=== PATIENT | female | born 1935 | race Caucasian/White ===

== ENCOUNTER → 2018-12-20 | Outpatient (CLI) | payer MEDICARE, BC ==
--- NOTE | 2018-12-20 13:58 | BD ---
EXAMINATION TYPE: Axial Bone Density DATE OF EXAM: 12/20/2018 COMPARISON: NONE CLINICAL HISTORY: 83 YR OLD FEMALE...ICD-10 CODE: M81.0 OSTEOPOROSIS. Postmenopausal female. Height: 62 Weight: 145 FRAX RISK QUESTIONS: Current Tobacco Use: QUIT 40 YRS AGO RISK FACTORS HISTORY OF: Family History of Osteoporosis: UNKNOWN Postmenopausal woman: YES AT AGE 50 Lost more than 2 inches in height since high school: YES Frequent falls: USES CANE ELDERLY MEDICATIONS: Thyroid Medications: YES, SYNTHROID, FOR ABOUT 15 YRS Additional Medications: NOTHING TO NOTE HERE FOR THIS TEST Additional History: NOTHING ADDITIONAL TO NOTE HERE EXAM MEASUREMENTS: Bone mineral densitometry was performed using the [employer]. Bone mineral density as measured about the Lumbar spine is: ----- L1-L4(G/cm2): 1.616 T Score Values are as follows: ----- L1: 1.4 ----- L2: 2.7 ----- L3: 3.9 ----- L4: 5.6 ----- L1-L4: 3.6 Bone mineral density FIRST BONE DENSITY AT [facility] Bone mineral density about the R hip (g/cm2): 1.102 Bone mineral density about the L hip (g/cm2): 1.139 T Score values are as follows: -----R Neck: 0.4 -----L Neck: 0.7 -----R Total: 0.7 -----L Total: 1.0 Bone mineral density FIRST DEXA AT [facility] FRAX%s: THERE IS A 7.6% CHANCE FOR A MAJOR OSTEOPOROTIC FX AND A 1.0% FOR HIP.....PROBABILITY FOR F X IN 10 YRS TIME IMPRESSION: Normal (Values between +1 and -1 indicate normal bone mass). Consider repeating this study in 5 year s or sooner if there is some new clinical indication. NOTE: T-SCORE=SD OF THE YOUNG ADULT MEAN.
== END | disposition home or self-care (01) ==
LOC: RADBDWWP 13:04
PROVIDERS: ATTEND Internal Medicine Geriatric Medicine
DX: M81.0 Age-related osteoporosis without current pathological fracture (principal)
CPT/HCPCS: 77080

== ENCOUNTER 2020-04-10 15:01 | Emergency (ER) | payer MEDICARE, BC ==
--- NOTE | 2020-04-10 15:23 | ED ---
General Adult HPI - General Chief complaint: Abdominal Pain Stated complaint: N/V/D, fever Time Seen by Provider: 04/10/20 15:08 Source: patient, RN notes reviewed, old records reviewed Mode of arrival: wheelchair Limitations: no limitations - History of Present Illness Initial comments: 85-year-old female patient to ED for chief complaint of abdominal pain. Patient reports that for the last about 4 days she has not been feeling well. Reports generalized malaise. She began developing some abdominal pain today epigastric region. Reports that she had 1 episode of nausea and vomiting. Denies any chest pain shortness of breath cough congestion and upper respiratory symptoms.\\ Systemic: Pt denies fatigue, fever/chills, rash. Pt denies weakness, night sweats, weight loss. Neuro: Pt denies headache, visual disturbances, syncope or pre-syncope. HEENT: Pt denies ocular discharge or irritation, otalgia, rhinorrhea, pharyngitis or notable lymphadenopathy. Cardiopulmonary: Pt denies chest pain, SOB, heart palpitations, dyspnea on ex ertion. : Pt denies dysuria, burning w/ urination, frequency/urgency. Denies new onset urinary or bowel incontinence. MSK: Pt denies myalgia, loss of strength or function in extremities. Neuro: Pt denies new onset weakness, paresthesias. - Related Data Home Medications Medication Instructions Recorded Confirmed Aspirin EC [Ecotrin Low Dose] 81 mg PO DAILY 04/10/20 04/10/20 Atorvastatin [Lipitor] 40 mg PO DAILY 04/10/20 04/10/20 Enalapril [Vasotec] 10 mg PO DAILY 04/10/20 04/10/20 Levothyroxine Sodium [Synthroid] 50 mcg PO DAILY 04/10/20 04/10/20 Memantine [Namenda] 5 mg PO DAILY 04/10/20 04/10/20 Rivastigmine Tartrate [Exelon] 3 mg PO BID 04/10/20 04/10/20 Previous Rx's Medication Instructions Recorded Cephalexin [Keflex] 500 mg PO Q6HR 10 Days #40 cap 04/10/20 Allergies Allergy/AdvReac Type Severity Reaction Status Date / Time No Known Allergies Allergy Verified 04/10/20 16:47 Review of Systems ROS Statement: Those systems with pertinent positive or pertinent negative responses have been documented in the HPI. ROS Other: All systems not noted in ROS Statement are negative. Past Medical History Additional Past Medical History / Comment(s): heart murmur History of Any Multi-Drug Resistant Organisms: None Reported Past Surgical History: Cholecystectomy Past Psychological History: No Psychological Hx Reported Smoking Status: Never smoker Past Alcohol Use History: None Reported Past Drug Use History: None Reported General Exam - General Exam Comments Initial Comments: Constitutional: NAD, AOX3, Pt has pleasant affect. HEENT: NC/AT, trachea midline, neck supple, no lymphadenopathy. External ears appear normal, without discharge. Mucous membranes moist. Eyes PERRLA, EOM intact. There is no scleral icterus. No pallor noted. Cardiopulmonary: RRR, no murmurs, rubs or gallops, no JVD noted. Lungs CTAB in anterior and posterior soares. No peripheral edema. Abdominal exam: Abdomen soft and non-distended. Abdomen mildly tender to palpation in epigastric region. Bowel sounds active in LLQ. No hepatosplenomeg frandy. No ecchymosis Neuro: CN II-XII grossly intact. No nuchal rigidity. No raccon eyes, no boswell sign, no hemotympanum. No cervical spinal tenderness. MSK: No posterior calf tenderness bilaterally, homans sign negative bilaterally. Posterior tibialis and radial pulse +2 bilaterally. Sensation intact in upper and lower extremities. Full active ROM in upper and lower extremities, 5/5 stregnth. Limitations: no limitations Course Vital Signs 04/10/20 04/10/20 15:04 17:02 Temperature 98.3 F Pulse Rate 56 L 79 Respiratory 20 18 Rate Blood Pressure 165/73 129/94 O2 Sat by Pulse 100 99 Oximetry Medical Decision Making - Medical Decision Making 85-year-old female patient in CDU for evaluation. Patient reports that last couple days she has been feeling some generalized malaise. Patient reports that she developed some abdominal pain today and did have episode of nausea and vomiting. Patient physical examination displayed some mild epigastric t enderness. This discomfort resolved without any intervention. Patient is currently pain free in the emergency department. Repeat abdominal exam is reveal soft nontender abdomen. Laboratory investigations were obtained. This is significant for urinary tract infection. Patient does have some mildly decreased kidney function. Shared decision making a CT abdomen and pelvis was performed without contrast. this did not display any acute process. Patient was administered a fluid bolus. Patient again reiterates that she is asymptomatic at this time. Feeling much improved. Patient be treated with Keflex for urinary tract infection and will return to ER if any worsening symptoms. Case discussed with Dr. Tanner. - Lab Data Result diagrams: 04/10/20 15:48 04/10/20 15:48 Lab Results 04/10/20 04/10/20 04/10/20 Range/Units 15:48 15:48 15:48 WBC 8.5 (3.8-10.6) k/uL RBC 4.37 (3.80-5.40) m/uL Hgb 14.0 (11.4-16.0) gm/dL Hct 42.3 (34.0-46.0) % MCV 96.8 (80.0-100.0) fL MCH 32.0 (25.0-35.0) pg MCHC 33.1 (31.0-37.0) g/dL RDW 13.4 (11.5-15.5) % Plt Count 217 (150-450) k/uL Neutrophils % 88 % Lymphocytes % 5 % Monocytes % 6 % Eosinophils % 1 % Basophils % 0 % Neutrophils # 7.4 (1.3-7.7) k/uL Lymphocytes # 0.4 L (1.0-4.8) k/uL Monocytes # 0.5 (0-1.0) k/uL Eosinophils # 0.0 (0-0.7) k/uL Basophils # 0.0 (0-0.2) k/uL Sodium 137 (137-145) mmol/L Potassium 4.5 (3.5-5.1) mmol/L Chloride 107 (98-107) mmol/L Carbon Dioxide 23 (22-30) mmol/L Anion Gap 7 mmol/L BUN 16 (7-17) mg/dL Creatinine 1.14 H (0.52-1.04) mg/dL Est GFR (CKD-EPI)AfAm 51 (>60 ml/min/1.73 sqM) Est GFR (CKD-EPI)NonAf 44 (>60 ml/min/1.73 sqM) Glucose 162 H (74-99) mg/dL Plasma Lactic Acid Bishop (0.7-2.0) mmol/L Calcium 10.3 H (8.4-10.2) mg/dL Total Bilirubin 1.1 (0.2-1.3) mg/dL AST 36 (14-36) U/L ALT 21 (4-34) U/L Alkaline Phosphatase 107 (38-126) U/L Troponin I (0.000-0.034) ng/mL Total Protein 7.4 (6.3-8.2) g/dL Albumin 4.1 (3.5-5.0) g/dL Lipase 307 H (23-300) U/L Urine Color Yellow Urine Appearance Cloudy H (Clear) Urine pH 5.5 (5.0-8.0) Ur Specific [place] 1.022 (1.001-1.035) Urine Protein 2+ H (Negative) Urine Glucose (UA) Negative (Negative) Urine Ketones Negative (Negative) Urine Blood Trace H (Negative) Urine Nitrite Negative (Negative) Urine Bilirubin Negative (Negative) Urine Urobilinogen <2.0 (<2.0) mg/dL Ur Leukocyte Esterase Large H (Negative) Urine RBC 10 H (0-5) /hpf Urine WBC 85 H (0-5) /hpf Urine WBC Clumps Occasional H (None) /hpf Ur Squamous Epith Cells 3 (0-4) /hpf Urine Bacteria Many H (None) /hpf Hyaline Casts 36 H (0-2) /lpf Urine Mucus Occasional H (None) /hpf Urine Yeast (Budding) Rare H (None) /hpf 04/10/20 04/10/20 Range/Units 15:48 15:48 WBC (3.8-10.6) k/uL RBC (3.80-5.40) m/uL Hgb (11.4-16.0) gm/dL Hct (34.0-46.0) % MCV (80.0-100.0) fL MCH (25.0-35.0) pg MCHC (31.0-37.0) g/dL RDW (11.5-15.5) % Plt Count (150-450) k/uL Neutrophils % % Lymphocytes % % Monocytes % % Eosinophils % % Basophils % % Neutrophils # (1.3-7.7) k/uL Lymphocytes # (1.0-4.8) k/uL Monocytes # (0-1.0) k/uL Eosinophils # (0-0.7) k/uL Basophils # (0-0.2) k/uL Sodium (137-145) mmol/L Potassium (3.5-5.1) mmol/L Chloride (98-107) mmol/L Carbon Dioxide (22-30) mmol/L Anion Gap mmol/L BUN (7-17) mg/dL Creatinine (0.52-1.04) mg/dL Est GFR (CKD-EPI)AfAm (>60 ml/min/1.73 sqM) Est GFR (CKD-EPI)NonAf (>60 ml/min/1.73 sqM) Glucose (74-99) mg/dL Plasma Lactic Acid Bishop 1.5 (0.7-2.0) mmol/L Calcium (8.4-10.2) mg/dL Total Bilirubin (0.2-1.3) mg/dL AST (14-36) U/L ALT (4-34) U/L Alkaline Phosphatase (38-126) U/L Troponin I <0.012 (0.000-0.034) ng/mL Total Protein (6.3-8.2) g/dL Albumin (3.5-5.0) g/dL Lipase (23-300) U/L Urine Color Urine Appearance (Clear) Urine pH (5.0-8.0) Ur Specific [place] (1.001-1.035) Urine Protein (Negative) Urine Glucose (UA) (Negative) Urine Ketones (Negative) Urine Blood (Negative) Urine Nitrite (Negative) Urine Bilirubin (Negative) Urine Urobilinogen (<2.0) mg/dL Ur Leukocyte Esterase (Negative) Urine RBC (0-5) /hpf Urine WBC (0-5) /hpf Urine WBC Clumps (None) /hpf Ur Squamous Epith Cells (0-4) /hpf Urine Bacteria (None) /hpf Hyaline Casts (0-2) /lpf Urine Mucus (None) /hpf Urine Yeast (Budding) (None) /hpf Disposition Clinical Impression: UTI (urinary tract infection), Decreased renal function Disposition: HOME SELF-CARE Condition: Stable Instructions (If sedation given, give patient instructions): Urinary Tract Infection in Women (ED), Impaired Kidney Function (ED) Additional Instructions: Take antibiotics as directed. Follow-up with primary care provider tomorrow. Drink lots of fluids. Have kidney function tests rechecked. Return to ER if any worsening symptoms. Prescriptions: Cephalexin [Keflex] 500 mg PO Q6HR 10 Days #40 cap Is patient prescribed a controlled substance at d/c from ED?: No Referrals: Kvng Shah MD [Primary Care Provider] - 1-2 days
[2020-04-10] MEDS ORDERED: ONDANSETRON 4 MG/2 ML VIAL IVP STA (15:43)
[2020-04-10 16:06] LABS: Basophils % (A) 0 %; Eosinophils % (A) 1 %; HCT 42.3 % (34.0-46.0); Lymphocytes # (A) 0.4 k/uL (1.0-4.8); Lymphocytes % (A) 5 %; MCHC 33.1 g/dL (31.0-37.0); MCV 96.8 fL (80.0-100.0); Mean Platelet Volume 7.3; Monocytes # (A) 0.5 k/uL (0-1.0); Monocytes % (A) 6 %; Neutrophils # (A) 7.4 k/uL (1.3-7.7); Neutrophils % (A) 88 %; Platelet Count 217 k/uL (150-450); RBC 4.37 m/uL (3.80-5.40); RDW 13.4 % (11.5-15.5); WBC 8.5 k/uL (3.8-10.6)
[2020-04-10 16:17] LABS: Appearance,Urine Cloudy (Clear); Bacteria,Urine Many /hpf; Bilirubin,Urine Negative (Negative); Blood,Urine Trace (Negative); Budding Yeast,Urine Rare /hpf; Color,Urine Yellow; Glucose,Urine (UA) Negative (Negative); Hyaline Casts,Urine 36 /lpf (0-2); Ketones,Urine Negative (Negative); Leukocyte Esterase,Urine Large (Negative); Mucus,Urine Occasional /hpf; Nitrite,Urine Negative (Negative); PH, Urine 5.5 (5.0-8.0); Protein,Urine 2+ (Negative); RBC,Urine 10 /hpf (0-5); Specific Gravity,Urine 1.022 (1.001-1.035); Squamous Epithelial Cell,Urine 3 /hpf (0-4); Urobilinogen,Urine <2.0 mg/dL (<2.0); WBC,Urine 85 /hpf (0-5)
[2020-04-10 16:18] LABS: Albumin 4.1 g/dL (3.5-5.0); Calcium 10.3 mg/dL (8.4-10.2); Potassium 4.5 mmol/L (3.5-5.1); Total Bilirubin 1.1 mg/dL (0.2-1.3); Total Protein 7.4 g/dL (6.3-8.2)
[2020-04-10 17:03] VITALS: RESP 18
[2020-04-10] MEDS ORDERED: SODIUM CHLORIDE 0.9% 500 ML 500 ML IV ONE (17:04)
--- NOTE | 2020-04-10 17:14 | CT ---
EXAMINATION TYPE: CT abdomen pelvis wo con DATE OF EXAM: 04/10/2020 COMPARISON: None HISTORY: nausea, fever CT DLP: 491.9 mGycm Automated exposure control for dose reduction was used. TECHNIQUE: Helical acquisition of images from the lung bases through the pelvis. FINDINGS: Lack of intravenous contrast could compromise sensitivity. The heart is enlarged. There are coronary artery calcifications. Hiatal hernia is noted incidentally. LUNG BASES: No significant abnormality is appreciated. AORTA: No significant abnormality is appreciated. LIVER/GB: Gallbladder is absent. No evident liver mass. PANCREAS: No significant abnormality is seen. SPLEEN: No significant abnormality is seen. ADRENALS: No significant abnormality is seen. KIDNEYS: Punctate nonobstructive renal calculus present at the upper pole of the right kidney. REPRODUCTIVE ORGANS: Not seen URINARY BLADDER: No significant abnormality is seen. BOWEL: Extensive diverticular changes noted within the colon. Duodenal diverticulum present at the h ead of the pancreas. Probable lipoma present within the proximal transverse colon, fatty mass is pres ent within the lumen FREE AIR: No Free Air is visible. ASCITES: Small amount of free fluid present within the pelvis. PELVIC ADENOPATHY: None visualized. RETROPERITONEAL ADENOPATHY: No Retroperitoneal Adenopathy visible. OSSEOUS STRUCTURES: Anterolisthesis grade 1 L4-5, there is degenerative disc disease, vacuum phenome non present at the intervertebral levels, multilevel facet arthropathy in the lumbar spine. IMPRESSION: MINIMAL FLUID WITHIN THE PELVIS. EXTENSIVE DIVERTICULOSIS. CARDIOMEGALY AND CORONARY ARTERY DISEASE, NONCONTRAST EXAM, NONOBSTRUCTIVE RIGHT RENAL CALCULUS, POSTOP CHANGES.
[2020-04-10 18:05] VITALS: BP 129/85; PULSE 75; TEMP 97.5
== END 2020-04-10 18:05 | disposition home or self-care (01) ==
LOC: EC 15:01
DX: N39.0 Urinary tract infection, site not specified (principal); N28.89 Other specified disorders of kidney and ureter; I51.7 Cardiomegaly; Z79.899 Other long term (current) drug therapy; Z79.890 Hormone replacement therapy; Z79.82 Long term (current) use of aspirin; Z90.49 Acquired absence of other specified parts of digestive tract
CPT/HCPCS: 36415; 93005; 80053; 83605; 83690; 84484; 85025; 81001; 87086; 87077; 87186; 74176; 99285; 96365; 96361; J0696

== ENCOUNTER → 2021-01-09 | Outpatient (CLI) | payer MEDICARE, BC ==
--- NOTE | 2021-01-09 09:26 | CT ---
EXAMINATION TYPE: CT lumbar spine wo con DATE OF EXAM: 01/09/2021 COMPARISON: None HISTORY: 85-year-old female M54.5 Low back pain TECHNIQUE: Contiguous axial scanning of the lumbar spine without IV contrast. Coronal and sagittal re constructions performed. CT DLP: 531.1 mGycm Automated exposure control for dose reduction was used. FINDINGS: Right atrial and right ventricular AICD leads. Strandy atelectasis or scarring in the lower lungs. Ti ny hiatal hernia. 3 mm nonobstructive right renal calculus. 1.6 cm diverticulum of the third portion of the duodenum projecting superiorly into the pancreatic head region. Sigmoid diverticulosis. Vertebral body heights are preserved. There is advanced hypertrophic facet arthropathy mid to lower lumbar spine along with Baastrup's dise ase. Grade 2 anterolisthesis L4-L5. Moderate to advanced disc/endplate degenerative change throughout the mid and lower lumbar spine. Multiple levels of disc bulges and ligamentum flavum thickening. This results in mild canal narrowing L1-L2 and L2-L3. More moderate spinal canal stenosis L3-L4 and L4-L5. On the left, changes result in moderate to severe neuroforaminal stenosis at L5-S1; moderate at L4-L5 and L1-L2; and mild at additional levels. On the right, changes result in moderate to severe neuroforaminal narrowing at L5-S1, moderate at L4- L5, and mild to moderate at additional levels. IMPRESSION: 1. MODERATE TO ADVANCED DISC/ENDPLATE DEGENERATIVE CHANGE THROUGHOUT ALONG WITH ADVANCED HYPERTROPHIC FACET ARTHROPATHY, BAASTRUP'S DISEASE, LIGAMENTUM FLAVUM THICKENING, AND A DEGENERATIVE GRADE 2 ANTE ROLISTHESIS AT L4-L5. 2. CHANGES RESULT IN MODERATE SPINAL CANAL STENOSIS AT L3-L4 AND L4-L5, MILD AT L1-L2 AND L2-L3. 3. VARIABLE NEUROFORAMINAL STENOSES OUTLINED ABOVE.
== END | disposition home or self-care (01) ==
LOC: RADCTMAIN 06:54
PROVIDERS: ATTEND Physical Medicine & Rehabilitation
DX: M48.061 Spinal stenosis, lumbar region without neurogenic claudication (principal); M47.816 Spondylosis without myelopathy or radiculopathy, lumbar region; M43.16 Spondylolisthesis, lumbar region
CPT/HCPCS: 72131

== ENCOUNTER → 2021-01-29 | Outpatient (CLI) | payer MEDICARE, BC ==
--- NOTE | 2021-01-29 08:22 | P.CONS ---
History of Present Illness - Reason for Consult Consult date: 01/29/21 - Chief Complaint Lower back pain - History of Present Illness This is a 85-year-old lady with history of chronic lower back pain with no radiation to the lower extremities. The patient also denies any paresthesia in the lower extremities. She denies any bowel or bladder dysfunction. The pain does not wake the patient up at night. She denies any weight loss recently. The patient used to get injections by Dr. Luciano which haven't helped her pain significantly. Right now she takes Eliquis for history of A. fib and pacemaker placement. The pain gets worse by physical activity and improves by sitting down. Past Medical History Past Medical History: Atrial Fibrillation, Heart Failure, Hyperlipidemia, Hypertension, Memory Impairment, Musculoskeletal Disorder, Renal Disease Additional Past Medical History / Comment(s): heart murmur, CKD-sees specialist, low back pain History of Any Multi-Drug Resistant Organisms: None Reported Past Surgical History: AICD, Cholecystectomy, Heart Catheterization, Hysterectomy Additional Past Surgical History / Comment(s): pain procedures, cardioversion, cardiac on Wednesday @[place] Past Anesthesia/Blood Transfusion Reactions: No Reported Reaction Type of Cardiac Device: AICD Device Placement Date:: September 2020 [employer] Past Psychological History: No Psychological Hx Reported Smoking Status: Former smoker Past Alcohol Use History: Daily Additional Past Alcohol Use History / Comment(s): used to drink daily-hasn't since , quit smoking 40 yrs. ago, smoked for 30 years, >ppd Past Drug Use History: None Reported Medications and Allergies Home Medications Medication Instructions Recorded Confirmed Type Atorvastatin [Lipitor] 20 mg PO DAILY 04/10/20 01/23/21 History Levothyroxine Sodium [Synthroid] 25 mcg PO DAILY 04/10/20 01/23/21 History Amiodarone [Cordarone] 200 mg PO DAILY 01/23/21 01/23/21 History Apixaban [Eliquis] 5 mg PO BID 01/23/21 01/23/21 History Cyanocobalamin [Vitamin B-12] 500 mcg PO DAILY 01/23/21 01/23/21 History Multivitamins, Thera [Multivitamin 1 tab PO DAILY 01/23/21 01/23/21 History (formulary)] Sacubitril/Valsartan [Entresto 49 0.5 tab PO BID 01/23/21 01/23/21 History mg-51 mg Tablet] Thiamine [Vitamin B-1] 50 mg PO DAILY 01/23/21 01/23/21 History Allergies Allergy/AdvReac Type Severity Reaction Status Date / Time lorazepam [From Ativan] AdvReac Hallucinati Verified 01/23/21 15:30 ons metoprolol AdvReac Hallucinati Verified 01/23/21 15:30 ons oxybutynin AdvReac Hallucinati Verified 01/23/21 15:30 ons Physical Exam - EENT Eyes: PERRLA - Neurologic Neuro exam of the lower extremities showed decreased but symmetrical muscle strength for knee flexion and extension and ankle flexion and extension to 4 out of 5 bilaterally. Straight leg raising test negative bilaterally Positive tenderness in the lumbar paravertebral musculature bilaterally Positive lumbar facet loading test. Neurologic: CNII-XII intact - Psychiatric Psychiatric: A&O x's 3, appropriate affect, intact judgment & insight Results Results: Results of the computed tomography scan of the lumbar spine was reviewed with the patient and showed degenerative disc disease, facet arthropathy, neural foraminal stenosis, moderate central canal stenosis at multiple levels. Assessment and Plan Plan: This is an 85-year-old lady with axial lower back pain and treatment with anticoagulants for history of A. fib and placement of the pacemaker. The patient also has lumbar DDD, lumbar neural foraminal stenosis and central canal stenosis at multiple levels especially L4 5 and L5-S1. The patient may benefit from a repeat of lumbar medial branch RFA for levels L4 5 and L5-S1 bilaterally under fluoroscopic guidance since she had good results after previous similar procedures. The patient will check with her supervisor refining about the safety of holding Eliquis for 3 days before the procedure. She might also need to have changes in the pacemaker programming in preparation for the radio frequency ablation on the lumbar spine. I thank you for the referral
[2021-01-29 08:37] VITALS: BP 156/74; PULSE 66; RESP 18; TEMP 98.2
== END | disposition home or self-care (01) ==
LOC: PNWHC3 07:43
PROVIDERS: ATTEND Anesthesiology
DX: M48.061 Spinal stenosis, lumbar region without neurogenic claudication (principal); I48.91 Unspecified atrial fibrillation; M51.36 Other intervertebral disc degeneration, lumbar region; M51.26 Other intervertebral disc displacement, lumbar region; M54.16 Radiculopathy, lumbar region
CPT/HCPCS: 99211

== ENCOUNTER 2021-03-14 08:30 | Day surgery (SDC) | payer MEDICARE, BC ==
[2021-03-11 11:29] VITALS: BMI 27.4
[~2021-03-14 08:30] MED LIST: LACTATED RINGERS 1,000 ML IV SCH
[2021-03-14 08:58] VITALS: TEMP 96.6
[2021-03-14] MEDS ORDERED: methylPREDNISolone ACETATE 40 MG/ML 1 ML VIAL ONE (09:22)
[2021-03-14] MEDS ORDERED: MIDAZOLAM 2 MG/2 ML VIAL ONE (09:22)
[2021-03-14] MEDS ORDERED: ROPIVACAINE 5MG/ML 20ML VIAL ONE (09:22)
[2021-03-14] MEDS ORDERED: fentaNYL (PF) 50 MCG/ML 2 ML AMP ONE (09:22)
--- NOTE | 2021-03-14 09:46 | P.PCN ---
Date of Procedure: 03/14/21 Procedure(s) Performed: PREOPERATIVE DIAGNOSIS: 1-Lumbar Spondylosis with Facet Arthropathy without myelopathy. 2- Lumber degenerative disc disease. POSTOPERATIVE DIAGNOSIS: 1- Lumbar Spondylosis with Facet Arthropathy without myelopathy. 2- Lumber degenerative disc disease. PROCEDURES : Bilateral Radiofrequency thermocoagulation, L3 , L4 , and L5 medial branch, with fluoroscopic guidance (fluoroscopy images available in the radiology department) ( to denervate the facet joint at L4-5 ,and L5-S1 levels ). ANESTHESIA: Monitored anesthesia care, as per anesthesia department . EBL: Minimal PROCEDURE INDICATION: The patient with low back pain secondary to lumbar facet arthropathy who had more than 50% relief of her pain with previous diagnostic lumbar medial branch block with bupivacaine. PROCEDURE DESCRIPTION / TECHNIQUE: The patient was seen and identified in the preoperative area. Risks, benefits, complications, including but not limited to risk of infection ,bleeding , allergic reactions to the medications and no complete pain releife , and alternatives were discussed with the patient, the patient agreed to proceed with the procedure and signed the consent. IV was started. Vital signs remained stable throughout the procedure. Patient was taken to the OR and time out was completed. The patient was placed in the prone position on the procedure table. The lumber area was prepped and draped in the usual sterile fashion. . Vital signs were closely monitored during the procedure .IV sedation was used during the procedure to decrease patients anxiety. Using AP and then oblique fluoroscopy, the ``eye of the Siva dog corresponding to the connection between the superior and transverse articular processes of right L3, L4, and L5 were identified, marked, and localized with 1% lidocaine. Subsequently, a 18 rhaum476-ad radiofrequency cannula with a 10- mm active tip was advanced guided by fluoroscopy to each of the``eyes of the Siva dog at right L3, L4, and L5. Each site then underwent sensory testing at 50 Hz and 0 to 1 volt and motor testing at 2.5 Hz and 0 to 3 volt with local stimulation, but no radicular symptoms down the legs. Thereafter each sites underwent radiofrequency thermocoagulation at 80 degrees celsius for 90 seconds after injecting 0.5 ml of PF Ropivacaine 1ml, then after the thermocoagulation done , 1 ml of the block solution containing Depo-Medrol 20 mg and 3 ml of Ropivacaine 0.5% was injected at the right L3 , L4 , and L5 , levels after negative aspiration of CSF and blood and with no paresthesias. Cannulas were retracted while injecting lidocaine 1% until the needle is out. The same procedure was repeated at the level of Left L3, L4, and L5 levels. At the end of the procedure, the skin was cleansed and bandages were applied. COMPLICATIONS: No acute complications. DISPOSITION / PLANS: The patient was placed in a supine position and transferred to the recovery area in a stable condition for observation and was discharged from the recovery room after meeting discharge criteria. Home discharge instructions given to the patient by the staff. The patient was reexamined prior to discharge. The patient will schedule a follow up in the clinic in 2-4 weeks. Note =Keren last does was 3 days ago.
[2021-03-14] MEDS ORDERED: IV FLUID CONTINUATION 800 ML IV ONE (09:49)
[2021-03-14 09:51] VITALS: RESP 16
--- NOTE | 2021-03-14 10:03 | FL ---
EXAMINATION TYPE: FL guided pain mgmt statistic DATE OF EXAM: 03/14/2021 HISTORY: Fluoroscopy time 13 seconds of fluoroscopy provided. IMPRESSION: 1. Fluoroscopy time.
[2021-03-14 10:07] VITALS: BP 146/67; PULSE 71
== END 2021-03-14 10:33 | disposition home or self-care (01) ==
LOC: ORPAIN 08:30
PROVIDERS: ATTEND Specialist
DX: M47.816 Spondylosis without myelopathy or radiculopathy, lumbar region (principal)
CPT/HCPCS: 64635; 64636; J2250; J1030; J3010; J2795

== ENCOUNTER → 2021-04-14 | Outpatient (CLI) | payer MEDICARE, BC ==
[2021-04-14 12:50] VITALS: BP 119/68; PULSE 67; RESP 18
--- NOTE | 2021-04-14 13:35 | P.PN ---
Subjective Progress Note Date: 04/14/21 This is a follow-up visit for 86 years old female with a chronic history of severe low back pain, and they closed with lumbar spinal stenosis lumbar degenerative disc disease and lumbar spondylosis with lumbar facet arthropathy, recently we have done RFA of the medial branch lumbar area, patient reported t hat her low back pain improved, currently she is complaining of severe localized pain in the low back area localized above the buttock , not radiated to the left lower extremity, she denies any fever or night sweats she denies any change in the bowel movement or urination Objective - Vital Signs Vital signs: Vital Signs Temp Pulse 67 04/14/21 12:44 Resp 18 04/14/21 12:44 BP 119/68 04/14/21 12:44 Pulse Ox 96 04/14/21 12:44 - Exam Physical Examinations : -Constitutiona : Cooperative , not in acute distress . -HEENT : nech : supple , no Lymphadenopathy , normal thyroid size . : eyes : no ptosis , no icterus, no photophobia . - neurologic : Cranial nerve II to XII intact , no focal neurological deffecit . -psychatric : alert , oriented X 3 , appropriate affect , intact judgment and insight . -Lymphatic : no Lymphadenopathy . - musculoskeltal : Lumber spine moter stegnth lower extremities ,thigh and legs 4-5/5 Right side , 4-5/5 Left side deep tendon reflexes : normal Knee Jerk , normal ankle Jerk lumber facet Loading Test = negative bilaterally Range of motion of the lumbar spine Flexion 30 degrees, extension 10 degrees strait leg raising test = negative bilaterally Fabere test= negative bilaterally Sever tenderness over the iliolumbar ligament bilaterally . Assessment and Plan Plan: Assessment and plan=1-lumbar spinal stenosis 2-lumbar degenerative disc disease. 3-lumbar spondylosis with lumbar facet arthropathy. 4-iliolumbar ligament neuralgia. Patient could benefit from iliolumbar ligament steroid injection under fluoroscopy guidance. She could benefit from Voltaren gel to be applied to the painful area twice daily. - PQRS measures = - Patient's medications are documented in the chart. -Tobacco use is negative and counseling.Given. -Patient's has not received pneumococcal vaccine. -Advanced care planning discussed, patient not eligible. -Opiate contract not signed. -Pain positive and follow-up visit/procedure is scheduled. -Patient's blood pressure measured [ 119/68 ] , and documented in the record ,and patient will follow up with the primary care. -Patient's weight was measured and body mass index [26 ] above the normal limits and counseling was done. and patient instructed to follow-up with the primary care physician. -Patient was not identified as an unhealthy alcohol user Time with Patient: Less than 30
== END ==
LOC: PNWHC3 12:14
PROVIDERS: ATTEND Specialist
DX: M48.061 Spinal stenosis, lumbar region without neurogenic claudication (principal); M51.36 Other intervertebral disc degeneration, lumbar region; M47.816 Spondylosis without myelopathy or radiculopathy, lumbar region; G58.8 Other specified mononeuropathies; Z88.8 Allergy status to other drugs, medicaments and biological substances
CPT/HCPCS: 99211

== ENCOUNTER → 2021-05-22 | Day surgery (SDC) | payer MEDICARE, BC ==
[2021-05-21 10:36] VITALS: BMI 28.3
[~2021-05-22] MED LIST changes: +.fentaNYL (PF) 50 MCG/ML AMP ONE; +IOPAMIDOL M200 10 ML VIAL ONE; +IV FLUID CONTINUATION 1,000 ML IV ONE; +MIDAZOLAM 2 MG/2 ML VIAL ONE; +ROPIVACAINE 5MG/ML 20ML VIAL ONE; +methylPREDNISolone ACETATE 40 MG/ML 1 ML VIAL ONE
[2021-05-22 08:17] VITALS: TEMP 96.6
--- NOTE | 2021-05-22 09:33 | P.PCN ---
Date of Procedure: 05/22/21 Procedure(s) Performed: Procedure(s) Performed: Procedure= bilateral iliolumbar ligament steroid injection under fluoroscopy guidance (fluoroscopy image stored on file in the radiology Department ) Preoperative diagnosis= 1-bilateral iliolumbar ligament and neuralgia 2-lumbar degenerative disc disease 3-lumbar facet arthropathy Postoperative diagnosis=Same as preop Diagnosis . Complication = none Condition= stable Anesthesia= moderate sedation with intravenous Versed 1 mg , and fentanyl 50 micrograms . Indication for the procedure= patient complaining of low back pain , examination was positive for severe tenderness over the iliolumbar ligament area bilaterally and patient diagnosed with bilateral iliolumbar ligaments neuralgia, for this reason , she was good candidate for sacroiliac joint steroid injection. Description of the procedure= procedure risk and benefits discussed with the patient, including but not limited, risk of infection and bleeding, and ALLERGIC reaction to the medication and not complete pain relief and patient agreed with the preceding patient taken to the operating room, placed in prone position or standard monitors applied to the patient then after induction of anesthesia back prepped with chlorhexidine 3 times , Then under strict sterile technique, first I did the right lumbar ligament, after local infiltration of the skin and subcu interstitial with ropivacaine 0.5% 2 mL, then 22-gauge Quincke Needle advanced slowly under fluoroscopy and placed in the middle of the distance between the transverse process of L5, and the sacral nicole, after needle placement confirmed under fluoroscopy and after negative aspiration for heme and CSF, lidocaine 0.5% 4 mL mixed with 20 mg of Depo-Medrol injected after negative aspiration, and then the exact same procedure was repeated for the left side and I did the left side iliolumbar ligament steroid injection
[2021-05-22 09:40] VITALS: RESP 14
[2021-05-22 09:54] VITALS: BP 159/75; PULSE 56
--- NOTE | 2021-05-23 12:38 | FL ---
Fluoroscopy HISTORY: Pain 3 seconds fluoroscopy time supplied to the referring clinician. 2 intraoperative C-arm images docume nt the procedure. See dictated report from anesthesia.
== END ==
LOC: ORPAIN 07:50
PROVIDERS: ATTEND Specialist
DX: G58.8 Other specified mononeuropathies (principal); M51.36 Other intervertebral disc degeneration, lumbar region; M47.816 Spondylosis without myelopathy or radiculopathy, lumbar region; Z79.01 Long term (current) use of anticoagulants; Z88.8 Allergy status to other drugs, medicaments and biological substances
CPT/HCPCS: 20550; 77002; J2250; J1030; J3010; J2795; 99152

== ENCOUNTER → 2021-06-09 | Outpatient (CLI) | payer MEDICARE, BC ==
[2021-06-09 12:37] VITALS: BP 172/89; PULSE 73; RESP 18; TEMP 97.7
--- NOTE | 2021-06-09 12:45 | P.PN ---
Subjective Progress Note Date: 06/09/21 This is a follow-up visit for 86 years old female with a chronic history of severe low back pain, and they closed with lumbar spinal stenosis lumbar degenerative disc disease and lumbar spondylosis with lumbar facet arthropathy, recently we have done bilateral upper iliolumbar ligament steroid injection and this helped her low back pain significantly , and previously we have done RFA of the medial branch lumbar area, , she denies any fever or night sweats she denies any change in the bowel movement or urination, he shouldn't currently using Lidoderm patch 5% which help her low back pain - Exam Physical Examinations : -Constitutiona : Cooperative , not in acute distress . -HEENT : nech : supple , no Lymphadenopathy , normal thyroid size . : eyes : no ptosis , no icterus, no photophobia . - neurologic : Cranial nerve II to XII intact , no focal neurological deffecit . -psychatric : alert , oriented X 3 , appropriate affect , intact judgment and insight . -Lymphatic : no Lymphadenopathy . - musculoskeltal : Lumber spine moter stegnth lower extremities ,thigh and legs 4-5/5 Right side , 4-5/5 Left side Assessment and plan=1-lumbar spinal stenosis 2-lumbar degenerative disc disease. 3-lumbar spondylosis with lumbar facet arthropathy. 4-iliolumbar ligament neuralgia. pain Improved after RFA medial branch lumbar area and after bilateral iliolumbar ligament steroid injection she is Moving to [place] in 2 days and she will follow up with the clinic when necessary - PQRS measures = - Patient's medications are documented in the chart. -Tobacco use is negative and counseling.Given. -Patient's has not received pneumococcal vaccine. -Advanced care planning discussed, patient not eligible. -Opiate contract not signed. -Pain positive and follow-up visit/procedure is scheduled. -Patient's blood pressure measured [ 172/89 ] , and documented in the record ,and patient will follow up with the primary care. -Patient's weight was measured and body mass index [26 ] above the normal limits and counseling was done. and patient instructed to follow-up with the primary care physician. -Patient was not identified as an unhealthy alcohol user Objective - Vital Signs Vital signs: Vital Signs Temp 97.7 F 06/09/21 12:31 Pulse 73 06/09/21 12:31 Resp 18 06/09/21 12:31 BP 172/89 06/09/21 12:31 Pulse Ox Intake & Output 06/08/21 06/09/21 06/09/21 18:59 06:59 18:59 Weight 72.575 kg
== END ==
LOC: PNWHC3 12:12
PROVIDERS: ATTEND Specialist
DX: M48.061 Spinal stenosis, lumbar region without neurogenic claudication (principal); M51.36 Other intervertebral disc degeneration, lumbar region; M47.816 Spondylosis without myelopathy or radiculopathy, lumbar region; G58.8 Other specified mononeuropathies; Z88.8 Allergy status to other drugs, medicaments and biological substances
CPT/HCPCS: 99211

== ENCOUNTER → 2021-12-15 | Outpatient (CLI) | payer MEDICARE, BC ==
--- NOTE | 2021-12-15 07:52 | P.PAINPG ---
PQRS Measure Charge Sheet Comment: A 86 yr old female with son at side with a history of severe and chronic low back pain secondary to lumbar degenerative disc diseases and lumbar spondylosis with facet arthropathy presents today for evaluation status post BL iliolumbar ligament injection. She states she experienced 50% pain relief status post procedure. Pain level is relieved at 6 out of 10 in intensity, constant, achy in the lower aspect of her lumbar spine with stretches like a band left and right of midline. Denies radiation of pain. Pain is provoked with standing and walking for periods of 15 minutes or more. Pain is relieved with medications (Tylenol OTC), lidocaine patches, sitting and reclining. Interventional pain procedures completed include BL RFA L3-L5, BL iliolumbar ligament 1 Patient is currently on Tylenol OTC Patient denies any side effects of the medication(s), denies excessive drowsiness or sleepiness, denies suicidal ideation and reports that the current pain medication is helping to control the pain and improve activities of daily living. Patient denies any motor or sensory deficits. Patient denies any fever or night sweats, denies any change in the bowel movements or urination. Physical Examination: -Constitutional: Cooperative. Not in acute distress . -HEENT: Neck is supple. No lymphadenopathy. No thyromegaly. Normal thyroid size. Eyes: No ptosis , no icterus, no photophobia. ENT: No auditory deficits. Normal oropharynx. No Thrush. - Respiratory: Chest clear to auscultations bilaterally. No wheezing. No rhonchi. - Cardiovascular: Regular rate and rhythm. S1 / S2 , no S3 , no S4. - Gastrointestinal: Abdomen soft no tenderness. Bowel sounds positive in all four quadrants. No organomegaly. - Genitourinary: Deferred. - Neurologic: Cranial nerve II to XII intact. No focal neurological deficits. - Psychatric: Alert & oriented x 3. Matching mood & appropriate affect. Judgment and insight intact. - Lymphatic: No Lymphadenopathy. - Musculoskeletal: Cervical spine: Muscle bulk/ tone/ strength in the bilateral upper extremities normal Vertebral body tenderness to palpation over Facet loading test positive Thoracic spine Muscle bulk / tone/ strength in the bilateral paraspinal muscles normal Vertebral body tender to palpation over Facet loading test positive Lumbar spine: Motor bulk/ tone/ strength lower extremities , thigh and legs : 5/5 Deep tendon reflexes : Normal Knee Jerk. Normal Ankle Jerk . Vertebral body tenderness to palpation over L5 Lumbar Facet Loading Test positive Straight Leg Raise: positive at 30 degrees right side/ left side Gaenslen's Test positive Sacral spine : Severe tenderness over the Sacroiliac joint: right side / left side Range of motion: Flexion of the lumbar spine <60 degrees Range of motion: Extension of the lumbar spine <20 degrees Gaenslen's Test positive Lawrence's Test positive Tavo test: positive right side / left side Thigh Thrust Test Sacral Thrust Test Assessment and plan: Chronic low back pain secondary to lumbar degenerative disc disease , lumbar spondylosis with facet arthropathy without myelopathy Recommendation of BL Iliolumbar ligament injection. May need a series of injections, up to 2, for optimal pain relief. Risks, benefits of procedure discussed and pt verbalized understanding. Denies medical history of diabetes. Admits to Eliquis use. Protocol for discontinuation/ continuation of medications andrei procedure discussed. All patient questions answered MAPS reviewed and it was appropriate. I have spent 31 minutes on patient care today. Dr Aaron was available by phone for the evaluation of this patient. The time was used to review the medical records including relevant urine studies and Prescription history (MAPs), review of the available imaging, evaluation and examination of the patient, coordination of care with the medical staff and if applicable referring physicians, as well as creation of the medical record PQRS Narrative: Pain Intensity [Lower Back] 7 Hx Alcohol Use (MH) No Home Medications: Ambulatory Orders Atorvastatin [Lipitor] 20 mg PO HS 04/10/20 Levothyroxine Sodium [Synthroid] 25 mcg PO DAILY 04/10/20 Amiodarone [Cordarone] 200 mg PO DAILY 01/23/21 Apixaban [Eliquis] 5 mg PO BID 01/23/21 Multivitamins, Thera [Multivitamin (formulary)] 1 tab PO DAILY 01/23/21 Thiamine [Vitamin B-1] 100 mg PO DAILY 01/23/21 Sacubitril/Valsartan [Entresto 97 mg-103 mg Tablet] 1 each PO BID 03/11/21 Cyanocobalamin (Vitamin B-12) [Vitamin B-12] 1,000 mcg PO DAILY 04/11/21 Rivastigmine Tartrate [Rivastigmine] 4.5 mg PO BID 04/11/21 Dapagliflozin Propanediol [Farxiga] 10 mg PO DAILY 05/21/21 Diclofenac Sodium Gel [Voltaren Gel] 2 gm TOPICAL QID PRN 05/21/21 Ferrous Sulfate [Feosol] 65 mg PO DAILY 05/21/21 [place]-3 Fatty Acids [[place]-3] 500 mg PO DAILY 05/21/21 Controlled Substance Measures - Controlled Substance Measures Is patient prescribed a controlled substance at discharge?: No
[2021-12-15 08:07] VITALS: BP 135/77; PULSE 67; RESP 18; TEMP 98.4
== END ==
LOC: PNWHC3 07:20
PROVIDERS: ATTEND Specialist
DX: M51.36 Other intervertebral disc degeneration, lumbar region (principal); M47.816 Spondylosis without myelopathy or radiculopathy, lumbar region; G89.29 Other chronic pain; Z88.8 Allergy status to other drugs, medicaments and biological substances
CPT/HCPCS: 99211

== ENCOUNTER 2022-01-24 12:10 | Emergency (ER) | payer MEDICARE, BC ==
[2022-01-24 12:21] VITALS: RESP 18
--- NOTE | 2022-01-24 12:33 | ED ---
General Adult HPI - General Chief complaint: Fall Stated complaint: fall Time Seen by Provider: 01/24/22 12:24 Source: patient, family, RN notes reviewed, old records reviewed Mode of arrival: wheelchair Limitations: no limitations - History of Present Illness Initial comments: 86-year-old female presents status post fall. Patient fell 4 days prior. She had developed swelling and ecchymosis in the left thigh. She has pain in the left hip and knee when she ambulates. She does not know exactly why she fell. She does not know if she hit her head. She does not believe she lost consciousness. She is on Eliquis, for history of atrial fibrillation status post AICD. Patient was sent in by urgent care with concern that she may have injured her head. No headache. No focal numbness or weakness. No chest pain or abdominal pain. No palpitations. - Related Data Home Medications Medication Instructions Recorded Confirmed Atorvastatin [Lipitor] 20 mg PO HS 04/10/20 12/15/21 Levothyroxine Sodium [Synthroid] 25 mcg PO DAILY 04/10/20 12/15/21 Amiodarone [Cordarone] 200 mg PO DAILY 01/23/21 12/15/21 Apixaban [Eliquis] 5 mg PO BID 01/23/21 12/15/21 Multivitamins, Thera [Multivitamin 1 tab PO DAILY 01/23/21 12/15/21 (formulary)] Thiamine [Vitamin B-1] 100 mg PO DAILY 01/23/21 12/15/21 Sacubitril/Valsartan [Entresto 97 1 each PO BID 03/11/21 12/15/21 mg-103 mg Tablet] Cyanocobalamin (Vitamin B-12) 1,000 mcg PO DAILY 04/11/21 12/15/21 [Vitamin B-12] Rivastigmine Tartrate 4.5 mg PO BID 04/11/21 12/15/21 [Rivastigmine] Dapagliflozin Propanediol [Farxiga] 10 mg PO DAILY 05/21/21 12/15/21 Diclofenac Sodium Gel [Voltaren 2 gm TOPICAL QID PRN 05/21/21 12/15/21 Gel] Ferrous Sulfate [Feosol] 65 mg PO DAILY 05/21/21 12/15/21 [place]-3 Fatty Acids [[place]-3] 500 mg PO DAILY 05/21/21 12/15/21 Allergies Allergy/AdvReac Type Severity Reaction Status Date / Time lorazepam [From Ativan] AdvReac Hallucinati Verified 01/24/22 12:21 ons metoprolol AdvReac Hallucinati Verified 01/24/22 12:21 ons oxybutynin AdvReac Hallucinati Verified 01/24/22 12:21 ons Review of Systems ROS Statement: Those systems with pertinent positive or pertinent negative responses have been documented in the HPI. ROS Other: All systems not noted in ROS Statement are negative. Past Medical History Past Medical History: Atrial Fibrillation, Heart Failure, Hyperlipidemia, Hypertension, Memory Impairment, Musculoskeletal Disorder, Osteoarthritis (OA), Renal Disease, Thyroid Disorder Additional Past Medical History / Comment(s): heart murmur, CKD-sees specialist, low back pain, PACEMAKER , History of Any Multi-Drug Resistant Organisms: None Reported Past Surgical History: AICD, Cholecystectomy, Heart Catheterization, Hysterectomy Additional Past Surgical History / Comment(s): pain procedures, cardioversion, Past Anesthesia/Blood Transfusion Reactions: No Reported Reaction Type of Cardiac Device: AICD Device Placement Date:: September 2020 [employer] Past Psychological History: No Psychological Hx Reported Smoking Status: Former smoker - Past Family History Mother Family Medical History: No Reported History Father Family Medical History: Cancer General Exam Limitations: no limitations General appearance: alert, in no apparent distress Head exam: Present: atraumatic, normocephalic Eye exam: Present: normal appearance, PERRL ENT exam: Present: normal exam Neck exam: Present: normal inspection. Absent: tenderness, meningismus Respiratory exam: Present: normal lung sounds bilaterally. Absent: respiratory distress, wheezes Cardiovascular Exam: Present: regular rate, normal rhythm GI/Abdominal exam: Present: soft. Absent: distended, tenderness, guarding Extremities exam: Present: other (Left leg, distal pulses intact, there is no pain with range of motion at the hip. There is normal length, distal pulses intact, ecchymosis throughout the thigh). Absent: calf tenderness Neurological exam: Present: alert. Absent: motor sensory deficit Psychiatric exam: Present: normal affect, normal mood Skin exam: Present: warm, dry Course Vital Signs 01/24/22 12:16 Temperature 97.7 F Pulse Rate 68 Respiratory 18 Rate Blood Pressure 187/66 O2 Sat by Pulse 99 Oximetry EKG Findings - EKG Comments: EKG Findings:: EKG: Sinus bradycardia with a first-degree AV block rate of 59, SD interval 226, QRS duration 168, QTC 4:[address] segment elevation. Medical Decision Making - Medical Decision Making 86-year-old female with a fall from 4 days ago in her bathroom. She has ecchymosis to the left anterior thigh. Distal pulses are intact. She is ambulatory. There was uncertainty whether or not there was head trauma therefore head CT was obtained this is negative for acute cranial hemorrhage or mass effect. X-rays of the hip, femur and knee are performed which are negative for displaced fracture. She is ambulatory emergency department and eager for discharge. The patient. Defibrillator was interrogated, no episodes of tracheal tachycardia or ventricular fibrillation. No shocks delivered. Disposition Clinical Impression: Fall, Thigh contusion Disposition: HOME SELF-CARE Condition: Fair Instructions (If sedation given, give patient instructions): Fall Prevention for Older Adults (ED), Contusion in Adults (ED) Is patient prescribed a controlled substance at d/c from ED?: No Referrals: Kvng Shah MD [Primary Care Provider] - 1-2 days Time of Disposition: 15:10
--- NOTE | 2022-01-24 14:05 | CT ---
EXAMINATION TYPE: CT brain cspine wo con CT DLP: 1339.7 mGycm, Automated exposure control for dose reduction was used. DATE OF EXAM: 01/24/2022 1:31 PM COMPARISON: None. CLINICAL INDICATION:Female, 86 years old with history of trauma; Fall 3 days ago TECHNIQUE: Brain: Multiple axial CT images of the brain were obtained without IV contrast. Cspine: Axial CT images from the skull base to the inferior aspect of T2 we obtained without intraven ous contrast. Coronal and sagittal reformatted images were also reviewed. FINDINGS: Brain: Extra-axial spaces: No abnormal extra-axial fluid collections. Ventricular system: Within normal limits Cerebral parenchyma: No acute intraparenchymal hemorrhage or mass effect. The villa-white junction is well differentiated. Cerebral volume loss. Cerebellum: Unremarkable. Mass effect: No evidence of midline shift. Intracranial vasculature: Atherosclerotic calcifications of the intracranial vessels. Soft tissues: Normal. Calvarium/osseous structures: No depressed skull fracture. Paranasal sinuses and mastoid air cells: Clear. Visualized orbits: Bilateral aphakia Cervical spine: Fracture: None. Osseous structures: Partial ankylosis of the C3-C4 vertebral bodies with ankylosis of the left C3-C4 and right C4-C5 facet joints. Os odontoideum demonstrated. Vertebral alignment: Grade 1 anterolisthesis of C2 on C3. Straightening of the cervical spine which m ay be due to patient position versus muscle spasm. Spinal canal/Neural Foramina: No evidence of significant spinal canal narrowing. Facet joint uncovert ebral joint arthropathy scattered throughout the cervical spine with varying degrees of neural forami nal stenosis. Neck soft tissues: Prevertebral soft tissues are within normal limits. Other: The airway is patent. Left medial upper lobe 7 mm nodular density. Partial visualization of ca rdiac pacemaking leads. Atherosclerotic calcification of the aorta. IMPRESSION: * No acute intracranial process. * No evidence of cervical spine fracture. * Moderate multilevel degenerative disc disease. * Left medial upper lobe 7 mm nodular density. Consider follow-up CT chest in 6-12 months.
--- NOTE | 2022-01-24 14:08 | XR ---
EXAMINATION TYPE: XR knee complete LT DATE OF EXAM: 01/24/2022 1:40 PM INDICATION: Patient age:Female; 86 years old; Reason for study: fall; COMPARISON: None. TECHNIQUE: The Left knee(s) was examined in 3 projections. Frontal, lateral and oblique. FINDINGS: Decreased bone mineralization. No evidence of any acute osseous pathology, joint space na rrowing, soft tissue swelling, or joint effusion is noted. Tricompartmental osteophyte formation invo lving the femoral condyles, tibial plateau and patella. Vascular sclerosis. Chondrocalcinosis. IMPRESSION: 1. No acute osseous pathology. 2. Chondrocalcinosis. 3. Mild tricompartmental osteoarthritic changes.
--- NOTE | 2022-01-24 14:10 | XR ---
EXAMINATION TYPE: XR femur LT DATE OF EXAM: 01/24/2022 1:40 PM INDICATION: Patient age:Female; 86 years old; Reason for study: fall; COMPARISON: Left knee radiographs of the same day. TECHNIQUE: The left femur was examined in frontal and lateral projections. FINDINGS: No evidence of acute osseous pathology, joint dislocation, or soft tissue swelling. Vascul ar sclerosis. Please refer to dedicated and knee radiographs for findings. IMPRESSION: No acute osseous pathology.
--- NOTE | 2022-01-24 14:12 | XR ---
EXAMINATION TYPE: XR Hip LT and AP Pelvis DATE OF EXAM: 01/24/2022 1:40 PM INDICATION: Patient age:Female; 86 years old; Reason for study: fall; COMPARISON: Left femur radiograph the same date. TECHNIQUE: The left hip was examined in the frontal and lateral projections and a AP pelvis. FINDINGS: No evidence of any acute osseous pathology, joint dislocation, or soft tissue swelling. Mil d osteoarthritic changes of both hips. Degenerative changes of the visualized lumbar spine. Vascular sclerosis. IMPRESSION: No acute osseous pathology. Mild osteoarthritic changes of both hips.
[2022-01-24 15:27] VITALS: BP 124/88; PULSE 78; TEMP 97.2
== END 2022-01-24 15:15 | disposition home or self-care (01) ==
LOC: EC 12:10
DX: S70.12XA Contusion of left thigh, initial encounter (principal); I13.0 Hypertensive heart and chronic kidney disease with heart failure and stage 1 through stage 4 chronic kidney disease, or unspecified chronic kidney disease; I50.9 Heart failure, unspecified; I48.91 Unspecified atrial fibrillation; E07.9 Disorder of thyroid, unspecified; E78.5 Hyperlipidemia, unspecified; N18.9 Chronic kidney disease, unspecified; Z88.8 Allergy status to other drugs, medicaments and biological substances; Z79.899 Other long term (current) drug therapy; Z79.890 Hormone replacement therapy; Z79.01 Long term (current) use of anticoagulants; W01.0XXA Fall on same level from slipping, tripping and stumbling without subsequent striking against object, initial encounter; Y92.002 Bathroom of unspecified non-institutional (private) residence as the place of occurrence of the external cause
CPT/HCPCS: 70450; 72125; 73502; 93005; 99284

== ENCOUNTER → 2022-03-26 | Outpatient (CLI) | payer MEDICARE, BC ==
[2022-03-26 08:12] VITALS: BP 136/66; PULSE 61; RESP 18; TEMP 97.9
--- NOTE | 2022-03-26 09:51 | P.PAINPG ---
PQRS Measure Charge Sheet Comment: A 87 yr old female w son at side with a history of severe and chronic low back pain secondary to lumbar degenerative disc diseases and lumbar spondylosis with facet arthropathy without myelopathy presents today for evaluation s/p BL iliolumbar ligament injection. Pt states she experienced 65% pain relief x 4 wks s/p procedure. Pain level is currently at 3/10 in intensity, constant, mid to lower lumbar spine, sore in character without radiation. Pain is provoked as high as 9/10 in intensity by standing for periods of 10 min or more. Pain is alleviated with meds (Tylenol, Salon Pas), use of walking cane for ambulation, repositioning and rest. Interventional pain procedures completed include BL iliolumbar injection, BL RFA L3-5. Patient is currently on Tylenol OTC, Salon Pas patches Patient denies any side effects of the medication(s), denies excessive drowsiness or sleepiness, denies suicidal ideation and reports that the current pain medication is helping to control the pain and improve activities of daily living. Patient denies any motor or sensory deficits. Patient denies any fever or night sweats, denies any change in the bowel movements or urination. Physical Examination: -Constitutional: Cooperative. Not in acute distress . - Neurologic: Cranial nerve II to XII intact. No focal neurological deficits. - Psychatric: Alert & oriented x 3. Matching mood & appropriate affect. Judgment and insight intact. - Musculoskeletal: Cervical spine: Muscle bulk/ tone/ strength in the bilateral upper extremities normal Vertebral body tenderness to palpation over Spurling test positive Distraction test positive Facet loading test positive Thoracic spine Muscle bulk / tone/ strength in the bilateral paraspinal muscles normal Vertebral body tender to palpation over Facet loading test positive Lumbar spine: Motor bulk/ tone/ strength lower extremities , thigh and legs : 5/5 Deep tendon reflexes : Normal Knee Jerk. Normal Ankle Jerk . Vertebral body tenderness to palpation over Lumbar Facet Loading Test positive w jump reflex over BL L4-L5, L5-S1 Straight Leg Raise: positive at 30 degrees right side/ left side Gaenslen's Test positive Sacral spine : Severe tenderness over the Sacroiliac joint: right side / left side Range of motion: Flexion of the lumbar spine <60 degrees Range of motion: Extension of the lumbar spine <20 degrees Gaenslen's Test positive Lawrence's Test positive Tavo test: positive right side / left side Thigh Thrust Test Sacral Thrust Test Assessment and plan: Chronic low back pain secondary to lumbar degenerative disc disease , lumbar spondylosis with facet arthropathy without myelopathy Recommendation of BL RFA L4-L5, L5-S1. Risks, benefits of procedure discussed and pt verbalized understanding. Admits to anticoagulant use or medical history of diabetes. Protocol for discontinuation/ continuation of medications andrei procedure. All patient questions answered MAPS reviewed and it was appropriate. I have spent less than 30 minutes on patient care today. Dr Aaron was available by phone for the evaluation of this patient. The time was used to review the medical records including relevant urine studies and Prescription history (MAPs), review of the available imaging, evaluation and examination of the patient, coordination of care with the medical staff and if applicable referring physicians, as well as creation of the medical record PQRS Narrative: Hx Alcohol Use (MH) No Home Medications: Ambulatory Orders Atorvastatin [Lipitor] 20 mg PO HS 04/10/20 Levothyroxine Sodium [Synthroid] 25 mcg PO DAILY 04/10/20 Amiodarone [Cordarone] 200 mg PO DAILY 01/23/21 Apixaban [Eliquis] 5 mg PO BID 01/23/21 Multivitamins, Thera [Multivitamin (formulary)] 1 tab PO DAILY 01/23/21 Thiamine [Vitamin B-1] 100 mg PO DAILY 01/23/21 Sacubitril/Valsartan [Entresto 97 mg-103 mg Tablet] 1 each PO BID 03/11/21 Cyanocobalamin (Vitamin B-12) [Vitamin B-12] 1,000 mcg PO DAILY 04/11/21 Rivastigmine Tartrate [Rivastigmine] 4.5 mg PO BID 04/11/21 Diclofenac Sodium Gel [Voltaren Gel] 2 gm TOPICAL QID PRN 05/21/21 Ferrous Sulfate [Feosol] 65 mg PO DAILY 05/21/21 [place]-3 Fatty Acids [[place]-3] 500 mg PO DAILY 05/21/21 Controlled Substance Measures - Controlled Substance Measures Is patient prescribed a controlled substance at discharge?: No
== END ==
LOC: PNWHC3 07:41
PROVIDERS: ATTEND Specialist
DX: M51.36 Other intervertebral disc degeneration, lumbar region (principal); M47.816 Spondylosis without myelopathy or radiculopathy, lumbar region; G89.29 Other chronic pain; Z88.8 Allergy status to other drugs, medicaments and biological substances
CPT/HCPCS: 99211

== ENCOUNTER 2022-05-22 11:11 | Day surgery (SDC) | payer MEDICARE, BC ==
[~2022-05-22 11:11] MED LIST changes: -.fentaNYL (PF) 50 MCG/ML AMP ONE; -IOPAMIDOL M200 10 ML VIAL ONE; -IV FLUID CONTINUATION 1,000 ML IV ONE; +LIDOCAINE 1% (10MG/ML) FOR IV START INTRADERMA PRN; -MIDAZOLAM 2 MG/2 ML VIAL ONE; -ROPIVACAINE 5MG/ML 20ML VIAL ONE; -methylPREDNISolone ACETATE 40 MG/ML 1 ML VIAL ONE
[2022-05-22] MEDS ORDERED: LACTATED RINGERS 1,000 ML IV ONE (11:29)
[2022-05-22 11:47] VITALS: RESP 16; TEMP 97.3
[2022-05-22] MEDS ORDERED: ROPIVACAINE 5 MG/ML 20 ML AMPULE ONE (12:17)
[2022-05-22] MEDS ORDERED: methylPREDNISolone ACETATE 40 MG/ML 1 ML VIAL ONE (12:17)
[2022-05-22] MEDS ORDERED: fentaNYL (PF) 50 MCG/ML 2 ML AMP ONE (12:17)
[2022-05-22] MEDS ORDERED: MIDAZOLAM 2 MG/2 ML VIAL ONE (12:17)
--- NOTE | 2022-05-22 12:53 | P.PCN ---
Date of Procedure: 05/22/22 Procedure(s) Performed: PREOPERATIVE DIAGNOSIS: 1-Lumbar Spondylosis with Facet Arthropathy without myelopathy. 2- Lumber degenerative disc disease. POSTOPERATIVE DIAGNOSIS: 1- Lumbar Spondylosis with Facet Arthropathy without myelopathy. 2- Lumber degenerative disc disease. PROCEDURES : Bilateral Radiofrequency thermocoagulation, L3 , L4 , and L5 medial branch, with fluoroscopic guidance (fluoroscopy images available in the radiology department) ( to denervate the facet joint at Bilateral L4-5 ,and L5-S1 levels ). ANESTHESIA: Monitored anesthesia care, as per anesthesia department . EBL: Minimal PROCEDURE INDICATION: The patient with low back pain secondary to lumbar facet arthropathy who had more than 50% relief of her pain with previous diagnostic lumbar medial branch block with bupivacaine. PROCEDURE DESCRIPTION / TECHNIQUE: The patient was seen and identified in the preoperative area. Risks, benefits, complications, including but not limited to risk of infection ,bleeding , allergic reactions to the medications and no complete pain releife , and alternatives were discussed with the patient, the patient agreed to proceed with the procedure and signed the consent. IV was started. Vital signs remained stable throughout the procedure. Patient was taken to the OR and time out was completed. The patient was placed in the prone position on the procedure table. The lumber area was prepped and draped in the usual sterile fashion. . Vital signs were closely monitored during the procedure .IV sedation was used during the procedure to decrease patients anxiety. Using AP and then oblique fluoroscopy, the ``eye of the Siva dog co rresponding to the connection between the superior and transverse articular processes of right L3, L4, and L5 were identified, marked, and localized with 1% lidocaine. Subsequently, a [id number] radiofrequency cannula with a 10- mm active tip was advanced guided by fluoroscopy to each of the``eyes of the Siva dog at right L3, L4, and L5. Each site then underwent sensory testing at 50 Hz and 0 to 1 volt and motor testing at 2.5 Hz and 0 to 3 volt with local stimulation, but no radicular symptoms down the legs. Thereafter each sites underwent radiofrequency thermocoagulation at 80 degrees celsius for 90 seconds after injecting 0.5 ml of PF Ropivacaine 1ml, then after the thermocoagulation done , 1 ml of the block solution containing Depo-Medrol 20 mg and 3 ml of Ropivacaine 0.5% was injected at the right L3 , L4 , and L5 , levels after negative aspiration of CSF and blood and with no paresthesias. Cannulas were retracted while injecting lidocaine 1% until the needle is out. The same procedure was repeated at the level of Left L3, L4, and L5 levels. At the end of the procedure, the skin was cleansed and bandages were applied. COMPLICATIONS: No acute complications. DISPOSITION / PLANS: The patient was placed in a supine position and transferred to the recovery area in a stable condition for observation and was discharged from the recovery room after meeting discharge criteria. Home discharge instructions given to the patient by the staff. The patient was reexamined prior to discharge. The patient will schedule a follow up in the clinic in 2-4 weeks. Note =Keren last does was 3 days ago.
[2022-05-22] MEDS ORDERED: IV FLUID CONTINUATION 1,000 ML IV ONE (12:58)
--- NOTE | 2022-05-22 13:00 | FL ---
EXAMINATION TYPE: FL guided pain mgmt statistic DATE OF EXAM: 05/22/2022 HISTORY: Fluoroscopy time 16 seconds of fluoroscopy provided. IMPRESSION: 1. Fluoroscopy time.
[2022-05-22 13:16] VITALS: BP 156/69; PULSE 58
== END 2022-05-22 13:41 | disposition home or self-care (01) ==
LOC: ORPAIN 11:11
PROVIDERS: ATTEND Specialist
DX: M51.36 Other intervertebral disc degeneration, lumbar region (principal); M47.816 Spondylosis without myelopathy or radiculopathy, lumbar region; I25.10 Atherosclerotic heart disease of native coronary artery without angina pectoris; I11.0 Hypertensive heart disease with heart failure; I50.9 Heart failure, unspecified; I48.91 Unspecified atrial fibrillation; M19.90 Unspecified osteoarthritis, unspecified site; E78.5 Hyperlipidemia, unspecified; E07.9 Disorder of thyroid, unspecified; N28.9 Disorder of kidney and ureter, unspecified
CPT/HCPCS: 64635; 64636 ×2; J2250; J1030; J3010; J2795

== ENCOUNTER → 2022-06-24 | Outpatient (CLI) | payer MEDICARE, BC ==
[2022-06-24 10:34] VITALS: BP 145/66; PULSE 69; RESP 18; TEMP 98
--- NOTE | 2022-06-24 14:20 | P.PAINPG ---
PQRS Measure Charge Sheet Comment: A 87 yr old female w son at side with a history of severe and chronic low back pain secondary to lumbar DDD and spondylosis with facet arthropathy without myelopathy presents today for evaluation s/p BL RFA L3-L5. Pt states she experienced >50 % pain relief s/p procedure. Pt is standing and walking more bijan und the home since the procedure. Pain level is currently at 5 /10 in intensity, constant, localized in the lower lumbar spine, sore/ achy in character w shooting towards the BLEs. Pain is provoked by over activity. Pain is alleviated with medications (Tylenol), lidoderm patches, topicals, heat, use of a walker, laying supine, repositioning and rest. Interventional pain procedures completed include BL RFA L3-L5 Patient is currently on Tylenol Patient denies any side effects of the medication(s), denies excessive drowsiness or sleepiness, denies suicidal ideation and reports that the current pain medication is helping to control the pain and improve activities of daily living. Patient denies any motor or sensory deficits. Patient denies any fever or night sweats, denies any change in the bowel movements or urination. Physical Examination: -Constitutional: Cooperative. Not in acute distress . - Neurologic: Cranial nerve II to XII intact. No focal neurological deficits. - Psychatric: Alert & oriented x 3. Matching mood & appropriate affect. Judgment and insight intact. - Musculoskeletal: Cervical spine: Muscle bulk/ tone/ strength in the bilateral upper extremities normal Vertebral body tenderness to palpation over Spurling test positive Distraction test positive Facet loading test positive Thoracic spine Muscle bulk / tone/ strength in the bilateral paraspinal muscles normal Vertebral body tender to palpation over Facet loading test positive Lumbar spine: Motor bulk/ tone/ strength lower extremities , thigh and legs : 5/5 Deep tendon reflexes : Normal Knee Jerk. Normal Ankle Jerk . Vertebral body tenderness to palpation over Lumbar Facet Loading Test positive Straight Leg Raise: positive at 30 degrees right side/ left side Gaenslen's Test positive Sacral spine : Severe tenderness over the Sacroiliac joint: right side / left side Range of motion: Flexion of the lumbar spine <60 degrees Range of motion: Extension of the lumbar spine <20 degrees Gaenslen's Test positive Tavo test: positive right side / left side Thigh Thrust Test Sacral Thrust Test Assessment and plan: Chronic low back pain secondary to lumbar degenerative disc disease, spondylosis with facet arthropathy without myelopathy Recommendation of Diclofenac gel use BID for pain. Use, side effects and adverse reactions discussed pt and son at side acknowledged understanding. Will be out of town to [place] for several weeks and may return on an as needed basis. Risks, benefits of procedure discussed and pt verbalized understanding. Denies anticoagulant use or medical history of diabetes. All patient questions answered I have spent less than 30 minutes on patient care today. Dr Aaron was available by phone for the evaluation of this patient. The time was used to review the medical records including relevant urine studies and Prescription history (MAPs), review of the available imaging, evaluation and examination of the patient, coordination of care with the medical staff and if applicable referring physicians, as well as creation of the medical record PQRS Narrative: Hx Alcohol Use (MH) No Home Medications: Ambulatory Orders Atorvastatin [Lipitor] 20 mg PO HS 04/10/20 Levothyroxine Sodium [Synthroid] 25 mcg PO DAILY 04/10/20 Amiodarone [Cordarone] 200 mg PO DAILY 01/23/21 Apixaban [Eliquis] 5 mg PO BID 01/23/21 Multivitamins, Thera [Multivitamin (formulary)] 1 tab PO DAILY 01/23/21 Thiamine [Vitamin B-1] 100 mg PO DAILY 01/23/21 Sacubitril/Valsartan [Entresto 97 mg-103 mg Tablet] 1 each PO BID 03/11/21 Cyanocobalamin (Vitamin B-12) [Vitamin B-12] 1,000 mcg PO DAILY 04/11/21 Rivastigmine Tartrate [Rivastigmine] 4.5 mg PO BID 04/11/21 [place]-3 Fatty Acids [[place]-3] 500 mg PO DAILY 05/21/21 Diclofenac Sodium Gel [Voltaren Gel] 100 gm TOPICAL BID 30 Days #100 gm 06/24/22 Controlled Substance Measures - Controlled Substance Measures Is patient prescribed a controlled substance at discharge?: No
== END ==
LOC: PNWHC3 09:06
PROVIDERS: ATTEND Specialist
DX: M47.816 Spondylosis without myelopathy or radiculopathy, lumbar region (principal); M51.36 Other intervertebral disc degeneration, lumbar region; G89.29 Other chronic pain; Z88.8 Allergy status to other drugs, medicaments and biological substances; Z88.5 Allergy status to narcotic agent
CPT/HCPCS: 99211

== ENCOUNTER 2023-05-15 11:02 | Inpatient (IN) | payer MEDICARE, BC ==
[2023-05-15] MEDS ORDERED: SODIUM CHLORIDE 0.9% 1,000 ML IV STA ×2 (11:24→14:06)
--- NOTE | 2023-05-15 11:26 | ED ---
General Adult HPI - General Chief complaint: Weakness Stated complaint: Weakness Time Seen by Provider: 05/15/23 11:09 Source: patient, family, RN notes reviewed Mode of arrival: ambulatory Limitations: no limitations - History of Present Illness Initial comments: Patient is a pleasant 88-year-old female presenting to the emergency department following being found on the floor. A fall was not witnessed. Patient was found on the floor this morning by who sleeps in a different room. Patient does not recall the episode and this is reported as normal as patient has short-term memory loss and frequently denies falling. This is per the daugh ter. Patient does complain of some discomfort of the mid back. Unknown if there is any head injury. No neck pain. No dyspnea. No abdominal pain. - Related Data Home Medications Medication Instructions Recorded Confirmed Atorvastatin [Lipitor] 20 mg PO HS 04/10/20 05/22/22 Levothyroxine Sodium [Synthroid] 25 mcg PO DAILY 04/10/20 05/22/22 Amiodarone [Cordarone] 200 mg PO DAILY 01/23/21 05/22/22 Apixaban [Eliquis] 5 mg PO BID 01/23/21 05/22/22 Multivitamins, Thera [Multivitamin 1 tab PO DAILY 01/23/21 05/22/22 (formulary)] Thiamine [Vitamin B-1] 100 mg PO DAILY 01/23/21 05/22/22 Sacubitril/Valsartan [Entresto 97 1 each PO BID 03/11/21 05/22/22 mg-103 mg Tablet] Cyanocobalamin (Vitamin B-12) 1,000 mcg PO DAILY 04/11/21 05/22/22 [Vitamin B-12] Rivastigmine Tartrate 4.5 mg PO BID 04/11/21 05/22/22 [Rivastigmine] Sparks-3 Fatty Acids [Sparks-3] 500 mg PO DAILY 05/21/21 05/22/22 Previous Rx's Medication Instructions Recorded Diclofenac Sodium Gel [Voltaren 1% 100 gm TOPICAL BID 30 Days #100 gm 06/24/22 Gel] Allergies Allergy/AdvReac Type Severity Reaction Status Date / Time lorazepam [From Ativan] AdvReac Hallucinati Verified 05/15/23 11:13 ons metoprolol AdvReac Hallucinati Verified 05/15/23 11:13 ons oxybutynin AdvReac Eleuterioinati Verified 05/15/23 11:13 ons Review of Systems ROS Statement: Those systems with pertinent positive or pertinent negative responses have been documented in the HPI. ROS Other: All systems not noted in ROS Statement are negative. Constitutional: Denies: fever Eyes: Denies: eye pain ENT: Denies: ear pain Respiratory: Denies: cough, dyspnea Cardiovascular: Denies: chest pain Endocrine: Denies: fatigue Gastrointestinal: Denies: abdominal pain Genitourinary: Denies: dysuria Musculoskeletal: Reports: as per HPI, back pain Skin: Denies: rash Neurological: Denies: headache, weakness Past Medical History Past Medical History: Atrial Fibrillation, Heart Failure, Hyperlipidemia, Hypertension, Memory Impairment, Musculoskeletal Disorder, Osteoarthritis (OA), Renal Disease, Thyroid Disorder Additional Past Medical History / Comment(s): heart murmur, CKD-sees specialist, low back pain, DEMENTIA History of Any Multi-Drug Resistant Organisms: None Reported Past Surgical History: AICD, Cholecystectomy, Heart Catheterization, Hysterectomy Additional Past Surgical History / Comment(s): pain procedures, cardioversion, Past Anesthesia/Blood Transfusion Reactions: No Reported Reaction Type of Cardiac Device: AICD Device Placement Date:: September 2020 [employer] Past Psychological History: No Psychological Hx Reported Smoking Status: Former smoker Past Alcohol Use History: None Reported Past Drug Use History: None Reported - Past Family History Mother Family Medical History: No Reported History Father Family Medical History: Cancer General Exam Limitations: no limitations General appearance: alert, in no apparent distress Head exam: Present: atraumatic, normocephalic Eye exam: Present: normal appearance, PERRL, EOMI ENT exam: Present: normal oropharynx Neck exam: Present: normal inspection. Absent: tenderness Respiratory exam: Present: normal lung sounds bilaterally Cardiovascular Exam: Present: regular rate, normal rhythm GI/Abdominal exam: Present: soft. Absent: tenderness Extremities exam: Present: normal inspection, full ROM. Absent: tenderness Back exam: Present: tenderness (Mild tenderness mid thoracic to mid lumbar vertebral.) Neurological exam: Present: alert, oriented X3, CN II-XII intact. Absent: motor sensory deficit Expanded Cranial nerves: EOM's Intact: Normal Motor strength exam: RUE: 5, LUE: 5, RLE: 5, LLE: 5 Eye Response: (4) open spontaneously Motor Response: (6) obeys commands Verbal Response: (5) oriented Psychiatric exam: Present: normal affect, normal mood Skin exam: Present: normal color Course Vital Signs 05/15/23 05/15/23 11:04 12:34 Temperature 99.4 F Pulse Rate 75 63 Respiratory 18 18 Rate Blood Pressure 145/74 125/59 O2 Sat by Pulse 90 L 96 Oximetry EKG Findings - EKG Results: EKG: interpreted by [facility] ((X is. Right bundle branch block. First-degree AV block.), sinus rhythm, normal ST/T Medical Decision Making - Medical Decision Making Was pt. sent in by a medical professional or institution (, PA, TRANSPORTATION TECHNICIAN, urgent care, hospital, or usp...) When possible be specific @ -No Did you speak to anyone other than the patient for history (EMS, parent, family, police, friend...)? What history was obtained from this source @ -Daughter helps provide history as patient has short-term memory loss Did you review nursing and triage notes (agree or disagree)? Why? @ -I reviewed and agree with nursing and triage notes Were old charts reviewed (outside hosp., previous admission, EMS record, old EKG, old radiological studies, urgent care reports/EKG's, usp records)? Report findings @ -No old charts were reviewed Differential Diagnosis (chest pain, altered mental status, abdominal pain women, abdominal pain men, vaginal bleeding, weakness, fever, dyspnea, syncope, headache, dizziness, GI bleed, back pain, seizure, CVA, palpatations, mental health, musculoskeletal)? @ -Differential Weakness: Hypoglycemia, shock, sepsis, hyponatremia, anemia, infection, [place], ETOH, adverse medicine reaction, overdose, stroke, this is not meant to be an all-inclusive list. EKG interpreted by me (3pts min.). @ -As above X-rays interpreted by me (1pt min.). @ -Chest x-ray, thoracic x-ray, and lumbar x-ray without acute abnormality. Chronic changes. CT interpreted by me (1pt min.). @ -Reports reviewed U/S interpreted by me (1pt. min.). @ -None done What testing was considered but not performed or refused? (CT, X-rays, U/S, labs)? Why? @ -None What meds were considered but not given or refused? Why? @ -None Did you discuss the management of the patient with other professionals (professionals i.e. , PA, TRANSPORTATION TECHNICIAN, lab, RT, psych nurse, dialysis social worker, fiber optics supervisor, teacher, radiological defense officer, telehealth case manager)? Give summary @ -[facility], Dr. De La Garza who will admit covering Dr. Shah Was smoking cessation discussed for >3mins.? @ -No Was critical care preformed (if so, how long)? @ -No Were there social determinants of health that impacted care today? How? (H omelessness, low income, unemployed, alcoholism, drug addiction, transportation, low edu. Level, literacy, decrease access to med. care, shelter, rehab)? @ -No Was there de-escalation of care discussed even if they declined (Discuss DNR or withdrawal of care, Hospice)? DNR status @ -No What co-morbidities impacted this encounter? (DM, HTN, Smoking, COPD, CAD, Cancer, CVA, ARF, Chemo, Hep., AIDS, mental health diagnosis, sleep apnea, morbid obesity)? @ -None Was patient admitted / discharged? Hospital course, mention meds given and route, prescriptions, significant lab abnormalities, going to OR and other pertinent info. @ -Patient reevaluated. Patient is too weak to get up and walk. Patient and family updated. Patient does have leukocytosis and further evaluation will be done with ultrasound of gallbladder and kidneys. There is evidence of urinary tract infection. Patient has no traumatic injury and therefore does not need trauma admission. Undiagnosed new problem with uncertain prognosis? @ -No Drug Therapy requiring intensive monitoring for toxicity (Heparin, Nitro, Insulin, Cardizem)? @ -No Were any procedures done? @ -No Diagnosis/symptom? @ -Weakness, leukocytosis, urinary tract infection Acute, or Chronic, or Acute on Chronic? @ -Acute, acute Uncomplicated (without systemic symptoms) or Complicated (systemic symptoms)? @ -default Side effects of treatment? @ -No Exacerbation, Progression, or Severe Exacerbation? @ -No Poses a threat to life or bodily function? How? (Chest pain, [place], [place], pneumonia, PE, COPD, DKA, ARF, appy, cholecystitis, CVA, Diverticulitis, Homicidal, Suicidal, threat to staff... and all critical care pts) @ -No - Lab Data Result diagrams: 05/15/23 11:36 05/15/23 11:36 Lab Results 05/15/23 05/15/23 05/15/23 Range/Units 11:36 11:36 11:36 WBC 29.6 H (3.8-10.6) k/uL RBC 3.46 L (3.80-5.40) m/uL Hgb 10.5 L (11.4-16.0) gm/dL Hct 31.9 L (34.0-46.0) % MCV 92.2 (80.0-100.0) fL MCH 30.3 (25.0-35.0) pg MCHC 32.8 (31.0-37.0) g/dL RDW 13.0 (11.5-15.5) % Plt Count 301 (150-450) k/uL MPV 7.8 Neutrophils % (Manual) 87 % Band Neuts % (Manual) 6 % Lymphocytes % (Manual) 1 % Monocytes % (Manual) 6 % Neutrophils # (Manual) 27.50 H (1.3-7.7) k/uL Lymphocytes # (Manual) 0.30 L (1.0-4.8) k/uL Monocytes # (Manual) 1.78 H (0-1.0) k/uL Nucleated RBCs 0 (0-0) /100 WBC Manual Slide Review Performed Sodium 133 L (137-145) mmol/L Potassium 4.8 (3.5-5.1) mmol/L Chloride 102 (98-107) mmol/L Carbon Dioxide 19 L (22-30) mmol/L Anion Gap 12 mmol/L BUN 31 H (7-17) mg/dL Creatinine 1.42 H (0.52-1.04) mg/dL Est GFR (CKD-EPI)AfAm 38 (>60 ml/min/1.73 sqM) Est GFR (CKD-EPI)NonAf 33 (>60 ml/min/1.73 sqM) Glucose 129 H (74-99) mg/dL Calcium 10.3 H (8.4-10.2) mg/dL Total Bilirubin 1.9 H (0.2-1.3) mg/dL AST 39 H (14-36) U/L ALT 20 (4-34) U/L Alkaline Phosphatase 87 (38-126) U/L Creatine Kinase 277 H (30-135) U/L Total Protein 7.4 (6.3-8.2) g/dL Albumin 4.4 (3.5-5.0) g/dL Urine Color Light Yellow Urine Appearance Clear (Clear) Urine pH 5.5 (5.0-8.0) Ur Specific Cly[place] 1.016 (1.001-1.035) Urine Protein Trace H (Negative) Urine Glucose (UA) Negative (Negative) Urine Ketones Negative (Negative) Urine Blood Negative (Negative) Urine Nitrite Negative (Negative) Urine Bilirubin Negative (Negative) Urine Urobilinogen <2.0 (<2.0) mg/dL Ur Leukocyte Esterase Moderate H (Negative) Urine RBC <1 (0-5) /hpf Urine WBC 16 H (0-5) /hpf Ur Squamous Epith Cells 1 (0-4) /hpf Urine Bacteria Moderate H (None) /hpf Urine Mucus Rare H (None) /hpf Influenza Type A (PCR) (Not Detectd) Influenza Type B (PCR) (Not Detectd) RSV (PCR) (Not Detectd) SARS-CoV-2 (PCR) (Not Detectd) 05/15/23 Range/Units 11:36 WBC (3.8-10.6) k/uL RBC (3.80-5.40) m/uL Hgb (11.4-16.0) gm/dL Hct (34.0-46.0) % MCV (80.0-100.0) fL MCH (25.0-35.0) pg MCHC (31.0-37.0) g/dL RDW (11.5-15.5) % Plt Count (150-450) k/uL MPV Neutrophils % (Manual) % Band Neuts % (Manual) % Lymphocytes % (Manual) % Monocytes % (Manual) % Neutrophils # (Manual) (1.3-7.7) k/uL Lymphocytes # (Manual) (1.0-4.8) k/uL Monocytes # (Manual) (0-1.0) k/uL Nucleated RBCs (0-0) /100 WBC Manual Slide Review Sodium (137-145) mmol/L Potassium (3.5-5.1) mmol/L Chloride (98-107) mmol/L Carbon Dioxide (22-30) mmol/L Anion Gap mmol/L BUN (7-17) mg/dL Creatinine (0.52-1.04) mg/dL Est GFR (CKD-EPI)AfAm (>60 ml/min/1.73 sqM) Est GFR (CKD-EPI)NonAf (>60 ml/min/1.73 sqM) Glucose (74-99) mg/dL Calcium (8.4-10.2) mg/dL Total Bilirubin (0.2-1.3) mg/dL AST (14-36) U/L ALT (4-34) U/L Alkaline Phosphatase (38-126) U/L Creatine Kinase (30-135) U/L Total Protein (6.3-8.2) g/dL Albumin (3.5-5.0) g/dL Urine Color Urine Appearance (Clear) Urine pH (5.0-8.0) Ur Specific [place] (1.001-1.035) Urine Protein (Negative) Urine Glucose (UA) (Negative) Urine Ketones (Negative) Urine Blood (Negative) Urine Nitrite (Negative) Urine Bilirubin (Negative) Urine Urobilinogen (<2.0) mg/dL Ur Leukocyte Esterase (Negative) Urine RBC (0-5) /hpf Urine WBC (0-5) /hpf Ur Squamous Epith Cells (0-4) /hpf Urine Bacteria (None) /hpf Urine Mucus (None) /hpf Influenza Type A (PCR) Not Detected (Not Detectd) Influenza Type B (PCR) Not Detected (Not Detectd) RSV (PCR) Not Detected (Not Detectd) SARS-CoV-2 (PCR) Not Detected (Not Detectd) Disposition Clinical Impression: Weakness, Urinary tract infection, Leukocytosis Disposition: ADMITTED IP TO THIS HOSP Is patient prescribed a controlled substance at d/c from ED?: No Time of Disposition: 14:05
[2023-05-15 11:49] LABS: HCT 31.9 % (34.0-46.0); HGB 10.5 gm/dL (11.4-16.0); MCH 30.3 pg (25.0-35.0); MCHC 32.8 g/dL (31.0-37.0); MCV 92.2 fL (80.0-100.0); Mean Platelet Volume 7.8; Platelet Count 301 k/uL (150-450); RBC 3.46 m/uL (3.80-5.40); WBC 29.6 k/uL (3.8-10.6)
[2023-05-15 12:06] LABS: ALT 20 U/L (4-34); AST 39 U/L (14-36); African American GFR (CKD) 38 (>60 ml/min/1.73 sqM); Albumin 4.4 g/dL (3.5-5.0); Alkaline Phosphatase 87 U/L (38-126); Anion Gap 12 mmol/L; Blood Urea Nitrogen 31 mg/dL (7-17); Calcium 10.3 mg/dL (8.4-10.2); Carbon Dioxide 19 mmol/L (22-30); Chloride 102 mmol/L (98-107); Creatine Kinase 277 U/L (30-135); Glucose 129 mg/dL (74-99); Non-African American GFR(CKD) 33 (>60 ml/min/1.73 sqM); Potassium 4.8 mmol/L (3.5-5.1); Sodium 133 mmol/L (137-145); Total Bilirubin 1.9 mg/dL (0.2-1.3); Total Protein 7.4 g/dL (6.3-8.2)
[2023-05-15] MEDS ORDERED: MORPHINE SULFATE 2 MG/ML SYRINGE IVP STA (12:21)
[2023-05-15] MEDS ORDERED: ONDANSETRON 4 MG/2 ML VIAL IVP STA (12:29)
[2023-05-15 12:30] LABS: Band Neutrophils % 6 %; Monocytes # (M) 1.78 k/uL (0-1.0); Neutrophils % (M) 87 %; Nucleated Red Blood Cells 0 /100 WBC (0-0); Total Cells Counted 100
--- NOTE | 2023-05-15 12:41 | CT ---
EXAMINATION TYPE: CT brain cspine wo con CT DLP: 1327.4 mGycm, Automated exposure control for dose reduction was used. DATE OF EXAM: 05/15/2023 12:12 PM COMPARISON: 01/24/2022 CLINICAL INDICATION:Female, 88 years old with history of fall; Fall TECHNIQUE: Brain: Multiple axial CT images of the brain were obtained without IV contrast. Cspine: Axial CT images from the skull base to the inferior aspect of T2 we obtained without intraven ous contrast. Coronal and sagittal reformatted images were also reviewed. FINDINGS: Brain: Extra-axial spaces: No abnormal extra-axial fluid collections. Ventricular system: Dilatation in proportion to cerebral atrophy. Cerebral parenchyma: Cerebral atrophy. No acute intraparenchymal hemorrhage or mass effect. The villa -white junction is well differentiated. Scattered hypoattenuating areas are seen within the white mat ter. Cerebellum: Unremarkable. Mass effect: No evidence of midline shift. Intracranial vasculature: Atherosclerotic calcifications of the intracranial vessels. Soft tissues: Normal. Calvarium/osseous structures: No depressed skull fracture. Paranasal sinuses and mastoid air cells: Clear. Visualized orbits: Bilateral aphakia Cervical spine: Fracture: None. Osseous structures: Multilevel degenerative disc disease changes with endplate spurring and disc oste ophyte complex's. There is degeneration changes of the temporal mandibular joints with deformity to t he left TMJ. There is ankylosis of the C3-C4 vertebral bodies posteriorly. Stenosis of the dens and a nterior C1 arch. Findings could be secondary to prior trauma. C4-C5 lateral facets are ankylosed. Vertebral alignment: Within normal limits. Spinal canal/Neural Foramina: Disc osteophyte complexes at C5-C7. With at least mild spinal canal aldair nosis. Facet joint uncovertebral joint arthropathy scattered throughout the cervical spine with varyi ng degrees of neural foraminal stenosis. Neck soft tissues: Prevertebral soft tissues are within normal limits. Atherosclerosis of the carotid bifurcations. Multilevel degeneration changes throughout the spine. IMPRESSION: 1. No acute intracranial process. 2. Nonspecific white matter changes, likely secondary to chronic small vessel ischemic disease. 3. No evidence of cervical spine fracture. 4. Moderate multilevel degenerative disc disease with os odontoideum versus prior fracture of the od ontoid process with fusion to the anterior arch of C1.
[2023-05-15] MEDS ORDERED: KETOROLAC 15 MG/ML 1 ML VIAL IVP STA (13:09)
[2023-05-15 13:14] LABS: Appearance,Urine Clear (Clear); Bacteria,Urine Moderate /hpf; Bilirubin,Urine Negative (Negative); Blood,Urine Negative (Negative); Color,Urine Light Yellow; Glucose,Urine (UA) Negative (Negative); Ketones,Urine Negative (Negative); Leukocyte Esterase,Urine Moderate (Negative); Mucus,Urine Rare /hpf; Nitrite,Urine Negative (Negative); PH, Urine 5.5 (5.0-8.0); Protein,Urine Trace (Negative); RBC,Urine <1 /hpf (0-5); Specific Gravity,Urine 1.016 (1.001-1.035); Squamous Epithelial Cell,Urine 1 /hpf (0-4); Urobilinogen,Urine <2.0 mg/dL (<2.0); WBC,Urine 16 /hpf (0-5)
--- NOTE | 2023-05-15 13:21 | XR ---
EXAMINATION TYPE: XR lumbar spine 2 or 3V DATE OF EXAM: 05/15/2023 1:08 PM CLINICAL INDICATION:Female, 88 years old with history of fall; COMPARISON: None TECHNIQUE: XR lumbar spine 2 or 3V - Frontal, lateral and coned in L5-S1 lateral views of the spine. FINDINGS: No evidence of any acute osseous pathology. No evidence of loss of vertebral body height i s seen. There is grade 2 anterolisthesis of L4 and L5. Of the lumbar vertebral bodies. Mild scattered disc space narrowing. Multilevel marginal osteophyte formation throughout the visualized spine. Ther e is facet joint arthropathy throughout the spine. Scattered at least mild neural foraminal stenosis. Atherosclerosis of the arterial vasculature. IMPRESSION: 1. No acute fracture. 2. Moderate multilevel disc degeneration. 3. Grade 2 anterolisthesis of L4 and L5.
--- NOTE | 2023-05-15 13:22 | XR ---
EXAMINATION TYPE: XR chest 2V DATE OF EXAM: 05/15/2023 1:08 PM CLINICAL INDICATION:Female, 88 years old with history of fall; [facility] COMPARISON: None TECHNIQUE: XR chest 2V Frontal and lateral views of the chest. FINDINGS: Lungs/Pleura: There is no evidence of pleural effusion, focal consolidation, or pneumothorax. Pulmonary vascularity: Unremarkable. Heart/mediastinum: Cardiomediastinal silhouette is enlarged and stable. Two lead cardiac conduction d evice overlying the left hemithorax with lead tips projecting over the right ventricle and right atri um. Musculoskeletal: No acute osseous pathology. IMPRESSION: Low lung volumes with a generalized hazy appearance which could represent atelectasis versus pulmonar y edema correlate with serum BNP.
--- NOTE | 2023-05-15 13:22 | XR ---
EXAMINATION TYPE: XR thoracic spine 2V DATE OF EXAM: 05/15/2023 1:09 PM CLINICAL INDICATION:Female, 88 years old with history of fall; H COMPARISON: None TECHNIQUE: XR thoracic spine 2V views of the thoracic spine in Frontal and lateral projections. FINDINGS: No evidence of acute fracture. There is scattered multilevel disk space narrowing without loss of ve rtebral body height. There is normal alignment of the thoracic vertebral bodies. Scattered osteophyte formation along the anterior and lateral aspects of the vertebral bodies. Neural foramen are patent given limitations of this exam. Spinal canal appears patent. Cardiac conduction leads partially visua lized. Atherosclerotic arterial vasculature. The heart is mildly enlarged for size. IMPRESSION: 1. No acute osseous pathology. 2. Moderate degeneration changes throughout spine.
[2023-05-15] MEDS ORDERED: ONDANSETRON 4 MG/2 ML VIAL IVP PRN (14:09)
[2023-05-15] MEDS ORDERED: NALOXONE 0.4 MG/ML 1 ML VIAL IV PRN (14:09)
--- NOTE | 2023-05-15 14:45 | US ---
EXAMINATION TYPE: US abd limited kidneys/bladder DATE OF EXAM: 05/15/2023 COMPARISON: CT CLINICAL INDICATION: Female, 88 years old with history of pain; Pain after fall TECHNIQUE: Multiple sonographic images of the right upper quadrant, bilateral kidneys, and bladder ar e obtained. FINDINGS: EXAM MEASUREMENTS: Liver Length: 17.7 cm CBD: 0.5 cm Right Kidney: 8.6 x 4.4 x 4.3 cm Left Kidney: 9.6 x 4.6 x 5.1 cm Pancreas: Obscured by bowel gas Liver: wnl Gallbladder: Surgically absent CBD: wnl Right Kidney: Small in size Left Kidney: Lobulated contour/ No evidence of hydro Bladder: wnl Bilateral Jets Seen No IMPRESSION: No evidence for acute abdominal process.
[2023-05-15] MEDS: SODIUM CHLORIDE 0.9% 1,000 ML IV SCH ×2 (15:11→21:21)
--- NOTE | 2023-05-15 19:01 | P.HPIM ---
History of Present Illness H&P Date: 05/15/23 Chief Complaint: Fall/weakness 88-year-old female, history of hypertension, hyperlipidemia, hypothyroidism, atrial fibrillation, CHF, presenting to the emergency department following being found on the floor. A fall was not witnessed. Patient was found on the floor this morning by who sleeps in a different room. Patient does not recall the episode and this is reported as normal as patient has short-term memory loss and frequently denies falling. This is per the daughter. Patient does complain of some discomfort of the mid back. Unknown if there is any head injury. No neck pain. No dyspnea. No abdominal pain. Blood work completed in ED reveals a WBC 29.6, hemoglobin of 10.5 and platelet count of 301, sodium 133, potassium 4.8, BUN/creatinine of 31/1.42 and blood glucose of 129, calcium of 10.3, total bilirubin of 1.9, AST/ALT elevated at 39/20, total CK of 277 UA is positive for leukocyte esterase bacteria and WBCs, vital panel is completed and is negative, CT head is negative for any acute intracranial process with nonspecific white matter changes, moderate multilevel degenerative disc disease versus prior fracture of odontoid process with fusion to anterior arch of C1 Chest x-ray reveals low lung volumes with generalized pain see appearance atelectasis versus pulmonary edema Renal and right upper quadrant ultrasound is done which is negative Review of Systems REVIEW OF SYSTEMS: CONSTITUTIONAL: No fever, no malaise, no fatigue. HEENT: No recent visual problems or hearing problems. Denied any sore throat. CARDIOVASCULAR: No chest pain, orthopnea, PND, no palpitations, no syncope. PULMONARY: No shortness of breath, no cough, no hemoptysis. GASTROINTESTINAL: No diarrhea, no nausea, no vomiting, no abdominal pain. NEUROLOGICAL: No headaches, no weakness, no numbness. HEMATOLOGICAL: Denies any bleeding or petechiae. GENITOURINARY: Denies any burning micturition, frequency, or urgency. MUSCULOSKELETAL/RHEUMATOLOGICAL: Denies any joint pain, swelling, or any muscle pain. ENDOCRINE: Denies any polyuria or polydipsia. The rest of the 14-point review of systems is negative. Past Medical History Past Medical History: Atrial Fibrillation, Heart Failure, Hyperlipidemia, Hypertension, Memory Impairment, Musculoskeletal Disorder, Osteoarthritis (OA), Renal Disease, Thyroid Disorder Additional Past Medical History / Comment(s): heart murmur, CKD-sees specialist, low back pain, DEMENTIA History of Any Multi-Drug Resistant Organisms: None Reported Past Surgical History: AICD, Cholecystectomy, Heart Catheterization, Hysterectomy Additional Past Surgical History / Comment(s): pain procedures, cardioversion, Past Anesthesia/Blood Transfusion Reactions: No Reported Reaction Type of Cardiac Device: AICD Device Placement Date:: September 2020 [employer] Smoking Status: Former smoker - Past Family History Mother Family Medical History: No Reported History Father Family Medical History: Cancer Medications and Allergies Home Medications Medication Instructions Recorded Confirmed Type Levothyroxine Sodium [Synthroid] 25 mcg PO DAILY 04/10/20 05/15/23 History Apixaban [Eliquis] 5 mg PO BID 01/23/21 05/15/23 History Multivitamins, Thera [Multivitamin 1 tab PO DAILY 01/23/21 05/15/23 History (formulary)] Thiamine [Vitamin B-1] 100 mg PO DAILY 01/23/21 05/15/23 History Cyanocobalamin (Vitamin B-12) 1,000 mcg PO DAILY 04/11/21 05/15/23 History [Vitamin B-12] Rivastigmine Tartrate 4.5 mg PO BID 04/11/21 05/15/23 History [Rivastigmine] Atorvastatin [Lipitor] 20 mg PO HS 05/15/23 05/15/23 History [place]-3 500mg 500 mg PO DAILY 05/15/23 05/15/23 History Allergies Allergy/AdvReac Type Severity Reaction Status Date / Time lorazepam [From Ativan] AdvReac Hallucinati Verified 05/15/23 11:13 ons metoprolol AdvReac Hallucinati Verified 05/15/23 11:13 ons oxybutynin AdvReac Hallucinati Verified 05/15/23 11:13 ons Physical Exam Vitals: Vital Signs Temp Pulse Pulse Resp BP BP Pulse Ox 05/15/23 15:53 99.0 F 60 18 119/56 93 L 05/15/23 15:12 98.5 F 63 18 141/98 97 05/15/23 12:34 63 18 125/59 96 05/15/23 11:04 99.4 F 75 18 145/74 90 L Intake and Output 05/15/23 05/15/23 05/15/23 06:59 14:59 22:59 Intake Total 480 Balance 480 Intake: Oral 480 Other: Voiding Method External Catheter # Voids 1 Weight 68.039 kg 68.039 kg General appearance: alert, in no apparent distress Head exam: Present: atraumatic, normocephalic Eye exam: Present: normal appearance, PERRL, EOMI ENT exam: Present: normal oropharynx Neck exam: Present: normal inspection. Absent: tenderness Respiratory exam: Present: normal lung sounds bilaterally Cardiovascular Exam: Present: regular rate, normal rhythm GI/Abdominal exam: Present: soft. Absent: tenderness Extremities exam: Present: normal inspection, full ROM. Absent: tenderness Back exam: Present: tenderness (Mild tenderness mid thoracic to mid lumbar vertebral.) Neurological exam: Present: alert, oriented X3, CN II-XII intact. Absent: motor sensory deficit Expanded Cranial nerves: EOM's Intact: Normal Motor strength exam: RUE: 5, LUE: 5, RLE: 5, LLE: 5 Eye Response: (4) open spontaneously Motor Response: (6) obeys commands Verbal Response: (5) oriented Psychiatric exam: Present: normal affect, normal mood Skin exam: Present: normal color Results CBC & Chem 7: 05/15/23 11:36 05/15/23 11:36 Labs: Abnormal Lab Results - Last 24 Hours (Table) 05/15/23 05/15/23 05/15/23 Range/Units 11:36 11:36 11:36 WBC 29.6 H (3.8-10.6) k/uL RBC 3.46 L (3.80-5.40) m/uL Hgb 10.5 L (11.4-16.0) gm/dL Hct 31.9 L (34.0-46.0) % Neutrophils # (Manual) 27.50 H (1.3-7.7) k/uL Lymphocytes # (Manual) 0.30 L (1.0-4.8) k/uL Monocytes # (Manual) 1.78 H (0-1.0) k/uL Sodium 133 L (137-145) mmol/L Carbon Dioxide 19 L (22-30) mmol/L BUN 31 H (7-17) mg/dL Creatinine 1.42 H (0.52-1.04) mg/dL Glucose 129 H (74-99) mg/dL Calcium 10.3 H (8.4-10.2) mg/dL Total Bilirubin 1.9 H (0.2-1.3) mg/dL AST 39 H (14-36) U/L Creatine Kinase 277 H (30-135) U/L Urine Protein Trace H (Negative) Ur Leukocyte Esterase Moderate H (Negative) Urine WBC 16 H (0-5) /hpf Urine Bacteria Moderate H (None) /hpf Urine Mucus Rare H (None) /hpf Assessment and Plan Assessment: 1. UTI/sepsis - White blood count is elevated at 29.6; hemoglobin feels leukocyte esterase, WBCs and bacteria - Patient received IV Rocephin in ED; we will continue and obtain urine and b lood cultures - Consult ID 2. Acute renal injury; BUN/creatinine elevated at 31/1.42; patient remains on IV fluids in form of normal saline at a rate of 75 mL an hour; monitor strict TIFFANI's, daily weights, renal function like lites; avoid nephrotoxins and hypotension 3. Elevated liver enzymes; right upper quadrant ultrasound is completed and is unremarkable; we will trend liver enzymes and initiate further workup if continue to trend up; we will hold Lipitor 4. Generalized weakness/fall; workup was negative; patient had CT of the head with x-ray of the cervical thoracic and lumbar spine - We will consult PT/OT 5. Hypertension; currently not on any antihypertensive therapy 6. Hyperlipidemia; Lipitor 20 mg by mouth daily at bedtime 7. 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 Atrial fibrillation; not on any rate controlling agent; anticoagulated with eliquis DVT prophylaxis; SCDs/Eliquis CODE STATUS; full code
[2023-05-15] MEDS: APIXABAN 5 MG TAB PO SCH (20:05)
[2023-05-15] MEDS: traMADol 50 MG TAB PO PRN (20:11)
[2023-05-16] MEDS: traMADol 50 MG TAB PO PRN ×3 (02:35→20:45)
[2023-05-16] MEDS ORDERED: SODIUM CHLORIDE 0.9% 500 ML 500 ML IV ONE ×2 (06:25→09:56)
[2023-05-16] MEDS: LEVOTHYROXINE 25 MCG TAB PO SCH (06:38)
[2023-05-16 07:32] LABS: Basophils % (A) 0 %; Eosinophils % (A) 0 %; HCT 31.6 % (34.0-46.0); HGB 9.9 gm/dL (11.4-16.0); Hypochromasia Slight; Lymphocytes # (A) 0.5 k/uL (1.0-4.8); Lymphocytes % (A) 2 %; MCHC 31.4 g/dL (31.0-37.0); MCV 95.5 fL (80.0-100.0); Mean Platelet Volume 8.1; Monocytes # (A) 0.9 k/uL (0-1.0); Monocytes % (A) 4 %; Neutrophils % (A) 94 %; Platelet Count 257 k/uL (150-450); RBC 3.31 m/uL (3.80-5.40); RDW 13.2 % (11.5-15.5); WBC 24.5 k/uL (3.8-10.6)
[2023-05-16 07:59] LABS: ALT 31 U/L (4-34); AST 59 U/L (14-36); African American GFR (CKD) 18 (>60 ml/min/1.73 sqM); Albumin 3.7 g/dL (3.5-5.0); Albumin/Globulin Ratio 1.3; Alkaline Phosphatase 82 U/L (38-126); Anion Gap 14 mmol/L; Bilirubin,Unconjugated 0.9 mg/dL (0.0-1.1); Blood Urea Nitrogen 48 mg/dL (7-17); Calcium 9.1 mg/dL (8.4-10.2); Carbon Dioxide 18 mmol/L (22-30); Chloride 104 mmol/L (98-107); Globulin 2.9 g/dL; Glucose 136 mg/dL (74-99); Non-African American GFR(CKD) 16 (>60 ml/min/1.73 sqM); Potassium 5.5 mmol/L (3.5-5.1); Sodium 136 mmol/L (137-145); Total Bilirubin 1.3 mg/dL (0.2-1.3); Total Protein 6.6 g/dL (6.3-8.2)
[2023-05-16] MEDS: DONEPEZIL 10 MG TAB PO SCH (09:01)
[2023-05-16] MEDS: APIXABAN 5 MG TAB PO SCH (09:01)
[2023-05-16] MEDS ORDERED: SODIUM BICARB 8.4% 50 ML SYR (1 MEQ/ML) IV STA (09:02)
--- NOTE | 2023-05-16 09:26 | XR ---
EXAMINATION TYPE: XR chest 1V portable DATE OF EXAM: 05/16/2023 9:05 AM CLINICAL INDICATION:Female, 88 years old with history of hypoxia; PHH COMPARISON: Chest radiographs from 05/24/2023. TECHNIQUE: XR chest 1V portable Frontal view of the chest. FINDINGS: Lungs/Pleura: Improved aeration of the lung bases which could represent pulmonary vessel congestion v ersus airspace opacities. There is no evidence of pleural effusion, focal consolidation, or pneumotho rax. Pulmonary vascularity: Unremarkable. Heart/mediastinum: Cardiomediastinal silhouette is unremarkable. Two lead cardiac conduction device o verlying the left hemithorax with lead tips projecting over the right ventricle and right atrium. Musculoskeletal: Degenerative changes of the shoulder joints. Other findings: None IMPRESSION: Scattered basilar airspace opacities with low lung volumes and cardiomegaly. There may be mild pulmon ketan vascular congestion. Correlate for congestive heart failure.
--- NOTE | 2023-05-16 11:34 | P.NPCON ---
History of Present Illness - Reason for Consult acute renal failure - History of Present Illness Patient is a 88-year-old female with history of hypertension, CHF, chronic A. fib and chronic kidney disease NKF stage IIIB to 4 with baseline GFR around 30 ML per minute. Patient follows with nephrology out of [facility]. She is admitted to the hospital with a history of fall. According to the daugh ter patient has been weak and unsteady. She has short-term memory loss as well. It appears that losartan was discontinued about 5 days ago. Blood pressure was low according to the daughter with systolic at 89 mmHg. This is not documented here. Serum creatinine was 1.4 on admission and increased to 2.59 today. Urine output was low and an external catheter has been placed. Straight cath only revealed 150 ML of urine. Blood cultures are positive growing gram-positive cocci in clusters. Received 1 dose of Toradol yesterday. Ultrasound of the kidneys shows no evidence of hydronephrosis. Right kidney 8.6 cm, left kidney 9.6 cm. Review of Systems As per HPI Past Medical History Past Medical History: Atrial Fibrillation, Heart Failure, Hyperlipidemia, Hypertension, Memory Impairment, Musculoskeletal Disorder, Osteoarthritis (OA), Renal Disease, Thyroid Disorder Additional Past Medical History / Comment(s): heart murmur, CKD-sees specialist, low back pain, DEMENTIA History of Any Multi-Drug Resistant Organisms: None Reported Past Surgical History: AICD, Cholecystectomy, Heart Catheterization, Hysterectomy Additional Past Surgical History / Comment(s): pain procedures, cardioversion, Past Anesthesia/Blood Transfusion Reactions: No Reported Reaction Type of Cardiac Device: AICD Device Placement Date:: September 2020 [employer] Smoking Status: Former smoker - Past Family History Mother Family Medical History: No Reported History Father Family Medical History: Cancer Medications and Allergies Home Medications Medication Instructions Recorded Confirmed Type Levothyroxine Sodium [Synthroid] 25 mcg PO DAILY 04/10/20 05/15/23 History Apixaban [Eliquis] 5 mg PO BID 01/23/21 05/15/23 History Multivitamins, Thera [Multivitamin 1 tab PO DAILY 01/23/21 05/15/23 History (formulary)] Thiamine [Vitamin B-1] 100 mg PO DAILY 01/23/21 05/15/23 History Cyanocobalamin (Vitamin B-12) 1,000 mcg PO DAILY 04/11/21 05/15/23 History [Vitamin B-12] Rivastigmine Tartrate 4.5 mg PO BID 04/11/21 05/15/23 History [Rivastigmine] Atorvastatin [Lipitor] 20 mg PO HS 05/15/23 05/15/23 History [place]-3 500mg 500 mg PO DAILY 05/15/23 05/15/23 History Allergies Allergy/AdvReac Type Severity Reaction Status Date / Time lorazepam [From Ativan] AdvReac Hallucinati Verified 05/15/23 11:13 ons metoprolol AdvReac Hallucinati Verified 05/15/23 11:13 ons oxybutynin AdvReac Hallucinati Verified 05/15/23 11:13 ons Physical Exam Vitals: Vital Signs Temp Pulse Pulse Resp BP BP Pulse Ox 05/16/23 08:48 94 L 05/16/23 07:35 94 L 05/16/23 07:28 98.7 F 62 20 144/60 81 L 05/16/23 00:50 98.9 F 56 L 20 104/62 91 L 05/15/23 19:57 98.4 F 61 20 102/43 92 L 05/15/23 15:53 99.0 F 60 18 119/56 93 L 05/15/23 15:12 98.5 F 63 18 141/98 97 05/15/23 12:34 63 18 125/59 96 Intake and Output 05/15/23 05/16/23 05/16/23 22:59 06:59 14:59 Intake Total 480 Output Total 150 Balance 480 -150 Intake: Oral 480 Output: Urine 150 Straight 150 Other: Voiding Method External Catheter Incontinent # Voids 1 Weight 68.039 kg Patient is comfortable awake, no acute distress Examination of the heart S1 and S2 Examination of the lungs bilateral breath sounds are heard Abdomen is soft distended nontender Examination of lower extremity shows no evidence of edema MILL SET UP exam shows patient is moving all 4 extremities. She also simple questions appropriately. Results - Lab Results Most recent lab results Calcium 9.1 mg/dL (8.4-10.2) 05/16/23 06:58 05/16/23 06:58 05/16/23 06:58 Assessment and Plan Assessment: 1. Acute kidney injury, ATN currently oliguric. Maintained on IV fluids. No evidence of urine retention. Etiology is underlying sepsis and hypotension. Patient also received a dose of Toradol yesterday, now discontinued 2. CK D NKF stage IIIB with baseline GFR around 30 ML per minute. Patient follows with nephrology out of [place] system. 3. Pyuria rule out UTI 4. Gram-positive bacteremia 5. Hyperkalemia associated with acute kidney injury and metabolic acidosis 6. Anion gap metabolic acidosis associated with acute kidney injury Plan: Continue with IV fluids Avoid nephrotoxic agents Change IV fluids to IV bicarb Repeat labs this evening to follow-up on hyperkalemia. Follow-up on urine culture Thank you for the consultation. We will continue to follow the patient with you during her hospitalization.
[2023-05-16] MEDS: THIAMINE 100 MG TAB PO SCH (13:39)
[2023-05-16] MEDS: CYANOCOBALAMIN 500 MCG TAB PO SCH (13:39)
[2023-05-16] MEDS: MULTIVITAMINS, THERA 1 EACH TAB PO SCH (13:39)
[2023-05-16] MEDS ORDERED: IOPAMIDOL CONTRAST (ORAL USE) VIAL PO PRN (14:21)
[2023-05-16] MEDS: ACETAMINOPHEN TAB 325 MG TAB PO PRN ×2 (15:17→20:45)
--- NOTE | 2023-05-16 15:59 | P.PN ---
Subjective Progress Note Date: 05/16/23 88-year-old female, history of hypertension, hyperlipidemia, hypothyroidism, atrial fibrillation, CHF, presenting to the emergency department following being found on the floor. A fall was not witnessed. Patient was found on the floor this morning by who sleeps in a different room. Patient does not recall the episode and this is reported as normal as patient has short-term memory loss and frequently denies falling. This is per the daughter. Patient does complain of some discomfort of the mid back. Unknown if there is any head injury. No neck pain. No dyspnea. No abdominal pain. Blood work completed in ED reveals a WBC 29.6, hemoglobin of 10.5 and platelet count of 301, sodium 133, potassium 4.8, BUN/creatinine of 31/1.42 and blood glucose of 129, calcium of 10.3, total bilirubin of 1.9, AST/ALT elevated at 39/20, total CK of 277 UA is positive for leukocyte esterase bacteria and WBCs, vital panel is completed and is negative, CT head is negative for any acute intracranial process with nonspecific white matter changes, moderate multilevel degenerative disc disease versus prior fracture of odontoid process with fusion to anterior arch of C1 Chest x-ray reveals low lung volumes with generalized pain see appearance atelectasis versus pulmonary edema Renal and right upper quadrant ultrasound is done which is negative -- Blood work reveals slight trend troponin of CBC from 29.6 down to 24.5 this morning, potassium trended up from 4.8 up to 5.5, creatinine up from 1.4-2.59 this morning -- Patient has been evaluated by nephrology and has been switched to IV bicarbonate infusion; repeat renal function ordered for later today - Blood cultures positive for gram-positive cocci; ID consult placed; ID recommending to switch IV antibiotics to cefazolin 2 g IV every 12 hours -- Stat CT of the abdomen is ordered Objective - Vital Signs Vital signs: Vital Signs Temp 98.7 F 05/16/23 07:28 Pulse 62 05/16/23 07:28 Resp 20 05/16/23 07:28 BP 144/60 05/16/23 07:28 Pulse Ox 94 L 05/16/23 08:48 FiO2 Intake & Output 05/15/23 05/16/23 05/16/23 18:59 06:59 18:59 Intake Total 480 Output Total 150 Balance 480 -150 Weight 68.039 kg Intake: Oral 480 Output: Urine 150 Straight 150 Other: Voiding Method External Catheter External Catheter Incontinent # Voids 1 - Exam Patient is comfortable awake, no acute distress Examination of the heart S1 and S2 Examination of the lungs bilateral breath sounds are heard Abdomen is soft distended nontender Examination of lower extremity shows no evidence of edema [employer] exam shows patient is moving all 4 extremities. She also simple questions appropriately. - Labs CBC & Chem 7: 05/16/23 06:58 05/16/23 06:58 Labs: Abnormal Lab Results - Last 24 Hours (Table) 05/15/23 05/15/23 05/15/23 Range/Units 11:36 11:36 11:36 WBC 29.6 H (3.8-10.6) k/uL RBC 3.46 L (3.80-5.40) m/uL Hgb 10.5 L (11.4-16.0) gm/dL Hct 31.9 L (34.0-46.0) % Neutrophils # (1.3-7.7) k/uL Neutrophils # (Manual) 27.50 H (1.3-7.7) k/uL Lymphocytes # (1.0-4.8) k/uL Lymphocytes # (Manual) 0.30 L (1.0-4.8) k/uL Monocytes # (Manual) 1.78 H (0-1.0) k/uL Sodium 133 L (137-145) mmol/L Potassium (3.5-5.1) mmol/L Carbon Dioxide 19 L (22-30) mmol/L BUN 31 H (7-17) mg/dL Creatinine 1.42 H (0.52-1.04) mg/dL Glucose 129 H (74-99) mg/dL Calcium 10.3 H (8.4-10.2) mg/dL Total Bilirubin 1.9 H (0.2-1.3) mg/dL AST 39 H (14-36) U/L Creatine Kinase 277 H (30-135) U/L Urine Protein Trace H (Negative) Ur Leukocyte Esterase Moderate H (Negative) Urine WBC 16 H (0-5) /hpf Urine Bacteria Moderate H (None) /hpf Urine Mucus Rare H (None) /hpf 05/16/23 05/16/23 Range/Units 06:58 06:58 WBC 24.5 H (3.8-10.6) k/uL RBC 3.31 L (3.80-5.40) m/uL Hgb 9.9 L (11.4-16.0) gm/dL Hct 31.6 L (34.0-46.0) % Neutrophils # 23.0 H (1.3-7.7) k/uL Neutrophils # (Manual) (1.3-7.7) k/uL Lymphocytes # 0.5 L (1.0-4.8) k/uL Lymphocytes # (Manual) (1.0-4.8) k/uL Monocytes # (Manual) (0-1.0) k/uL Sodium 136 L (137-145) mmol/L Potassium 5.5 H (3.5-5.1) mmol/L Carbon Dioxide 18 L (22-30) mmol/L BUN 48 H (7-17) mg/dL Creatinine 2.59 H (0.52-1.04) mg/dL Glucose 136 H (74-99) mg/dL Calcium (8.4-10.2) mg/dL Total Bilirubin (0.2-1.3) mg/dL AST 59 H (14-36) U/L Creatine Kinase (30-135) U/L Urine Protein (Negative) Ur Leukocyte Esterase (Negative) Urine WBC (0-5) /hpf Urine Bacteria (None) /hpf Urine Mucus (None) /hpf Microbiology - Last 24 Hours (Table) 05/15/23 15:05 Blood Culture Gram Stain - Preliminary Blood 05/15/23 14:50 Blood Culture Gram Stain - Preliminary Blood Assessment and Plan Assessment: 1. UTI/sepsis - White blood count is elevated at 29.6; hemoglobin feels leukocyte esterase, WBCs and bacteria - Patient received IV Rocephin in ED; we will continue and obtain urine and blood cultures - Consult ID 2. Acute renal injury; BUN/creatinine elevated at 31/1.42; patient remains on IV fluids in form of normal saline at a rate of 75 mL an hour; monitor strict TIFFANI's, daily weights, renal function like lites; avoid nephrotoxins and hypotension 3. Elevated liver enzymes; right upper quadrant ultrasound is completed and is unremarkable; we will trend liver enzymes and initiate further workup if continu e to trend up; we will hold Lipitor 4. Generalized weakness/fall; workup was negative; patient had CT of the head with x-ray of the cervical thoracic and lumbar spine - We will consult PT/OT 5. Hypertension; currently not on any antihypertensive therapy 6. Hyperlipidemia; Lipitor 20 mg by mouth daily at bedtime 7. 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 Atrial fibrillation; not on any rate controlling agent; anticoagulated with eliquis DVT prophylaxis; SCDs/Eliquis CODE STATUS; full code
[2023-05-16] MEDS: DEXTROSE 5% IN WATER 1,000 ML with SODIUM BICARB (1 MEQ/ML) 150 ML IV SCH (16:11)
--- NOTE | 2023-05-16 17:16 | CT ---
EXAMINATION TYPE: CT abdomen pelvis wo con CT DLP: 578.7 mGycm, Automated exposure control for dose reduction was used. DATE OF EXAM: 05/16/2023 4:45 PM COMPARISON: None. CLINICAL INDICATION:Female, 88 years old with history of bacteremia, abd distension; Bacteremia, Abdo mahnaz distension. TECHNIQUE: Axial CT of the abdomen and pelvis. Sagittal and coronal reformats were created on a [place] workstation. Contrast used: mL of , (none if empty) Oral contrast used: with Oral Contrast (none if empty) FINDINGS: LOWER CHEST: Cardiomegaly with partially seen distal ends of pacemaker leads. No significant pericard ial effusion. Small to moderate bilateral pleural effusions with adjacent atelectasis/airspace diseas e. ABDOMEN Exam is limited by lack of IV contrast. LIVER: Unremarkable GALLBLADDER AND BILE DUCTS: Gallbladder not seen, likely absent. No biliary ductal dilatation is sugg ested. PANCREAS: Mild diffuse atrophy. SPLEEN: Unremarkable. ADRENAL GLANDS: Mildly thickened bilaterally, could be from hyperplasia.. KIDNEYS AND URETERS: A 4 mm right upper pole calculus. No ureteral calculi or hydronephrosis. PELVIS BLADDER: Unremarkable REPRODUCTIVE: The uterus is surgically absent. ABDOMEN & PELVIS STOMACH AND BOWEL: Contrast is seen traversing the stomach and small bowel loops, without evidence of obstruction. A couple of gas and partially contrast-filled structures adjacent to the duodenum, like ly duodenal diverticula. Some small bowel loops are fluid and gas-filled and mildly distended up to 2 .7 cm diameter. No clear-cut transition point. There is mild/moderate stool throughout the colon. Num erous diverticula are seen throughout, without focal inflammation seen to suggest acute diverticuliti s. Appendix is not identified with certainty, however there is no inflammatory process seen in the RL Q. PERITONEUM/RETROPERITONEUM: No evidence of pneumoperitoneum or free fluid. VASCULATURE: Moderate atherosclerotic calcifications are present throughout the abdominal aorta and i ts branches. No evidence of aortic aneurysm. MUSCULOSKELETAL: No clearly acute osseous abnormality. Mild/moderate degenerative changes throughout the spine with grade 1 anterolisthesis L4 over L5. Mild/moderate neural foraminal stenoses suggested bilaterally at each level in the lumbar spine. LYMPH NODES: No gross evidence for lymphadenopathy. SOFT TISSUE/ABDOMINAL WALL: Unremarkable IMPRESSION: 1. Limited unenhanced study shows no evidence of acute inflammatory process in the abdomen or pelvis . 2. Small bowel findings could be seen with ileus and/or enteritis, early obstructive process is a le ss likely consideration. 3. Numerous colonic diverticula, without evidence of diverticulitis. 4. Nonobstructing right renal calculus. 5. Other chronic and likely incidental findings, as described above.
[2023-05-16 17:35] LABS: ALT 31 U/L (4-34); AST 56 U/L (14-36); African American GFR (CKD) 20 (>60 ml/min/1.73 sqM); Albumin 3.6 g/dL (3.5-5.0); Albumin/Globulin Ratio 1.3; Alkaline Phosphatase 79 U/L (38-126); Anion Gap 12 mmol/L; Blood Urea Nitrogen 52 mg/dL (7-17); Carbon Dioxide 18 mmol/L (22-30); Chloride 107 mmol/L (98-107); Globulin 2.8 g/dL; Glucose 151 mg/dL (74-99); Non-African American GFR(CKD) 17 (>60 ml/min/1.73 sqM); Potassium 5.9 mmol/L (3.5-5.1); Sodium 137 mmol/L (137-145); Total Bilirubin 0.6 mg/dL (0.2-1.3); Total Protein 6.4 g/dL (6.3-8.2)
[2023-05-16] MEDS ORDERED: SODIUM CHLORIDE 0.9% 1,000 ML IV ONE (17:43)
[2023-05-16] MEDS ORDERED: INSULIN REGULAR 100 UNIT/ML VIAL (IV) IV ONE (17:44)
[2023-05-16] MEDS ORDERED: DEXTROSE 50% SYRINGE 50 ML IVP STA (17:44)
[2023-05-16] MEDS: HYDROmorphone 0.5 MG/0.5 ML SYRINGE IVP PRN (19:47)
[2023-05-16] MEDS: APIXABAN 2.5 MG TABLET PO SCH (20:44)
[2023-05-17] MEDS: DEXTROSE 5% IN WATER 1,000 ML with SODIUM BICARB (1 MEQ/ML) 150 ML IV SCH ×3 (00:38→22:22)
[2023-05-17] MEDS: HYDROmorphone 0.5 MG/0.5 ML SYRINGE IVP PRN ×6 (01:25→23:40)
[2023-05-17] MEDS: traMADol 50 MG TAB PO PRN ×2 (02:41→11:55)
[2023-05-17] MEDS: ACETAMINOPHEN TAB 325 MG TAB PO PRN (02:41)
[2023-05-17] MEDS: LEVOTHYROXINE 25 MCG TAB PO SCH (05:43)
--- NOTE | 2023-05-17 07:27 | P.CONS ---
History of Present Illness - Reason for Consult Consult date: 05/16/23 Bacteremia Requesting physician: Nazia De La Garza - Chief Complaint Fall weakness and back pain x few days - History of Present Illness Patient is a 88-year-old female with a past medical history significant for atrial fibrillation hypertension hyperlipidemia heart failure with patient was brought into the hospital yesterday morning after family patient was found to be on the floor although was not witnessed patient did not recall circumstances of the fall or any loss of consciousness patient did have a chronic back pain however has been complaining of more pain to the lower back area describing it to be sharp moderate to severe intensity without radiation no weakness in the lower extremity or any bowel or bladder problems patient denies having any headache or URI symptoms no chest pain minimal shortness of breath occasional cough some nausea but no vomiting no abdominal pain or diarrhea no significant urinary symptoms patient on presentation to the hospital did have a low-grade fever of 99.4 degrees following high patient was not tachycardic or hypotensive did have mild hypoxemia O2 sats of 90% on room air currently on 2 L nasal cannula oxygen patient did have vital 9.6 did have elevated BUN/creatinine was up to 2.43 AST was mildly elevated ALT was normal urine was positive influenza RSV and COVID testing was negative patient did have a lumbar spine x-ray moderate multilevel disc degeneration abdominal bladder ultrasound no evidence of acute abdominal process patient chest x-ray scattered basilar airspace opacity hematolung volumes with ca rdiomegaly patient blood cultures came back positive with Staph aureus that has prompted this infectious disease consultation Review of Systems Positive point and negatives has been mentioned in the HPI, complete review of systems was performed and all other systems are negative Past Medical History Past Medical History: Atrial Fibrillation, Heart Failure, Hyperlipidemia, Hypertension, Memory Impairment, Musculoskeletal Disorder, Osteoarthritis (OA), Renal Disease, Thyroid Disorder Additional Past Medical History / Comment(s): heart murmur, CKD-sees specialist, low back pain, DEMENTIA History of Any Multi-Drug Resistant Organisms: None Reported Past Surgical History: AICD, Cholecystectomy, Heart Catheterization, Hysterectomy Additional Past Surgical History / Comment(s): pain procedures, cardioversion, Past Anesthesia/Blood Transfusion Reactions: No Reported Reaction Type of Cardiac Device: AICD Device Placement Date:: September 2020 [employer] Smoking Status: Former smoker - Past Family History Mother Family Medical History: No Reported History Father Family Medical History: Cancer Medications and Allergies Home Medications Medication Instructions Recorded Confirmed Type Levothyroxine Sodium [Synthroid] 25 mcg PO DAILY 04/10/20 05/15/23 History Apixaban [Eliquis] 5 mg PO BID 01/23/21 05/15/23 History Multivitamins, Thera [Multivitamin 1 tab PO DAILY 01/23/21 05/15/23 History (formulary)] Thiamine [Vitamin B-1] 100 mg PO DAILY 01/23/21 05/15/23 History Cyanocobalamin (Vitamin B-12) 1,000 mcg PO DAILY 04/11/21 05/15/23 History [Vitamin B-12] Rivastigmine Tartrate 4.5 mg PO BID 04/11/21 05/15/23 History [Rivastigmine] Atorvastatin [Lipitor] 20 mg PO HS 05/15/23 05/15/23 History [place]-3 500mg 500 mg PO DAILY 05/15/23 05/15/23 History Allergies Allergy/AdvReac Type Severity Reaction Status Date / Time lorazepam [From Ativan] AdvReac Hallucinati Verified 05/15/23 11:13 ons metoprolol AdvReac Hallucinati Verified 05/15/23 11:13 ons oxybutynin AdvReac Hallucinati Verified 05/15/23 11:13 ons Physical Exam Vitals: Vital Signs Temp Pulse Pulse Resp BP BP Pulse Ox 05/16/23 08:48 94 L 05/16/23 07:35 94 L 05/16/23 07:28 98.7 F 62 20 144/60 81 L 05/16/23 00:50 98.9 F 56 L 20 104/62 91 L 05/15/23 19:57 98.4 F 61 20 102/43 92 L 05/15/23 15:53 99.0 F 60 18 119/56 93 L 05/15/23 15:12 98.5 F 63 18 141/98 97 Intake and Output 05/15/23 05/16/23 05/16/23 22:59 06:59 14:59 Intake Total 480 Output Total 150 Balance 480 -150 Intake: Oral 480 Output: Urine 150 Straight 150 Other: Voiding Method External Catheter Incontinent # Voids 1 Weight 68.039 kg GENERAL DESCRIPTION: Elderly female lying in bed, no distress. No tachypnea or accessory muscle of respiration use. HEENT: Shows Pallor , no scleral icterus. Oral mucous membrane is dry. No pharyngeal erythema or thrush NECK: Trachea central, no thyromegaly. LUNGS: Unlabored breathing. Clear to auscultation anteriorly. HEART: S1, S2, regular rate and rhythm. No loud murmur ABDOMEN: Soft, mild distention and tenderness EXTREMITIES: No edema of feet. SKIN: No rash, no masses palpable. NEUROLOGICAL: The patient is lethargic but arousable, mood and affect normal. Results CBC & Chem 7: 05/17/23 06:30 05/17/23 06:30 Labs: Abnormal Lab Results - Last 24 Hours (Table) 05/16/23 05/16/23 Range/Units 06:58 06:58 WBC 24.5 H (3.8-10.6) k/uL RBC 3.31 L (3.80-5.40) m/uL Hgb 9.9 L (11.4-16.0) gm/dL Hct 31.6 L (34.0-46.0) % Neutrophils # 23.0 H (1.3-7.7) k/uL Lymphocytes # 0.5 L (1.0-4.8) k/uL Sodium 136 L (137-145) mmol/L Potassium 5.5 H (3.5-5.1) mmol/L Carbon Dioxide 18 L (22-30) mmol/L BUN 48 H (7-17) mg/dL Creatinine 2.59 H (0.52-1.04) mg/dL Glucose 136 H (74-99) mg/dL AST 59 H (14-36) U/L Microbiology - Last 24 Hours (Table) 05/15/23 15:05 Blood Culture Gram Stain - Preliminary Blood 05/15/23 14:50 Blood Culture Gram Stain - Preliminary Blood Assessment and Plan (1) Bacteremia Current Visit: Yes Status: Acute Code(s): R78.81 - BACTEREMIA SNOMED Code(s): 1992052 Plan: 1patient with a Staph aureus bacteremia which is usually a skin soft tissue origin in this patient presented to hospital with a fall found on the floor has been complaining of more lower back pain and history of chronic back pain with a question of possible discitis/osteomyelitis to lumbosacral spine area as currently do not have any evidence of cellulitis joint swelling or other clear focus of this bacteremia, patient did have a positive UA underlying urinary sour ce less likely as the patient did not have any urinary symptoms patient was noticed to have significant abdominal distention and some tenderness will need to rule out intra-abdominal source 2-patient did have a renal insufficiency and high risk of nephrotoxicity 3-we will obtain a CT of abdominal pelvis with oral contrast only 4-blood cultures will be repeated to document clearance of bacteremia check inflammatory markers 5-discontinue Rocephin start the patient on cefazolin We will follow on clinical condition and cultures to further adjust medication if needed Thank you for this consultation we will follow the patient along with you Dictation was produced using [employer] dictation software. please excuse any grammatical, word or spelling errors. Time with Patient: Greater than 30
[2023-05-17] MEDS: MULTIVITAMINS, THERA 1 EACH TAB PO SCH (08:05)
[2023-05-17] MEDS: THIAMINE 100 MG TAB PO SCH (08:05)
[2023-05-17] MEDS: APIXABAN 2.5 MG TABLET PO SCH (08:05)
[2023-05-17] MEDS: DONEPEZIL 10 MG TAB PO SCH (08:05)
[2023-05-17] MEDS: CYANOCOBALAMIN 500 MCG TAB PO SCH (08:05)
--- NOTE | 2023-05-17 10:36 | P.PN ---
Subjective Patient is seen in follow-up for acute kidney injury on chronic kidney disease. Creatinine 2.43 yesterday. Morning labs pending. Resting in bed. Oral intake is poor. Son present at bedside. Currently on bicarb drip. Urine output about 400 mL overnight. Vital signs are stable. General: No acute distress. HEENT: Head exam is unremarkable. LUNGS: No audible rhonchi or wheezes. HEART: Rate and Rhythm are regular. ABDOMEN: Nontender, distention noted. EXTREMITITES: No edema. Objective - Vital Signs Vital signs: Vital Signs Temp 96.9 F L 05/17/23 07:00 Pulse 84 05/17/23 07:00 Resp 20 05/17/23 08:00 BP 191/67 05/17/23 07:00 Pulse Ox 91 L 05/17/23 07:00 FiO2 Intake & Output 05/16/23 05/17/23 05/17/23 18:59 06:59 18:59 Intake Total 720 Output Total 150 250 Balance 570 -250 Intake: Oral 720 Output: Urine 150 250 Straight 150 Other: Voiding Method Incontinent Incontinent External Catheter External Catheter # Voids 1 - Labs CBC & Chem 7: 05/16/23 06:58 05/16/23 17:04 Labs: Abnormal Lab Results - Last 24 Hours (Table) 05/16/23 05/16/23 Range/Units 06:58 17:04 Potassium 5.9 H (3.5-5.1) mmol/L Carbon Dioxide 18 L (22-30) mmol/L BUN 52 H (7-17) mg/dL Creatinine 2.43 H (0.52-1.04) mg/dL Glucose 151 H (74-99) mg/dL AST 56 H (14-36) U/L Procalcitonin 13.50 H (0.02-0.09) ng/mL Microbiology - Last 24 Hours (Table) 05/15/23 11:36 Urine Culture - Preliminary Urine,Voided Gram Neg Bacilli 05/15/23 15:05 Blood Culture Gram Stain - Preliminary Blood 05/15/23 14:50 Blood Culture Gram Stain - Preliminary Blood Assessment and Plan Plan: Assessment: 1. Acute kidney injury secondary to ATN secondary to severe sepsis. Also received Toradol. Creatinine 2.43 yesterday. No hydronephrosis noted on imaging. 2. Chronic kidney disease stage IIIB with baseline creatinine near 1.4. 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 3. Gram-negative UTI and gram-positive bacteremia ID following. On antibiotics. 4. Metabolic acidosis secondary to acute kidney injury maintained on IV bicarb. 5. Hyperkalemia secondary to acute kidney injury, acidosis. Plan: Follow-up morning labs. Maintain bicarb drip for now. Encouraged oral intake. Avoid nephrotoxins. Continue to monitor renal function and urine output. Challenge with IV Lasix if urine output drops. Monitor bladder scan to make sure no urinary retention.
[2023-05-17 10:59] LABS: Basophils # (A) 0.04 X 10*3/uL (0.00-0.10); Basophils % (A) 0.2 %; Eosinophils # (A) 0.05 X 10*3/uL (0.04-0.35); Eosinophils % (A) 0.3 %; HCT 30.2 % (37.2-46.3); HGB 9.4 g/dL (12.0-15.0); Lymphocytes # (A) 0.52 X 10*3/uL (0.90-5.00); Lymphocytes % (A) 2.8 %; MCH 29.6 pg (27.0-32.0); MCHC 31.1 g/dL (32.0-37.0); Mean Platelet Volume 9.5 FL (9.5-12.2); Monocytes # (A) 0.75 X 10*3/uL (0.20-1.00); Monocytes % (A) 4.1 %; NRBC Per 100 WBC 0 X 10*3/uL (0.00-0.01); Neutrophils # (A) 16.97 X 10*3/uL (1.80-7.70); Neutrophils % (A) 91.9 %; Platelet Count 254 X 10*3/uL (140-440); RBC 3.18 X 10*6/uL (4.10-5.20); RDW 13.2 % (11.5-14.5); WBC 18.45 X 10*3/uL (4.50-10.00)
[2023-05-17 11:12] LABS: ALT 30 U/L (8-44); AST 49 U/L (13-35); Albumin 3.7 g/dL (3.8-4.9); Albumin/Globulin Ratio 1.42 Ratio (1.60-3.17); Alkaline Phosphatase 85 U/L (41-126); BUN/Creat Ratio 23.84 Ratio (12.00-20.00); Blood Urea Nitrogen 45.3 mg/dL (9.0-27.0); Calcium 9.5 mg/dL (8.7-10.3); Carbon Dioxide 23.4 mmol/L (21.6-31.8); Chloride 101 mmol/L (96-109); Globulin 2.6 g/dL (1.6-3.3); Glucose 120 mg/dL (70-110); Potassium 4.5 mmol/L (3.5-5.5); Sodium 138 mmol/L (135-145); Total Bilirubin 0.4 mg/dL (0.3-1.2); Total Protein 6.3 g/dL (6.2-8.2)
[2023-05-17] MEDS: hydrALAZINE HCL 50 MG TAB PO SCH ×3 (11:55→21:33)
--- NOTE | 2023-05-17 12:11 | P.PN ---
Subjective Progress Note Date: 05/17/23 Principal diagnosis: Reason for follow-up is MSSA bacteremia Patient is a 88-year-old female with a past medical history significant for atrial fibrillation hypertension hyperlipidemia heart failure with patient was brought into the hospital after family patient was found to be on the floor , patient complaining of weakness and pain to the lower back area and did have a positive blood culture with MSSA. On today's evaluation that is 05/17/2023, the patient continues to be afebrile , the patient is not requiring any supplemental oxygen and is breathing comfortably on room air , the patient denies any chest pain no cough or sputum production, patient did have some abdominal distention and nausea but no vomiting still complaining of lower back pain. Patient white count is down to 18.45, creatinine 1.9, CT of abdominal pelvis limited study no evidence of acute inflammatory process and abdominal pelvis possible small bowel obstruction Objective - Vital Signs Vital signs: Vital Signs Temp 96.9 F L 05/17/23 07:00 Pulse 84 05/17/23 07:00 Resp 20 05/17/23 08:00 BP 191/67 05/17/23 07:00 Pulse Ox 91 L 05/17/23 07:00 FiO2 Intake & Output 05/16/23 05/17/23 05/17/23 18:59 06:59 18:59 Intake Total 720 Output Total 150 250 Balance 570 -250 Intake: Oral 720 Output: Urine 150 250 Straight 150 Other: Voiding Method Incontinent Incontinent External Catheter External Catheter # Voids 1 - Exam GENERAL DESCRIPTION: An elderly female lying in bed in no distress RESPIRATORY SYSTEM: Unlabored breathing , decreased best at the base HEART: S1 S2 regular rate and rhythm , ABDOMEN: Soft , mild distention EXTREMITIES: No edema feet - Labs CBC & Chem 7: 05/17/23 06:30 05/17/23 06:30 Labs: Abnormal Lab Results - Last 24 Hours (Table) 05/16/23 05/16/23 Range/Units 06:58 17:04 Potassium 5.9 H (3.5-5.1) mmol/L Carbon Dioxide 18 L (22-30) mmol/L BUN 52 H (7-17) mg/dL Creatinine 2.43 H (0.52-1.04) mg/dL Glucose 151 H (74-99) mg/dL AST 56 H (14-36) U/L Procalcitonin 13.50 H (0.02-0.09) ng/mL Microbiology - Last 24 Hours (Table) 05/15/23 11:36 Urine Culture - Preliminary Urine,Voided Gram Neg Bacilli 05/15/23 15:05 Blood Culture Gram Stain - Preliminary Blood 05/15/23 14:50 Blood Culture Gram Stain - Preliminary Blood Assessment and Plan (1) Bacteremia Current Visit: Yes Status: Acute Code(s): R78.81 - BACTEREMIA SNOMED Code(s): 0458769 Plan: 1patient with a Staph aureus bacteremia , in this patient presented to hospital with a fall found on the floor has been complaining of more lower back pain and history of chronic back pain with a question of possible discitis/osteomyelitis to lumbosacral spine area as currently do not have any evidence of cellulitis, no joint swelling or other clear focus of this bacteremia, patient did have a positive UA underlying urinary source less likely as the patient did not have any urinary symptoms patient was noticed to have significant abdominal distention and some tenderness for the patient did have CT of abdominal pelvis did not show any acute inflammatory process 2-patient did have a renal insufficiency and high risk of nephrotoxicity 3--blood cultures has been repeated to document clearance of bacteremia 4Patient to continue with cefazolin Signed the bedside questions were answered Dictation was produced using [employer] dictation software. please excuse any grammatical, word or spelling errors. Time with Patient: Greater than 30
--- NOTE | 2023-05-17 14:30 | XR ---
EXAMINATION TYPE: XR abdomen complete w decub DATE OF EXAM: 05/17/2023 COMPARISON: 05/16/2023 HISTORY: Abdominal distention TECHNIQUE: Supine, upright, and left side down lateral decubitus views of the abdomen are obtained. FINDINGS: There is no evidence for pneumoperitoneum. There are numerous dilated small bowel. Arthropathy of the hips in hypertrophic and degenerative smith ge of the spine. Multiple air-fluid levels. Basilar atelectasis or early infiltrate. Cardiac leads no veronica. IMPRESSION: Findings highly suggestive of high-grade small bowel obstruction.
--- NOTE | 2023-05-17 15:31 | P.GSCN ---
History of Present Illness Consult date: 05/17/23 History of present illness: CHIEF COMPLAINT: Abdominal pain HISTORY OF PRESENT ILLNESS: This is a 88-year-old female who was found on the floor at home. She is admitted to the hospital with weakness all and UTI as well as positive blood cultures. She is currently on antibiotics. She also has been having abdominal distention and abdominal pain. Her last bowel movement per that her son was on Wednesday. Patient is complaining mostly of lower back pain she's had no further bowel movements no flatus and no nausea or vomiting. But she does have abdominal distention and right-sided abdominal pain. She had a computed tomography scan of the abdomen and pelvis without contrast that had shown ileus versus enteritis and possible early obstruction. Abdominal x-ray from today showed evidence of a high-grade small bowel obstruction. Surgical service consulted in regards to abdominal distention and high-grade bowel obstruction. past surgical history does include a cholecystectomy and hysterectomy. Cardiac history includes AICD as well as atrial fibrillation on Eliquis. Last dose with this AM. Patient does have a history of dementia. PAST MEDICAL HISTORY: See below PAST SURGICAL HISTORY: See below MEDICATIONS: See below ALLERGIES: See below SOCIAL HISTORY: No illicit drug use. REVIEW OF SYSTEMS: CONSTITUTIONAL: Denies fever or chills. HEENT: Denies blurred vision, vision changes, or eye pain. Denies hemoptysis CARDIOVASCULAR: Denies chest pain or pressure. RESPIRATORY: No shortness of breath. GASTROINTESTINAL: See HPI for pertinent findings HEMATOLOGIC: Denies bleeding disorders. GENITOURINARY: Denies any blood in urine or increased urinary frequency. SKIN: Denies pruitis. Denies rash. PHYSICAL EXAM: VITAL SIGNS: Reviewed GENERAL: Well-developed in no acute distress. HEENT: No sclera icterus. Extraocular movements grossly intact. Moist buccal mucosa. Head is atraumatic, normocephalic. No nasal drainage. ABDOMEN: Distended. tenderness to palpation to the right side of the abdomen. Patient does complain of back pain with palpation of the abdomen. NEUROLOGIC: patient awake and alert. Pleasantly confused. LABORATORY DATA: WBC 29.6 down to 18.45 Hgb 9.4 platelets 254 Sodium 138 potassium 4.5 creatinine 1.9 Lactic acid 1.9 AST 49 ALT 30 alk phos 85 Urinalysis moderate leukocyte esterase IMAGING: computed tomography scan abdomen and pelvis limited unenhanced study shows no evidence of acute inflammation process in the abdomen or pelvis. Small bowel findings could represent ileus and/or enteritis. Early obstructive process is a less likely consideration. Numerous colonic diverticula without evidence of diverticulitis. Nonobstructing right renal calculus. abdominal x-ray findings highly suggestive of a high-grade small bowel obstruction ASSESSMENT: 1. Abdominal pain with abdominal distention and findings of high-grade small bowel obstruction on abdominal x-ray 2. History of abdominal surgeries 3. UTI 4. Bacteremia 5. Fall and weakness 6. Acute kidney injuryhistory of chronic kidney disease. 7. History of AICD 8. History of atrial fibrillation on Eliquis 9. Lower Back pain. History of chronic back pain PLAN: -Make patient nothing by mouth -Place NG tube for decompression -continue antibiotics for management of UTI and bacteremia -continue IV fluids -Continue supportive care -Further recommendations forthcoming per surgeon Thank you for this consultation Physician [employer] note has been reviewed by physician. Signing provider agrees with the documented findings, assessment, and plan of care. Past Medical History Past Medical History: Atrial Fibrillation, Heart Failure, Hyperlipidemia, Hypertension, Memory Impairment, Musculoskeletal Disorder, Osteoarthritis (OA), Renal Disease, Thyroid Disorder Additional Past Medical History / Comment(s): heart murmur, CKD-sees specialist, low back pain, DEMENTIA History of Any Multi-Drug Resistant Organisms: None Reported Past Surgical History: AICD, Cholecystectomy, Heart Catheterization, Hysterectomy Additional Past Surgical History / Comment(s): pain procedures, cardioversion, Past Anesthesia/Blood Transfusion Reactions: No Reported Reaction Type of Cardiac Device: AICD Device Placement Date:: September 2020 [facility] Smoking Status: Former smoker - Past Family History Mother Family Medical History: No Reported History Father Family Medical History: Cancer Medications and Allergies Home Medications Medication Instructions Recorded Confirmed Type Levothyroxine Sodium [Synthroid] 25 mcg PO DAILY 04/10/20 05/15/23 History Apixaban [Eliquis] 5 mg PO BID 01/23/21 05/15/23 History Multivitamins, Thera [Multivitamin 1 tab PO DAILY 01/23/21 05/15/23 History (formulary)] Thiamine [Vitamin B-1] 100 mg PO DAILY 01/23/21 05/15/23 History Cyanocobalamin (Vitamin B-12) 1,000 mcg PO DAILY 04/11/21 05/15/23 History [Vitamin B-12] Rivastigmine Tartrate 4.5 mg PO BID 04/11/21 05/15/23 History [Rivastigmine] Atorvastatin [Lipitor] 20 mg PO HS 05/15/23 05/15/23 History [place]-3 500mg 500 mg PO DAILY 05/15/23 05/15/23 History Allergies Allergy/AdvReac Type Severity Reaction Status Date / Time lorazepam [From Ativan] AdvReac Hallucinati Verified 05/15/23 11:13 ons metoprolol AdvReac Hallucinati Verified 05/15/23 11:13 ons oxybutynin AdvReac Hallucinati Verified 05/15/23 11:13 ons Surgical - Exam Vital Signs Temp Pulse Resp BP Pulse Ox 99.4 F 75 18 145/74 90 L 05/15/23 11:04 05/15/23 11:04 05/15/23 11:04 05/15/23 11:04 05/15/23 11:04 Results - Labs 05/17/23 06:30 05/17/23 06:30 Abnormal Lab Results - Last 24 Hours (Table) 05/16/23 05/16/23 05/17/23 Range/Units 06:58 17:04 06:30 WBC (4.50-10.00) X 10*3/uL RBC (4.10-5.20) X 10*6/uL Hgb (12.0-15.0) g/dL Hct (37.2-46.3) % MCHC (32.0-37.0) g/dL Neutrophils # (1.80-7.70) X 10*3/uL Lymphocytes # (0.90-5.00) X 10*3/uL Potassium 5.9 H (3.5-5.1) mmol/L Carbon Dioxide 18 L (22-30) mmol/L Anion Gap (4.00-12.00) mmol/L BUN 52 H (7-17) mg/dL Creatinine 2.43 H (0.52-1.04) mg/dL Est GFR (CKD-EPI) (>=60) BUN/Creatinine Ratio (12.00-20.00) Ratio Glucose 151 H (74-99) mg/dL AST 56 H (14-36) U/L C-Reactive Protein (0.00-0.80) mg/dL Albumin (3.8-4.9) g/dL Albumin/Globulin Ratio (1.60-3.17) Ratio Procalcitonin 13.50 H 8.47 H (0.02-0.09) ng/mL 05/17/23 05/17/23 Range/Units 06:30 06:30 WBC 18.45 H (4.50-10.00) X 10*3/uL RBC 3.18 L (4.10-5.20) X 10*6/uL Hgb 9.4 L (12.0-15.0) g/dL Hct 30.2 L (37.2-46.3) % MCHC 31.1 L (32.0-37.0) g/dL Neutrophils # 16.97 H (1.80-7.70) X 10*3/uL Lymphocytes # 0.52 L (0.90-5.00) X 10*3/uL Potassium (3.5-5.1) mmol/L Carbon Dioxide (22-30) mmol/L Anion Gap 13.60 H (4.00-12.00) mmol/L BUN 45.3 H (7-17) mg/dL Creatinine 1.9 H (0.52-1.04) mg/dL Est GFR (CKD-EPI) 25 L (>=60) BUN/Creatinine Ratio 23.84 H (12.00-20.00) Ratio Glucose 120 H (74-99) mg/dL AST 49 H (14-36) U/L C-Reactive Protein 28.50 H (0.00-0.80) mg/dL Albumin 3.7 L (3.8-4.9) g/dL Albumin/Globulin Ratio 1.42 L (1.60-3.17) Ratio Procalcitonin (0.02-0.09) ng/mL Microbiology - Last 24 Hours (Table) 05/15/23 11:36 Urine Culture - Preliminary Urine,Voided Gram Neg Bacilli 05/15/23 15:05 Blood Culture Gram Stain - Preliminary Blood 05/15/23 14:50 Blood Culture Gram Stain - Preliminary Blood Diabetes panel 05/16/23 05/17/23 Range/Units 17:04 06:30 Sodium 137 138 (137-145) mmol/L Potassium 5.9 H 4.5 (3.5-5.1) mmol/L Chloride 107 101 (98-107) mmol/L Carbon Dioxide 18 L 23.4 (22-30) mmol/L BUN 52 H 45.3 H (7-17) mg/dL Creatinine 2.43 H 1.9 H (0.52-1.04) mg/dL Glucose 151 H 120 H (74-99) mg/dL Calcium 9.0 9.5 (8.4-10.2) mg/dL AST 56 H 49 H (14-36) U/L ALT 31 30 (4-34) U/L Alkaline Phosphatase 79 85 (38-126) U/L Total Protein 6.4 6.3 (6.3-8.2) g/dL Albumin 3.6 3.7 L (3.5-5.0) g/dL Calcium panel 05/16/23 05/17/23 Range/Units 17:04 06:30 Calcium 9.0 9.5 (8.4-10.2) mg/dL Albumin 3.6 3.7 L (3.5-5.0) g/dL Pituitary panel 05/16/23 05/17/23 Range/Units 17:04 06:30 Sodium 137 138 (137-145) mmol/L Potassium 5.9 H 4.5 (3.5-5.1) mmol/L Chloride 107 101 (98-107) mmol/L Carbon Dioxide 18 L 23.4 (22-30) mmol/L BUN 52 H 45.3 H (7-17) mg/dL Creatinine 2.43 H 1.9 H (0.52-1.04) mg/dL Glucose 151 H 120 H (74-99) mg/dL Calcium 9.0 9.5 (8.4-10.2) mg/dL Adrenal panel 05/16/23 05/17/23 Range/Units 17:04 06:30 Sodium 137 138 (137-145) mmol/L Potassium 5.9 H 4.5 (3.5-5.1) mmol/L Chloride 107 101 (98-107) mmol/L Carbon Dioxide 18 L 23.4 (22-30) mmol/L BUN 52 H 45.3 H (7-17) mg/dL Creatinine 2.43 H 1.9 H (0.52-1.04) mg/dL Glucose 151 H 120 H (74-99) mg/dL Calcium 9.0 9.5 (8.4-10.2) mg/dL Total Bilirubin 0.6 0.4 (0.2-1.3) mg/dL AST 56 H 49 H (14-36) U/L ALT 31 30 (4-34) U/L Alkaline Phosphatase 79 85 (38-126) U/L Total Protein 6.4 6.3 (6.3-8.2) g/dL Albumin 3.6 3.7 L (3.5-5.0) g/dL
--- NOTE | 2023-05-17 18:48 | XR ---
EXAMINATION TYPE: XR chest 1V portable DATE OF EXAM: 05/17/2023 6:40 PM CLINICAL INDICATION:Female, 88 years old with history of NG tube insertion; [facility] COMPARISON: Chest radiographs from 05/16/2023. TECHNIQUE: XR chest 1V portable Frontal view of the chest. FINDINGS: Lungs/Pleura: No evidence of focal consolidation or pneumothorax. Blunting of the costophrenic angles is present. Pulmonary vascularity: Unremarkable. Heart/mediastinum: Cardiomediastinal silhouette is enlarged and stable. Two lead cardiac conduction d evice overlying the left hemithorax with lead tips projecting over the right ventricle and right atri um. Musculoskeletal: No acute osseous pathology. Other findings: None Lines/Tubes: Nasogastric tube with its distal tip and side-port projecting under the diaphragm. IMPRESSION: 1. Cardiomegaly, pulmonary vascular congestion and bilateral pleural effusions. Correlate with BNP f or congestive heart failure. 2. Nasogastric tube in appropriate position.
[2023-05-18] MEDS ORDERED: CALAMINE/ZINC OXIDE LOTION 177 ML BTL TOPICAL PRN (00:01)
[2023-05-18] MEDS ORDERED: diphenhydrAMINE 50 MG/ML 1 ML VIAL IVP PRN (00:02)
[2023-05-18] MEDS: LEVOTHYROXINE 25 MCG TAB PO SCH (06:21)
[2023-05-18] MEDS: DEXTROSE 5% IN WATER 1,000 ML with SODIUM BICARB (1 MEQ/ML) 150 ML IV SCH (08:10)
[2023-05-18] MEDS: traMADol 50 MG TAB PO PRN ×2 (08:11→20:35)
[2023-05-18] MEDS: THIAMINE 100 MG TAB PO SCH (08:12)
[2023-05-18] MEDS: MULTIVITAMINS, THERA 1 EACH TAB PO SCH ×2 (08:12→08:24)
[2023-05-18] MEDS: hydrALAZINE HCL 50 MG TAB PO SCH ×3 (08:12→20:35)
[2023-05-18] MEDS: DONEPEZIL 10 MG TAB PO SCH (08:12)
[2023-05-18] MEDS: CYANOCOBALAMIN 500 MCG TAB PO SCH (08:12)
[2023-05-18] MEDS: HYDROmorphone 0.5 MG/0.5 ML SYRINGE IVP PRN ×3 (09:57→16:07)
[2023-05-18] MEDS ORDERED: SODIUM CHLORIDE 0.9% 1,000 ML IV SCH (10:30)
[2023-05-18 10:49] LABS: Basophils # (A) 0.03 X 10*3/uL (0.00-0.10); Basophils % (A) 0.2 %; Eosinophils # (A) 0.03 X 10*3/uL (0.04-0.35); Eosinophils % (A) 0.2 %; HGB 9.5 g/dL (12.0-15.0); Lymphocytes # (A) 0.61 X 10*3/uL (0.90-5.00); Lymphocytes % (A) 4.6 %; MCH 29.4 pg (27.0-32.0); MCHC 31.7 g/dL (32.0-37.0); MCV 92.9 FL (80.0-97.0); Mean Platelet Volume 9.8 FL (9.5-12.2); Monocytes # (A) 1.03 X 10*3/uL (0.20-1.00); Monocytes % (A) 7.7 %; NRBC Per 100 WBC 0 X 10*3/uL (0.00-0.01); Neutrophils # (A) 11.53 X 10*3/uL (1.80-7.70); Neutrophils % (A) 86.8 %; Platelet Count 270 X 10*3/uL (140-440); RBC 3.23 X 10*6/uL (4.10-5.20); RDW 13.1 % (11.5-14.5)
[2023-05-18 11:06] LABS: Blood Urea Nitrogen 37.8 mg/dL (9.0-27.0); Calcium 9.4 mg/dL (8.7-10.3); Carbon Dioxide 30.3 mmol/L (21.6-31.8); Chloride 98 mmol/L (96-109); Glucose 157 mg/dL (70-110); Magnesium 2.2 mg/dL (1.5-2.4); Potassium 3.7 mmol/L (3.5-5.5); Sodium 140 mmol/L (135-145)
[2023-05-18] MEDS: FOLIC ACID 1 MG TAB PO SCH (12:12)
--- NOTE | 2023-05-18 12:46 | P.PN ---
Subjective Progress Note Date: 05/18/23 CHIEF COMPLAINT: Small bowel obstruction HISTORY OF PRESENT ILLNESS: Patient is being followed for small bowel structure. She reports worsening abdominal distention. No flatus or bowel activity. Does have NG tube in place with 200 mL bilious output. Afebrile. Patient on 12 L partial rebreather. WBC is down from 18-13.3 Hgb 9.5 platelets 270 sodium is 140 potassium 3.7 creatinine is down to 1.2 PHYSICAL EXAM: VITAL SIGNS: Reviewed GENERAL: Well-developed in no acute distress. HEENT: No sclera icterus. Extraocular movements grossly intact. Moist buccal mucosa. Head is atraumatic, normocephalic. Hears conversational speech. No nasal drainage. NECK: Supple without lymphadenopathy. CHEST: Non-labored respirations and equal bilateral excursions. CARDIOVASCULAR: Palpable 2+ radial pulses. ABDOMEN: Distended. Tenderness with palpation to right side of abdomen MUSCULOSKELETAL: No clubbing or cyanosis. NEUROLOGIC: No focal or lateralizing signs. Cranial nerves II through XII janes sly intact. PSYCH: Appropriate affect. Alert and oriented to person, place and time. SKIN: Well perfused. Good skin turgor. ASSESSMENT: 1. Abdominal pain with abdominal distention and findings of high-grade small bowel obstruction on abdominal x-ray 2. History of abdominal surgeries 3. UTI 4. Bacteremia 5. Fall and weakness 6. Acute kidney injury. history of chronic kidney disease. 7. History of AICD 8. History of atrial fibrillation on Eliquis 9. Lower Back pain. History of chronic back pain 10. Hypoxia PLAN: -Small bowel follow-through ordered with Gastrografin to further evaluate small bowel obstruction -Continue NG tube for decompression -Keep patient on by mouth -Consult cardiology for cardiac risk assessment -Continue to hold Eliquis for possible surgical intervention -Continue supportive care Physician Gas Inspector note has been reviewed by physician. Signing provider agrees with the documented findings, assessment, and plan of care. Objective - Vital Signs Vital signs: Vital Signs Temp 99.1 F 05/17/23 23:59 Pulse 87 05/18/23 07:11 Resp 20 05/18/23 09:15 BP 179/93 05/18/23 07:11 Pulse Ox 94 L 05/18/23 07:11 FiO2 Intake & Output 05/17/23 05/18/23 05/18/23 18:59 06:59 18:59 Output Total 200 Balance -200 Output: Gastric Drainage 200 Other: Voiding Method External Catheter Diaper Diaper # Voids 4 2 - Labs CBC & Chem 7: 05/18/23 06:47 05/18/23 06:47 Labs: Abnormal Lab Results - Last 24 Hours (Table) 05/17/23 05/17/23 05/17/23 Range/Units 06:30 06:30 06:30 WBC 18.45 H (4.50-10.00) X 10*3/uL RBC 3.18 L (4.10-5.20) X 10*6/uL Hgb 9.4 L (12.0-15.0) g/dL Hct 30.2 L (37.2-46.3) % MCHC 31.1 L (32.0-37.0) g/dL Neutrophils # 16.97 H (1.80-7.70) X 10*3/uL Lymphocytes # 0.52 L (0.90-5.00) X 10*3/uL Anion Gap 13.60 H (4.00-12.00) mmol/L BUN 45.3 H (9.0-27.0) mg/dL Creatinine 1.9 H (0.6-1.5) mg/dL Est GFR (CKD-EPI) 25 L (>=60) BUN/Creatinine Ratio 23.84 H (12.00-20.00) Ratio Glucose 120 H (70-110) mg/dL AST 49 H (13-35) U/L C-Reactive Protein 28.50 H (0.00-0.80) mg/dL Albumin 3.7 L (3.8-4.9) g/dL Albumin/Globulin Ratio 1.42 L (1.60-3.17) Ratio Procalcitonin 8.47 H (0.02-0.09) ng/mL Microbiology - Last 24 Hours (Table) 05/15/23 11:36 Urine Culture - Final Urine,Voided Escherichia coli 05/15/23 15:05 Blood Culture Gram Stain - Preliminary Blood Blood Culture - Preliminary Presumptive Staph aureus 05/15/23 14:50 Blood Culture Gram Stain - Preliminary Blood Blood Culture - Preliminary Presumptive Staph aureus
[2023-05-18] MEDS: SIMETHICONE 40 MG/0.6 ML DROPS 2,000 MG/30 ML BOTTLE PO SCH ×2 (12:53→17:18)
--- NOTE | 2023-05-18 13:56 | P.PN ---
Subjective Progress Note Date: 05/18/23 Principal diagnosis: Reason for follow-up is MSSA bacteremia Patient is a 88-year-old female with a past medical history significant for atrial fibrillation hypertension hyperlipidemia heart failure with patient was brought into the hospital after family patient was found to be on the floor , patient complaining of weakness and pain to the lower back area and did have a positive blood culture with MSSA. On today's evaluation that is 05/18/2023, the patient remains to be afebrile , the patient complaining of more shortness of breath and is requiring more supplemental oxygen, the patient denies chest pain or cough , patient denies nausea/vomiting/ diarrhea did have abdominal distention and did require NG for small bowel obstruction per general surgery Patient white count is down to 13.30, creatinine is 1.2, CT of abdominal pelvis limited study no evidence of acute inflammatory process and abdominal pelvis possible small bowel obstruction Objective - Vital Signs Vital signs: Vital Signs Temp 99.1 F 05/17/23 23:59 Pulse 87 05/18/23 07:11 Resp 16 05/18/23 10:43 BP 179/93 05/18/23 07:11 Pulse Ox 94 L 05/18/23 07:11 FiO2 Intake & Output 05/17/23 05/18/23 05/18/23 18:59 06:59 18:59 Output Total 200 Balance -200 Output: Gastric Drainage 200 Other: Voiding Method External Catheter Diaper Diaper # Voids 4 2 - Exam GENERAL DESCRIPTION: An elderly female lying in bed in no distress RESPIRATORY SYSTEM: Unlabored breathing , decreased best at the base HEART: S1 S2 regular rate and rhythm , ABDOMEN: Soft , mild distention EXTREMITIES: No edema feet - Labs CBC & Chem 7: 05/18/23 06:47 05/18/23 06:47 Labs: Abnormal Lab Results - Last 24 Hours (Table) 05/18/23 05/18/23 Range/Units 06:47 06:47 WBC 13.30 H (4.50-10.00) X 10*3/uL RBC 3.23 L (4.10-5.20) X 10*6/uL Hgb 9.5 L (12.0-15.0) g/dL Hct 30.0 L (37.2-46.3) % MCHC 31.7 L (32.0-37.0) g/dL Neutrophils # 11.53 H (1.80-7.70) X 10*3/uL Lymphocytes # 0.61 L (0.90-5.00) X 10*3/uL Monocytes # 1.03 H (0.20-1.00) X 10*3/uL Eosinophils # 0.03 L (0.04-0.35) X 10*3/uL BUN 37.8 H (9.0-27.0) mg/dL Est GFR (CKD-EPI) 44 L (>=60) BUN/Creatinine Ratio 31.50 H (12.00-20.00) Ratio Glucose 157 H (70-110) mg/dL Microbiology - Last 24 Hours (Table) 05/15/23 11:36 Urine Culture - Final Urine,Voided Escherichia coli 05/15/23 15:05 Blood Culture Gram Stain - Preliminary Blood Blood Culture - Preliminary Presumptive Staph aureus 05/15/23 14:50 Blood Culture Gram Stain - Preliminary Blood Blood Culture - Preliminary Presumptive Staph aureus Assessment and Plan (1) Bacteremia Current Visit: Yes Status: Acute Code(s): R78.81 - BACTEREMIA SNOMED Code(s): 9059856 Plan: 1patient with a Staph aureus bacteremia , in this patient presented to hospital with a fall found on the floor has been complaining of more lower back pain and history of chronic back pain with a question of possible discitis/osteomyelitis to lumbosacral spine area as currently do not have any evidence of cellulitis, no joint swelling or other clear focus of this bacteremia, patient did have a positive UA underlying urinary source less likely as the patient did not have any urinary symptoms patient was noticed to have significant abdominal distention and some tenderness for the patient did have CT of abdominal pelvis did not show any acute inflammatory process 2-patient did have a renal insufficiency and high risk of nephrotoxicity, and did have improvement in her kidney function 3--blood cultures has been repeated to document clearance of bacteremia 4Patient to continue with cefazolin, echocardiogram has been ordered once the kidney function improves and condition stabilized we will be requesting for an MRI of the lumbosacral spine Daughter at the bedside questions were answered Dictation was produced using [employer] dictation software. please excuse any grammatical, word or spelling errors. Time with Patient: Less than 30
[2023-05-18] MEDS ORDERED: FUROSEMIDE 10 MG/ML 4 ML VIAL IV STA (14:15)
[2023-05-18] MEDS ORDERED: hydrALAZINE HCL 20 MG/ML 1 ML VIAL IVP PRN (14:16)
--- NOTE | 2023-05-18 14:16 | P.PN ---
Subjective Patient is seen in follow-up for acute kidney injury on chronic kidney disease. Renal function improving. His NG tube for bowel obstruction. Resting in bed. Currently off IV fluids. Vital signs are stable. General: No acute distress. HEENT: Head exam is unremarkable. LUNGS: No audible rhonchi or wheezes. HEART: Rate and Rhythm are regular. ABDOMEN: Nontender, distention noted. EXTREMITITES: No edema. Objective - Vital Signs Vital signs: Vital Signs Temp 97.9 F 05/18/23 13:23 Pulse 88 05/18/23 13:23 Resp 18 05/18/23 13:23 BP 173/77 05/18/23 13:23 Pulse Ox 94 L 05/18/23 13:23 FiO2 Intake & Output 05/17/23 05/18/23 05/18/23 18:59 06:59 18:59 Output Total 200 Balance -200 Output: Gastric Drainage 200 Other: Voiding Method External Catheter Diaper Diaper # Voids 4 2 - Labs CBC & Chem 7: 05/18/23 06:47 05/18/23 06:47 Labs: Abnormal Lab Results - Last 24 Hours (Table) 05/18/23 05/18/23 Range/Units 06:47 06:47 WBC 13.30 H (4.50-10.00) X 10*3/uL RBC 3.23 L (4.10-5.20) X 10*6/uL Hgb 9.5 L (12.0-15.0) g/dL Hct 30.0 L (37.2-46.3) % MCHC 31.7 L (32.0-37.0) g/dL Neutrophils # 11.53 H (1.80-7.70) X 10*3/uL Lymphocytes # 0.61 L (0.90-5.00) X 10*3/uL Monocytes # 1.03 H (0.20-1.00) X 10*3/uL Eosinophils # 0.03 L (0.04-0.35) X 10*3/uL BUN 37.8 H (9.0-27.0) mg/dL Est GFR (CKD-EPI) 44 L (>=60) BUN/Creatinine Ratio 31.50 H (12.00-20.00) Ratio Glucose 157 H (70-110) mg/dL Microbiology - Last 24 Hours (Table) 05/17/23 06:30 Blood Culture - Preliminary Blood 05/15/23 11:36 Urine Culture - Final Urine,Voided Escherichia coli 05/15/23 15:05 Blood Culture Gram Stain - Preliminary Blood Blood Culture - Preliminary Presumptive Staph aureus 05/15/23 14:50 Blood Culture Gram Stain - Preliminary Blood Blood Culture - Preliminary Presumptive Staph aureus Assessment and Plan Plan: Assessment: 1. Acute kidney injury secondary to ATN secondary to severe sepsis. Also received Toradol. Renal function improving. Creatinine 1.2 today. No hydronephrosis noted on imaging. 2. Chronic kidney disease stage IIIB with baseline creatinine near 1.4. Patient follows with attendant sales out of [facility]. 3. E. coli UTI and staph aureus bacteremia ID following. On antibiotics. 4. Metabolic acidosis secondary to acute kidney injury status post IV bicarb. 5. Hyperkalemia secondary to acute kidney injury, acidosis. Resolved. 6. Volume overload. Pleural effusions noted on chest x-ray. 7. Small bowel obstruction. Has NG tube. Surgery following. Plan: Lasix 40 mg IV once today. Avoid nephrotoxins. Continue to monitor renal function and urine output. Add as needed hydralazine.
[2023-05-18] MEDS ORDERED: ENALAPRILAT 1.25 MG/ML 1 ML VIAL IVP PRN (14:42)
--- NOTE | 2023-05-18 15:20 | P.CRDCN ---
History of Present Illness Consult date: 05/18/23 Reason for Consult (text): Cardiac risk assessment History of present illness: History of present illness: This is an 88 year old female with past medical history of hypothyroidism, hyperlipidemia, hypertension, dementia, sick sinus syndrome status post dual chamber pacemaker implantation, chronic kidney disease stage. Patient follows with a water sander at [place], Dr. Almanza. Patient presented to the hospital on 05/15 after being found on the floor. She was admitted to the hospital for weakness, acute kidney injury, klebsiella and E. coli urinary tract infection and possible bacteremia. Patient also had abdominal pain and d istention found to have a small bowel obstruction and a consult was placed with general surgery. She has subsequently had an NG tube placed and we have been asked to evaluate the patient for cardiac risk assessment. No surgery is currently scheduled.Pacemaker was last interrogated on March 31, 2023. Patient is currently on a nonrebreather and blood pressure is elevated. Eliquis is on hold for possible surgical intervention. Abdomen remains quite distended despite NG tube. EKG sinus rhythm with right bundle branch block, left anterior fascicular block Chest x-ray: Cardiomegaly, pulmonary vascular congestion and bilateral pleural effusions. Correlate for BNP for heart failure. NG in appropriate position. Initial WBC 29.6 now 13.3, hemoglobin is 9.5, electrolytes are within normal limits. Creatinine 1.2 and initially was 2.59. Pro-calcitonin elevated now at 8.47. Influenza A, influenza B, Covid 19 and RSV not detected. Urinalysis positive for infection. Home cardiac medications: Eliquis 5 mg twice daily, levothyroxine Review Of Systems: At the time of my evaluation: Constitutional: No fever, no chills. Lungs: No shortness of breath noted. No wheezing. Cardiovascular: No chest pain, no lower extremity edema. Abdominal She denies abdominal pain. Abdomen is quite distended Neurologic: Noted change in mentation. Physical examination: Gen: This is an 88-year-old female. She is resting in bed. Patient has nonrebreather in place. VS: reviewed HEENT: Head is atraumatic, normocephalic. Pupils equal, round. Sclerae is anicteric. NECK: Supple. No JVD. LUNGS: Clear to auscultation. No wheezes or rhonchi. No intercostal retractions. HEART: Regular rate and rhythm. No murmur. ABDOMEN: Distended with support.. EXTREMITIES: No pedal edema. No calf tenderness. NEUROLOGICAL: Patient is awake, alert and confused. Assessment: Small bowel obstruction UTI Possible bacteremia Sepsis History of sick sinus syndrome status post dual-chamber pacemaker implantation Hypertension Hyperlipidemia Hypothyroidism Plan: Continue to hold eliquis Patient is currently nothing by mouth with NG tube Start Vasotec 1.25 mg IV push every 6 hours as needed for systolic blood pressure greater than 100 Obtain 2-D echocardiogram and Doppler study to assess cardiac structure and function Further recommendations to follow based upon clinical course Thank you kindly for this consultation. Nurse practitioner note has been reviewed, I agree with documented findings and plan of care. Patient was seen and examined. Past Medical History Past Medical History: Atrial Fibrillation, Heart Failure, Hyperlipidemia, Hypertension, Memory Impairment, Musculoskeletal Disorder, Osteoarthritis (OA), Renal Disease, Thyroid Disorder Additional Past Medical History / Comment(s): heart murmur, CKD-sees specialist, low back pain, DEMENTIA History of Any Multi-Drug Resistant Organisms: None Reported Past Surgical History: AICD, Cholecystectomy, Heart Catheterization, Hysterectomy Additional Past Surgical History / Comment(s): pain procedures, cardioversion, Past Anesthesia/Blood Transfusion Reactions: No Reported Reaction Type of Cardiac Device: AICD Device Placement Date:: September 2020 [employer] Smoking Status: Former smoker - Past Family History Mother Family Medical History: No Reported History Father Family Medical History: Cancer Medications and Allergies Home Medications Medication Instructions Recorded Confirmed Type Levothyroxine Sodium [Synthroid] 25 mcg PO DAILY 04/10/20 05/15/23 History Apixaban [Eliquis] 5 mg PO BID 01/23/21 05/15/23 History Multivitamins, Thera [Multivitamin 1 tab PO DAILY 01/23/21 05/15/23 History (formulary)] Thiamine [Vitamin B-1] 100 mg PO DAILY 01/23/21 05/15/23 History Cyanocobalamin (Vitamin B-12) 1,000 mcg PO DAILY 04/11/21 05/15/23 History [Vitamin B-12] Rivastigmine Tartrate 4.5 mg PO BID 04/11/21 05/15/23 History [Rivastigmine] Atorvastatin [Lipitor] 20 mg PO HS 05/15/23 05/15/23 History [place]-3 500mg 500 mg PO DAILY 05/15/23 05/15/23 History Allergies Allergy/AdvReac Type Severity Reaction Status Date / Time lorazepam [From Ativan] AdvReac Hallucinati Verified 05/15/23 11:13 ons metoprolol AdvReac Hallucinati Verified 05/15/23 11:13 ons oxybutynin AdvReac Hallucinati Verified 05/15/23 11:13 ons Physical Exam Vitals: Vital Signs Temp Pulse Resp BP BP Pulse Ox 05/18/23 10:43 16 05/18/23 09:15 20 05/18/23 07:11 87 19 179/93 94 L 05/18/23 01:38 165/70 05/17/23 23:59 99.1 F 89 18 189/76 95 05/17/23 20:50 168/74 05/17/23 17:53 76 20 146/83 94 L 05/17/23 17:11 90 L 05/17/23 14:29 97.6 F 88 19 157/73 92 L Intake and Output 05/17/23 05/18/23 05/18/23 22:59 06:59 14:59 Output Total 200 Balance -200 Output: Gastric Drainage 200 Other: Voiding Method Diaper Diaper # Voids 4 2 Results 05/18/23 06:47 05/18/23 06:47 CBC 05/18/23 Range/Units 06:47 WBC 13.30 H (4.50-10.00) X 10*3/uL RBC 3.23 L (4.10-5.20) X 10*6/uL Hgb 9.5 L (12.0-15.0) g/dL Hct 30.0 L (37.2-46.3) % Plt Count 270 (140-440) X 10*3/uL Comprehensive Metabolic Panel 05/18/23 Range/Units 06:47 Sodium 140 (135-145) mmol/L Potassium 3.7 (3.5-5.5) mmol/L Chloride 98 (96-109) mmol/L Carbon Dioxide 30.3 (21.6-31.8) mmol/L BUN 37.8 H (9.0-27.0) mg/dL Creatinine 1.2 (0.6-1.5) mg/dL Glucose 157 H (70-110) mg/dL Calcium 9.4 (8.7-10.3) mg/dL Current Medications Generic Name Dose Route Start Last Admin Trade Name Og PRN Reason Stop Dose Admin Acetaminophen 650 mg 05/15/23 14:09 05/17/23 02:41 Acetaminophen Tab 325 Mg Tab PO 650 mg Q6HR PRN Administration Mild Pain or Fever > 100.5 Calamine 1 applic 05/18/23 00:01 05/18/23 01:34 Calamine/Zinc Oxide Lotion 177 Ml Btl TOPICAL 1 applic QID PRN Administration Skin Irritation Protocol Cyanocobalamin 1,000 mcg 05/16/23 09:00 05/18/23 08:12 Cyanocobalamin 500 Mcg Tab PO 1,000 mcg DAILY AMADO Administration Diphenhydramine HCl 25 mg 05/18/23 00:02 Diphenhydramine 50 Mg/Ml 1 Ml Vial IVP ONCE PRN Itching Donepezil HCl 10 mg 05/16/23 09:00 05/18/23 08:12 Donepezil 10 Mg Tab PO 10 mg DAILY AMADO Administration Folic Acid 1 mg 05/18/23 12:00 Folic Acid 1 Mg Tab PO DAILY@1200 [facility] Hydralazine HCl 50 mg 05/17/23 10:45 05/18/23 08:12 Hydralazine Hcl 50 Mg Tab PO 50 mg TID AMADO Administration Hydromorphone HCl 0.5 mg 05/15/23 14:09 05/18/23 09:57 Hydromorphone 0.5 Mg/0.5 Ml Syringe IVP 0.5 mg Q3HR PRN Administration Moderate Pain (Scale 4 to 6) Cefazolin Sodium 1,000 mg/ 50 mls @ 100 mls/hr 05/17/23 02:00 05/18/23 01:34 Sodium Chloride IVPB 100 mls/hr Q12H AMADO Administration Levothyroxine Sodium 25 mcg 05/16/23 06:30 05/18/23 06:21 Levothyroxine 25 Mcg Tab PO 25 mcg DAILY@0630 AMADO Administration Multivitamins 1 each 05/16/23 09:00 05/18/23 08:24 Multivitamins, Thera 1 Each Tab PO Not Given DAILY [facility] Naloxone HCl 0.2 mg 05/15/23 14:09 Naloxone 0.4 Mg/Ml 1 Ml Vial IV Q2M PRN Opioid Reversal Ondansetron HCl 4 mg 05/15/23 14:09 05/18/23 02:44 Ondansetron 4 Mg/2 Ml Vial IVP 4 mg Q8HR PRN Administration Nausea And Vomiting Quetiapine Fumarate 12.5 mg 05/17/23 13:21 Quetiapine 25 Mg Tab PO HS PRN Agitation Simethicone 40 mg 05/18/23 13:00 Simethicone 40 Mg/0.6 Ml Drops 2,000 Mg/30 Ml Bottle PO QID AMADO Thiamine HCl 100 mg 05/16/23 09:00 05/18/23 08:12 Thiamine 100 Mg Tab PO 100 mg DAILY AMADO Administration Tramadol HCl 50 mg 05/15/23 14:09 05/18/23 08:11 Tramadol 50 Mg Tab PO 50 mg Q6H PRN Administration Moderate Pain (Scale 4 to 6) Intake and Output 05/17/23 05/18/23 05/18/23 22:59 06:59 14:59 Output Total 200 Balance -200 Output: Gastric Drainage 200 Other: Voiding Method Diaper Diaper # Voids 4 2 05/18/23 06:47 05/18/23 06:47
--- NOTE | 2023-05-18 16:28 | P.PN ---
Subjective Progress Note Date: 05/18/23 88-year-old female, history of hypertension, hyperlipidemia, hypothyroidism, atrial fibrillation, CHF, presenting to the emergency department following being found on the floor. A fall was not witnessed. Patient was found on the floor this morning by who sleeps in a different room. Patient does not recall the episode and this is reported as normal as patient has short-term memory loss and frequently denies falling. This is per the daughter. Patient does complain of some discomfort of the mid back. Unknown if there is any head injury. No neck pain. No dyspnea. No abdominal pain. Blood work completed in ED reveals a WBC 29.6, hemoglobin of 10.5 and platelet count of 301, sodium 133, potassium 4.8, BUN/creatinine of 31/1.42 and blood glucose of 129, calcium of 10.3, total bilirubin of 1.9, AST/ALT elevated at 39/20, total CK of 277 UA is positive for leukocyte esterase bacteria and WBCs, vital panel is completed and is negative, CT head is negative for any acute intracranial process with nonspecific white matter changes, moderate multilevel degenerative disc disease versus prior fracture of odontoid process with fusion to anterior arch of C1 Chest x-ray reveals low lung volumes with generalized pain see appearance atelectasis versus pulmonary edema Renal and right upper quadrant ultrasound is done which is negative -- Blood work reveals slight trend troponin of CBC from 29.6 down to 24.5 this morning, potassium trended up from 4.8 up to 5.5, creatinine up from 1.4-2.59 this morning -- Patient has been evaluated by nephrology and has been switched to IV bicarbonate infusion; repeat renal function ordered for later today - Blood cultures positive for gram-positive cocci; ID consult placed; ID recommending to switch IV antibiotics to cefazolin 2 g IV every 12 hours -- Stat CT of the abdomen is ordered 05/18/2023 Patient is seen in follow-up this morning with daughter at the bedside and continues to be confused. Patient is currently on a nonrebreather and doesn't report shortness of breath. Patient reports not feeling well and continues to report severe back pain. Patient does see pain management outpatient and will consult as well as neurology consultation as family is concerned that she is not normally this altered. Patient does take a number of pain medications which is chronic for her. Patient also now being followed by general surgery as abdominal x-ray showed concerns for high-grade bowel obstruction and NG tube was placed. Patient is currently nothing by mouth. Chest x-ray yesterday shows cardiomegaly with pulmonary vascular congestion with bilateral pleural effusions with concerns of congestive heart failure. Nephrology is following as well as infectious disease as patient continues to have positive blood cultures and maintained on antibiotics. Initial urine culture finalized showing E. coli and blood cultures remain preliminary showing presumptive staph aureus and daily blood cultures have been added. Patient is continued on antibiotics in the form of cefazolin and again infectious disease is following closely. Patient was given a dose of Lasix today and IV fluids have been discontinued. Patient underwent small bowel x-ray which continues to be pending and will order repeat CT abdomen without contrast. Creatinine today is 1.2 and sodium is 140 with a potassium of 3.7. Pro-calcitonin was also rechecked and trending down but remains elevated at 8.47. Review of systems: Unable to completely assess this patient remains somewhat confused Active Medications Acetaminophen (Acetaminophen Tab 325 Mg Tab) 650 mg PO Q6HR PRN PRN Reason: Mild Pain or Fever > 100.5 Last Admin: 05/17/23 02:41 Dose: 650 mg Calamine (Calamine/Zinc Oxide Lotion 177 Ml Btl) 1 applic TOPICAL QID PRN; Protocol PRN Reason: Skin Irritation Last Admin: 05/18/23 01:34 Dose: 1 applic Cyanocobalamin (Cyanocobalamin 500 Mcg Tab) 1,000 mcg PO DAILY [facility] Last Admin: 05/18/23 08:12 Dose: 1,000 mcg Diphenhydramine HCl (Diphenhydramine 50 Mg/Ml 1 Ml Vial) 25 mg IVP ONCE PRN PRN Reason: Itching Donepezil HCl (Donepezil 10 Mg Tab) 10 mg PO DAILY [facility] Last Admin: 05/18/23 08:12 Dose: 10 mg Enalaprilat (Enalaprilat 1.25 Mg/Ml 1 Ml Vial) 1.25 mg IVP Q6HR PRN PRN Reason: SBP >160 Folic Acid (Folic Acid 1 Mg Tab) 1 mg PO DAILY@1200 [facility] Last Admin: 05/18/23 12:12 Dose: 1 mg Hydralazine HCl (Hydralazine Hcl 50 Mg Tab) 50 mg PO TID [facility] Last Admin: 05/18/23 16:09 Dose: 50 mg Hydralazine HCl (Hydralazine Hcl 20 Mg/Ml 1 Ml Vial) 10 mg IVP Q6HR PRN PRN Reason: Blood Pressure - High Hydromorphone HCl (Hydromorphone 0.5 Mg/0.5 Ml Syringe) 0.5 mg IVP Q3HR PRN PRN Reason: Moderate Pain (Scale 4 to 6) Last Admin: 05/18/23 16:07 Dose: 0.5 mg Cefazolin Sodium 1,000 mg/ (Sodium Chloride) 50 mls @ 100 mls/hr IVPB Q12H [facility] Last Admin: 05/18/23 15:50 Dose: 100 mls/hr Levothyroxine Sodium (Levothyroxine 25 Mcg Tab) 25 mcg PO DAILY@0630 [facility] Last Admin: 05/18/23 06:21 Dose: 25 mcg Multivitamins (Multivitamins, Thera 1 Each Tab) 1 each PO DAILY [facility] Last Admin: 05/18/23 08:24 Dose: Not Given Naloxone HCl (Naloxone 0.4 Mg/Ml 1 Ml Vial) 0.2 mg IV Q2M PRN PRN Reason: Opioid Reversal Ondansetron HCl (Ondansetron 4 Mg/2 Ml Vial) 4 mg IVP Q8HR PRN PRN Reason: Nausea And Vomiting Last Admin: 05/18/23 02:44 Dose: 4 mg Quetiapine Fumarate (Quetiapine 25 Mg Tab) 12.5 mg PO HS PRN PRN Reason: Agitation Simethicone (Simethicone 40 Mg/0.6 Ml Drops 2,000 Mg/30 Ml Bottle) 40 mg PO QID [facility] Last Admin: 05/18/23 12:53 Dose: Not Given Thiamine HCl (Thiamine 100 Mg Tab) 100 mg PO DAILY [facility] Last Admin: 05/18/23 08:12 Dose: 100 mg Tramadol HCl (Tramadol 50 Mg Tab) 50 mg PO Q6H PRN PRN Reason: Moderate Pain (Scale 4 to 6) Last Admin: 05/18/23 08:11 Dose: 50 mg Physical exam: Gen: This is a 88-year-old female who is awake, continues to be confused, well- developed, well-nourished, elderly-appearing, ill-appearing HEENT: Head is atraumatic, normocephalic. Pupils equal, round. Sclerae is anicteric. NECK: Supple. No JVD. No lymphadenopathy. No thyromegaly. LUNGS: Breath sounds diminished bilaterally with some scattered rhonchi. No intercostal retractions. HEART: Regular rate and rhythm. No murmur. ABDOMEN: Soft. Obese. Distended. Bowel sounds are present. No masses. No tenderness. EXTREMITIES: No pedal edema. No calf tenderness. NEUROLOGICAL: Patient is awake, alert and oriented x1-2. Diffusely weak Assessment: -UTI/sepsis, present on admission with bacteremia. Urine culture showing E. coli -Acute renal injury secondary to acute tubular necrosis due to severe sepsis -History of chronic kidney disease stage III B, follows with a investment associate out of [place] - Volume overload with pleural effusions noted on chest x-ray -Acute hypoxic respiratory failure secondary to volume overload with pleural effusions -Generalized weakness/fall -Small bowel obstruction noted on abdominal imaging with concerns of high-grade bowel obstruction currently with an NG tube -Hypertension history -Hyperlipidemia -Hypothyroidism -Dementia history -History of sick sinus syndrome status post dual-chamber pacemaker implantation -Atrial fibrillation, currently rate controlled. anticoagulation is currently on hold -DVT prophylaxis; SCDs/Eliquis -GI prophylaxis -Full code Plan: Multiple medical consultations including infectious disease and nephrology following. Will consult neurology for continued increased confusion as well as pain management as patient Reports She Sees Dr. Aaron Outpatient for Chronic Pain and Patient Continues to Report Significant Back Pain Patient currently has an NG tube and nothing by mouth with general surgery following for concerns of high-grade small bowel obstruction Patient currently maintained on nonrebreather and high flow oxygen with acute hypoxic respiratory failure secondary to volume overload and was given a dose of Lasix Blood cultures remain positive and preliminary showing staph aureus with infectious disease following maintained on antibiotics awaiting repeat blood cultures Cardiology following and anticoagulation is currently on hold for possible surgical intervention. CODE STATUS addressed and patient remains full code Awaiting PT/OT therapy evaluation Due to multiple complex medical issues, prognosis is guarded The impression and plan of care has been dictated by Jess Paul, Nurse Practitioner as directed. Dr. Ramsey MD I have performed a history and examination and MDM of this patient, discussed the same with the dictator, and agree with the dictator's assessment and plan as written ,documented as a scribe. Based on total visit time, I have performed more than 50% of the visit. Objective - Vital Signs Vital signs: Vital Signs Temp 96.9 F L 05/17/23 07:00 Pulse 84 05/17/23 07:00 Resp 20 05/17/23 08:00 BP 191/67 05/17/23 07:00 Pulse Ox 91 L 05/17/23 07:00 FiO2 Intake & Output 05/16/23 05/17/23 05/17/23 18:59 06:59 18:59 Intake Total 720 Output Total 150 250 Balance 570 -250 Intake: Oral 720 Output: Urine 150 250 Straight 150 Other: Voiding Method Incontinent Incontinent External Catheter External Catheter # Voids 1 - Labs CBC & Chem 7: 05/18/23 06:47 05/18/23 06:47 Labs: Abnormal Lab Results - Last 24 Hours (Table) 05/16/23 05/16/23 Range/Units 06:58 17:04 Potassium 5.9 H (3.5-5.1) mmol/L Carbon Dioxide 18 L (22-30) mmol/L BUN 52 H (7-17) mg/dL Creatinine 2.43 H (0.52-1.04) mg/dL Glucose 151 H (74-99) mg/dL AST 56 H (14-36) U/L Procalcitonin 13.50 H (0.02-0.09) ng/mL Microbiology - Last 24 Hours (Table) 05/15/23 11:36 Urine Culture - Preliminary Urine,Voided Gram Neg Bacilli 05/15/23 15:05 Blood Culture Gram Stain - Preliminary Blood 05/15/23 14:50 Blood Culture Gram Stain - Preliminary Blood
--- NOTE | 2023-05-18 18:01 | CT ---
EXAMINATION TYPE: CT abdomen pelvis wo con CT DLP: 858.1 mGycm, Automated exposure control for dose reduction was used. DATE OF EXAM: 05/18/2023 5:18 PM COMPARISON: CT 05-16-2023. CLINICAL INDICATION:Female, 88 years old with history of high grade bowel obstruction on xray, abd di stenti; SBO TECHNIQUE: Axial CT of the abdomen and pelvis. Sagittal and coronal reformats were created on a [employer] ([place]) workstation. Contrast used: mL of , (none if empty) Oral contrast used: without Oral Contrast (none if empty) FINDINGS: Limited exam without IV contrast. LOWER CHEST: Cardiomegaly with partially seen distal ends of pacemaker leads. Coronary calcifications . No significant pericardial effusion. Small to moderate bilateral pleural effusions with adjacent a telectasis/airspace disease, similar to before. ABDOMEN LIVER: Unremarkable GALLBLADDER AND BILE DUCTS: Gallbladder not seen, likely absent. No biliary ductal dilatation is sugg ested. PANCREAS: Mild diffuse atrophy. SPLEEN: Unremarkable. ADRENAL GLANDS: Mildly thickened bilaterally, could be from hyperplasia.. KIDNEYS AND URETERS: A 4 mm right upper pole calculus. No ureteral calculi or hydronephrosis. PELVIS BLADDER: Bladder decompressed with Hernandez in place. REPRODUCTIVE: The uterus is surgically absent. ABD AND PELVIS STOMACH AND BOWEL: NG tube ends in the mid stomach. Contrast in suspected small epiphrenic diverticu lum. Contrast is seen traversing the stomach and small bowel loops, without evidence of obstruction. Contrast also present in the colon to the descending segment. A couple of contrast-filled structure s adjacent to the duodenum, likely duodenal diverticula. Some small bowel loops are up to 2.7 cm diam eter, as before. No clear-cut transition point. There is mild/moderate stool throughout the colon. Nu merous diverticula are seen throughout, without focal inflammation seen to suggest acute diverticulit is. Appendix is not identified with certainty, however there is no inflammatory process seen in the R LQ. PERITONEUM/RETROPERITONEUM: No evidence of pneumoperitoneum. Small amount of free pelvic fluid. VASCULATURE: Moderate atherosclerotic calcifications are present throughout the abdominal aorta and i ts branches. No evidence of aortic aneurysm. MUSCULOSKELETAL: No clearly acute osseous abnormality. M ild/moderate degenerative changes throughout the spine with grade 1 anterolisthesis L4 over L5. Mild/ moderate neural foraminal stenoses suggested bilaterally at each level in the lumbar spine. LYMPH NODES: No gross evidence for lymphadenopathy. SOFT TISSUE/ABDOMINAL WALL: Unremarkable IMPRESSION: 1. Limited unenhanced study. 2. Bowel findings may reflect ileus, no mechanical obstruction identified. 3. Numerous colonic diverticula, without evidence of diverticulitis. 4. Nonobstructing right renal calculus. 5. Other chronic and likely incidental findings, as described above.
[2023-05-18] MEDS: QUEtiapine 25 MG TAB PO PRN (20:35)
--- NOTE | 2023-05-18 23:50 | FL ---
EXAMINATION TYPE: FL small bowel follow through DATE OF EXAM: 05/18/2023 6:09 PM COMPARISON: CT abdomen pelvis 05/16/2023. INDICATION: Patient age:Female; 88 years old; Reason for study: abdominal distention, follow up on SBO; TECHNIQUE AND FINDINGS: Day shift radiologist Dr. Reese-- The procedure was explained and patient history elicited. All p atient questions were answered prior to start of procedure. A stone hand radiograph of the abdomen was als o reviewed. The patient had liquid Gastrografin 75%/water 25% mixture, 300 mL injected via NG tube a nd incremental frontal abdominal radiographs were then taken until contrast was visualized in the cec um. Fluoroscopic time: 32 seconds Evening shift radiologist Dr. Lara-- Was asked to check the small bowel follow-through study, as a supine image was taken at 6.5 hours. The patient was also having a CT at that time. Preliminary film shows the distal end of pacemaker/AICD leads over a mildly enlarged heart. Bibasilar pulmonary opacities with probable small pleural effusions. NG tube terminates in the stomach. Nonspe cific bowel gas pattern with several loops of mildly prominent gas filled small bowel evident. Gas an d stool throughout the colon. Degenerative changes of the spine and hips. Administered contrast is seen within the stomach with mild reflux of contrast into the distal esophag us along the NG tube. Contrast traverses the small bowel loops, with the colon definitively reached a t the 6.5 hour film, longer than the expected time period. Small bowel follows normal distribution an d contour without any evidence of extraluminal or intraluminal irregularity. There is no displacemen t of bowel loops or extraluminal extravasation of contrast material. Small bowel mucosal folds are fe lt to be within normal limits. IMPRESSION: 1. Small bowel follow-through shows no evidence of mechanical small bowel obstruction. 2. Findings including delayed transit time through the small bowel, most suggestive of ileus.
[2023-05-19] MEDS: SIMETHICONE 40 MG/0.6 ML DROPS 2,000 MG/30 ML BOTTLE PO SCH ×6 (00:32→21:50)
[2023-05-19] MEDS: HYDROmorphone 0.5 MG/0.5 ML SYRINGE IVP PRN ×2 (03:41→13:15)
[2023-05-19] MEDS: LEVOTHYROXINE 25 MCG TAB PO SCH (05:38)
[2023-05-19 09:07] LABS: BUN/Creat Ratio 38.67 Ratio (12.00-20.00); Blood Urea Nitrogen 46.4 mg/dL (9.0-27.0); Calcium 9.7 mg/dL (8.7-10.3); Carbon Dioxide 27.4 mmol/L (21.6-31.8); Chloride 102 mmol/L (96-109); Glucose 121 mg/dL (70-110); Magnesium 2.4 mg/dL (1.5-2.4); Potassium 3.2 mmol/L (3.5-5.5); Sodium 147 mmol/L (135-145)
[2023-05-19] MEDS: hydrALAZINE HCL 50 MG TAB PO SCH ×3 (10:01→21:50)
[2023-05-19] MEDS: CYANOCOBALAMIN 500 MCG TAB PO SCH (10:01)
[2023-05-19] MEDS: THIAMINE 100 MG TAB PO SCH (10:01)
[2023-05-19] MEDS: MULTIVITAMINS, THERA 1 EACH TAB PO SCH (10:01)
[2023-05-19] MEDS: DONEPEZIL 10 MG TAB PO SCH (10:01)
[2023-05-19] MEDS ORDERED: Potassium Replacement Protocol 1 EACH MISC MISCELLANE PRN (10:29)
--- NOTE | 2023-05-19 10:31 | CA ---
Transthoracic Echo Report Name: Marianna Garcia Age: 88 Gender: F : 1935 Exam Date: 05/18/2023 13:40 Exam Location: [facility] Ht (in): 62 Wt (lb): 150 Ordering Physician: Analisa Mendoza Attending/Referring Phys: [id number], Reji Pharmacist Helper Christine Jackson RDCS Procedure CPT: Indications: LVF Cardiac Hx: AICD Technical Quality: Fair Contrast 1: Total Dose (mL): Contrast 2: Total Dose (mL): MEASUREMENTS (Male / Female) Normal Values 2D ECHO LV Diastolic Diameter PLAX 5.3 cm 4.2 - 5.9 / 3.9 - 5.3 cm LV Systolic Diameter PLAX 3.2 cm IVS Diastolic Thickness 1.1 cm 0.6 - 1.0 / 0.6 - 0.9 cm LVPW Diastolic Thickness 1.1 cm 0.6 - 1.0 / 0.6 - 0.9 cm LV Relative Wall Thickness 0.4 RV Internal Dim ED PLAX 3.6 cm LVOT Diameter 2.3 cm LA Systolic Diameter LX 3.9 cm 3.0 - 4.0 / 2.7 - 3.8 cm LV Diastolic Volume MOD 4C 113.1 cm??? LV Systolic Volume MOD 4C 57.7 cm??? LV Ejection Fraction MOD 4C 48.9 % LV Cardiac Index MOD 4C 2505.6 cm???/min???m??? LV Diastolic Length 4C 8.5 cm LV Systolic Length 4C 7.0 cm LV Diastolic Volume MOD 2C 117.0 cm??? LV Systolic Volume MOD 2C 69.4 cm??? LV Ejection Fraction MOD 2C 40.7 % LV Cardiac Index MOD 2C 2156.6 cm???/min???m??? LV Diastolic Length 2C 8.0 cm LV Systolic Length 2C 6.9 cm LA Volume 84.0 cm??? 18 - 58 / 22 - 52 cm??? LA Volume Index 48.2 cm???/m??? 16 - 28 cm???/m??? M-MODE Aortic Root Diameter MM 3.3 cm MV E Point Septal Separation 2.1 cm AV Cusp Separation MM 2.1 cm DOPPLER AV Peak Velocity 216.9 cm/s AV Peak Gradient 18.8 mmHg AV Mean Velocity 146.7 cm/s AV Mean Gradient 9.7 mmHg AV Velocity Time Integral 45.4 cm LVOT Peak Velocity 96.5 cm/s LVOT Peak Gradient 3.7 mmHg AV Area Cont Eq pk 1.8 cm??? MV Peak Velocity 192.0 cm/s MV Peak Gradient 14.7 mmHg MV Mean Velocity 117.7 cm/s MV Mean Gradient 6.2 mmHg MV Velocity Time Integral 42.4 cm MV Area PHT 5.7 cm??? Mitral E Point Velocity 148.0 cm/s Mitral A Point Velocity 161.7 cm/s Mitral E to A Ratio 0.9 MV Deceleration Time 134.0 ms MV E' Velocity 4.2 cm/s Mitral E to MV E' Ratio 35.1 TR Peak Velocity 322.6 cm/s TR Peak Gradient 41.6 mmHg Right Ventricular Systolic Press 45.9 mmHg FINDINGS Left Ventricle Left ventricular ejection fraction is estimated at 50-55 %. Left ventricular cavity size normal. Mildly increased septal wall thickness. Mildly increased posterior wall thickness. Right Ventricle Mild right ventricular dilatation. Moderate pulmonary hypertension. Right ventricular systolic pressure estimated at 46 mm hg. Right Atrium Normal right atrial size. Left Atrium Mildly increased left atrial diameter. Severely increased left atrial volume. Mildly increased left atrial area. Mitral Valve Mitral valve thickened. Mild mitral annular calcification. Mild mitral regurgitation. Aortic Valve Trileaflet aortic valve. Mild aortic stenosis with a peak gradient of 19 mmHg and a mean gradient of 10 mmHg. Tricuspid Valve Structurally normal tricuspid valve. Mild tricuspid regurgitation. Pulmonic Valve Structurally normal pulmonic valve. No pulmonic regurgitation. Pericardium No pericardial effusion. Aorta Normal size aortic root and proximal ascending aorta. CONCLUSIONS Normal LV size preserved systolic function mild concentric LVH mild mitral and tricuspid regurgitation aortic valve sclerosis with mild increase in gradient no pericardial effusion Previewed by: Dr. Nisha Hope MD (Electronically Signed) Final Date: 19 May 2023 10:30
--- NOTE | 2023-05-19 10:55 | P.PN ---
Subjective Progress Note Date: 05/19/23 Cardiac risk assessment History of present illness: History of present illness: This is an 88 year old female with past medical history of hypothyroidism, hyperlipidemia, hypertension, dementia, sick sinus syndrome status post dual chamber pacemaker implantation, chronic kidney disease stage. Patient follows with a nickel operator at [facility], Dr. Almanza. Patient presented to the hospital on 05/15 after being found on the floor. She was admitted to the hospital for weakness, acute kidney injury, klebsiella and E. coli urinary tract infection and possible bacteremia. Patient also had abdominal pain and distention found to have a small bowel obstruction and a consult was placed with general surgery. She has subsequently had an NG tube placed and we have been asked to evaluate the patient for cardiac risk assessment. No surgery is currently scheduled.Pacemaker was last interrogated on March 31, 2023. Patient is currently on a nonrebreather and blood pressure is elevated. Eliquis is on hold for possible surgical intervention. Abdomen remains quite distended despite NG tube. EKG sinus rhythm with right bundle branch block, left anterior fascicular block Chest x-ray: Cardiomegaly, pulmonary vascular congestion and bilateral pleural effusions. Correlate for BNP for heart failure. NG in appropriate position. Initial WBC 29.6 now 13.3, hemoglobin is 9.5, electrolytes are within normal limits. Creatinine 1.2 and initially was 2.59. Pro-calcitonin elevated now at 8.47. Influenza A, influenza B, Covid 19 and RSV not detected. Urinalysis positive for infection. Home cardiac medications: Eliquis 5 mg twice daily, levothyroxine 05/19 Patient is seen today in follow-up. This morning around 4 AM she pulled her NG tube out. Plan is to leave this for now per general surgery. She has had elevated blood pressures and she does have IV Vasotec and IV hydralazine available if needed. Echocardiogram has been completed and shows normal LV size preserved systolic function, mild concentric left hypertrophy, mild mitral and tricuspid regurgitation, aortic valve sclerosis with mild increase in gradient. No pericardial effusion. Oxygenation needs have improved and she is now down to 5 L nasal cannula with pulse ox of 90%. Heart rate has been running in the 90s. Blood pressure 156/62. Physical examination: Gen: This is an 88-year-old female. She is resting in bed. Son is at bedside. VS: reviewed HEENT: Head is atraumatic, normocephalic. Pupils equal, round. Sclerae is anicteric. LUNGS: Clear to auscultation. No wheezes or rhonchi. No intercostal retractions. HEART: Regular rate and rhythm. No murmur. ABDOMEN: Distended with support.. EXTREMITIES: No pedal edema. No calf tenderness. NEUROLOGICAL: Patient is awake, alert and confused. Assessment: Small bowel obstruction UTI Possible bacteremia Sepsis History of sick sinus syndrome status post dual-chamber pacemaker implantation Hypertension Hyperlipidemia Hypothyroidism Plan: Continue to hold eliquis Patient is currently nothing by mouth Thrombocytopenia Vasotec 1.25 mg IV push every 6 hours as needed for systolic blood pressure greater than 100, or hydralazine Further recommendations to follow based upon clinical course Thank you kindly for this consultation. Nurse practitioner note has been reviewed, I agree with documented findings and plan of care. Patient was seen and examined. Objective - Vital Signs Vital signs: Vital Signs Temp 98.4 F 05/19/23 06:58 Pulse 96 05/19/23 09:30 Resp 21 05/19/23 09:30 BP 156/62 05/19/23 06:58 Pulse Ox 98 05/19/23 06:58 FiO2 40 05/18/23 16:47 Intake & Output 05/18/23 05/19/23 05/19/23 18:59 06:59 18:59 Output Total 1550 950 Balance -1550 -950 Output: Gastric Drainage 500 Urine 1550 450 Other: Voiding Method Diaper Indwelling Catheter Indwelling Catheter - Labs CBC & Chem 7: 05/18/23 06:47 05/19/23 05:19 Labs: Abnormal Lab Results - Last 24 Hours (Table) 05/18/23 05/18/23 05/19/23 Range/Units 06:47 06:47 05:19 WBC 13.30 H (4.50-10.00) X 10*3/uL RBC 3.23 L (4.10-5.20) X 10*6/uL Hgb 9.5 L (12.0-15.0) g/dL Hct 30.0 L (37.2-46.3) % MCHC 31.7 L (32.0-37.0) g/dL Neutrophils # 11.53 H (1.80-7.70) X 10*3/uL Lymphocytes # 0.61 L (0.90-5.00) X 10*3/uL Monocytes # 1.03 H (0.20-1.00) X 10*3/uL Eosinophils # 0.03 L (0.04-0.35) X 10*3/uL Sodium 147 H (135-145) mmol/L Potassium 3.2 L (3.5-5.5) mmol/L Anion Gap 17.60 H (4.00-12.00) mmol/L BUN 37.8 H 46.4 H (9.0-27.0) mg/dL Est GFR (CKD-EPI) 44 L 44 L (>=60) BUN/Creatinine Ratio 31.50 H 38.67 H (12.00-20.00) Ratio Glucose 157 H 121 H (70-110) mg/dL Microbiology - Last 24 Hours (Table) 05/17/23 06:30 Blood Culture - Preliminary Blood
--- NOTE | 2023-05-19 11:39 | P.PN ---
Subjective Patient is seen in follow-up for acute kidney injury on chronic kidney disease. Renal function stable. NG tube removed. Son present at bedside. Vital signs are stable. General: No acute distress. HEENT: Head exam is unremarkable. LUNGS: No audible rhonchi or wheezes. HEART: Rate and Rhythm are regular. ABDOMEN: Nontender, distention noted. EXTREMITITES: No edema. Objective - Vital Signs Vital signs: Vital Signs Temp 98.4 F 05/19/23 06:58 Pulse 96 05/19/23 09:30 Resp 21 05/19/23 09:30 BP 156/62 05/19/23 06:58 Pulse Ox 97 05/19/23 11:33 FiO2 40 05/18/23 16:47 Intake & Output 05/18/23 05/19/23 05/19/23 18:59 06:59 18:59 Output Total 1550 950 Balance -1550 -950 Output: Gastric Drainage 500 Urine 1550 450 Other: Voiding Method Diaper Indwelling Catheter Indwelling Catheter - Labs CBC & Chem 7: 05/18/23 06:47 05/19/23 05:19 Labs: Abnormal Lab Results - Last 24 Hours (Table) 05/19/23 Range/Units 05:19 Sodium 147 H (135-145) mmol/L Potassium 3.2 L (3.5-5.5) mmol/L Anion Gap 17.60 H (4.00-12.00) mmol/L BUN 46.4 H (9.0-27.0) mg/dL Est GFR (CKD-EPI) 44 L (>=60) BUN/Creatinine Ratio 38.67 H (12.00-20.00) Ratio Glucose 121 H (70-110) mg/dL Microbiology - Last 24 Hours (Table) 05/17/23 06:30 Blood Culture - Preliminary Blood Assessment and Plan Plan: Assessment: 1. Acute kidney injury secondary to ATN secondary to severe sepsis. Also received Toradol. Renal function improved. Creatinine stable at 1.2 today. No hydronephrosis noted on imaging. 2. Chronic kidney disease stage IIIB with baseline creatinine near 1.4. Patient follows with [employer] consultant out of [place] system. 3. E. coli UTI and staph aureus bacteremia ID following. On antibiotics. 4. Metabolic acidosis secondary to acute kidney injury status post IV bicarb. 5. Hyperkalemia secondary to acute kidney injury, acidosis. Resolved. Now hypokalemic from diuresis. 6. Volume overload. Pleural effusions noted on chest x-ray. Status post IV Lasix given 05/18/2023. 7. Small bowel obstruction. NG tube removed. Surgery following. 8. Hypernatremia from lack of oral water intake. Plan: Start D5W at 50 mL an hour. Replace potassium. Avoid nephrotoxins. Continue to monitor renal function and urine output. Repeat labs in the morning.
--- NOTE | 2023-05-19 11:51 | P.PN ---
Subjective Progress Note Date: 05/19/23 Principal diagnosis: Reason for follow-up is MSSA bacteremia Patient is a 88-year-old female with a past medical history significant for atrial fibrillation hypertension hyperlipidemia heart failure with patient was brought into the hospital after family patient was found to be on the floor , patient complaining of weakness and pain to the lower back area and did have a positive blood culture with MSSA. On today's evaluation that is 05/19/2023, the patient continues to be afebrile , the patient is breathing comfortably on 5 L nasal cannula supplemental oxygen, the patient denies chest pain shortness of breath or cough , patient denies nausea/vomiting, no abdominal pain and no diarrhea,NG has been discontinued and is feeling slightly better Patient white count is down to 13.30 as of 05/18/2023, creatinine is 1.2, CT of abdominal pelvis limited study no evidence of acute inflammatory process and abdominal pelvis possible small bowel obstruction Objective - Vital Signs Vital signs: Vital Signs Temp 98.4 F 05/19/23 06:58 Pulse 96 05/19/23 09:30 Resp 21 05/19/23 09:30 BP 156/62 05/19/23 06:58 Pulse Ox 98 05/19/23 06:58 FiO2 40 05/18/23 16:47 Intake & Output 05/18/23 05/19/23 05/19/23 18:59 06:59 18:59 Output Total 1550 950 Balance -1550 -950 Output: Gastric Drainage 500 Urine 1550 450 Other: Voiding Method Diaper Indwelling Catheter Indwelling Catheter - Exam GENERAL DESCRIPTION: An elderly female lying in bed in no distress RESPIRATORY SYSTEM: Unlabored breathing , decreased best at the base HEART: S1 S2 regular rate and rhythm , ABDOMEN: Soft , mild distention EXTREMITIES: No edema feet - Labs CBC & Chem 7: 05/18/23 06:47 05/19/23 05:19 Labs: Abnormal Lab Results - Last 24 Hours (Table) 05/18/23 05/18/23 05/19/23 Range/Units 06:47 06:47 05:19 WBC 13.30 H (4.50-10.00) X 10*3/uL RBC 3.23 L (4.10-5.20) X 10*6/uL Hgb 9.5 L (12.0-15.0) g/dL Hct 30.0 L (37.2-46.3) % MCHC 31.7 L (32.0-37.0) g/dL Neutrophils # 11.53 H (1.80-7.70) X 10*3/uL Lymphocytes # 0.61 L (0.90-5.00) X 10*3/uL Monocytes # 1.03 H (0.20-1.00) X 10*3/uL Eosinophils # 0.03 L (0.04-0.35) X 10*3/uL Sodium 147 H (135-145) mmol/L Potassium 3.2 L (3.5-5.5) mmol/L Anion Gap 17.60 H (4.00-12.00) mmol/L BUN 37.8 H 46.4 H (9.0-27.0) mg/dL Est GFR (CKD-EPI) 44 L 44 L (>=60) BUN/Creatinine Ratio 31.50 H 38.67 H (12.00-20.00) Ratio Glucose 157 H 121 H (70-110) mg/dL Microbiology - Last 24 Hours (Table) 05/17/23 06:30 Blood Culture - Preliminary Blood Assessment and Plan (1) Bacteremia Current Visit: Yes Status: Acute Code(s): R78.81 - BACTEREMIA SNOMED Code(s): 5808306 Plan: 1patient with a Staph aureus bacteremia , in this patient presented to hospital with a fall found on the floor has been complaining of more lower back pain and history of chronic back pain with a question of possible discitis/osteomyelitis to lumbosacral spine area as currently do not have any evidence of cellulitis, no joint swelling or other clear focus of this bacteremia, patient did have a positive UA underlying urinary source less likely as the patient did not have any urinary symptoms patient was noticed to have significant abdominal distention and some tenderness for the patient did have CT of abdominal pelvis did not show any acute inflammatory process 2-patient did have a renal insufficiency and high risk of nephrotoxicity, and did have improvement in her kidney function, creatinine is down to 1.2 3--blood cultures has been repeated and blood culture drawn 05/17/2020 has been negative so far 4Patient to continue with cefazolin, once the kidney function improves and condition stabilized we will be requesting for an MRI of the lumbosacral spine son at the bedside questions were answered Dictation was produced using [employer] software. please excuse any grammatical, word or spelling errors. Time with Patient: Less than 30
[2023-05-19] MEDS: FOLIC ACID 1 MG TAB PO SCH (11:53)
[2023-05-19] MEDS: POTASSIUM CHLORIDE 10 MEQ in WATER FOR INJECTION 1 100ML.BAG IVPB SCH ×4 (11:56→16:37)
[2023-05-19] MEDS: DEXTROSE 5% IN WATER 1,000 ML IV SCH (11:57)
--- NOTE | 2023-05-19 13:55 | P.PN ---
Subjective Progress Note Date: 05/19/23 CHIEF COMPLAINT: Small bowel obstruction HISTORY OF PRESENT ILLNESS: Patient continues to complain of abdominal pain and mostly back pain. Her abdomen remains distended. Small bowel follow-through completed showing no evidence of mechanical small bowel obstruction. Findings include delayed transit time through small bowel most suggestive of ileus. Computed tomography scan abdomen limited unenhanced study. Bowel findings may reflect ileus. No mechanical obstruction identified. Numerous colonic diverticula with no evidence of diverticulitis. Nonobstructing right renal calculus. Patient reports no bowel movement or flatus. Denies any nausea or vomiting. She did pull out the NG tube during the night. Patient had 500 mL output through the NG tube from the night. Afebrile. Sodium is 147 potassium is 3.2 creatinine 1.2 and magnesium 2.4 PHYSICAL EXAM: VITAL SIGNS: Reviewed GENERAL: Well-developed in no acute distress. HEENT: No sclera icterus. Extraocular movements grossly intact. Moist buccal mucosa. Head is atraumatic, normocephalic. Hears conversational speech. No nasal dr ainage. NECK: Supple without lymphadenopathy. CHEST: Non-labored respirations and equal bilateral excursions. CARDIOVASCULAR: Palpable 2+ radial pulses. ABDOMEN: Distended. Diffuse tenderness of the abdomen with palpation MUSCULOSKELETAL: No clubbing or cyanosis. NEUROLOGIC: No focal or lateralizing signs. Cranial nerves II through XII grossly intact. PSYCH: Appropriate affect. Alert and oriented to person, place and time. SKIN: Well perfused. Good skin turgor. ASSESSMENT: 1. Abdominal pain with ileus 2. History of abdominal surgeries 3. UTI 4. Bacteremia 5. Fall and weakness 6. Acute kidney injury. history of chronic kidney disease. 7. History of AICD 8. History of atrial fibrillation on Eliquis 9. Lower Back pain. History of chronic back pain 10. Hypoxia 11. Hypokalemia PLAN: -Keep patient nothing by mouth -Potassium being replaced -Continue to correct electrolytes and treat infection to help with ileus -Encouraged patient to increase activity level -Continue treatment for UTI and bacteremia -Cardiology consult appreciated -No surgical intervention planned at this time -Cannot start Reglan for ileus due to patient taking Seroquel Physician Trash Hauler note has been reviewed by physician. Signing provider agrees with the documented findings, assessment, and plan of care. Objective - Vital Signs Vital signs: Vital Signs Temp 98.4 F 11/15/23 06:58 Pulse 96 05/19/23 09:30 Resp 21 05/19/23 09:30 BP 156/62 05/19/23 06:58 Pulse Ox 97 05/19/23 11:33 FiO2 40 05/18/23 16:47 Intake & Output 05/18/23 05/19/23 05/19/23 18:59 06:59 18:59 Output Total 1550 950 Balance -1550 -950 Output: Gastric Drainage 500 Urine 1550 450 Other: Voiding Method Diaper Indwelling Catheter Indwelling Catheter - Labs CBC & Chem 7: 05/18/23 06:47 05/19/23 05:19 Labs: Abnormal Lab Results - Last 24 Hours (Table) 05/19/23 Range/Units 05:19 Sodium 147 H (135-145) mmol/L Potassium 3.2 L (3.5-5.5) mmol/L Anion Gap 17.60 H (4.00-12.00) mmol/L BUN 46.4 H (9.0-27.0) mg/dL Est GFR (CKD-EPI) 44 L (>=60) BUN/Creatinine Ratio 38.67 H (12.00-20.00) Ratio Glucose 121 H (70-110) mg/dL Microbiology - Last 24 Hours (Table) 05/18/23 06:47 Blood Culture - Preliminary Blood 05/17/23 06:30 Blood Culture - Preliminary Blood 05/15/23 15:05 Blood Culture Gram Stain - Final Blood Blood Culture - Final Staphylococcus aureus 05/15/23 14:50 Blood Culture Gram Stain - Final Blood Blood Culture - Final Staphylococcus aureus
--- NOTE | 2023-05-19 16:13 | P.CNNES ---
History of Present Illness Consult date: 05/19/23 Requesting physician: Jess Paul Reason for Consult: altered mentation, confusion History of Present Illness: Patient is a 88-year-old female came to the hospital by ambulance 05/15/2023 for altered mental status. Patient's son was present, who provided the history. He states that he went in and found patient laying in the ground and she was there for about 2 hours, as she has dried blood on her around mouth. She did bite her tongue. He believes that patient was coming back from the bathroom, when she fell. She did not hit her head. No previous history of seizures. Patient's son tried to get her up, barely got her into the bed. When she was standing, her back was hurting a lot. They called the ambulance and she was brought here. Patient has chronic back issues, for almost 10 years. After this fall, patient's back has been hurting more. Patient's son states that she is unsteady on the feet, and has fell about 7 times this year. Patient lives with her and she uses walker inside the home and she remembers. Outside she uses a cane. At the time patient fell, she was not using her walker. Patient's son has not noticed any slurred speech, facial droop, or any strokelike symptoms. She does admit to having bad headache on Wednesday but not anymore. Patient continues to be confused, which prompted this neurology consultation. At this time, patient is slightly more confused where she received Dilaudid about upper hours ago. She received it for her severe back pain. Patient's son states that she was much more oriented before she received her Dilaudid. 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 About 3 years ago, she fell and hit her head and was "knocked out". Since then her memory has gotten worse. She does know family very well. She does ask same question again. Patient's current vitals are blood pressure 156/62, pulse rate 96, temperature 98.4. Patient's blood cultures has grown Staphylococcus aureus twice. Urine cultures have grown > 100,000 E. coli. Blood test shows WBC 13.3, hemoglobin 9.5, platelets are normal, sodium 147 potassium 3.2, BUN 46, creatinine 1.2, CRP is 28.5 which is elevated. Influenza screen, RSV and coronal virus PCR negative. CT head performed 05/15/2023 was normal with no acute intracranial process, nons pecific white matter changes, likely secondary to chronic small vessel ischemic disease. CT of the cervical spine showed no evidence of cervical spine fracture. Moderate multilevel degenerative disc disease with OS odontoideum versus prior fracture of the odontoid process with fusion to the anterior arch of C1. Patient had a x-ray of the abdomen which showed small bowel follow- through shows no evidence of mechanical small bowel obstruction. Findings including delayed transit time through the small bowel, most suggestive of ileus. Abdomen and pelvis CT showed bowel findings may reflect ileus, no mechanical obstruction identified. Numerous colonic diverticula without evidence of diverticulitis. Nonobstructing right renal calculus. Chest x-ray from yesterday showed cardiomegaly, pulmonary vascular congestion and bilateral pleural effusions. Correlate with BNP for congestive heart failure. Nasogastric tube in position. 2-D echo revealed normal left ventricular size with preserved systolic function with EF 50-55%. Mild concentric LVH, mild mitral and tricuspid regurgitation, aortic valve sclerosis with mild increase in gradient. X-ray of the thoracic spine showed no acute osseous pathology. Moderate degenerative changes throughout the spine. X-ray of the lumbar spine showed no acute fracture, moderate multilevel disc degeneration, grade 2 anterolisthesis of L4 and L5. Patient has borderline diabetes and hyperlipidemia. She has smoked 1 pack per day for about 25-30 years, quit 40 years ago. She also used to drink quite heavily and he did call her "borderline alcoholic" and one time she did go into DTs in the past. She has not done alcohol for last 3 years. Review of Systems Constitutional: Reports fever, Reports weight loss, Denies chills Eyes: denies blurred vision, denies diplopia, denies pain Ears: deny: decreased hearing, ear discharge Ears, nose, mouth and throat: Denies headache, Denies nasal congestion, Denies sore throat Cardiovascular: Denies chest pain, Denies shortness of breath Respiratory: Denies cough, Denies excessive sputum Gastrointestinal: Denies abdominal pain, Denies diarrhea, Denies nausea, Denies vomiting Genitourinary: Reports stress incontinence, Denies dysuria, Denies hematuria, Denies urinary frequency Musculoskeletal: Reports low back pain, Denies myalgias, Denies neck pain Integumentary: Denies pruritus, Denies rash Neurological: Reports memory loss, Denies aphasia, Denies numbness, Denies weakness Psychiatric: Reports anxiety, Denies depression Endocrine: Reports fatigue, Reports weight change Hematologic/Lymphatic: Denies easy bleeding, Denies easy bruising Past Medical History Past Medical History: Atrial Fibrillation, Heart Failure, Hyperlipidemia, Hypertension, Memory Impairment, Musculoskeletal Disorder, Osteoarthritis (OA), Renal Disease, Thyroid Disorder Additional Past Medical History / Comment(s): heart murmur, CKD-sees specialist, low back pain, DEMENTIA History of Any Multi-Drug Resistant Organisms: None Reported Past Surgical History: AICD, Cholecystectomy, Heart Catheterization, Hysterectomy Additional Past Surgical History / Comment(s): pain procedures, cardioversion, Past Anesthesia/Blood Transfusion Reactions: No Reported Reaction Type of Cardiac Device: AICD Device Placement Date:: September 2020 [employer] Smoking Status: Former smoker - Past Family History Mother Family Medical History: No Reported History Father Family Medical History: Cancer Medications and Allergies Home Medications Medication Instructions Recorded Confirmed Type Levothyroxine Sodium [Synthroid] 25 mcg PO DAILY 04/10/20 05/15/23 History Apixaban [Eliquis] 5 mg PO BID 01/23/21 05/15/23 History Multivitamins, Thera [Multivitamin 1 tab PO DAILY 01/23/21 05/15/23 History (formulary)] Thiamine [Vitamin B-1] 100 mg PO DAILY 01/23/21 05/15/23 History Cyanocobalamin (Vitamin B-12) 1,000 mcg PO DAILY 04/11/21 05/15/23 History [Vitamin B-12] Rivastigmine Tartrate 4.5 mg PO BID 04/11/21 05/15/23 History [Rivastigmine] Atorvastatin [Lipitor] 20 mg PO HS 05/15/23 05/15/23 History Flint-3 500mg 500 mg PO DAILY 05/15/23 05/15/23 History Allergies Allergy/AdvReac Type Severity Reaction Status Date / Time lorazepam [From Ativan] AdvReac Hallucinati Verified 05/15/23 11:13 ons metoprolol AdvReac Hallucinati Verified 05/15/23 11:13 ons oxybutynin AdvReac Hallucinati Verified 05/15/23 11:13 ons Physical Examination - Vital Signs Vital Signs: Vital Signs Temp Pulse Resp BP BP Pulse Ox FiO2 05/19/23 11:33 97 05/19/23 09:30 96 21 05/19/23 06:58 98.4 F 96 21 156/62 98 05/19/23 01:07 98.6 F 87 18 134/56 93 L 05/18/23 17:42 98.6 F 78 19 151/63 94 L 05/18/23 16:47 40 05/18/23 13:23 97.9 F 88 18 173/77 94 L Intake and Output 05/18/23 05/19/23 05/19/23 22:59 06:59 14:59 Output Total 1550 950 Balance -1550 -950 Output: Gastric Drainage 500 Urine 1550 450 Other: Voiding Method Indwelling Catheter Indwelling Catheter Patient is an elderly female, who is slightly groggy, as she has just received Dilaudid. Patient is encephalopathic, groggy. Patient knows that she lives in [facility]. She could not tell the name of the building she is in, or a month or the year. She thinks it is October. Her son reports, she was much more oriented earlier this morning, but after she received Dilaudid, she is more "loopy". Speech and language functions are normal. Her voice is slightly hoarse. Patient can name and repeat very well. No aphasia or dysarthria. Attention, concentration is significantly impaired and fund of knowledge is limited at this time because of grogginess. On cranial nerve examination, pupils are equal, round and reacting to light, visual soares are full on confrontation, with no neglect on double simultaneous stimulation. Extraocular muscles are intact with no nystagmus. Face is symmetric, tongue protrudes to the midline. Palatal elevation and sensation normal, hearing appears slightly decreased although patient's son believes that her hearing is normal. Her shoulder shrug normal, facial sensation normal. No evidence of tongue bite ren. On muscle strength testing, there is no pronator drift. She has mild metabolic tremors of outstretched hands. Her muscle strength is equal bilaterally. In the upper limbs, it is about 4+5-all over bilaterally, with decreased endurance and effort. In the lower limbs, her hip flexion is 4, ankle dorsiflexion 5. Deep tendon reflexes are symmetric 1 at the biceps, 1 brachioradialis, 1+ at the knee and plantars are probably upgoing bilaterally. Sensory to touch is equal. Cerebellar function showed no ataxia for [id number] testing, although she was tremulous. Tone and bulk of muscles normal. Gait deferred.. On general examination, there is no carotid bruit or murmur, S1-S2 audible. Chest is clear on consultation. Abdomen is protuberant, but soft nontender. No organomegaly, bowel sounds present. Peripheral pulses are present. No peripheral edema. Results - Laboratory Findings CBC and BMP: 05/18/23 06:47 05/19/23 05:19 Abnormal Lab Findings: Abnormal Labs 05/15/23 05/15/23 05/15/23 11:36 11:36 11:36 WBC 29.6 H RBC 3.46 L Hgb 10.5 L Hct 31.9 L MCHC Neutrophils # Neutrophils # (Manual) 27.50 H Lymphocytes # Lymphocytes # (Manual) 0.30 L Monocytes # Monocytes # (Manual) 1.78 H Eosinophils # Sodium 133 L Potassium Carbon Dioxide 19 L Anion Gap BUN 31 H Creatinine 1.42 H Est GFR (CKD-EPI) BUN/Creatinine Ratio Glucose 129 H Calcium 10.3 H Total Bilirubin 1.9 H AST 39 H Creatine Kinase 277 H C-Reactive Protein Albumin Albumin/Globulin Ratio Procalcitonin Urine Protein Trace H Ur Leukocyte Esterase Moderate H Urine WBC 16 H Urine Bacteria Moderate H Urine Mucus Rare H 05/16/23 05/16/23 05/16/23 06:58 06:58 06:58 WBC 24.5 H RBC 3.31 L Hgb 9.9 L Hct 31.6 L MCHC Neutrophils # 23.0 H Neutrophils # (Manual) Lymphocytes # 0.5 L Lymphocytes # (Manual) Monocytes # Monocytes # (Manual) Eosinophils # Sodium 136 L Potassium 5.5 H Carbon Dioxide 18 L Anion Gap BUN 48 H Creatinine 2.59 H Est GFR (CKD-EPI) BUN/Creatinine Ratio Glucose 136 H Calcium Total Bilirubin AST 59 H Creatine Kinase C-Reactive Protein Albumin Albumin/Globulin Ratio Procalcitonin 13.50 H Urine Protein Ur Leukocyte Esterase Urine WBC Urine Bacteria Urine Mucus 05/16/23 05/17/23 05/17/23 17:04 06:30 06:30 WBC RBC Hgb Hct MCHC Neutrophils # Neutrophils # (Manual) Lymphocytes # Lymphocytes # (Manual) Monocytes # Monocytes # (Manual) Eosinophils # Sodium Potassium 5.9 H Carbon Dioxide 18 L Anion Gap 13.60 H BUN 52 H 45.3 H Creatinine 2.43 H 1.9 H Est GFR (CKD-EPI) 25 L BUN/Creatinine Ratio 23.84 H Glucose 151 H 120 H Calcium Total Bilirubin AST 56 H 49 H Creatine Kinase C-Reactive Protein 28.50 H Albumin 3.7 L Albumin/Globulin Ratio 1.42 L Procalcitonin 8.47 H Urine Protein Ur Leukocyte Esterase Urine WBC Urine Bacteria Urine Mucus 05/17/23 05/18/23 05/18/23 06:30 06:47 06:47 WBC 18.45 H 13.30 H RBC 3.18 L 3.23 L Hgb 9.4 L 9.5 L Hct 30.2 L 30.0 L MCHC 31.1 L 31.7 L Neutrophils # 16.97 H 11.53 H Neutrophils # (Manual) Lymphocytes # 0.52 L 0.61 L Lymphocytes # (Manual) Monocytes # 1.03 H Monocytes # (Manual) Eosinophils # 0.03 L Sodium Potassium Carbon Dioxide Anion Gap BUN 37.8 H Creatinine Est GFR (CKD-EPI) 44 L BUN/Creatinine Ratio 31.50 H Glucose 157 H Calcium Total Bilirubin AST Creatine Kinase C-Reactive Protein Albumin Albumin/Globulin Ratio Procalcitonin Urine Protein Ur Leukocyte Esterase Urine WBC Urine Bacteria Urine Mucus 05/19/23 05:19 WBC RBC Hgb Hct MCHC Neutrophils # Neutrophils # (Manual) Lymphocytes # Lymphocytes # (Manual) Monocytes # Monocytes # (Manual) Eosinophils # Sodium 147 H Potassium 3.2 L Carbon Dioxide Anion Gap 17.60 H BUN 46.4 H Creatinine Est GFR (CKD-EPI) 44 L BUN/Creatinine Ratio 38.67 H Glucose 121 H Calcium Total Bilirubin AST Creatine Kinase C-Reactive Protein Albumin Albumin/Globulin Ratio Procalcitonin Urine Protein Ur Leukocyte Esterase Urine WBC Urine Bacteria Urine Mucus Assessment and Plan Assessment: * Altered mental status, likely due to toxic-metabolic encephalopathy * Acute UTI * Recent bacteremia with Staphylococcus aureus. No evidence of endocarditis on echo. * Mild renal insufficiency * Hypernatremia * Hypokalemia * Atrial fibrillation * CHF * Hypertension * Hyperlipidemia * Prediabetes * Mild dementia, per patient's son report * Osteoarthritis * AICD * X tobacco use Plan: * EEG evaluate for encephalopathy, rule out any epileptiform activity. * Patient's neurological examination is nonfocal. * Management of other medical conditions as per IM and other specialties. * Avoid opiates, sedatives, hypnotics or anticholinergics. * Check B12, folate, TSH, ammonia, hemoglobin A1c. * Neurology will follow. Thank you for the consult.
--- NOTE | 2023-05-19 16:23 | P.PAINPG ---
Objective - Vital Signs Vital signs: Vital Signs Temp 97.7 F 05/19/23 13:26 Pulse 87 05/19/23 13:26 Resp 20 05/19/23 13:26 BP 150/68 05/19/23 13:26 Pulse Ox 89 L 05/19/23 13:26 FiO2 40 05/18/23 16:47 Intake & Output 05/18/23 05/19/23 05/19/23 18:59 06:59 18:59 Output Total 1550 950 250 Balance -1550 -950 -250 Output: Gastric Drainage 500 Urine 1550 450 250 Other: Voiding Method Diaper Indwelling Catheter Indwelling Catheter - Labs CBC & Chem 7: 05/18/23 06:47 05/19/23 05:19 Labs: Abnormal Lab Results - Last 24 Hours (Table) 05/19/23 Range/Units 05:19 Sodium 147 H (135-145) mmol/L Potassium 3.2 L (3.5-5.5) mmol/L Anion Gap 17.60 H (4.00-12.00) mmol/L BUN 46.4 H (9.0-27.0) mg/dL Est GFR (CKD-EPI) 44 L (>=60) BUN/Creatinine Ratio 38.67 H (12.00-20.00) Ratio Glucose 121 H (70-110) mg/dL Microbiology - Last 24 Hours (Table) 05/18/23 06:47 Blood Culture - Preliminary Blood 05/17/23 06:30 Blood Culture - Preliminary Blood 05/15/23 15:05 Blood Culture Gram Stain - Final Blood Blood Culture - Final Staphylococcus aureus 05/15/23 14:50 Blood Culture Gram Stain - Final Blood Blood Culture - Final Staphylococcus aureus PQRS Measure Charge Sheet Comment: HISTORY OF PRESENT ILLNESS: A 88 yr old female w son at [facility] presents today w severe and chronic lower back abdominal pain for evaluation. She is NPO and has NG tube for decompression currently. Son at [facility] states pt has not had a BM since 05/14/23 and she only takes Tylenol at home for pain. Imaging results discussed w pt and son at [facility]. Pt states pain level is provoked at 9 /10 in intensity, constant, localized in the abdomen and lower back, predominantly axial, achy/ stabbing in character without shooting pain. Pain is provoked by any movement. Pain is alleviated by medications (Dilaudid 0.5mg IVP q3h prn, Tramadol 50mg Q6h prn, Narcan prn), repositioning and rest. She is NPO but takes few medications by mouth. Has not had Reglan due to interaction w Seroquel. PMH: OA, aFib, CHF, Hyperlipidemia, HTN, Memory Impairment, CKD, Hypothyroid Disorder PSH: Heart Murmur, AICD (2020 [employer]), Cardioversion, Cholecystectomy, Heart Catheterization, Hysterectomy SH: Former tobacco user, No ETOH abuse, No illicit drug use FH: Mo- No Reported History. Fa- CA All: See list Meds: See list REVIEW OF ORGAN SYSTEMS: CONSTITUTIONAL: No fevers or chills. No recent weight loss. NEUROLOGICAL: + numbness and tingling along the distal extremities. No seizure disorders or headaches. MUSCULOSKELETAL: + pain +Distended Abd, Diffuse TTP PSYCHIATRIC: Denies current depression or suicidal thoughts. Physical Examinations : Constitutional : Cooperative , not in acute distress . Neurologic : Cranial nerve II to XII intact. No focal neurological deficits. Psychiatric : alert & oriented x 3. Matching mood & appropriate affect. Judgment & insight intact. Musculoskeletal : Cervical Spine Motor strength in the deltoid and biceps: Normal right side. Normal Left side Motor strength biceps and the wrist extensors: Normal right side . Normal left side Motor strength in the triceps muscle: Normal right side. Normal left side Deep tendon reflexes: Normal at the biceps. Normal at Brachioradialis. Normal at triceps Vertebral body tenderness to deep palpation over Cervical facet loading test: positive bilaterally Spurling test: positive bilaterally Lumbar spine Motor strength lower extremities ,thigh and legs 5/5 Right side , 5/5 Left side Deep tendon reflexes : Normal Knee J erk. Normal Ankle Jerk Vertebral body tenderness over Romero Test positive Lumbar facet Loading Test: positive Right / positive Left Range of motion of the lumbar spine Flexion 30 degrees, extension 10 degrees Straight Leg Raise test: Left/ Right positive at degree Tavo test: positive right / positive left. Sacral spine : Severe tenderness over the Sacroiliac joint: right side / left side Range of motion: Flexion of the lumbar spine <60 degrees Range of motion: Extension of the lumbar spine <20 degrees Gaenslen's Test positive Imaging: CT Head from 05/18/23 reviewed X- ray cervical spine from 05/18/23 reviewed X-Ray lumbar spine from 05/18/23 reviewed KUB showing high grade SBO from 05/18/[address] Abd reviewed Assessment/ Plan : Possible Ileus Recommendation of Senokot PO for now. Will stop Dilaudid and replace w MS 2mg IVP q3h prn to reduce severity of GI dysmotility. All questions answered. I have spent greater than 30 minutes on patient care today. Dr Aaron was available by phone for the evaluation of this patient. The time was used to review the medical records including relevant urine studies and Prescription history (MAPs), review of the available imaging, evaluation and examination of the patient, coordination of care with the medical staff and if applicable referring physicians, as well as creation of the medical record - Pain Location Back Non-Pharmacological Interventions: Darkened Room, Inactivity, Position/Reposition Pharmacological Interventions: PRN Medication Pain Comment: see prn pain medications assessmetns PQRS Narrative: Blood Pressure [Right Arm 156/62 Sitting] Blood Pressure [Left Arm] 150/68 Blood Pressure 141/98 Pain Intensity [Back] 0 Pain Intensity 0 Pain Scale Used Non Verbal Pain Indicator Scale Used Non Verbal Pain Indicator Hx Alcohol Use (MH) No Home Medications: Ambulatory Orders Levothyroxine Sodium [Synthroid] 25 mcg PO DAILY 04/10/20 Apixaban [Eliquis] 5 mg PO BID 01/23/21 Multivitamins, Thera [Multivitamin (formulary)] 1 tab PO DAILY 01/23/21 Thiamine [Vitamin B-1] 100 mg PO DAILY 01/23/21 Cyanocobalamin (Vitamin B-12) [Vitamin B-12] 1,000 mcg PO DAILY 04/11/21 Rivastigmine Tartrate [Rivastigmine] 4.5 mg PO BID 04/11/21 Atorvastatin [Lipitor] 20 mg PO HS 05/15/23 Phelps-3 500mg 500 mg PO DAILY 05/15/23 Controlled Substance Measures - Controlled Substance Measures Is patient prescribed a controlled substance at discharge?: No
[2023-05-19] MEDS: MORPHINE SULFATE 2 MG/ML SYRINGE IVP PRN (18:11)
[2023-05-19 21:43] LABS: Vitamin B12 >3600.0 pg/mL (200.0-944.0)
[2023-05-19] MEDS: traMADol 50 MG TAB PO PRN (21:49)
[2023-05-19] MEDS: SENNOSIDES 8.6 MG TAB PO SCH (21:50)
[2023-05-19] MEDS: QUEtiapine 25 MG TAB PO PRN (21:51)
[2023-05-20] MEDS: MORPHINE SULFATE 2 MG/ML SYRINGE IVP PRN ×2 (05:02→17:09)
--- NOTE | 2023-05-20 05:35 | P.PN ---
Subjective Progress Note Date: 05/19/23 88-year-old female, history of hypertension, hyperlipidemia, hypothyroidism, atrial fibrillation, CHF, presenting to the emergency department following being found on the floor. A fall was not witnessed. Patient was found on the floor this morning by who sleeps in a different room. Patient does not recall the episode and this is reported as normal as patient has short-term memory loss and frequently denies falling. This is per the daughter. Patient does complain of some discomfort of the mid back. Unknown if there is any head injury. No neck pain. No dyspnea. No abdominal pain. Blood work completed in ED reveals a WBC 29.6, hemoglobin of 10.5 and platelet count of 301, sodium 133, potassium 4.8, BUN/creatinine of 31/1.42 and blood glucose of 129, calcium of 10.3, total bilirubin of 1.9, AST/ALT elevated at 39/20, total CK of 277 UA is positive for leukocyte esterase bacteria and WBCs, vital panel is completed and is negative, CT head is negative for any acute intracranial process with nonspecific white matter changes, moderate multilevel degenerative disc disease versus prior fracture of odontoid process with fusion to anterior arch of C1 Chest x-ray reveals low lung volumes with generalized pain see appearance atelectasis versus pulmonary edema Renal and right upper quadrant ultrasound is done which is negative -- Blood work reveals slight trend troponin of CBC from 29.6 down to 24.5 this morning, potassium trended up from 4.8 up to 5.5, creatinine up from 1.4-2.59 this morning -- Patient has been evaluated by nephrology and has been switched to IV bicarbonate infusion; repeat renal function ordered for later today - Blood cultures positive for gram-positive cocci; ID consult placed; ID recommending to switch IV antibiotics to cefazolin 2 g IV every 12 hours -- Stat CT of the abdomen is ordered 05/18/2023 Patient is seen in follow-up this morning with daughter at the bedside and continues to be confused. Patient is currently on a nonrebreather and doesn't report shortness of breath. Patient reports not feeling well and continues to report severe back pain. Patient does see pain management outpatient and will consult as well as neurology consultation as family is concerned that she is not normally this altered. Patient does take a number of pain medications which is chronic for her. Patient also now being followed by general surgery as abdominal x-ray showed concerns for high-grade bowel obstruction and NG tube was placed. Patient is currently nothing by mouth. Chest x-ray yesterday shows cardiomegaly with pulmonary vascular congestion with bilateral pleural effusions with concerns of congestive heart failure. Nephrology is following as well as infectious disease as patient continues to have positive blood cultures and maintained on antibiotics. Initial urine culture finalized showing E. coli and blood cultures remain preliminary showing presumptive staph aureus and daily blood cultures have been added. Patient is continued on antibiotics in the form of cefazolin and again infectious disease is following closely. Patient was given a dose of Lasix today and IV fluids have been discontinued. Patient underwent small bowel x-ray which continues to be pending and will order repeat CT abdomen without contrast. Creatinine today is 1.2 and sodium is 140 with a potassium of 3.7. Pro-calcitonin was also rechecked and trending down but remains elevated at 8.47. 05/19/2023 Patient seen and evaluated today and mentation appears to be improving with multiple medical consultations following. Neurology following an EEG is ordered and pending. Nephrology following as well and sodium is elevated at 147 being started on D5 and water and awaiting repeat labs. Electrolytes being replaced per protocol. Patient continues on antibiotics with infectious disease following for UTI with bacteremia. Repeat blood cultures pending at this time. General surgery following as well follow-up CT abdomen was performed along with small bowel x-ray more suggestive of ileus. Reviewed nothing by mouth. Patient is afebrile continues to require oxygen which is being weaned. Patient continues with weakness and awaiting PT/OT therapy evaluation. Patient denies chest pain or palpitations. Review of systems: Unable to completely assess this patient remains somewhat confused Physical exam: Gen: This is an 88-year-old female who is awake, continues to be confused although much more awake today, well-developed, well-nourished, elderly- appearing, ill-appearing HEENT: Head is atraumatic, normocephalic. Pupils equal, round. Sclerae is anicteric. NECK: Supple. No JVD. No lymphadenopathy. No thyromegaly. LUNGS: Breath sounds diminished bilaterally with some scattered rhonchi. No intercostal retractions. HEART: Regular rate and rhythm. No murmur. ABDOMEN: Soft. Obese. Less Distended. Bowel sounds are present. No masses. No tenderness. EXTREMITIES: No pedal edema. No calf tenderness. NEUROLOGICAL: Patient is awake, alert and oriented x1-2. Diffusely weak Assessment: -UTI/sepsis, present on admission with bacteremia. Urine culture showing E. coli -Acute renal injury secondary to acute tubular necrosis due to severe sepsis -History of chronic kidney disease stage III B, follows with a dianeticist out of [place] - Volume overload with pleural effusions noted on chest x-ray -Acute hypoxic respiratory failure secondary to volume overload with pleural effusions -Generalized weakness/fall -Small bowel obstruction noted on abdominal imaging with repeat images more suggestive of ileus -Hypertension history -Hyperlipidemia -Hypothyroidism -Dementia history -History of sick sinus syndrome status post dual-chamber pacemaker implantation -Atrial fibrillation, currently rate controlled. anticoagulation is currently on hold -DVT prophylaxis; SCDs/Eliquis -GI prophylaxis -Full code Plan: Multiple medical consultations including infectious disease and nephrology following. neurology consulted and EEG pending for continued increased confusion pain management consulted for pain management recommendations as She Sees Dr. Aaron Outpatient for Chronic Pain and Patient Continues to Report Significant Back Pain. Patient was on Dilaudid and being transitioned to morphine as needed as well as Tylenol Patient had NG tube removed and remains nothing by mouth for now with general surgery following . No surgical interventions planned and repeat imaging more suggestive of ileus being continued on bowel regimen Patient currently maintained on nonrebreather and high flow oxygen with acute hypoxic respiratory failure secondary to volume overload and was given a dose of Lasix, weaning down to nasal cannula Blood cultures remain positive and preliminary showing staph aureus with infectious disease following maintained on antibiotics awaiting repeat blood cultures which are currently pending Cardiology following and anticoagulation is currently on hold for possible surgical intervention. Will discuss with cardiology when to resume CODE STATUS addressed and patient remains full code Awaiting PT/OT therapy evaluation Due to multiple complex medical issues, prognosis is guarded The impression and plan of care has been dictated by Jess Paul, Nurse Practitioner as directed. Dr. Ramsey MD I have performed a history and examination and MDM of this patient, discussed the same with the dictator, and agree with the dictator's assessment and plan as written ,documented as a scribe. Based on total visit time, I have performed more than 50% of the visit. Objective - Vital Signs Vital signs: Vital Signs Temp 98.9 F 05/20/23 01:00 Pulse 83 05/20/23 01:00 Resp 20 05/19/23 19:24 BP 134/74 05/20/23 01:00 Pulse Ox 94 L 05/20/23 01:00 FiO2 40 05/18/23 16:47 Intake & Output 05/19/23 05/19/23 05/20/23 06:59 18:59 06:59 Output Total 950 250 Balance -950 -250 Output: Gastric Drainage 500 Urine 450 250 Other: Voiding Method Indwelling Catheter Indwelling Catheter Indwelling Catheter - Labs CBC & Chem 7: 05/18/23 06:47 05/19/23 05:19 Labs: Abnormal Lab Results - Last 24 Hours (Table) 05/19/23 05/19/23 05/19/23 Range/Units 05:19 16:30 16:30 Sodium 147 H (135-145) mmol/L Potassium 3.2 L (3.5-5.5) mmol/L Anion Gap 17.60 H (4.00-12.00) mmol/L BUN 46.4 H (9.0-27.0) mg/dL Est GFR (CKD-EPI) 44 L (>=60) BUN/Creatinine Ratio 38.67 H (12.00-20.00) Ratio Glucose 121 H (70-110) mg/dL Hemoglobin A1c (<=6.0) % Vitamin B12 >3600.0 H (200.0-944.0) pg/mL Folate 40.00 H (4.40-31.00) ng/mL 05/19/23 Range/Units 16:30 Sodium (135-145) mmol/L Potassium (3.5-5.5) mmol/L Anion Gap (4.00-12.00) mmol/L BUN (9.0-27.0) mg/dL Est GFR (CKD-EPI) (>=60) BUN/Creatinine Ratio (12.00-20.00) Ratio Glucose (70-110) mg/dL Hemoglobin A1c 6.1 H (<=6.0) % Vitamin B12 (200.0-944.0) pg/mL Folate (4.40-31.00) ng/mL Microbiology - Last 24 Hours (Table) 05/18/23 06:47 Blood Culture - Preliminary Blood 05/17/23 06:30 Blood Culture - Preliminary Blood 05/15/23 15:05 Blood Culture Gram Stain - Final Blood Blood Culture - Final Staphylococcus aureus 05/15/23 14:50 Blood Culture Gram Stain - Final Blood Blood Culture - Final Staphylococcus aureus
[2023-05-20] MEDS: traMADol 50 MG TAB PO PRN (06:25)
[2023-05-20] MEDS: LEVOTHYROXINE 25 MCG TAB PO SCH (06:26)
[2023-05-20 08:27] LABS: Basophils # (A) 0.03 X 10*3/uL (0.00-0.10); Basophils % (A) 0.2 %; Eosinophils # (A) 0.08 X 10*3/uL (0.04-0.35); Eosinophils % (A) 0.6 %; HCT 32.1 % (37.2-46.3); Lymphocytes # (A) 0.88 X 10*3/uL (0.90-5.00); Lymphocytes % (A) 6.6 %; MCH 29.2 pg (27.0-32.0); MCHC 31.2 g/dL (32.0-37.0); MCV 93.6 FL (80.0-97.0); Mean Platelet Volume 9.7 FL (9.5-12.2); Monocytes # (A) 1.47 X 10*3/uL (0.20-1.00); Monocytes % (A) 11.1 %; NRBC Per 100 WBC 0 X 10*3/uL (0.00-0.01); Neutrophils % (A) 80.4 %; Platelet Count 315 X 10*3/uL (140-440); RBC 3.43 X 10*6/uL (4.10-5.20); RDW 13.4 % (11.5-14.5)
[2023-05-20] MEDS: hydrALAZINE HCL 50 MG TAB PO SCH ×3 (08:47→20:42)
[2023-05-20] MEDS: DONEPEZIL 10 MG TAB PO SCH (08:48)
[2023-05-20] MEDS: SIMETHICONE 40 MG/0.6 ML DROPS 2,000 MG/30 ML BOTTLE PO SCH ×4 (08:48→22:02)
[2023-05-20] MEDS: THIAMINE 100 MG TAB PO SCH (08:48)
[2023-05-20] MEDS: CYANOCOBALAMIN 500 MCG TAB PO SCH (08:48)
[2023-05-20] MEDS: MULTIVITAMINS, THERA 1 EACH TAB PO SCH (08:48)
[2023-05-20 08:55] LABS: BUN/Creat Ratio 42.62 Ratio (12.00-20.00); Blood Urea Nitrogen 55.4 mg/dL (9.0-27.0); Calcium 9.2 mg/dL (8.7-10.3); Carbon Dioxide 30.1 mmol/L (21.6-31.8); Chloride 100 mmol/L (96-109); Glucose 146 mg/dL (70-110); Magnesium 2.4 mg/dL (1.5-2.4); Potassium 3.4 mmol/L (3.5-5.5); Sodium 143 mmol/L (135-145)
--- NOTE | 2023-05-20 09:48 | P.PN ---
Subjective Progress Note Date: 05/20/23 Cardiac risk assessment History of present illness: History of present illness: This is an 88 year old female with past medical history of hypothyroidism, hyperlipidemia, hypertension, dementia, sick sinus syndrome status post dual chamber pacemaker implantation, chronic kidney disease stage. Patient follows with a fur comber at [place], Dr. Almanza. Patient presented to the hospital on 05/15 after being found on the floor. She was admitted to the hospital for weakness, acute kidney injury, klebsiella and E. coli urinary tract infection and possible bacteremia. Patient also had abdominal pain and distention found to have a small bowel obstruction and a consult was placed with general surgery. She has subsequently had an NG tube placed and we have been asked to evaluate the patient for cardiac risk assessment. No surgery is currently scheduled.Pacemaker was last interrogated on March 31, 2023. Patient is currently on a nonrebreather and blood pressure is elevated. Eliquis is on hold for possible surgical intervention. Abdomen remains quite distended despite NG tube. EKG sinus rhythm with right bundle branch block, left anterior fascicular block Chest x-ray: Cardiomegaly, pulmonary vascular congestion and bilateral pleural effusions. Correlate for BNP for heart failure. NG in appropriate position. Initial WBC 29.6 now 13.3, hemoglobin is 9.5, electrolytes are within normal limits. Creatinine 1.2 and initially was 2.59. Pro-calcitonin elevated now at 8.47. Influenza A, influenza B, Covid 19 and RSV not detected. Urinalysis positive for infection. Home cardiac medications: Eliquis 5 mg twice daily, levothyroxine 05/19 Patient is seen today in follow-up. This morning around 4 AM she pulled her NG tube out. Plan is to leave this for now per general surgery. She has had elevated blood pressures and she does have IV Vasotec and IV hydralazine available if needed. Echocardiogram has been completed and shows normal LV size preserved systolic function, mild concentric left hypertrophy, mild mitral and tricuspid regurgitation, aortic valve sclerosis with mild increase in gradient. No pericardial effusion. Oxygenation needs have improved and she is now down to 5 L nasal cannula with pulse ox of 90%. Heart rate has been running in the 90s. Blood pressure 156/62. 05/20 Patient is seen today in follow-up. She remains without NG tube in place and has started ice chips and taking oral medications. Blood pressure is improved today and patient did not require IV antihypertensives yesterday. Heart rate is running in the 80s and 90s, blood pressure 132/68, pulse ox 95% on 11 L high flow nasal cannula. Reviewed echocardiogram results with patient and son. Physical examination: Gen: This is an 88-year-old female. She is resting in bed. Son is at bedside. VS: reviewed HEENT: Head is atraumatic, normocephalic. Pupils equal, round. Sclerae is anicteric. LUNGS: Clear to auscultation. No wheezes or rhonchi. No intercostal retractions. HEART: Regular rate and rhythm. No murmur. ABDOMEN: Distended with support.. EXTREMITIES: No pedal edema. No calf tenderness. NEUROLOGICAL: Patient is awake, alert and confused. Assessment: Small bowel obstruction UTI Possible bacteremia Sepsis History of sick sinus syndrome status post dual-chamber pacemaker implantation Hypertension Hyperlipidemia Hypothyroidism Plan: Resume eliquis once cleared by general surgery Start patient on losartan 25 mg daily and labetalol 100 mg twice daily for blood pressure control Cardiology will sign off this case and follow on an as-needed basis. Please reconsult for any new concerns. Patient may follow-up with primary fur comber in one to 2 weeks. Nurse practitioner note has been reviewed, I agree with documented findings and plan of care. Patient was seen and examined. Objective - Vital Signs Vital signs: Vital Signs Temp 97.3 F L 05/20/23 07:30 Pulse 92 05/20/23 07:30 Resp 18 05/20/23 07:30 BP 132/68 05/20/23 07:30 Pulse Ox 93 L 05/20/23 08:13 FiO2 40 05/18/23 16:47 Intake & Output 05/19/23 05/20/23 05/20/23 18:59 06:59 18:59 Output Total 250 500 Balance -250 -500 Output: Urine 250 500 Other: Voiding Method Indwelling Catheter Indwelling Catheter # Bowel Movements 1 - Labs CBC & Chem 7: 05/20/23 05:50 05/20/23 05:50 Labs: Abnormal Lab Results - Last 24 Hours (Table) 05/19/23 05/19/23 05/19/23 Range/Units 16:30 16:30 16:30 WBC (4.50-10.00) X 10*3/uL RBC (4.10-5.20) X 10*6/uL Hgb (12.0-15.0) g/dL Hct (37.2-46.3) % MCHC (32.0-37.0) g/dL Neutrophils # (1.80-7.70) X 10*3/uL Lymphocytes # (0.90-5.00) X 10*3/uL Monocytes # (0.20-1.00) X 10*3/uL Potassium (3.5-5.5) mmol/L Anion Gap (4.00-12.00) mmol/L BUN (9.0-27.0) mg/dL Est GFR (CKD-EPI) (>=60) BUN/Creatinine Ratio (12.00-20.00) Ratio Glucose (70-110) mg/dL Hemoglobin A1c 6.1 H (<=6.0) % Vitamin B12 >3600.0 H (200.0-944.0) pg/mL Folate 40.00 H (4.40-31.00) ng/mL 05/20/23 05/20/23 Range/Units 05:50 05:50 WBC 13.30 H (4.50-10.00) X 10*3/uL RBC 3.43 L (4.10-5.20) X 10*6/uL Hgb 10.0 L (12.0-15.0) g/dL Hct 32.1 L (37.2-46.3) % MCHC 31.2 L (32.0-37.0) g/dL Neutrophils # 10.70 H (1.80-7.70) X 10*3/uL Lymphocytes # 0.88 L (0.90-5.00) X 10*3/uL Monocytes # 1.47 H (0.20-1.00) X 10*3/uL Potassium 3.4 L (3.5-5.5) mmol/L Anion Gap 12.90 H (4.00-12.00) mmol/L BUN 55.4 H (9.0-27.0) mg/dL Est GFR (CKD-EPI) 40 L (>=60) BUN/Creatinine Ratio 42.62 H (12.00-20.00) Ratio Glucose 146 H (70-110) mg/dL Hemoglobin A1c (<=6.0) % Vitamin B12 (200.0-944.0) pg/mL Folate (4.40-31.00) ng/mL Microbiology - Last 24 Hours (Table) 05/18/23 06:47 Blood Culture - Preliminary Blood 05/17/23 06:30 Blood Culture - Preliminary Blood 05/15/23 15:05 Blood Culture Gram Stain - Final Blood Blood Culture - Final Staphylococcus aureus 05/15/23 14:50 Blood Culture Gram Stain - Final Blood Blood Culture - Final Staphylococcus aureus
[2023-05-20] MEDS: DEXTROSE 5% IN WATER 1,000 ML IV SCH (11:04)
[2023-05-20] MEDS: LABETALOL 100 MG TAB PO SCH ×2 (11:16→20:41)
[2023-05-20] MEDS: LOSARTAN 25 MG TAB PO SCH (11:20)
--- NOTE | 2023-05-20 12:00 | P.PN ---
Subjective Patient is seen in follow-up for acute kidney injury on chronic kidney disease. Renal function stable. Hemodynamically stable. Nonoliguric. Son present at bedside. Vital signs are stable. General: No acute distress. HEENT: Head exam is unremarkable. LUNGS: No audible rhonchi or wheezes. HEART: Rate and Rhythm are regular. ABDOMEN: Nontender, distention noted. EXTREMITITES: No edema. Objective - Vital Signs Vital signs: Vital Signs Temp 97.3 F L 05/20/23 07:30 Pulse 92 05/20/23 08:00 Resp 18 05/20/23 08:00 BP 132/68 05/20/23 07:30 Pulse Ox 93 L 05/20/23 08:13 FiO2 40 05/18/23 16:47 Intake & Output 05/19/23 05/20/23 05/20/23 18:59 06:59 18:59 Output Total 028 [id number] Balance -250 -500 -1000 Output: Gastric Drainage 700 Urine 250 500 300 Other: Voiding Method Indwelling Catheter Indwelling Catheter Indwelling Catheter # Bowel Movements 1 - Labs CBC & Chem 7: 05/20/23 05:50 05/20/23 05:50 Labs: Abnormal Lab Results - Last 24 Hours (Table) 05/19/23 05/19/23 05/19/23 Range/Units 16:30 16:30 16:30 WBC (4.50-10.00) X 10*3/uL RBC (4.10-5.20) X 10*6/uL Hgb (12.0-15.0) g/dL Hct (37.2-46.3) % MCHC (32.0-37.0) g/dL Neutrophils # (1.80-7.70) X 10*3/uL Lymphocytes # (0.90-5.00) X 10*3/uL Monocytes # (0.20-1.00) X 10*3/uL Potassium (3.5-5.5) mmol/L Anion Gap (4.00-12.00) mmol/L BUN (9.0-27.0) mg/dL Est GFR (CKD-EPI) (>=60) BUN/Creatinine Ratio (12.00-20.00) Ratio Glucose (70-110) mg/dL Hemoglobin A1c 6.1 H (<=6.0) % Vitamin B12 >3600.0 H (200.0-944.0) pg/mL Folate 40.00 H (4.40-31.00) ng/mL 05/20/23 05/20/23 Range/Units 05:50 05:50 WBC 13.30 H (4.50-10.00) X 10*3/uL RBC 3.43 L (4.10-5.20) X 10*6/uL Hgb 10.0 L (12.0-15.0) g/dL Hct 32.1 L (37.2-46.3) % MCHC 31.2 L (32.0-37.0) g/dL Neutrophils # 10.70 H (1.80-7.70) X 10*3/uL Lymphocytes # 0.88 L (0.90-5.00) X 10*3/uL Monocytes # 1.47 H (0.20-1.00) X 10*3/uL Potassium 3.4 L (3.5-5.5) mmol/L Anion Gap 12.90 H (4.00-12.00) mmol/L BUN 55.4 H (9.0-27.0) mg/dL Est GFR (CKD-EPI) 40 L (>=60) BUN/Creatinine Ratio 42.62 H (12.00-20.00) Ratio Glucose 146 H (70-110) mg/dL Hemoglobin A1c (<=6.0) % Vitamin B12 (200.0-944.0) pg/mL Folate (4.40-31.00) ng/mL Microbiology - Last 24 Hours (Table) 05/18/23 06:47 Blood Culture - Preliminary Blood 05/17/23 06:30 Blood Culture - Preliminary Blood 05/15/23 15:05 Blood Culture Gram Stain - Final Blood Blood Culture - Final Staphylococcus aureus 05/15/23 14:50 Blood Culture Gram Stain - Final Blood Blood Culture - Final Staphylococcus aureus Assessment and Plan Plan: Assessment: 1. Acute kidney injury secondary to ATN secondary to severe sepsis. Also received Toradol. Renal function improved. Creatinine fairly stable at 1.3 today. No hydronephrosis noted on imaging. 2. Chronic kidney disease stage IIIB with baseline creatinine near 1.4. Patient follows with allergist out of [place] system. 3. E. coli UTI and staph aureus bacteremia ID following. On antibiotics. 4. Metabolic acidosis secondary to acute kidney injury status post IV bicarb. Resolved. 5. Hyperkalemia secondary to acute kidney injury, acidosis. Resolved. Now hypokalemic from diuresis. 6. Volume overload. Pleural effusions noted on chest x-ray. Status post IV Lasix given 05/18/2023. 7. Small bowel obstruction. NG tube removed. Surgery following. 8. Hypernatremia from lack of oral water intake. Improved with D5W. Plan: Stop D5W. Replace potassium. Avoid nephrotoxins. Continue to monitor renal function and urine output. Cleared for MRI from nephrology standpoint. Diet per surgery.
[2023-05-20] MEDS: FOLIC ACID 1 MG TAB PO SCH (12:33)
--- NOTE | 2023-05-20 12:54 | P.PN ---
Subjective Progress Note Date: 05/20/23 Principal diagnosis: Reason for follow-up is MSSA bacteremia Patient is a 88-year-old female with a past medical history significant for atrial fibrillation hypertension hyperlipidemia heart failure with patient was brought into the hospital after family patient was found to be on the floor , patient complaining of weakness and pain to the lower back area and did have a positive blood culture with MSSA. On today's evaluation that is 05/20/2023, the patient remains to be afebrile , the patient is currently requiring 11 L high flow oxygen however denies any shortness of breath, the patient denies chest pain or cough , patient denies abdominal pain, no nausea/vomiting and no diarrhea has been reported Patient white count is 13.3 and a creatinine 1.3, CT of abdominal pelvis limited study no evidence of acute inflammatory process and abdominal pelvis possible small bowel obstruction Objective - Vital Signs Vital signs: Vital Signs Temp 97.3 F L 05/20/23 07:30 Pulse 92 05/20/23 08:00 Resp 18 05/20/23 08:00 BP 132/68 05/20/23 07:30 Pulse Ox 93 L 05/20/23 08:13 FiO2 40 05/18/23 16:47 Intake & Output 05/19/23 05/20/23 05/20/23 18:59 06:59 18:59 Output Total 250 500 Balance -250 -500 Output: Urine 250 500 Other: Voiding Method Indwelling Catheter Indwelling Catheter Indwelling Catheter # Bowel Movements 1 - Exam GENERAL DESCRIPTION: An elderly female lying in bed in no distress RESPIRATORY SYSTEM: Unlabored breathing , decreased best at the base HEART: S1 S2 regular rate and rhythm , ABDOMEN: Soft , mild distention EXTREMITIES: No edema feet - Labs CBC & Chem 7: 05/20/23 05:50 05/20/23 05:50 Labs: Abnormal Lab Results - Last 24 Hours (Table) 05/19/23 05/19/23 05/19/23 Range/Units 16:30 16:30 16:30 WBC (4.50-10.00) X 10*3/uL RBC (4.10-5.20) X 10*6/uL Hgb (12.0-15.0) g/dL Hct (37.2-46.3) % MCHC (32.0-37.0) g/dL Neutrophils # (1.80-7.70) X 10*3/uL Lymphocytes # (0.90-5.00) X 10*3/uL Monocytes # (0.20-1.00) X 10*3/uL Potassium (3.5-5.5) mmol/L Anion Gap (4.00-12.00) mmol/L BUN (9.0-27.0) mg/dL Est GFR (CKD-EPI) (>=60) BUN/Creatinine Ratio (12.00-20.00) Ratio Glucose (70-110) mg/dL Hemoglobin A1c 6.1 H (<=6.0) % Vitamin B12 >3600.0 H (200.0-944.0) pg/mL Folate 40.00 H (4.40-31.00) ng/mL 05/20/23 05/20/23 Range/Units 05:50 05:50 WBC 13.30 H (4.50-10.00) X 10*3/uL RBC 3.43 L (4.10-5.20) X 10*6/uL Hgb 10.0 L (12.0-15.0) g/dL Hct 32.1 L (37.2-46.3) % MCHC 31.2 L (32.0-37.0) g/dL Neutrophils # 10.70 H (1.80-7.70) X 10*3/uL Lymphocytes # 0.88 L (0.90-5.00) X 10*3/uL Monocytes # 1.47 H (0.20-1.00) X 10*3/uL Potassium 3.4 L (3.5-5.5) mmol/L Anion Gap 12.90 H (4.00-12.00) mmol/L BUN 55.4 H (9.0-27.0) mg/dL Est GFR (CKD-EPI) 40 L (>=60) BUN/Creatinine Ratio 42.62 H (12.00-20.00) Ratio Glucose 146 H (70-110) mg/dL Hemoglobin A1c (<=6.0) % Vitamin B12 (200.0-944.0) pg/mL Folate (4.40-31.00) ng/mL Microbiology - Last 24 Hours (Table) 05/18/23 06:47 Blood Culture - Preliminary Blood 05/17/23 06:30 Blood Culture - Preliminary Blood 05/15/23 15:05 Blood Culture Gram Stain - Final Blood Blood Culture - Final Staphylococcus aureus 05/15/23 14:50 Blood Culture Gram Stain - Final Blood Blood Culture - Final Staphylococcus aureus Assessment and Plan (1) Bacteremia Current Visit: Yes Status: Acute Code(s): R78.81 - BACTEREMIA SNOMED Code(s): 8952726 Plan: 1patient with a Staph aureus bacteremia , in this patient presented to hospital with a fall found on the floor has been complaining of more lower back pain and history of chronic back pain with a question of possible discitis/osteomyelitis to lumbosacral spine area as currently do not have any evidence of cellulitis, no joint swelling or other clear focus of this bacteremia, patient did have a positive UA underlying urinary source less likely as the patient did not have any urinary symptoms patient was noticed to have significant abdominal distention and some tenderness for the patient did have CT of abdominal pelvis did not show any acute inflammatory process 2-patient did have a renal insufficiency and high risk of nephrotoxicity, and did have improvement in her kidney function, creatinine is currently 1.3 3--blood cultures has been repeated and blood culture drawn 05/17/2020 has been negative so far, echocardiogram did not show any vegetation 4Patient to continue with cefazolin, patient has been cleared for MRI with contrast per nephrology which has been ordered Son at the bedside and multiple questions concerned answered Dictation was produced using [employer] dictation software. please excuse any grammatical, word or spelling errors. Time with Patient: Greater than 30
[2023-05-20] MEDS ORDERED: LORazepam 2 MG/ML INJ IV PRN (13:12)
[2023-05-20] MEDS ORDERED: HYDROmorphone 1 MG/ML 1 ML SYRINGE IVP PRN (13:23)
--- NOTE | 2023-05-20 13:41 | XR ---
EXAMINATION TYPE: XR chest 1V portable DATE OF EXAM: 05/20/2023 HISTORY: Shortness of breath. COMPARISON: 05/17/2023 TECHNIQUE: Single view of the chest is submitted. FINDINGS: Demonstrated are scattered senescent parenchymal change. There is no evidence for focal infiltrate. Cardiomegaly with pulmonary venous congestion and scattered interstitial infiltrates felt to reflect interstitial edema. Small effusions. Correlate for congestive failure. Infiltrates of other etiology not excluded. Hilar and mediastinal structures are within normal limits. Degenerative changes are seen of the dorsal spine. IMPRESSION: 1. Cardiomegaly with pulmonary venous congestion and scattered interstitial infiltrates felt to refl ect interstitial edema. Small effusions. Correlate for congestive failure. Infiltrates of other etiol ogy not excluded.
--- NOTE | 2023-05-20 13:51 | P.PN ---
Subjective Progress Note Date: 05/20/23 CHIEF COMPLAINT: Small bowel obstruction HISTORY OF PRESENT ILLNESS: Patient reports her abdominal pain is slightly better. She continues to complain mostly of back pain. With difficulty mobility. She did have a large bowel movement last night. No nausea or vomiting. Small bowel follow-through completed showing no evidence of mechanical small bowel obstruction. Findings include delayed transit time through small bowel most suggestive of ileus. Afebrile. WBC is 13 Hgb 10 sodium 143 potassium 3.4 magnesium 2.4 PHYSICAL EXAM: VITAL SIGNS: Reviewed GENERAL: Well-developed in no acute distress. HEENT: No sclera icterus. Extraocular movements grossly intact. Moist buccal mucosa. Head is atraumatic, normocephalic. Hears conversational speech. No nasal drainage. NECK: Supple without lymphadenopathy. CHEST: Non-labored respirations and equal bilateral excursions. CARDIOVASCULAR: Palpable 2+ radial pulses. ABDOMEN: Distended. Mild tenderness to palpation in the right side of abdomen MUSCULOSKELETAL: No clubbing or cyanosis. NEUROLOGIC: No focal or lateralizing signs. Cranial nerves II through XII grossly intact. PSYCH: Appropriate affect. Alert and oriented to person, place and time. SKIN: Well perfused. Good skin turgor. ASSESSMENT: 1. Abdominal pain with ileus 2. History of abdominal surgeries 3. UTI 4. Bacteremia 5. Fall and weakness 6. Acute kidney injury. history of chronic kidney disease. 7. History of AICD 8. History of atrial fibrillation on Eliquis 9. Lower Back pain. History of chronic back pain 10. Hypoxia 11. Hypokalemia PLAN: -Advance diet to clear liquids -Patient needs to increase activity level -Continue to correct electrolytes and treat infection to help with ileus -Encouraged patient to increase activity level -Continue treatment for UTI and bacteremia -Cardiology consult appreciated -No surgical intervention planned at this time -Cannot start Reglan for ileus due to patient taking Seroquel -Continue stool softener Physician Denitrator note has been reviewed by physician. Signing provider agrees with the documented findings, assessment, and plan of care. Objective - Vital Signs Vital signs: Vital Signs Temp 97.3 F L 05/20/23 07:30 Pulse 92 05/20/23 08:00 Resp 18 05/20/23 08:00 BP 132/68 05/20/23 07:30 Pulse Ox 93 L 05/20/23 08:13 FiO2 40 05/18/23 16:47 Intake & Output 05/19/23 05/20/23 05/20/23 18:59 06:59 18:59 Output Total 250 500 Balance -250 -500 Output: Urine 250 500 Other: Voiding Method Indwelling Catheter Indwelling Catheter Indwelling Catheter # Bowel Movements 1 - Labs CBC & Chem 7: 05/20/23 05:50 05/20/23 05:50 Labs: Abnormal Lab Results - Last 24 Hours (Table) 05/19/23 05/19/23 05/19/23 Range/Units 16:30 16:30 16:30 WBC (4.50-10.00) X 10*3/uL RBC (4.10-5.20) X 10*6/uL Hgb (12.0-15.0) g/dL Hct (37.2-46.3) % MCHC (32.0-37.0) g/dL Neutrophils # (1.80-7.70) X 10*3/uL Lymphocytes # (0.90-5.00) X 10*3/uL Monocytes # (0.20-1.00) X 10*3/uL Potassium (3.5-5.5) mmol/L Anion Gap (4.00-12.00) mmol/L BUN (9.0-27.0) mg/dL Est GFR (CKD-EPI) (>=60) BUN/Creatinine Ratio (12.00-20.00) Ratio Glucose (70-110) mg/dL Hemoglobin A1c 6.1 H (<=6.0) % Vitamin B12 >3600.0 H (200.0-944.0) pg/mL Folate 40.00 H (4.40-31.00) ng/mL 05/20/23 05/20/23 Range/Units 05:50 05:50 WBC 13.30 H (4.50-10.00) X 10*3/uL RBC 3.43 L (4.10-5.20) X 10*6/uL Hgb 10.0 L (12.0-15.0) g/dL Hct 32.1 L (37.2-46.3) % MCHC 31.2 L (32.0-37.0) g/dL Neutrophils # 10.70 H (1.80-7.70) X 10*3/uL Lymphocytes # 0.88 L (0.90-5.00) X 10*3/uL Monocytes # 1.47 H (0.20-1.00) X 10*3/uL Potassium 3.4 L (3.5-5.5) mmol/L Anion Gap 12.90 H (4.00-12.00) mmol/L BUN 55.4 H (9.0-27.0) mg/dL Est GFR (CKD-EPI) 40 L (>=60) BUN/Creatinine Ratio 42.62 H (12.00-20.00) Ratio Glucose 146 H (70-110) mg/dL Hemoglobin A1c (<=6.0) % Vitamin B12 (200.0-944.0) pg/mL Folate (4.40-31.00) ng/mL Microbiology - Last 24 Hours (Table) 05/18/23 06:47 Blood Culture - Preliminary Blood 05/17/23 06:30 Blood Culture - Preliminary Blood 05/15/23 15:05 Blood Culture Gram Stain - Final Blood Blood Culture - Final Staphylococcus aureus 05/15/23 14:50 Blood Culture Gram Stain - Final Blood Blood Culture - Final Staphylococcus aureus
[2023-05-20] MEDS: POTASSIUM CHLORIDE 20 MEQ in WATER FOR INJECTION 1 100ML.BAG IVPB SCH ×2 (13:56→18:40)
--- NOTE | 2023-05-20 17:37 | P.CNOR ---
History of Present Illness - [facility] Consult date: 05/20/23 Consult reason: low back pain History of present illness: Patient is an 88-year-old female who has been [facility] since 05/15/2023. Patient was brought in after being found on the ground home by her . Patient initially was evaluated for low back pain exacerbation after the fall. When she arrived hospital multiple imaging and lab tests were done. Patient was noted to have a severely elevated white count, urinary tract infection and bacteremia. Patient was admitted to the hospital under internal medicine group for further evaluation. Since being in the hospital patient is being followed by multiple specialties, this including general surgery, nephrology, pain management, neurology. Our orthopedic team is also being consulted today with regards to back pain. Patient was evaluated today at bedside, patient's son was at bedside who helped with review of systems and history of present illness. Patient has a known history of dementia. Patient apparently does live with her at home and normally utilizes a walker or cane for ambulation. Patient still with low back pain for many years, she has seen the pain management group at this hospital the past. She is undergone a few different epidural injections along with nerve ablation. Patient's son mentioned that she recently stopped a cardiac drug that seemed to have helped her low back pain. After the fall that occurred on 05/15/2023, her back pain has worsened. An MRI of the lumbar spine with and without contrast has been ordered by infectious disease for further evaluation of bacteremia. Patient appears stable today at bedside, she seems pleasantly confused. She does note pain in the low back with movement. She denies any radiating pain to the bilateral lower extremities. She has been dealing with significant constipation since being in the hospital, Gen. surgery has been following for that. She did have a large bowel movement yesterday which seems to have some abdominal discomfort. Urinary catheter is present time, there is been no obvious signs of fecal incontinence. Review of Systems Constitutional: Reports as per HPI Past Medical History Past Medical History: Atrial Fibrillation, Heart Failure, Hyperlipidemia, Hypertension, Memory Impairment, Musculoskeletal Disorder, Osteoarthritis (OA), Renal Disease, Thyroid Disorder Additional Past Medical History / Comment(s): heart murmur, CKD-sees specialist, low back pain, DEMENTIA History of Any Multi-Drug Resistant Organisms: None Reported Past Surgical History: AICD, Cholecystectomy, Heart Catheterization, Hysterectomy Additional Past Surgical History / Comment(s): pain procedures, cardioversion, Past Anesthesia/Blood Transfusion Reactions: No Reported Reaction Type of Cardiac Device: AICD Device Placement Date:: September 2020 [employer] Smoking Status: Former smoker - Past Family History Mother Family Medical History: No Reported History Father Family Medical History: Cancer Medications and Allergies Home Medications Medication Instructions Recorded Confirmed Type Levothyroxine Sodium [Synthroid] 25 mcg PO DAILY 04/10/20 05/15/23 History Apixaban [Eliquis] 5 mg PO BID 01/23/21 05/15/23 History Multivitamins, Thera [Multivitamin 1 tab PO DAILY 01/23/21 05/15/23 History (formulary)] Thiamine [Vitamin B-1] 100 mg PO DAILY 01/23/21 05/15/23 History Cyanocobalamin (Vitamin B-12) 1,000 mcg PO DAILY 04/11/21 05/15/23 History [Vitamin B-12] Rivastigmine Tartrate 4.5 mg PO BID 04/11/21 05/15/23 History [Rivastigmine] Atorvastatin [Lipitor] 20 mg PO HS 05/15/23 05/15/23 History [place]-3 500mg 500 mg PO DAILY 05/15/23 05/15/23 History Allergies Allergy/AdvReac Type Severity Reaction Status Date / Time lorazepam [From Ativan] AdvReac Hallucinati Verified 05/15/23 11:13 ons metoprolol AdvReac Hallucinati Verified 05/15/23 11:13 ons oxybutynin AdvReac Hallucinati Verified 05/15/23 11:13 ons Physical Examination Gen: AOx3, NAD VSS stable at this time Integument: No obvious open lesions or sores are present throughout cervical, thoracic or lumbar spine Palpation: She demonstrates tenderness with palpation of the lower lumbar spine mainly in the paraspinal region ROM: Range of motion intact with regards to the bilateral upper extremities with regards to shoulder elevation, shoulder abduction, elbow extension, elbow flexion, wrist extension, wrist flexion, ball point splitter. No significant strength deficits are appreciated in the bilateral upper extremities Flexion, knee extension, knee flexion, plantar flexion, dorsiflexion, EHL, FHL are intact, 4/5 strength appreciated in those muscle groups to bilateral lower extremities Sensory Exam: [Senory exam to light touch is intact C5-T1] [Senosry exam to light touch is intact L2-S1] Reflexes: 2/4 in all UE and LE Negative Matthew's bilaterally, negative Babinski bilaterally, negative clonus bilaterally Special Test: Negative straight leg raise bilaterally Results - Labs Labs: Abnormal Lab Results - Last 24 Hours (Table) 05/19/23 05/19/23 05/19/23 Range/Units 16:30 16:30 16:30 WBC (4.50-10.00) X 10*3/uL RBC (4.10-5.20) X 10*6/uL Hgb (12.0-15.0) g/dL Hct (37.2-46.3) % MCHC (32.0-37.0) g/dL Neutrophils # (1.80-7.70) X 10*3/uL Lymphocytes # (0.90-5.00) X 10*3/uL Monocytes # (0.20-1.00) X 10*3/uL Potassium (3.5-5.5) mmol/L Anion Gap (4.00-12.00) mmol/L BUN (9.0-27.0) mg/dL Est GFR (CKD-EPI) (>=60) BUN/Creatinine Ratio (12.00-20.00) Ratio Glucose (70-110) mg/dL Hemoglobin A1c 6.1 H (<=6.0) % Vitamin B12 >3600.0 H (200.0-944.0) pg/mL Folate 40.00 H (4.40-31.00) ng/mL 05/20/23 05/20/23 Range/Units 05:50 05:50 WBC 13.30 H (4.50-10.00) X 10*3/uL RBC 3.43 L (4.10-5.20) X 10*6/uL Hgb 10.0 L (12.0-15.0) g/dL Hct 32.1 L (37.2-46.3) % MCHC 31.2 L (32.0-37.0) g/dL Neutrophils # 10.70 H (1.80-7.70) X 10*3/uL Lymphocytes # 0.88 L (0.90-5.00) X 10*3/uL Monocytes # 1.47 H (0.20-1.00) X 10*3/uL Potassium 3.4 L (3.5-5.5) mmol/L Anion Gap 12.90 H (4.00-12.00) mmol/L BUN 55.4 H (9.0-27.0) mg/dL Est GFR (CKD-EPI) 40 L (>=60) BUN/Creatinine Ratio 42.62 H (12.00-20.00) Ratio Glucose 146 H (70-110) mg/dL Hemoglobin A1c (<=6.0) % Vitamin B12 (200.0-944.0) pg/mL Folate (4.40-31.00) ng/mL Microbiology - Last 24 Hours (Table) 05/18/23 06:47 Blood Culture - Preliminary Blood 05/17/23 06:30 Blood Culture - Preliminary Blood 05/15/23 15:05 Blood Culture Gram Stain - Final Blood Blood Culture - Final Staphylococcus aureus 05/15/23 14:50 Blood Culture Gram Stain - Final Blood Blood Culture - Final Staphylococcus aureus H & H 05/15/23 05/16/23 05/17/23 Range/Units 11:36 06:58 06:30 Hgb 10.5 L 9.9 L 9.4 L (11.4-16.0) gm/dL Hct 31.9 L 31.6 L 30.2 L (34.0-46.0) % 05/18/23 05/20/23 Range/Units 06:47 05:50 Hgb 9.5 L 10.0 L (11.4-16.0) gm/dL Hct 30.0 L 32.1 L (34.0-46.0) % Result Diagrams: 05/20/23 05:50 05/20/23 05:50 - Diagnostic results Lumbar AP/lateral x-ray: report reviewed, image reviewed (Images and reports were reviewed from 05/15/2023, evidence spondylosis present throughout the lumbar spine, a grade 1 L4 to 5 spondylolisthesis noted) Assessment and Plan Assessment: Acute on chronic low back pain Multilevel lumbar spondylosis Grade 1 spondylolisthesis L4-L5 Bacteremia UTI Other medical comorbidities Plan: I was able to discuss the case, discharge include present imaging studies might any Dr. Izaguirre. We did review the most recent chest, abdomen, pelvis computed tomography scan which we're able to visualize some of the lumbar spine. No acute fractures or dislocations are appreciated. Very degrees of spondylosis likely stenosis in the lumbar spine with the grade 1 L4-L5 spondylolisthesis. Patient is not demonstrating any acute neuropathic signs at this time Await MRI results of the lumbar spine for further evaluation Await results of SED rate and CRP which are scheduled for 05/21/2023 DVT prophylaxis per primary medical service Weight-bear as tolerated with walker PT/OT evaluation Other medical specialty recommendations appreciated Further recommendations to follow Time with Patient: Less than 30
[2023-05-20] MEDS ORDERED: FUROSEMIDE 10 MG/ML 4 ML VIAL IV STA (20:23)
[2023-05-20] MEDS: SENNOSIDES 8.6 MG TAB PO SCH (20:41)
[2023-05-20] MEDS: POTASSIUM CHLORIDE ER 20 MEQ TAB.ER PO SCH (20:41)
--- NOTE | 2023-05-20 23:07 | EEG ---
DATE OF SERVICE: 05/20/2023 ELECTROENCEPHALOGRAM REPORT PREAMBLE: This is an 88-year-old female with altered mental status. EEG FINDINGS: This is a 21-channel digital EEG recorded with video component, utilizing 10/20 international system with referential and bipolar montages. Background consists of moderately well-developed and not very well regulated, predominantly 4 to 6 hertz theta, intermixed with some delta activity in bihemispheric region. Background does not seem to be reactive to eye opening or closing. Some sporadic triphasic waves were seen predominantly in bifrontal distribution. Different stages of sleep were not seen. No focal or generalized epileptiform activity was seen. IMPRESSION: This is an abnormal EEG due to background slowing of at least moderate degree. This is suggestive of generalized cerebral dysfunction as can be seen with toxic metabolic encephalopathy or related to diffuse structural brain abnormality. No epileptiform activity was seen. The presence of triphasic waves also consistent with encephalopathy, but can be seen frequently with hepatic encephalopathy. Clinical correlation is recommended. MMJANNY / DEBBIEN: [id number] / LILI
[2023-05-21] MEDS: HYDROcodone/APAP 5-325MG 1 EACH TAB PO PRN ×2 (01:55→10:17)
--- NOTE | 2023-05-21 05:55 | P.PN ---
Subjective Progress Note Date: 05/20/23 88-year-old female, history of hypertension, hyperlipidemia, hypothyroidism, atrial fibrillation, CHF, presenting to the emergency department following being found on the floor. A fall was not witnessed. Patient was found on the floor this morning by who sleeps in a different room. Patient does not recall the episode and this is reported as normal as patient has short-term memory loss and frequently denies falling. This is per the daughter. Patient does complain of some discomfort of the mid back. Unknown if there is any head injury. No neck pain. No dyspnea. No abdominal pain. Blood work completed in ED reveals a WBC 29.6, hemoglobin of 10.5 and platelet count of 301, sodium 133, potassium 4.8, BUN/creatinine of 31/1.42 and blood glucose of 129, calcium of 10.3, total bilirubin of 1.9, AST/ALT elevated at 39/20, total CK of 277 UA is positive for leukocyte esterase bacteria and WBCs, vital panel is completed and is negative, CT head is negative for any acute intracranial process with nonspecific white matter changes, moderate multilevel degenerative disc disease versus prior fracture of odontoid process with fusion to anterior arch of C1 Chest x-ray reveals low lung volumes with generalized pain see appearance atelectasis versus pulmonary edema Renal and right upper quadrant ultrasound is done which is negative -- Blood work reveals slight trend troponin of CBC from 29.6 down to 24.5 this morning, potassium trended up from 4.8 up to 5.5, creatinine up from 1.4-2.59 this morning -- Patient has been evaluated by nephrology and has been switched to IV bicarbonate infusion; repeat renal function ordered for later today - Blood cultures positive for gram-positive cocci; ID consult placed; ID recommending to switch IV antibiotics to cefazolin 2 g IV every 12 hours -- Stat CT of the abdomen is ordered 05/18/2023 Patient is seen in follow-up this morning with daughter at the bedside and continues to be confused. Patient is currently on a nonrebreather and doesn't report shortness of breath. Patient reports not feeling well and continues to report severe back pain. Patient does see pain management outpatient and will consult as well as neurology consultation as family is concerned that she is not normally this altered. Patient does take a number of pain medications which is chronic for her. Patient also now being followed by general surgery as abdominal x-ray showed concerns for high-grade bowel obstruction and NG tube was placed. Patient is currently nothing by mouth. Chest x-ray yesterday shows cardiomegaly with pulmonary vascular congestion with bilateral pleural effusions with concerns of congestive heart failure. Nephrology is following as well as infectious disease as patient continues to have positive blood cultures and maintained on antibiotics. Initial urine culture finalized showing E. coli and blood cultures remain preliminary showing presumptive staph aureus and daily blood cultures have been added. Patient is continued on antibiotics in the form of cefazolin and again infectious disease is following closely. Patient was given a dose of Lasix today and IV fluids have been discontinued. Patient underwent small bowel x-ray which continues to be pending and will order repeat CT abdomen without contrast. Creatinine today is 1.2 and sodium is 140 with a potassium of 3.7. Pro-calcitonin was also rechecked and trending down but remains elevated at 8.47. 05/19/2023 Patient seen and evaluated today and mentation appears to be improving with multiple medical consultations following. Neurology following an EEG is ordered and pending. Nephrology following as well and sodium is elevated at 147 being started on D5 and water and awaiting repeat labs. Electrolytes being replaced per protocol. Patient continues on antibiotics with infectious disease following for UTI with bacteremia. Repeat blood cultures pending at this time. General surgery following as well follow-up CT abdomen was performed along with small bowel x-ray more suggestive of ileus. Reviewed nothing by mouth. Patient is afebrile continues to require oxygen which is being weaned. Patient continues with weakness and awaiting PT/OT therapy evaluation. Patient denies chest pain or palpitations. 05/20/2023 Patient is seen in follow-up today currently sitting up in the chair and has been working with physical therapy. Per PT/OT therapy patient will require rehab is patient is significantly weak. Patient continues with back pain and being followed by pain management has been transitioned to morphine. Multiple medical consultations following including infectious disease. MRI has been ordered and pending. Orthopedics also consulted for continued back pain as family is concerned about her fall with increased back pain prior to admission. Patient continues on oxygen and weaning as tolerated. Repeat cultures have been negative and patient will continue on IV antibiotics. Will await MRI which is scheduled for tomorrow to discuss further about treatment plan as well as possible rehab week forward. Patient remains with mildly elevated white count of 13 and hemoglobin is stable. Kidney function continues to be 1.3 and sodium is slightly improved on D5 and water with nephrology following. We'll follow up on repeat labs in a.m. EEG has been ordered and awaiting official report. Review of systems: Unable to completely assess this patient remains somewhat confused Physical exam: Gen: This is an 88-year-old female who is awake, continues to be confused although much more awake today, well-developed, well-nourished, elderly- appearing, ill-appearing HEENT: Head is atraumatic, normocephalic. Pupils equal, round. Sclerae is anicteric. NECK: Supple. No JVD. No lymphadenopathy. No thyromegaly. LUNGS: Breath sounds diminished bilaterally with some scattered rhonchi and faint crackles noted at the bases. No intercostal retractions. HEART: Regular rate and rhythm. No murmur. ABDOMEN: Soft. Obese. Less Distended. Bowel sounds are present. No masses. No tenderness. EXTREMITIES: No pedal edema. No calf tenderness. NEUROLOGICAL: Patient is awake, alert and oriented x1-2. Diffusely weak Assessment: -UTI/sepsis, present on admission with bacteremia. Urine culture showing E. coli. Most recent repeat blood cultures have been negative thus far -Acute renal injury secondary to acute tubular necrosis due to severe sepsis -History of chronic kidney disease stage III B, follows with a dinkey operator slate out of [place] - Volume overload with pleural effusions noted on chest x-ray -Acute hypoxic respiratory failure secondary to volume overload with pleural effusions -Generalized weakness/fall with back pain -History of chronic back pain with lumbar stenosis -Small bowel obstruction noted on abdominal imaging with repeat images more suggestive of ileus -Hypertension history -Hyperlipidemia -Hypothyroidism -Dementia history -History of sick sinus syndrome status post dual-chamber pacemaker implantation -Atrial fibrillation, currently rate controlled. anticoagulation is currently on hold -DVT prophylaxis; SCDs/Eliquis -GI prophylaxis -Full code Plan: Multiple medical consultations including infectious disease and nephrology following. neurology consulted and EEG pending for continued increased confusion pain management consulted for pain management recommendations as She Sees Dr. Crista Webster Outpatient for Chronic Pain and Patient Continues to Report Significant Back Pain. Patient was on Dilaudid and being transitioned to morphine as needed as well as Tylenol and Ultram Patient had NG tube removed and remains nothing by mouth for now with general surgery following . No surgical interventions planned and repeat imaging more suggestive of ileus being continued on bowel regimen. Patient had a large bowel movement Patient currently maintained on nonrebreather and high flow oxygen with acute hypoxic respiratory failure secondary to volume overload and was given a dose of Lasix, weaning down to nasal cannula Initial Blood cultures positive showing staph aureus with infectious disease following maintained on antibiotics. Repeat blood cultures thus far are negative Cardiology following and anticoagulation is currently on hold for possible surgical intervention. Will discuss with cardiology when to resume Orthopedics pain consult and appreciate input and recommendations for continued back pain CODE STATUS addressed and patient remains full code Recommend PT/OT therapy daily. PT/OT recommending ECF and family awaiting further diagnosis to discuss discharge planning and make a decision of a possible ECF or treatment plan moving forward. Case management is following Due to multiple complex medical issues, prognosis is guarded The impression and plan of care has been dictated by Jess Paul, Nurse Practitioner as directed. Dr. Ramsey MD I have performed a history and examination and MDM of this patient, discussed the same with the dictator, and agree with the dictator's assessment and plan as written ,documented as a scribe. Based on total visit time, I have performed more than 50% of the visit. Objective - Vital Signs Vital signs: Vital Signs Temp 97.3 F L 05/20/23 07:30 Pulse 92 05/20/23 08:00 Resp 18 05/20/23 08:00 BP 132/68 05/20/23 07:30 Pulse Ox 93 L 05/20/23 08:13 FiO2 40 05/18/23 16:47 Intake & Output 05/19/23 05/20/23 05/20/23 18:59 06:59 18:59 Output Total 250 500 Balance -250 -500 Output: Urine 250 500 Other: Voiding Method Indwelling Catheter Indwelling Catheter Indwelling Catheter # Bowel Movements 1 - Labs CBC & Chem 7: 05/20/23 05:50 05/20/23 05:50 Labs: Abnormal Lab Results - Last 24 Hours (Table) 05/19/23 05/19/23 05/19/23 Range/Units 16:30 16:30 16:30 WBC (4.50-10.00) X 10*3/uL RBC (4.10-5.20) X 10*6/uL Hgb (12.0-15.0) g/dL Hct (37.2-46.3) % MCHC (32.0-37.0) g/dL Neutrophils # (1.80-7.70) X 10*3/uL Lymphocytes # (0.90-5.00) X 10*3/uL Monocytes # (0.20-1.00) X 10*3/uL Potassium (3.5-5.5) mmol/L Anion Gap (4.00-12.00) mmol/L BUN (9.0-27.0) mg/dL Est GFR (CKD-EPI) (>=60) BUN/Creatinine Ratio (12.00-20.00) Ratio Glucose (70-110) mg/dL Hemoglobin A1c 6.1 H (<=6.0) % Vitamin B12 >3600.0 H (200.0-944.0) pg/mL Folate 40.00 H (4.40-31.00) ng/mL 05/20/23 05/20/23 Range/Units 05:50 05:50 WBC 13.30 H (4.50-10.00) X 10*3/uL RBC 3.43 L (4.10-5.20) X 10*6/uL Hgb 10.0 L (12.0-15.0) g/dL Hct 32.1 L (37.2-46.3) % MCHC 31.2 L (32.0-37.0) g/dL Neutrophils # 10.70 H (1.80-7.70) X 10*3/uL Lymphocytes # 0.88 L (0.90-5.00) X 10*3/uL Monocytes # 1.47 H (0.20-1.00) X 10*3/uL Potassium 3.4 L (3.5-5.5) mmol/L Anion Gap 12.90 H (4.00-12.00) mmol/L BUN 55.4 H (9.0-27.0) mg/dL Est GFR (CKD-EPI) 40 L (>=60) BUN/Creatinine Ratio 42.62 H (12.00-20.00) Ratio Glucose 146 H (70-110) mg/dL Hemoglobin A1c (<=6.0) % Vitamin B12 (200.0-944.0) pg/mL Folate (4.40-31.00) ng/mL Microbiology - Last 24 Hours (Table) 05/18/23 06:47 Blood Culture - Preliminary Blood 05/17/23 06:30 Blood Culture - Preliminary Blood 05/15/23 15:05 Blood Culture Gram Stain - Final Blood Blood Culture - Final Staphylococcus aureus 05/15/23 14:50 Blood Culture Gram Stain - Final Blood Blood Culture - Final Staphylococcus aureus
[2023-05-21] MEDS: LEVOTHYROXINE 25 MCG TAB PO SCH (06:25)
[2023-05-21 08:36] LABS: African American GFR (CKD) 39 (>60 ml/min/1.73 sqM); Anion Gap 11 mmol/L; Blood Urea Nitrogen 68 mg/dL (7-17); Calcium 9.1 mg/dL (8.4-10.2); Carbon Dioxide 29 mmol/L (22-30); Chloride 96 mmol/L (98-107); Glucose 108 mg/dL (74-99); Non-African American GFR(CKD) 34 (>60 ml/min/1.73 sqM); Potassium 3.6 mmol/L (3.5-5.1); Sodium 136 mmol/L (137-145)
[2023-05-21] MEDS: MULTIVITAMINS, THERA 1 EACH TAB PO SCH (09:58)
[2023-05-21] MEDS: LABETALOL 100 MG TAB PO SCH ×2 (09:58→21:03)
[2023-05-21] MEDS: CYANOCOBALAMIN 500 MCG TAB PO SCH (09:58)
[2023-05-21] MEDS: POTASSIUM CHLORIDE ER 20 MEQ TAB.ER PO SCH ×2 (09:59→21:03)
[2023-05-21] MEDS: DONEPEZIL 10 MG TAB PO SCH (09:59)
[2023-05-21] MEDS: LOSARTAN 25 MG TAB PO SCH (09:59)
[2023-05-21] MEDS: THIAMINE 100 MG TAB PO SCH (09:59)
[2023-05-21] MEDS: hydrALAZINE HCL 50 MG TAB PO SCH ×3 (10:00→21:00)
[2023-05-21] MEDS: SIMETHICONE 40 MG/0.6 ML DROPS 2,000 MG/30 ML BOTTLE PO SCH ×4 (10:00→21:03)
[2023-05-21 10:55] LABS: HCT 32.2 % (37.2-46.3); HGB 10.2 g/dL (12.0-15.0); MCH 29.3 pg (27.0-32.0); MCHC 31.7 g/dL (32.0-37.0); MCV 92.5 FL (80.0-97.0); Mean Platelet Volume 9.7 FL (9.5-12.2); NRBC Per 100 WBC 0 X 10*3/uL (0.00-0.01); Platelet Count 363 X 10*3/uL (140-440); RBC 3.48 X 10*6/uL (4.10-5.20); RDW 13.4 % (11.5-14.5); WBC 17.24 X 10*3/uL (4.50-10.00)
[2023-05-21 10:56] LABS: Basophils # (A) 0.04 X 10*3/uL (0.00-0.10); Basophils % (A) 0.2 %; Eosinophils # (A) 0.24 X 10*3/uL (0.04-0.35); Eosinophils % (A) 1.4 %; Lymphocytes # (A) 1.13 X 10*3/uL (0.90-5.00); Lymphocytes % (A) 6.6 %; Monocytes % (A) 7.5 %; Neutrophils # (A) 14.35 X 10*3/uL (1.80-7.70); Neutrophils % (A) 83.3 %
[2023-05-21 11:18] LABS: Magnesium 2.5 mg/dL (1.5-2.4)
--- NOTE | 2023-05-21 11:57 | P.PN ---
Subjective Patient is seen in follow-up for acute kidney injury on chronic kidney disease. Renal function fairly stable. Received IV Lasix yesterday. Hemodynamically stable. Nonoliguric. Family present at bedside. Vital signs stable. General: No acute distress. HEENT: Head exam is unremarkable. Nasal cannula. LUNGS: No audible rhonchi or wheezes. HEART: Rate and Rhythm are regular. ABDOMEN: Nontender, distention noted. EXTREMITITES: No edema. Objective - Vital Signs Vital signs: Vital Signs Temp 99.0 F 05/21/23 07:06 Pulse 81 05/21/23 07:06 Resp 19 05/21/23 07:06 BP 135/73 05/21/23 07:06 Pulse Ox 90 L 05/21/23 07:06 FiO2 40 05/18/23 16:47 Intake & Output 05/20/23 05/21/23 05/21/23 18:59 06:59 18:59 Output Total 1000 450 Balance -1000 -450 Output: Gastric Drainage 700 Urine 300 450 Other: Voiding Method Indwelling Catheter Indwelling Catheter # Voids 1 # Bowel Movements 1 - Labs CBC & Chem 7: 05/21/23 07:29 05/21/23 07:29 Labs: Abnormal Lab Results - Last 24 Hours (Table) 05/21/23 05/21/23 05/21/23 Range/Units 07:29 07:29 07:29 WBC 17.24 H (4.50-10.00) X 10*3/uL RBC 3.48 L (4.10-5.20) X 10*6/uL Hgb 10.2 L (12.0-15.0) g/dL Hct 32.2 L (37.2-46.3) % MCHC 31.7 L (32.0-37.0) g/dL Neutrophils # 14.35 H (1.80-7.70) X 10*3/uL Monocytes # 1.30 H (0.20-1.00) X 10*3/uL Sodium 136 L (137-145) mmol/L Chloride 96 L (98-107) mmol/L BUN 68 H (7-17) mg/dL Creatinine 1.39 H (0.52-1.04) mg/dL Glucose 108 H (74-99) mg/dL Magnesium 2.5 H (1.5-2.4) mg/dL C-Reactive Protein 24.00 H (0.00-0.80) mg/dL Microbiology - Last 24 Hours (Table) 05/18/23 06:47 Blood Culture - Preliminary Blood 05/17/23 06:30 Blood Culture - Preliminary Blood Assessment and Plan Plan: Assessment: 1. Acute kidney injury secondary to ATN secondary to severe sepsis. Also received Toradol. Renal function improved. Creatinine fairly stable at 1.39 today. Received IV Lasix yesterday. No hydronephrosis noted on imaging. 2. Chronic kidney disease stage IIIB with baseline creatinine near 1.4. Patient follows with electrical tech out of [place] system. 3. E. coli UTI and staph aureus bacteremia ID following. On antibiotics. 4. Metabolic acidosis secondary to acute kidney injury status post IV bicarb. Resolved. 5. Hyperkalemia secondary to acute kidney injury, acidosis. Resolved. Now hypokalemic from diuresis. 6. Volume overload. Pleural effusions noted on chest x-ray. Status post IV Lasix given 05/18/2023. 7. Small bowel obstruction vs ileus. NG tube removed. Surgery following. 8. Hypernatremia from lack of oral water intake. Status post D5W. Resolved. Plan: Potassium being replaced. Avoid nephrotoxins. Continue to monitor renal function and urine output. Cleared for MRI of spine from nephrology standpoint. Diet per surgery.
[2023-05-21 12:03] LABS: Erythrocyte Sedimentation Rate 61 mm/Hr (0-30)
--- NOTE | 2023-05-21 12:43 | P.PN ---
Subjective Progress Note Date: 05/21/23 Principal diagnosis: Reason for follow-up is MSSA bacteremia Patient is a 88-year-old female with a past medical history significant for atrial fibrillation hypertension hyperlipidemia heart failure with patient was brought into the hospital after family patient was found to be on the floor , patient complaining of weakness and pain to the lower back area and did have a positive blood culture with MSSA. On today's evaluation that is 05/21/2023, the patient denies any fever or chills, the patient is breathing comfortably on 7 L supplemental oxygen the patient denies chest pain shortness of breath or cough , patient nausea/vomiting, still having abdominal distention, no diarrhea Patient white count is is up to 17.24 and a creatinine is 1.39, CT of abdominal pelvis limited study no evidence of acute inflammatory process and abdominal pelvis possible small bowel obstruction Objective - Vital Signs Vital signs: Vital Signs Temp 99.0 F 05/21/23 07:06 Pulse 81 05/21/23 07:06 Resp 19 05/21/23 07:06 BP 135/73 05/21/23 07:06 Pulse Ox 90 L 05/21/23 07:06 FiO2 40 05/18/23 16:47 Intake & Output 05/20/23 05/21/23 05/21/23 18:59 06:59 18:59 Output Total 1000 450 Balance -1000 -450 Output: Gastric Drainage 700 Urine 300 450 Other: Voiding Method Indwelling Catheter Indwelling Catheter # Voids 1 # Bowel Movements 1 - Exam GENERAL DESCRIPTION: An elderly female lying in bed in no distress RESPIRATORY SYSTEM: Unlabored breathing , decreased best at the base HEART: S1 S2 regular rate and rhythm , ABDOMEN: Soft , mild distention EXTREMITIES: No edema feet - Labs CBC & Chem 7: 05/21/23 07:29 05/21/23 07:29 Labs: Abnormal Lab Results - Last 24 Hours (Table) 05/21/23 Range/Units 07:29 Sodium 136 L (137-145) mmol/L Chloride 96 L (98-107) mmol/L BUN 68 H (7-17) mg/dL Creatinine 1.39 H (0.52-1.04) mg/dL Glucose 108 H (74-99) mg/dL Microbiology - Last 24 Hours (Table) 05/18/23 06:47 Blood Culture - Preliminary Blood 05/17/23 06:30 Blood Culture - Preliminary Blood Assessment and Plan (1) Bacteremia Current Visit: Yes Status: Acute Code(s): R78.81 - BACTEREMIA SNOMED Code(s): 7215065 Plan: 1patient with a Staph aureus bacteremia , in this patient presented to hospital with a fall found on the floor has been complaining of more lower back pain and history of chronic back pain with a question of possible discitis/osteomyelitis to lumbosacral spine area as currently do not have any evidence of cellulitis, no joint swelling or other clear focus of this bacteremia, patient did have a positive UA underlying urinary source less likely as the patient did not have any urinary symptoms patient was noticed to have significant abdominal distention and some tenderness for the patient did have CT of abdominal pelvis did not show any acute inflammatory process 2-patient did have a renal insufficiency and high risk of nephrotoxicity, being monitored closely by nephrology 3--blood cultures has been repeated and blood culture drawn 05/17/2023 has been negative so far, echocardiogram did not show any vegetation 4Patient to continue with cefazolin we will add Flagyl empirically keeping in mind abdominal distention and slight worsening of the white count waiting for the MRI Daughter at the bedside questions were answered Dictation was produced using [employer] dictation software. please excuse any grammatical, word or spelling errors. Time with Patient: Less than 30
[2023-05-21] MEDS: FOLIC ACID 1 MG TAB PO SCH (12:54)
--- NOTE | 2023-05-21 13:04 | P.PN ---
Subjective Progress Note Date: 05/21/23 CHIEF COMPLAINT: Ileus HISTORY OF PRESENT ILLNESS: Patient sitting up at bedside chair. Not complaining of abdominal pain at this time. Denies any nausea or vomiting. She had tolerated the liquids. She did have a bowel movement yesterday. She has been seen by orthopedic service they have scheduled her for an MRI of the lumbar spine. Afebrile. WBC is up to 17 hgb 10.2 platelets 363 symptoms 136 potassium is 3.6 creatinine 1.39 PHYSICAL EXAM: VITAL SIGNS: Reviewed GENERAL: Well-developed in no acute distress. HEENT: No sclera icterus. Extraocular movements grossly intact. Moist buccal mucosa. Head is atraumatic, normocephalic. Hears conversational speech. No nasal drainage. NECK: Supple without lymphadenopathy. CHEST: Non-labored respirations and equal bilateral excursions. CARDIOVASCULAR: Palpable 2+ radial pulses. ABDOMEN: Distended. nontender MUSCULOSKELETAL: No clubbing or cyanosis. NEUROLOGIC: No focal or lateralizing signs. Cranial nerves II through XII grossly intact. PSYCH: pleasantly confused SKIN: Well perfused. Good skin turgor. ASSESSMENT: 1. Abdominal pain with ileus 2. History of abdominal surgeries 3. UTI 4. Bacteremia 5. Fall and weakness 6. Acute kidney injury. history of chronic kidney disease. 7. History of AICD 8. History of atrial fibrillation on Eliquis 9. Lower Back pain. History of chronic back pain 10. Hypoxia 11. Hypokalemia improved PLAN: -Advance diet to low fiber -Encouraged patient to increase activity level. Work with PT OT. -Continue treatment for UTI and bacteremia, and electrolyte imbalance -No surgical intervention planned at this time -Cannot start Reglan for ileus due to patient taking Seroquel -Continue stool softener Physician Body Finisher note has been reviewed by physician. Signing provider agrees with the documented findings, assessment, and plan of care. Objective - Vital Signs Vital signs: Vital Signs Temp 99.0 F 05/21/23 07:06 Pulse 81 05/21/23 07:06 Resp 19 05/21/23 07:06 BP 135/73 05/21/23 07:06 Pulse Ox 90 L 05/21/23 07:06 FiO2 40 05/18/23 16:47 Intake & Output 05/20/23 05/21/23 05/21/23 18:59 06:59 18:59 Output Total 1000 450 Balance -1000 -450 Output: Gastric Drainage 700 Urine 300 450 Other: Voiding Method Indwelling Catheter Indwelling Catheter # Voids 1 # Bowel Movements 1 - Labs CBC & Chem 7: 05/21/23 07:29 05/21/23 07:29 Labs: Abnormal Lab Results - Last 24 Hours (Table) 05/21/23 05/21/23 05/21/23 Range/Units 07:29 07:29 07:29 WBC 17.24 H (4.50-10.00) X 10*3/uL RBC 3.48 L (4.10-5.20) X 10*6/uL Hgb 10.2 L (12.0-15.0) g/dL Hct 32.2 L (37.2-46.3) % MCHC 31.7 L (32.0-37.0) g/dL Neutrophils # 14.35 H (1.80-7.70) X 10*3/uL Monocytes # 1.30 H (0.20-1.00) X 10*3/uL ESR 61 H (0-30) mm/Hr Sodium 136 L (137-145) mmol/L Chloride 96 L (98-107) mmol/L BUN 68 H (7-17) mg/dL Creatinine 1.39 H (0.52-1.04) mg/dL Glucose 108 H (74-99) mg/dL Magnesium 2.5 H (1.5-2.4) mg/dL C-Reactive Protein 24.00 H (0.00-0.80) mg/dL Microbiology - Last 24 Hours (Table) 05/18/23 06:47 Blood Culture - Preliminary Blood 05/17/23 06:30 Blood Culture - Preliminary Blood
[2023-05-21 13:36] VITALS: BMI 27.4
--- NOTE | 2023-05-21 13:49 | P.PN ---
Subjective Progress Note Date: 05/21/23 Principal diagnosis: Low back pain Patient was examined today at bedside, she is up resting in her hospital chair. Patient's daughter is present at bedside. Patient is supposed to have a lumbar MRI later on today. According to family, patient seems little bit more comfortable with regards to the low back pain. She continues to have significant abdominal distention and discomfort. Urinary catheter remains in place at this time. She remains pleasantly confused. Objective - Vital Signs Vital signs: Vital Signs Temp 99.0 F 05/21/23 07:06 Pulse 81 05/21/23 07:06 Resp 19 05/21/23 08:00 BP 135/73 05/21/23 07:06 Pulse Ox 90 L 05/21/23 07:06 FiO2 40 05/18/23 16:47 Intake & Output 05/20/23 05/21/23 05/21/23 18:59 06:59 18:59 Output Total 1000 450 Balance -1000 -450 Weight 68.039 kg Output: Gastric Drainage 700 Urine 300 450 Other: Voiding Method Indwelling Catheter Indwelling Catheter # Voids 1 # Bowel Movements 1 - Exam Gen: AOx3, NAD VSS stable at this time Integument: No obvious open lesions or sores are present throughout cervical, thoracic or lumbar spine Palpation: She demonstrates tenderness with palpation of the lower lumbar spine mainly in the paraspinal region ROM: Range of motion intact with regards to the bilateral upper extremities with regards to shoulder elevation, shoulder abduction, elbow extension, elbow flexion, wrist extension, wrist flexion, integration technician. No significant strength deficits are appreciated in the bilateral upper extremities Flexion, knee extension, knee flexion, plantar flexion, dorsiflexion, EHL, FHL are intact, 4/5 strength appreciated in those muscle groups to bilateral lower extremities Sensory Exam: Senory exam to light touch is intact C5-T1 Senosry exam to light touch is intact L2-S1 Reflexes: 2/4 in all UE and LE Negative Matthew's bilaterally, negative Babinski bilaterally, negative clonus bilaterally Special Test: Negative straight leg raise bilaterally - Labs CBC & Chem 7: 05/21/23 07:29 05/21/23 07:29 Labs: Abnormal Lab Results - Last 24 Hours (Table) 05/21/23 05/21/23 05/21/23 Range/Units 07:29 07:29 07:29 WBC 17.24 H (4.50-10.00) X 10*3/uL RBC 3.48 L (4.10-5.20) X 10*6/uL Hgb 10.2 L (12.0-15.0) g/dL Hct 32.2 L (37.2-46.3) % MCHC 31.7 L (32.0-37.0) g/dL Neutrophils # 14.35 H (1.80-7.70) X 10*3/uL Monocytes # 1.30 H (0.20-1.00) X 10*3/uL ESR 61 H (0-30) mm/Hr Sodium 136 L (137-145) mmol/L Chloride 96 L (98-107) mmol/L BUN 68 H (7-17) mg/dL Creatinine 1.39 H (0.52-1.04) mg/dL Glucose 108 H (74-99) mg/dL Magnesium 2.5 H (1.5-2.4) mg/dL C-Reactive Protein 24.00 H (0.00-0.80) mg/dL Microbiology - Last 24 Hours (Table) 05/18/23 06:47 Blood Culture - Preliminary Blood 05/17/23 06:30 Blood Culture - Preliminary Blood Assessment and Plan Assessment: Acute on chronic low back pain Multilevel lumbar spondylosis Grade 1 spondylolisthesis L4-L5 Bacteremia UTI Other medical comorbidities Plan: Await MRI results of the lumbar spine for further evaluation DVT prophylaxis per primary medical service Weight-bear as tolerated with walker PT/OT evaluation Other medical specialty recommendations appreciated Further recommendations to follow Time with Patient: Less than 30
--- NOTE | 2023-05-21 13:59 | P.PN ---
Subjective Progress Note Date: 05/21/23 88-year-old female, history of hypertension, hyperlipidemia, hypothyroidism, atrial fibrillation, CHF, presenting to the emergency department following being found on the floor. A fall was not witnessed. Patient was found on the floor this morning by who sleeps in a different room. Patient does not recall the episode and this is reported as normal as patient has short-term memory loss and frequently denies falling. This is per the daughter. Patient does complain of some discomfort of the mid back. Unknown if there is any head injury. No neck pain. No dyspnea. No abdominal pain. Blood work completed in ED reveals a WBC 29.6, hemoglobin of 10.5 and platelet count of 301, sodium 133, potassium 4.8, BUN/creatinine of 31/1.42 and blood glucose of 129, calcium of 10.3, total bilirubin of 1.9, AST/ALT elevated at 39/20, total CK of 277 UA is positive for leukocyte esterase bacteria and WBCs, vital panel is completed and is negative, CT head is negative for any acute intracranial process with nonspecific white matter changes, moderate multilevel degenerative disc disease versus prior fracture of odontoid process with fusion to anterior arch of C1 Chest x-ray reveals low lung volumes with generalized pain see appearance atelectasis versus pulmonary edema Renal and right upper quadrant ultrasound is done which is negative -- Blood work reveals slight trend troponin of CBC from 29.6 down to 24.5 this morning, potassium trended up from 4.8 up to 5.5, creatinine up from 1.4-2.59 this morning -- Patient has been evaluated by nephrology and has been switched to IV bicarbonate infusion; repeat renal function ordered for later today - Blood cultures positive for gram-positive cocci; ID consult placed; ID recommending to switch IV antibiotics to cefazolin 2 g IV every 12 hours -- Stat CT of the abdomen is ordered 05/18/2023 Patient is seen in follow-up this morning with daughter at the bedside and continues to be confused. Patient is currently on a nonrebreather and doesn't report shortness of breath. Patient reports not feeling well and continues to report severe back pain. Patient does see pain management outpatient and will consult as well as neurology consultation as family is concerned that she is not normally this altered. Patient does take a number of pain medications which is chronic for her. Patient also now being followed by general surgery as abdominal x-ray showed concerns for high-grade bowel obstruction and NG tube was placed. Patient is currently nothing by mouth. Chest x-ray yesterday shows cardiomegaly with pulmonary vascular congestion with bilateral pleural effusions with concerns of congestive heart failure. Nephrology is following as well as infectious disease as patient continues to have positive blood cultures and maintained on antibiotics. Initial urine culture finalized showing E. coli and blood cultures remain preliminary showing presumptive staph aureus and daily blood cultures have been added. Patient is continued on antibiotics in the form of cefazolin and again infectious disease is following closely. Patient was given a dose of Lasix today and IV fluids have been discontinued. Patient underwent small bowel x-ray which continues to be pending and will order repeat CT abdomen without contrast. Creatinine today is 1.2 and sodium is 140 with a potassium of 3.7. Pro-calcitonin was also rechecked and trending down but remains elevated at 8.47. 05/19/2023 Patient seen and evaluated today and mentation appears to be improving with multiple medical consultations following. Neurology following an EEG is ordered and pending. Nephrology following as well and sodium is elevated at 147 being started on D5 and water and awaiting repeat labs. Electrolytes being replaced per protocol. Patient continues on antibiotics with infectious disease following for UTI with bacteremia. Repeat blood cultures pending at this time. General surgery following as well follow-up CT abdomen was performed along with small bowel x-ray more suggestive of ileus. Reviewed nothing by mouth. Patient is afebrile continues to require oxygen which is being weaned. Patient continues with weakness and awaiting PT/OT therapy evaluation. Patient denies chest pain or palpitations. 05/20/2023 Patient is seen in follow-up today currently sitting up in the chair and has been working with physical therapy. Per PT/OT therapy patient will require rehab is patient is significantly weak. Patient continues with back pain and being followed by pain management has been transitioned to morphine. Multiple medical consultations following including infectious disease. MRI has been ordered and pending. Orthopedics also consulted for continued back pain as family is concerned about her fall with increased back pain prior to admission. Patient continues on oxygen and weaning as tolerated. Repeat cultures have been negative and patient will continue on IV antibiotics. Will await MRI which is scheduled for tomorrow to discuss further about treatment plan as well as possible rehab week forward. Patient remains with mildly elevated white count of 13 and hemoglobin is stable. Kidney function continues to be 1.3 and sodium is slightly improved on D5 and water with nephrology following. We'll follow up on repeat labs in a.m. EEG has been ordered and awaiting official report. 05/21/2023 Patient is seen and evaluated in follow-up this morning with daughter at the bedside had been working with physical therapy and per nursing staff almost maximum assist with extreme weakness recommending rehab and family is discussing possibly taking her home. Patient scheduled to undergo MRI of the back today which is pending for this afternoon as patient continues with back pain. Patient reports currently managed with pain management as well as orthopedics following. Patient is maintained on antibiotics with infectious disease following awaiting MRI of the back results as well for treatment plan moving forward. Patient is afebrile denies chest pain or shortness of breath although is requiring oxygen and does not normally wear this oxygen in the outpatient setting. Encourage incentive spirometer use and weaning as tolerated. Patient slowly advancing diet per surgery recommendations and is having bowel movements. Abdomen continues to be slightly distended and will repeat abdominal x-ray. Review of systems: Unable to completely assess this patient remains somewhat confused Active Medications Acetaminophen (Acetaminophen Tab 325 Mg Tab) 650 mg PO Q6HR PRN PRN Reason: Mild Pain or Fever > 100.5 Last Admin: 05/17/23 02:41 Dose: 650 mg Hydrocodone Bitart/Acetaminophen (Hydrocodone/Apap 5-325mg 1 Each Tab) 0.5 each PO Q6HR PRN PRN Reason: Pain Last Admin: 05/21/23 10:17 Dose: 0.5 each Calamine (Calamine/Zinc Oxide Lotion 177 Ml Btl) 1 applic TOPICAL QID PRN; Protocol PRN Reason: Skin Irritation Last Admin: 05/18/23 01:34 Dose: 1 applic Cyanocobalamin (Cyanocobalamin 500 Mcg Tab) 1,000 mcg PO DAILY [facility] Last Admin: 05/21/23 09:58 Dose: 1,000 mcg Diphenhydramine HCl (Diphenhydramine 50 Mg/Ml 1 Ml Vial) 25 mg IVP ONCE PRN PRN Reason: Itching Donepezil HCl (Donepezil 10 Mg Tab) 10 mg PO DAILY [facility] Last Admin: 05/21/23 09:59 Dose: 10 mg Folic Acid (Folic Acid 1 Mg Tab) 1 mg PO DAILY@1200 [facility] Last Admin: 05/21/23 12:54 Dose: 1 mg Hydralazine HCl (Hydralazine Hcl 50 Mg Tab) 50 mg PO TID [facility] Last Admin: 05/21/23 10:00 Dose: 50 mg Hydralazine HCl (Hydralazine Hcl 20 Mg/Ml 1 Ml Vial) 10 mg IVP Q6HR PRN PRN Reason: Blood Pressure - High Hydromorphone HCl (Hydromorphone 1 Mg/Ml 1 Ml Syringe) 1 mg IVP ONCE PRN PRN Reason: Severe Pain (Scale 7 to 10) Cefazolin Sodium 2 gm/ Sodium (Chloride) 50 mls @ 100 mls/hr IVPB Q12H R@0000,1200 [facility] Last Admin: 05/21/23 12:54 Dose: 100 mls/hr Metronidazole 500 mg/ IV (Solution) 100 mls @ 100 mls/hr IVPB Q8HR [facility]; Protocol Labetalol HCl (Labetalol 100 Mg Tab) 100 mg PO BID [facility] Last Admin: 05/21/23 09:58 Dose: 100 mg Levothyroxine Sodium (Levothyroxine 25 Mcg Tab) 25 mcg PO DAILY@0630 [facility] Last Admin: 05/21/23 06:25 Dose: 25 mcg Losartan Potassium (Losartan 25 Mg Tab) 25 mg PO DAILY [facility] Last Admin: 05/21/23 09:59 Dose: 25 mg Miscellaneous Information (Potassium Replacement Protocol 1 Each Misc) 1 each MISCELLANE DAILY PRN; Protocol PRN Reason: Per Protocol Morphine Sulfate (Morphine Sulfate 2 Mg/Ml Syringe) 2 mg IVP Q4HR PRN PRN Reason: Pain/Discomfort Last Admin: 05/20/23 17:09 Dose: 2 mg Multivitamins (Multivitamins, Thera 1 Each Tab) 1 each PO DAILY [facility] Last Admin: 05/21/23 09:58 Dose: 1 each Naloxone HCl (Naloxone 0.4 Mg/Ml 1 Ml Vial) 0.2 mg IV Q2M PRN PRN Reason: Opioid Reversal Ondansetron HCl (Ondansetron 4 Mg/2 Ml Vial) 4 mg IVP Q8HR PRN PRN Reason: Nausea And Vomiting Last Admin: 05/18/23 02:44 Dose: 4 mg Potassium Chloride (Potassium Chloride Er 20 Meq Tab.Er) 20 meq PO BID [facility] Last Admin: 05/21/23 09:59 Dose: 20 meq Quetiapine Fumarate (Quetiapine 25 Mg Tab) 12.5 mg PO HS PRN PRN Reason: Agitation Last Admin: 05/19/23 21:51 Dose: 12.5 mg Senna (Sennosides 8.6 Mg Tab) 8.6 mg PO HS [facility] Last Admin: 05/20/23 20:41 Dose: 8.6 mg Simethicone (Simethicone 40 Mg/0.6 Ml Drops 2,000 Mg/30 Ml Bottle) 40 mg PO QID [facility] Last Admin: 05/21/23 10:00 Dose: 40 mg Thiamine HCl (Thiamine 100 Mg Tab) 100 mg PO DAILY [facility] Last Admin: 05/21/23 09:59 Dose: 100 mg Tramadol HCl (Tramadol 50 Mg Tab) 50 mg PO Q6H PRN PRN Reason: Moderate Pain (Scale 4 to 6) Last Admin: 05/20/23 06:25 Dose: 50 mg Physical exam: Gen: This is an 88-year-old female who is awake, continues to be confused although much more awake today, well-developed, well-nourished, elderly- appearing, ill-appearing HEENT: Head is atraumatic, normocephalic. Pupils equal, round. Sclerae is anicteric. NECK: Supple. No JVD. No lymphadenopathy. No thyromegaly. LUNGS: Breath sounds diminished bilaterally with some scattered rhonchi and faint crackles noted at the bases. No intercostal retractions. HEART: Regular rate and rhythm. No murmur. ABDOMEN: Soft. Obese. Less Distended. Bowel sounds are present. No masses. No tenderness. EXTREMITIES: No pedal edema. No calf tenderness. NEUROLOGICAL: Patient is awake, alert and oriented x1-2. Diffusely weak Assessment: -UTI/sepsis, present on admission with bacteremia. Urine culture showing E. coli. Most recent repeat blood cultures have been negative thus far -Acute renal injury secondary to acute tubular necrosis due to severe sepsis -History of chronic kidney disease stage III B, follows with a rn child out of [place] - Volume overload with pleural effusions noted on chest x-ray -Acute hypoxic respiratory failure secondary to volume overload with pleural effusions -Generalized weakness/fall with back pain -History of chronic back pain with lumbar stenosis -Small bowel obstruction noted on abdominal imaging with repeat images more suggestive of ileus -Hypertension history -Hyperlipidemia -Hypothyroidism -Dementia history -History of sick sinus syndrome status post dual-chamber pacemaker implantation -Atrial fibrillation, currently rate controlled. anticoagulation is currently on hold -DVT prophylaxis; SCDs/Eliquis -GI prophylaxis -Full code Plan: Multiple medical consultations including infectious disease and nephrology following. neurology consulted and EEG pending for continued increased confusion. Patient is scheduled for MRI of the spine today which is pending pain management following for pain management recommendations as She Sees Dr. Aaron Outpatient for Chronic Pain and Patient Continues to Report Significant Back Pain. Patient was on Dilaudid and being transitioned to morphine as needed as well as Tylenol and Ultram Patient had NG tube removed and remains on clear liquids and slowly being advanced to low fiber today per general surgery following . No surgical interventions planned and repeat imaging more suggestive of ileus being continued on bowel regimen. Patient had a large bowel movement. Abdomen appears slightly distended will follow-up with repeat abdominal x-ray along with chest x-ray for a.m. Patient currently maintained on high flow oxygen with acute hypoxic respiratory failure secondary to volume overload and was given a dose of Lasix, weaning down to nasal cannula. Patient required another dose of IV Lasix yesterday Initial Blood cultures positive showing staph aureus with infectious disease following maintained on antibiotics. Repeat blood cultures thus far are negative Cardiology following and anticoagulation is currently on hold for possible surgical intervention. Will discuss with cardiology when to resume Orthopedics following and awaiting MRI of the spine with no immediate plans for surgical intervention at this time CODE STATUS addressed and patient remains full code Recommend PT/OT therapy daily. PT/OT recommending ECF and family awaiting further diagnosis after MRI to discuss discharge planning and make a decision of a possible ECF or treatment plan moving forward. Looking into possible [facility] on the [place]. Case management is following Due to multiple complex medical issues, prognosis is guarded The impression and plan of care has been dictated by Jess Paul, Nurse Practitioner as directed. Dr. Ramsey MD I have performed a history and examination and MDM of this patient, discussed the same with the dictator, and agree with the dictator's assessment and plan as written ,documented as a scribe. Based on total visit time, I have performed more than 50% of the visit. Objective - Vital Signs Vital signs: Vital Signs Temp 99.0 F 05/21/23 07:06 Pulse 81 05/21/23 07:06 Resp 19 05/21/23 07:06 BP 135/73 05/21/23 07:06 Pulse Ox 90 L 05/21/23 07:06 FiO2 40 05/18/23 16:47 Intake & Output 05/20/23 05/21/23 05/21/23 18:59 06:59 18:59 Output Total 1000 450 Balance -1000 -450 Output: Gastric Drainage 700 Urine 300 450 Other: Voiding Method Indwelling Catheter Indwelling Catheter # Voids 1 # Bowel Movements 1 - Labs CBC & Chem 7: 05/21/23 07:29 05/21/23 07:29 Labs: Abnormal Lab Results - Last 24 Hours (Table) 05/21/23 05/21/23 05/21/23 Range/Units 07:29 07:29 07:29 WBC 17.24 H (4.50-10.00) X 10*3/uL RBC 3.48 L (4.10-5.20) X 10*6/uL Hgb 10.2 L (12.0-15.0) g/dL Hct 32.2 L (37.2-46.3) % MCHC 31.7 L (32.0-37.0) g/dL Neutrophils # 14.35 H (1.80-7.70) X 10*3/uL Monocytes # 1.30 H (0.20-1.00) X 10*3/uL ESR 61 H (0-30) mm/Hr Sodium 136 L (137-145) mmol/L Chloride 96 L (98-107) mmol/L BUN 68 H (7-17) mg/dL Creatinine 1.39 H (0.52-1.04) mg/dL Glucose 108 H (74-99) mg/dL Magnesium 2.5 H (1.5-2.4) mg/dL C-Reactive Protein 24.00 H (0.00-0.80) mg/dL Microbiology - Last 24 Hours (Table) 05/18/23 06:47 Blood Culture - Preliminary Blood 05/17/23 06:30 Blood Culture - Preliminary Blood
[2023-05-21] MEDS: metroNIDAZOLE-NS PMX 500 MG in SALINE 1 100ML.BAG IVPB SCH ×2 (14:47→16:56)
[2023-05-21] MEDS: SENNOSIDES 8.6 MG TAB PO SCH (21:03)
[2023-05-21] MEDS ORDERED: FUROSEMIDE 40 MG TAB PO STA (21:55)
[2023-05-21] MEDS ORDERED: IPRATROPIUM-ALBUTEROL 3 ML NEB INHALATION PRN (21:59)
[2023-05-21] MEDS: QUEtiapine 25 MG TAB PO PRN (23:48)
[2023-05-22 00:16] LABS: Glucose,Whole Blood 140 mg/dL (70-110)
[2023-05-22] MEDS: metroNIDAZOLE-NS PMX 500 MG in SALINE 1 100ML.BAG IVPB SCH ×3 (00:57→16:11)
[2023-05-22] MEDS: LEVOTHYROXINE 25 MCG TAB PO SCH (03:09)
--- NOTE | 2023-05-22 03:25 | XR ---
EXAM: XR Chest, 1 View CLINICAL HISTORY: ITS.REASON XR Reason: Resp distress TECHNIQUE: Frontal view of the chest. COMPARISON: 05/20/2023 FINDINGS: Lungs: Vascular congestion with small bilateral pleural effusions. No consolidation. Pleural space: See above. Heart: Mild enlargement of the cardiac silhouette stable from prior exam. Mediastinum: Unremarkable. Normal mediastinal contour. Bones/joints: No acute osseous abnormalities. Tubes, lines and devices: Left subclavian dual lead transvenous pacemaker/defibrillator in position. IMPRESSION: Vascular congestion with small bilateral pleural effusions.
[2023-05-22 06:19] LABS: Glucose,Whole Blood 148 mg/dL (70-110)
[2023-05-22] MEDS: IPRATROPIUM-ALBUTEROL 3 ML NEB INHALATION SCH ×4 (07:59→21:42)
--- NOTE | 2023-05-22 08:59 | XR ---
EXAMINATION TYPE: XR abdomen acute w cxr DATE OF EXAM: 05/22/2023 COMPARISON: CT 05/18/2023 HISTORY: 88-year-old female hypoxia, abdominal distention TECHNIQUE: Supine, upright, and left side down lateral decubitus views of the abdomen are obtained. FINDINGS: Left anterior chest wall AICD generator with right atrial and right ventricular leads. Heart mild to moderately enlarged. Diffuse interstitial opacities. Patchy right basilar opacity. No evidence for free intraperitoneal air. Diffusely dilated small bowel loops measuring up to 4.3 cm. Oral contrast has progressed into the col on and to the rectum. Prominent colonic air is present as well. Sigmoid diverticulosis. IMPRESSION: 1. Correlate for CHF with interstitial pulmonary edema. 2. Ongoing distention of small and large bowel. Oral contrast has progressed into the colon. Small abi wel dilated up to 4.3 cm. Consider ongoing pronounced ileus. 3. Oral contrast progressed to the rectum. Sigmoid diverticulosis.
[2023-05-22 09:41] LABS: ALT 12 U/L (4-34); AST 65 U/L (14-36); African American GFR (CKD) 30 (>60 ml/min/1.73 sqM); Albumin 2.5 g/dL (3.5-5.0); Albumin/Globulin Ratio 0.9; Alkaline Phosphatase 78 U/L (38-126); Anion Gap 13 mmol/L; Blood Urea Nitrogen 86 mg/dL (7-17); Calcium 8.7 mg/dL (8.4-10.2); Carbon Dioxide 21 mmol/L (22-30); Chloride 99 mmol/L (98-107); Globulin 2.7 g/dL; Glucose 99 mg/dL (74-99); Non-African American GFR(CKD) 26 (>60 ml/min/1.73 sqM); Sodium 133 mmol/L (137-145); Total Bilirubin 0.7 mg/dL (0.2-1.3); Total Protein 5.2 g/dL (6.3-8.2)
[2023-05-22 09:45] LABS: Basophils % (A) 0 %; Eosinophils # (A) 0.3 k/uL (0-0.7); Eosinophils % (A) 1 %; HCT 30.9 % (34.0-46.0); Lymphocytes # (A) 0.8 k/uL (1.0-4.8); Lymphocytes % (A) 4 %; MCH 29.6 pg (25.0-35.0); MCHC 32.5 g/dL (31.0-37.0); MCV 91.3 fL (80.0-100.0); Mean Platelet Volume 9.1; Monocytes # (A) 0.9 k/uL (0-1.0); Monocytes % (A) 4 %; Neutrophils # (A) 19.5 k/uL (1.3-7.7); Neutrophils % (A) 90 %; Platelet Count 335 k/uL (150-450); RBC 3.39 m/uL (3.80-5.40); WBC 21.8 k/uL (3.8-10.6)
[2023-05-22] MEDS: SIMETHICONE 40 MG/0.6 ML DROPS 2,000 MG/30 ML BOTTLE PO SCH ×4 (11:18→20:15)
[2023-05-22] MEDS: hydrALAZINE HCL 50 MG TAB PO SCH ×3 (11:18→20:14)
--- NOTE | 2023-05-22 11:41 | P.PN ---
Subjective Progress Note Date: 05/22/23 Principal diagnosis: Low back pain Patient was examined today at bedside, she is resting in bed with BiPAP. Patient's daughter is present at bedside. Patient was unable to have an MRI due to having pacemaker. Urinary catheter remains in place at this time. Objective - Vital Signs Vital signs: Vital Signs Temp 97.7 F 05/22/23 03:08 Pulse 72 05/22/23 11:25 Resp 30 H 05/22/23 09:07 BP 135/61 05/22/23 09:07 Pulse Ox 93 L 05/22/23 09:07 FiO2 55 05/22/23 11:25 Intake & Output 05/21/23 05/22/23 05/22/23 18:59 06:59 18:59 Intake Total 120 Output Total 200 300 Balance -200 -300 120 Weight 68.039 kg Intake: Oral 120 Output: Urine 200 300 Other: Voiding Method Indwelling Catheter Indwelling Catheter # Bowel Movements 0 - Exam Gen: AOx3, NAD VSS stable at this time Integument: No obvious open lesions or sores are present throughout cervical, thoracic or lumbar spine Palpation: She demonstrates tenderness with palpation of the lower lumbar spine mainly in the paraspinal region ROM: Range of motion intact with regards to the bilateral upper extremities with regards to shoulder elevation, shoulder abduction, elbow extension, elbow flexion, 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 No significant strength deficits are appreciated in the bilateral upper extremities Flexion, knee extension, knee flexion, plantar flexion, dorsiflexion, EHL, FHL are intact, 4/5 strength appreciated in those muscle groups to bilateral lower extremities Sensory Exam: Senory exam to light touch is intact C5-T1 Senosry exam to light touch is intact L2-S1 Reflexes: 2/4 in all UE and LE Negative Matthew's bilaterally, negative Babinski bilaterally, negative clonus bilaterally Special Test: Negative straight leg raise bilaterally - Labs CBC & Chem 7: 05/22/23 07:43 05/22/23 07:43 Labs: Abnormal Lab Results - Last 24 Hours (Table) 05/21/23 05/22/23 05/22/23 Range/Units 07:29 00:15 06:17 WBC (3.8-10.6) k/uL RBC (3.80-5.40) m/uL Hgb (11.4-16.0) gm/dL Hct (34.0-46.0) % Neutrophils # (1.3-7.7) k/uL Lymphocytes # (1.0-4.8) k/uL ESR 61 H (0-30) mm/Hr Sodium (137-145) mmol/L Carbon Dioxide (22-30) mmol/L BUN (7-17) mg/dL Creatinine (0.52-1.04) mg/dL POC Glucose (mg/dL) 140 H 148 H (70-110) mg/dL AST (14-36) U/L Total Protein (6.3-8.2) g/dL Albumin (3.5-5.0) g/dL 05/22/23 05/22/23 Range/Units 07:43 07:43 WBC 21.8 H (3.8-10.6) k/uL RBC 3.39 L (3.80-5.40) m/uL Hgb 10.0 L (11.4-16.0) gm/dL Hct 30.9 L (34.0-46.0) % Neutrophils # 19.5 H (1.3-7.7) k/uL Lymphocytes # 0.8 L (1.0-4.8) k/uL ESR (0-30) mm/Hr Sodium 133 L (137-145) mmol/L Carbon Dioxide 21 L (22-30) mmol/L BUN 86 H (7-17) mg/dL Creatinine 1.71 H (0.52-1.04) mg/dL POC Glucose (mg/dL) (70-110) mg/dL AST 65 H (14-36) U/L Total Protein 5.2 L (6.3-8.2) g/dL Albumin 2.5 L (3.5-5.0) g/dL Microbiology - Last 24 Hours (Table) 05/18/23 06:47 Blood Culture - Preliminary Blood Assessment and Plan Assessment: Acute on chronic low back pain Multilevel lumbar spondylosis Grade 1 spondylolisthesis L4-L5 Bacteremia UTI Other medical comorbidities Plan: DVT prophylaxis per primary medical service Weight-bear as tolerated with walker PT/OT evaluation Other medical specialty recommendations appreciated At this time, orthopedic services on standby with regards to her receiving an MRI to review further images the lumbar spine. Please contact her service with any further questions Time with Patient: Less than 30
[2023-05-22 12:03] LABS: Glucose,Whole Blood 127 mg/dL (70-110)
[2023-05-22] MEDS: DONEPEZIL 10 MG TAB PO SCH (14:05)
[2023-05-22] MEDS: CYANOCOBALAMIN 500 MCG TAB PO SCH (14:05)
[2023-05-22] MEDS: LABETALOL 100 MG TAB PO SCH ×2 (14:05→20:14)
[2023-05-22] MEDS: LOSARTAN 25 MG TAB PO SCH (14:05)
[2023-05-22] MEDS: MULTIVITAMINS, THERA 1 EACH TAB PO SCH (14:05)
[2023-05-22] MEDS: POTASSIUM CHLORIDE ER 20 MEQ TAB.ER PO SCH ×2 (14:05→20:14)
[2023-05-22] MEDS: FOLIC ACID 1 MG TAB PO SCH (14:06)
[2023-05-22] MEDS: THIAMINE 100 MG TAB PO SCH (14:06)
--- NOTE | 2023-05-22 14:22 | P.PN ---
Subjective Progress Note Date: 05/20/23 Patient was seen for a follow-up. Patient is laying comfortably in the bed. Offers no new complaints. She continues to feel quite sick. Objective - Vital Signs Vital signs: Vital Signs Temp 98.2 F 05/20/23 14:15 Pulse 76 05/20/23 14:15 Resp 18 05/20/23 14:15 BP 146/73 05/20/23 14:15 Pulse Ox 97 05/20/23 14:15 FiO2 40 05/18/23 16:47 Intake & Output 05/20/23 05/20/23 05/21/23 06:59 18:59 06:59 Output Total 500 1000 Balance -500 -1000 Output: Gastric Drainage 700 Urine 500 300 Other: Voiding Method Indwelling Catheter Indwelling Catheter # Bowel Movements 1 1 - Exam Patient is alert and awake, in mild respiratory distress. Her abdomen is distended. Speech-language mentions a normal. Examination otherwise unchanged. - Labs CBC & Chem 7: 05/22/23 07:43 05/22/23 07:43 Labs: Abnormal Lab Results - Last 24 Hours (Table) 05/19/23 05/19/23 05/19/23 Range/Units 16:30 16:30 16:30 WBC (4.50-10.00) X 10*3/uL RBC (4.10-5.20) X 10*6/uL Hgb (12.0-15.0) g/dL Hct (37.2-46.3) % MCHC (32.0-37.0) g/dL Neutrophils # (1.80-7.70) X 10*3/uL Lymphocytes # (0.90-5.00) X 10*3/uL Monocytes # (0.20-1.00) X 10*3/uL Potassium (3.5-5.5) mmol/L Anion Gap (4.00-12.00) mmol/L BUN (9.0-27.0) mg/dL Est GFR (CKD-EPI) (>=60) BUN/Creatinine Ratio (12.00-20.00) Ratio Glucose (70-110) mg/dL Hemoglobin A1c 6.1 H (<=6.0) % Vitamin B12 >3600.0 H (200.0-944.0) pg/mL Folate 40.00 H (4.40-31.00) ng/mL 05/20/23 05/20/23 Range/Units 05:50 05:50 WBC 13.30 H (4.50-10.00) X 10*3/uL RBC 3.43 L (4.10-5.20) X 10*6/uL Hgb 10.0 L (12.0-15.0) g/dL Hct 32.1 L (37.2-46.3) % MCHC 31.2 L (32.0-37.0) g/dL Neutrophils # 10.70 H (1.80-7.70) X 10*3/uL Lymphocytes # 0.88 L (0.90-5.00) X 10*3/uL Monocytes # 1.47 H (0.20-1.00) X 10*3/uL Potassium 3.4 L (3.5-5.5) mmol/L Anion Gap 12.90 H (4.00-12.00) mmol/L BUN 55.4 H (9.0-27.0) mg/dL Est GFR (CKD-EPI) 40 L (>=60) BUN/Creatinine Ratio 42.62 H (12.00-20.00) Ratio Glucose 146 H (70-110) mg/dL Hemoglobin A1c (<=6.0) % Vitamin B12 (200.0-944.0) pg/mL Folate (4.40-31.00) ng/mL Microbiology - Last 24 Hours (Table) 05/18/23 06:47 Blood Culture - Preliminary Blood 05/17/23 06:30 Blood Culture - Preliminary Blood Assessment and Plan Assessment: * Altered mental status, likely due to toxic-metabolic encephalopathy * Acute UTI * Recent bacteremia with Staphylococcus aureus. No evidence of endocarditis on echo. * Mild renal insufficiency * Hypernatremia * Hypokalemia * Atrial fibrillation * CHF * Hypertension * Hyperlipidemia * Prediabetes * Mild dementia, per patient's son report * Osteoarthritis * AICD * X tobacco use Plan: * EEG was abnormal due to background slowing of moderate degree. This is severe generalized cerebral dysfunction as can be seen with toxic metabolic encephalopathy or related to diffuse structural brain abnormality. Clinical correlation is recommended. * Patient's neurological examination is nonfocal. * Avoid opiates, sedatives, hypnotics or anticholinergics. * B12 >3600, folate 40, TSH 1.43, ammonia , hemoglobin A1c 6.1. * Neurologically no other workup indicated. * Management of other medical conditions as per IM and other specialties.
--- NOTE | 2023-05-22 14:30 | P.PN ---
Subjective Progress Note Date: 05/22/23 Follow-up for acute kidney injury. On BiPAP. Urine output of 500 ML's in the last 24 hours, documented. Objective - Vital Signs Vital signs: Vital Signs Temp 97.7 F 05/22/23 03:08 Pulse 72 05/22/23 11:45 Resp 26 H 05/22/23 11:42 BP 136/60 05/22/23 11:42 Pulse Ox 95 05/22/23 11:42 FiO2 55 05/22/23 11:42 Intake & Output 05/21/23 05/22/23 05/22/23 18:59 06:59 18:59 Intake Total 120 Output Total 200 300 Balance -200 -300 120 Weight 68.039 kg Intake: Oral 120 Output: Urine 200 300 Other: Voiding Method Indwelling Catheter Indwelling Catheter # Bowel Movements 0 - Exam No acute distress S1-S2 heard Decreased breath sounds Abdomen distended Edema - Labs CBC & Chem 7: 05/22/23 07:43 05/22/23 07:43 Labs: Abnormal Lab Results - Last 24 Hours (Table) 05/22/23 05/22/23 05/22/23 Range/Units 00:15 06:17 07:43 WBC 21.8 H (3.8-10.6) k/uL RBC 3.39 L (3.80-5.40) m/uL Hgb 10.0 L (11.4-16.0) gm/dL Hct 30.9 L (34.0-46.0) % Neutrophils # 19.5 H (1.3-7.7) k/uL Lymphocytes # 0.8 L (1.0-4.8) k/uL Sodium (137-145) mmol/L Carbon Dioxide (22-30) mmol/L BUN (7-17) mg/dL Creatinine (0.52-1.04) mg/dL POC Glucose (mg/dL) 140 H 148 H (70-110) mg/dL AST (14-36) U/L C-Reactive Protein (<1.0) mg/dL Total Protein (6.3-8.2) g/dL Albumin (3.5-5.0) g/dL 05/22/23 05/22/23 05/22/23 Range/Units 07:43 11:12 12:01 WBC (3.8-10.6) k/uL RBC (3.80-5.40) m/uL Hgb (11.4-16.0) gm/dL Hct (34.0-46.0) % Neutrophils # (1.3-7.7) k/uL Lymphocytes # (1.0-4.8) k/uL Sodium 133 L (137-145) mmol/L Carbon Dioxide 21 L (22-30) mmol/L BUN 86 H (7-17) mg/dL Creatinine 1.71 H (0.52-1.04) mg/dL POC Glucose (mg/dL) 127 H (70-110) mg/dL AST 65 H (14-36) U/L C-Reactive Protein 32.6 H (<1.0) mg/dL Total Protein 5.2 L (6.3-8.2) g/dL Albumin 2.5 L (3.5-5.0) g/dL Microbiology - Last 24 Hours (Table) 05/17/23 06:30 Blood Culture - Final Blood 05/18/23 06:47 Blood Culture - Preliminary Blood Assessment and Plan Assessment: #1 acute kidney injury secondary to septic ATN. -Baseline creatinine 1.4 MG per DL. -Urine analysis pyuria #2 stage III B chronic kidney disease. #3 E. coli UTI. #4 acute respiratory distress on BiPAP. #5 volume overload #6 small bowel obstruction/ileus. Plan: #1 decrease hydralazine to 50 mg twice a day and stop losartan. #2 renal function worsening. #3 restart Lasix 40 mg IV twice a day. #4 daily labs
[2023-05-22] MEDS ORDERED: hydrALAZINE HCL 20 MG/ML 1 ML VIAL IVP PRN (14:31)
--- NOTE | 2023-05-22 15:13 | PN ---
PROGRESS NOTE DATE OF SERVICE: 05/22/2023 SUBJECTIVE: This is an 88-year-old woman, who was admitted with multiple complex medical issues, had UTI sepsis with MSSA bacteremia. Urine culture showed E coli, which is poly- sensitive. The patient also had worsening renal failure. The patient also got back pain. MRI could not be done because of pacemaker. The patient is being closely monitored. The patient has also had abdominal distension. Chest x-ray showed possibly vascular congestion versus bilateral pneumonia. PAST MEDICAL HISTORY: Reviewed. REVIEW OF SYSTEMS: Could not be taken. The patient is on BiPAP. CURRENT MEDICATIONS: Reviewed include DuoNeb. Doses and rest of the medications are noted. PHYSICAL EXAMINATION: VITAL SIGNS: Pulse 71, blood pressure 130/60, respirations 26. HEENT: Conjunctivae are normal. NECK: No jugular venous distention. CARDIOVASCULAR: S1 and S2. RESPIRATORY: Breath sounds diminished at the bases. Few scattered rhonchi and crackles. ABDOMEN: Soft and nontender. Abdomen is distended. NERVOUS SYSTEM: Nonfocal. LABORATORY DATA: WBC 21.8. ASSESSMENT: 1. Urinary tract infection with sepsis with Escherichia coli. 2. Methicillin-susceptible Staphylococcus aureus bacteremia. 3. Back pain, possibly degenerative joint disease. 4. Acute hypoxic respiratory failure with possible fluid overload versus pneumonia. 5. Acute renal injury. 6. History of chronic kidney disease, stage 3. 7. History of chronic low back pain. 8. Possible small bowel obstruction versus ileus. 9. Hypertension. 10.Hyperlipidemia. 11.Multiple medical issues. 12.Full code. RECOMMENDATIONS: Recommend to continue current medications. Continue symptomatic treatment. I had a detailed discussion with family at the bedside. We will continue the current medication, bronchodilators, and empiric antibiotics. Follow the cultures. Monitor fluid-electrolyte balance closely. Bronchodilators. Consult Dr. Eden regarding the hypoxia. Otherwise, repeat labs. Once again, the prognosis is extremely guarded. Further recommendations to follow. MMODL / IJN: [id number] /
[2023-05-22] MEDS: FUROSEMIDE 10 MG/ML 4 ML VIAL IV SCH ×2 (15:37→20:14)
[2023-05-22 16:23] LABS: Glucose,Whole Blood 118 mg/dL (70-110)
--- NOTE | 2023-05-22 16:32 | P.CNPUL ---
History of Present Illness Consult date: 05/22/23 Reason for consult: dyspnea History of present illness: I was asked to evaluate this 88-year-old female patient as the patient is currently and hypoxic respiratory failure and the patient is currently on a BiPAP. The patient was hospitalized on 05/15/2022 in the emergency department. She is known to have CHF, chronic A. fib, pacemaker, hypertension, hyperlipidemia, hypothyroidism and dementia. Her pacemaker is for an underlying sick sinus syndrome. She has chronic A. fib. She was hospitalized for generalized weakness. She also had a fall that was not witnessed by family members. At the time of admission, she had leukocytosis, CAT scan of the brain was negative, chest x-ray showed smaller lung volumes along with atelectatic changes in the increased interstitial infiltrates bilaterally. She had also chronic kidney disease and a creatinine of the fluctuating during this current admission. In fact, she had an acute kidney injury at time of admission and the creatinine went been gradually downtrending. The urine culture was positive for E. coli. The patient also had staph aureus in the blood, MSSA and the patient was covered with IV cefazolin. She remained quite weak and debilitated. Orthopedic was also consulted as the patient was having significant motor weakness and MRI imaging of the back was also requested as part of further investigation. However, the MRI was not done as the patient has a pacemaker in place. Subsequently, the patient becomes more hypoxic, and oxygen requirements go up from 2 L up to 10 L and subsequently she got placed on a BiPAP. The chest x-ray from today shows increased bilateral pulmonary vascular markings and bilateral pleural effusion. There is also cardiomegaly and acute abdominal series as well as done today showed CHF, distention of the small and large bowel and oral contraceptive progress into the colon and she has sigmoid diverticulosis. The CAT scan of the abdomen that was on 05/18/2023 showed mild finding that may reflect ileus without any mechanical obstruction. There was evidence of colonic diverticulosis. Echocardiogram showing normal LV, mild concentric LVH, ejection fraction of 50-55%, right ventricular systolic pressure estimated to be around 46. She also has moderate aortic stenosis with a mean gradient of 10. The most recent labs showed the [place] 21.8, hemoglobin of 10, BUN of 86 and a creatinine of 1.7 and sodium levels of 133. Patient is currently on Lasix 40 mg IV every 12 hours. The patient remains on IV cefazolin. She is producing urine output in the order of 500 mL over the past 24 hours. Review of Systems ROS unobtainable: due to mental status Past Medical History Past Medical History: Atrial Fibrillation, Heart Failure, Hyperlipidemia, Hyp ertension, Memory Impairment, Musculoskeletal Disorder, Osteoarthritis (OA), Renal Disease, Thyroid Disorder Additional Past Medical History / Comment(s): heart murmur, CKD-sees specialist, low back pain, DEMENTIA History of Any Multi-Drug Resistant Organisms: None Reported Past Surgical History: AICD, Cholecystectomy, Heart Catheterization, Hysterectomy Additional Past Surgical History / Comment(s): pain procedures, cardioversion, Past Anesthesia/Blood Transfusion Reactions: No Reported Reaction Type of Cardiac Device: AICD Device Placement Date:: September 2020 W[place] Smoking Status: Former smoker - Past Family History Mother Family Medical History: No Reported History Father Family Medical History: Cancer Medications and Allergies Home Medications Medication Instructions Recorded Confirmed Type Levothyroxine Sodium [Synthroid] 25 mcg PO DAILY 04/10/20 05/15/23 History Apixaban [Eliquis] 5 mg PO BID 01/23/21 05/15/23 History Multivitamins, Thera [Multivitamin 1 tab PO DAILY 01/23/21 05/15/23 History (formulary)] Thiamine [Vitamin B-1] 100 mg PO DAILY 01/23/21 05/15/23 History Cyanocobalamin (Vitamin B-12) 1,000 mcg PO DAILY 04/11/21 05/15/23 History [Vitamin B-12] Rivastigmine Tartrate 4.5 mg PO BID 04/11/21 05/15/23 History [Rivastigmine] Atorvastatin [Lipitor] 20 mg PO HS 05/15/23 05/15/23 History [place]-3 500mg 500 mg PO DAILY 05/15/23 05/15/23 History Allergies Allergy/AdvReac Type Severity Reaction Status Date / Time lorazepam [From Ativan] AdvReac Hallucinati Verified 05/15/23 11:13 ons metoprolol AdvReac Hallucinati Verified 05/15/23 11:13 ons oxybutynin AdvReac Hallucinati Verified 05/15/23 11:13 ons Physical Exam Vitals: Vital Signs Temp Pulse Pulse Resp BP Pulse Ox FiO2 05/22/23 11:45 72 05/22/23 11:42 71 26 H 136/60 95 55 05/22/23 11:25 72 55 05/22/23 09:07 71 30 H 135/61 93 L 55 05/22/23 08:16 76 05/22/23 08:03 94 L 55 05/22/23 08:00 72 55 05/22/23 03:40 55 05/22/23 03:08 97.7 F 70 28 H 132/62 94 L 65 05/22/23 01:15 97.7 F 70 26 H 93/58 95 65 05/22/23 00:49 65 05/22/23 00:25 100 05/22/23 00:24 100 05/21/23 22:46 84 05/21/23 22:32 80 05/21/23 21:00 34 H 05/21/23 19:36 98.6 F 79 113/66 05/21/23 16:30 95 Intake and Output 05/21/23 05/22/23 05/22/23 22:59 06:59 14:59 Intake Total 120 Output Total 200 300 Balance -200 -300 120 Intake: Oral 120 Output: Urine 200 300 Other: Voiding Method Indwelling Catheter Indwelling Catheter # Bowel Movements 0 Gen: This is an 88-year-old female who is confused, currently on a BiPAP for us to support Head exam was generally normal. There was no scleral icterus or corneal arcus. Mucous membranes were moist. HEENT: Head is atraumatic, normocephalic. Pupils equal, round. Sclerae is anicteric. NECK: Supple. No JVD. No lymphadenopathy. No thyromegaly. LUNGS: Breath sounds diminished bilaterally with some scattered rhonchi and faint crackles noted at the bases. No intercostal retractions. HEART: Regular rate and rhythm. No murmur. She has a pacemaker pocket over the left anterior chest area ABDOMEN: Soft. Obese. Less Distended. Bowel sounds are present. No masses. No tenderness. EXTREMITIES: No pedal edema. No calf tenderness. NEUROLOGICAL: Patient is awake, alert and oriented x1-2. Diffusely weak Examination of the skin revealed no evidence of significant rashes, suspicious appearing nevi or other concerning lesions. Results - Laboratory Findings CBC and BMP: 05/22/23 07:43 05/22/23 07:43 Abnormal lab findings: Abnormal Labs 05/15/23 05/15/23 05/15/23 11:36 11:36 11:36 WBC 29.6 H RBC 3.46 L Hgb 10.5 L Hct 31.9 L MCHC Neutrophils # Neutrophils # (Manual) 27.50 H Lymphocytes # Lymphocytes # (Manual) 0.30 L Monocytes # Monocytes # (Manual) 1.78 H Eosinophils # ESR Sodium 133 L Potassium Chloride Carbon Dioxide 19 L Anion Gap BUN 31 H Creatinine 1.42 H Est GFR (CKD-EPI) BUN/Creatinine Ratio Glucose 129 H POC Glucose (mg/dL) Hemoglobin A1c Calcium 10.3 H Magnesium Total Bilirubin 1.9 H AST 39 H Creatine Kinase 277 H C-Reactive Protein Total Protein Albumin Albumin/Globulin Ratio Vitamin B12 Folate Procalcitonin Urine Protein Trace H Ur Leukocyte Esterase Moderate H Urine WBC 16 H Urine Bacteria Moderate H Urine Mucus Rare H 05/16/23 05/16/23 05/16/23 06:58 06:58 06:58 WBC 24.5 H RBC 3.31 L Hgb 9.9 L Hct 31.6 L MCHC Neutrophils # 23.0 H Neutrophils # (Manual) Lymphocytes # 0.5 L Lymphocytes # (Manual) Monocytes # Monocytes # (Manual) Eosinophils # ESR Sodium 136 L Potassium 5.5 H Chloride Carbon Dioxide 18 L Anion Gap BUN 48 H Creatinine 2.59 H Est GFR (CKD-EPI) BUN/Creatinine Ratio Glucose 136 H POC Glucose (mg/dL) Hemoglobin A1c Calcium Magnesium Total Bilirubin AST 59 H Creatine Kinase C-Reactive Protein Total Protein Albumin Albumin/Globulin Ratio Vitamin B12 Folate Procalcitonin 13.50 H Urine Protein Ur Leukocyte Esterase Urine WBC Urine Bacteria Urine Mucus 05/16/23 05/17/23 05/17/23 17:04 06:30 06:30 WBC RBC Hgb Hct MCHC Neutrophils # Neutrophils # (Manual) Lymphocytes # Lymphocytes # (Manual) Monocytes # Monocytes # (Manual) Eosinophils # ESR Sodium Potassium 5.9 H Chloride Carbon Dioxide 18 L Anion Gap 13.60 H BUN 52 H 45.3 H Creatinine 2.43 H 1.9 H Est GFR (CKD-EPI) 25 L BUN/Creatinine Ratio 23.84 H Glucose 151 H 120 H POC Glucose (mg/dL) Hemoglobin A1c Calcium Magnesium Total Bilirubin AST 56 H 49 H Creatine Kinase C-Reactive Protein 28.50 H Total Protein Albumin 3.7 L Albumin/Globulin Ratio 1.42 L Vitamin B12 Folate Procalcitonin 8.47 H Urine Protein Ur Leukocyte Esterase Urine WBC Urine Bacteria Urine Mucus 05/17/23 05/18/23 05/18/23 06:30 06:47 06:47 WBC 18.45 H 13.30 H RBC 3.18 L 3.23 L Hgb 9.4 L 9.5 L Hct 30.2 L 30.0 L MCHC 31.1 L 31.7 L Neutrophils # 16.97 H 11.53 H Neutrophils # (Manual) Lymphocytes # 0.52 L 0.61 L Lymphocytes # (Manual) Monocytes # 1.03 H Monocytes # (Manual) Eosinophils # 0.03 L ESR Sodium Potassium Chloride Carbon Dioxide Anion Gap BUN 37.8 H Creatinine Est GFR (CKD-EPI) 44 L BUN/Creatinine Ratio 31.50 H Glucose 157 H POC Glucose (mg/dL) Hemoglobin A1c Calcium Magnesium Total Bilirubin AST Creatine Kinase C-Reactive Protein Total Protein Albumin Albumin/Globulin Ratio Vitamin B12 Folate Procalcitonin Urine Protein Ur Leukocyte Esterase Urine WBC Urine Bacteria Urine Mucus 05/19/23 05/19/23 05/19/23 05:19 16:30 16:30 WBC RBC Hgb Hct MCHC Neutrophils # Neutrophils # (Manual) Lymphocytes # Lymphocytes # (Manual) Monocytes # Monocytes # (Manual) Eosinophils # ESR Sodium 147 H Potassium 3.2 L Chloride Carbon Dioxide Anion Gap 17.60 H BUN 46.4 H Creatinine Est GFR (CKD-EPI) 44 L BUN/Creatinine Ratio 38.67 H Glucose 121 H POC Glucose (mg/dL) Hemoglobin A1c Calcium Magnesium Total Bilirubin AST Creatine Kinase C-Reactive Protein Total Protein Albumin Albumin/Globulin Ratio Vitamin B12 >3600.0 H Folate 40.00 H Procalcitonin Urine Protein Ur Leukocyte Esterase Urine WBC Urine Bacteria Urine Mucus 05/19/23 05/20/23 05/20/23 16:30 05:50 05:50 WBC 13.30 H RBC 3.43 L Hgb 10.0 L Hct 32.1 L MCHC 31.2 L Neutrophils # 10.70 H Neutrophils # (Manual) Lymphocytes # 0.88 L Lymphocytes # (Manual) Monocytes # 1.47 H Monocytes # (Manual) Eosinophils # ESR Sodium Potassium 3.4 L Chloride Carbon Dioxide Anion Gap 12.90 H BUN 55.4 H Creatinine Est GFR (CKD-EPI) 40 L BUN/Creatinine Ratio 42.62 H Glucose 146 H POC Glucose (mg/dL) Hemoglobin A1c 6.1 H Calcium Magnesium Total Bilirubin AST Creatine Kinase C-Reactive Protein Total Protein Albumin Albumin/Globulin Ratio Vitamin B12 Folate Procalcitonin Urine Protein Ur Leukocyte Esterase Urine WBC Urine Bacteria Urine Mucus 05/21/23 05/21/23 05/21/23 07:29 07:29 07:29 WBC 17.24 H RBC 3.48 L Hgb 10.2 L Hct 32.2 L MCHC 31.7 L Neutrophils # 14.35 H Neutrophils # (Manual) Lymphocytes # Lymphocytes # (Manual) Monocytes # 1.30 H Monocytes # (Manual) Eosinophils # ESR 61 H Sodium 136 L Potassium Chloride 96 L Carbon Dioxide Anion Gap BUN 68 H Creatinine 1.39 H Est GFR (CKD-EPI) BUN/Creatinine Ratio Glucose 108 H POC Glucose (mg/dL) Hemoglobin A1c Calcium Magnesium 2.5 H Total Bilirubin AST Creatine Kinase C-Reactive Protein 24.00 H Total Protein Albumin Albumin/Globulin Ratio Vitamin B12 Folate Procalcitonin Urine Protein Ur Leukocyte Esterase Urine WBC Urine Bacteria Urine Mucus 05/22/23 05/22/23 05/22/23 00:15 06:17 07:43 WBC 21.8 H RBC 3.39 L Hgb 10.0 L Hct 30.9 L MCHC Neutrophils # 19.5 H Neutrophils # (Manual) Lymphocytes # 0.8 L Lymphocytes # (Manual) Monocytes # Monocytes # (Manual) Eosinophils # ESR Sodium Potassium Chloride Carbon Dioxide Anion Gap BUN Creatinine Est GFR (CKD-EPI) BUN/Creatinine Ratio Glucose POC Glucose (mg/dL) 140 H 148 H Hemoglobin A1c Calcium Magnesium Total Bilirubin AST Creatine Kinase C-Reactive Protein Total Protein Albumin Albumin/Globulin Ratio Vitamin B12 Folate Procalcitonin Urine Protein Ur Leukocyte Esterase Urine WBC Urine Bacteria Urine Mucus 05/22/23 05/22/23 05/22/23 07:43 11:12 12:01 WBC RBC Hgb Hct MCHC Neutrophils # Neutrophils # (Manual) Lymphocytes # Lymphocytes # (Manual) Monocytes # Monocytes # (Manual) Eosinophils # ESR Sodium 133 L Potassium Chloride Carbon Dioxide 21 L Anion Gap BUN 86 H Creatinine 1.71 H Est GFR (CKD-EPI) BUN/Creatinine Ratio Glucose POC Glucose (mg/dL) 127 H Hemoglobin A1c Calcium Magnesium Total Bilirubin AST 65 H Creatine Kinase C-Reactive Protein 32.6 H Total Protein 5.2 L Albumin 2.5 L Albumin/Globulin Ratio Vitamin B12 Folate Procalcitonin Urine Protein Ur Leukocyte Esterase Urine WBC Urine Bacteria Urine Mucus - Diagnostic Findings Chest x-ray: image reviewed Assessment and Plan Plan: Acute hypoxic respiratory failure, currently on BiPAP for respiratory support. Respiratory failure is multifactorial. The patient has been admitted for UTI and subsequently was found to have a staph septicemia. She is very much debilitated and weak related to her age and comorbidities. She may have an underlying CHF along with an acute kidney injury and a chest x-ray showing increased pulmonary vessel markings and small pleural effusion and cardiomegaly. Echocardiogram shows a preserved LV function with mild degree of aortic stenosis and moderate degree of pulmonary hypertension E. coli urinary tract infection Staph aureus septicemia, MSSA, no evidence of any endocarditis based on transthoracic cardiography Chronic stage III B kidney disease with acute kidney injury Generalized weakness and falls History of chronic back pain and lumbar stenosis Ileus Hypertension Hyperlipidemia Hypothyroidism Dementia with ongoing issues with mental status change and toxic metabolic encephalopathy History of sick sinus syndrome and the patient is a pacemaker in place History of A. fib Plan The patient is critically ill at this point in time. Had a lengthy discussion with the daughter the bedside. We'll need to establish goals of care. Would need to establish advanced directives failure secondary to make further decompensate. Currently is on a BiPAP however abdomen is quite distended. I recommended switching here to high flow oxygen and inserting an NG tube to decompress abdominal distention/ileus. Continue diuretics. Monitor hemodynamics. Monitor electrolytes. Monitor renal function. Continue antibiotics. High likelihood that the patient may further decompensate. If so and the family wants a full CODE STATUS, should the chest in intensive care unit for further monitoring and possible intubation mechanical ventilation and this is based on her progress. Prognosis poor. No other changes from my standpoint.
--- NOTE | 2023-05-22 16:35 | P.PN ---
Subjective Progress Note Date: 05/22/23 Patient was seen for a follow-up. Patient appears quite sick. She is laying in the bed. She has Airvo. Patient's abdomen appears distended. She has slow mentation. Surgery is on board. No obvious cause for ileus. Patient's daughter was present. Patient does have history of dementia at baseline. Objective - Vital Signs Vital signs: Vital Signs Temp 98.4 F 05/22/23 15:42 Pulse 80 05/22/23 16:18 Resp 34 H 05/22/23 16:21 BP 109/65 05/22/23 15:42 Pulse Ox 92 L 05/22/23 16:22 FiO2 90 05/22/23 16:22 Intake & Output 05/21/23 05/22/23 05/22/23 18:59 06:59 18:59 Intake Total 120 Output Total 200 300 Balance -200 -300 120 Weight 68.039 kg Intake: Oral 120 Output: Urine 200 300 Other: Voiding Method Indwelling Catheter Indwelling Catheter # Bowel Movements 0 - Exam Patient is alert and awake, in mild to moderate respiratory distress. Her abdomen is distended. Speech-language mentions a normal. Examination otherwise unchanged. Patient is alert and oriented 1 as baseline. - Labs CBC & Chem 7: 05/22/23 07:43 05/22/23 07:43 Labs: Abnormal Lab Results - Last 24 Hours (Table) 05/22/23 05/22/23 05/22/23 Range/Units 00:15 06:17 07:43 WBC 21.8 H (3.8-10.6) k/uL RBC 3.39 L (3.80-5.40) m/uL Hgb 10.0 L (11.4-16.0) gm/dL Hct 30.9 L (34.0-46.0) % Neutrophils # 19.5 H (1.3-7.7) k/uL Lymphocytes # 0.8 L (1.0-4.8) k/uL Sodium (137-145) mmol/L Carbon Dioxide (22-30) mmol/L BUN (7-17) mg/dL Creatinine (0.52-1.04) mg/dL POC Glucose (mg/dL) 140 H 148 H (70-110) mg/dL AST (14-36) U/L C-Reactive Protein (<1.0) mg/dL Total Protein (6.3-8.2) g/dL Albumin (3.5-5.0) g/dL 05/22/23 05/22/23 05/22/23 Range/Units 07:43 11:12 12:01 WBC (3.8-10.6) k/uL RBC (3.80-5.40) m/uL Hgb (11.4-16.0) gm/dL Hct (34.0-46.0) % Neutrophils # (1.3-7.7) k/uL Lymphocytes # (1.0-4.8) k/uL Sodium 133 L (137-145) mmol/L Carbon Dioxide 21 L (22-30) mmol/L BUN 86 H (7-17) mg/dL Creatinine 1.71 H (0.52-1.04) mg/dL POC Glucose (mg/dL) 127 H (70-110) mg/dL AST 65 H (14-36) U/L C-Reactive Protein 32.6 H (<1.0) mg/dL Total Protein 5.2 L (6.3-8.2) g/dL Albumin 2.5 L (3.5-5.0) g/dL 05/22/23 Range/Units 16:21 WBC (3.8-10.6) k/uL RBC (3.80-5.40) m/uL Hgb (11.4-16.0) gm/dL Hct (34.0-46.0) % Neutrophils # (1.3-7.7) k/uL Lymphocytes # (1.0-4.8) k/uL Sodium (137-145) mmol/L Carbon Dioxide (22-30) mmol/L BUN (7-17) mg/dL Creatinine (0.52-1.04) mg/dL POC Glucose (mg/dL) 118 H (70-110) mg/dL AST (14-36) U/L C-Reactive Protein (<1.0) mg/dL Total Protein (6.3-8.2) g/dL Albumin (3.5-5.0) g/dL Microbiology - Last 24 Hours (Table) 05/17/23 06:30 Blood Culture - Final Blood 05/18/23 06:47 Blood Culture - Preliminary Blood Assessment and Plan Assessment: * Altered mental status, likely due to toxic-metabolic encephalopathy * Acute UTI * Acute ileus, unclear cause. * Recent bacteremia with Staphylococcus aureus. No evidence of endocarditis on echo. * Mild renal insufficiency * Hypernatremia * Hypokalemia * Atrial fibrillation * CHF * Hypertension * Hyperlipidemia * Prediabetes * Mild dementia, per patient's son report * Osteoarthritis * AICD * X tobacco use Plan: * EEG was abnormal due to background slowing of moderate degree. This is severe generalized cerebral dysfunction as can be seen with toxic metabolic encephalopathy or related to diffuse structural brain abnormality. Clinical correlation is recommended. * Patient's neurological examination is nonfocal. * Avoid opiates, sedatives, hypnotics or anticholinergics. * B12 >3600, folate 40, TSH 1.43, ammonia , hemoglobin A1c 6.1. * Neurologically no other workup indicated. * Management of other medical conditions as per IM and other specialties. * Per nurse report, patient is now DO NOT RESUSCITATE. * Neurology will sign off. Please reconsult if any concerns.
--- NOTE | 2023-05-22 16:43 | CT ---
EXAMINATION TYPE: CT thor lumbar spine wo con DATE OF EXAM: 05/22/2023 COMPARISON: CT lumbar spine dated 01/09/2021 HISTORY: unknown source of infection CT DLP: 1588.4 mGycm Automated exposure control for dose reduction was used. FINDINGS: Thoracic spine: The thoracic vertebral segments are normal in height and alignment and there is no fracture or sublux ation. There is mild to moderate osteopenia. There is no bony compromise of the thoracic spinal canal .At the T3-4 level there is a focal area of increased density in the anterior dural or epidural space which could represent a small epidural hemorrhage. Clinical correlation is recommended. There is marked degenerative disease throughout the thoracic region with marked disc space narrowing and mild to moderate spondylosis Lumbar spine: Lumbar vertebral segments are normal in height. There is a grade 1 anterolisthesis of L4 on L5. There is moderate degenerative disease throughout the lumbar region with disc space narrowing, vacuum phenomena and spondylosis. 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 Graft ther e is advanced osteoarthritic change of the facets at the L4-5 level There is moderate spinal stenosis at the L3-4 level secondary to disc bulge and thickening of ligamen christin flavum The paraspinal soft tissues are unremarkable. Note is made of consolidative infiltrates and pleural effusions in the lung bases. Impression: 1. solidative infiltrates and pleural effusions in the lung bases. 2. Advanced degenerative changes in the thoracic and lumbar spine as described. 3. No interval change in appearance of the lumbar spine compared to previous. 4. Grade 1 anterolisthesis of L4 and L5. 4. Possible small focal epidural hemorrhage at the T3-4 level anteriorly as described above. Clinical correlation recommended. 5. No definite bony destructive changes in the thoracic or lumbar spine. If there is a clinical suspi cion of discitis than MRI would be useful for further evaluation.
--- NOTE | 2023-05-22 19:26 | P.PN ---
Subjective Progress Note Date: 05/22/23 Principal diagnosis: Reason for follow-up is MSSA bacteremia Patient is a 88-year-old female with a past medical history significant for atrial fibrillation hypertension hyperlipidemia heart failure with patient was brought into the hospital after family patient was found to be on the floor , patient complaining of weakness and pain to the lower back area and did have a positive blood culture with MSSA. On today's evaluation that is 05/22/2023, the patient remains to be afebrile, the patient did have slight worsening of her respiratory status has been transferred to the cardiac unit and is currently on a BiPAP patient is awake and also specifically denies any chest pain or cough, the patient still has significant abdominal distention no vomiting has been reported did have a small bowel movement last night per the daughter at the bedside Patient white count is up to 21.18 and a creatinine is 1.71, CT of abdominal pelvis limited study no evidence of acute inflammatory process and abdominal pelvis possible small bowel obstruction Objective - Vital Signs Vital signs: Vital Signs Temp 97.7 F 05/22/23 03:08 Pulse 71 05/22/23 09:07 Resp 30 H 05/22/23 09:07 BP 135/61 05/22/23 09:07 Pulse Ox 93 L 05/22/23 09:07 FiO2 55 05/22/23 09:07 Intake & Output 05/21/23 05/22/23 05/22/23 18:59 06:59 18:59 Output Total 200 300 Balance -200 -300 Weight 68.039 kg Output: Urine 200 300 Other: Voiding Method Indwelling Catheter # Bowel Movements 0 - Exam GENERAL DESCRIPTION: An elderly female lying in bed in no distress RESPIRATORY SYSTEM: Unlabored breathing , decreased best at the base HEART: S1 S2 regular rate and rhythm , ABDOMEN: Soft , mild distention EXTREMITIES: No edema feet - Labs CBC & Chem 7: 05/22/23 07:43 05/22/23 07:43 Labs: Abnormal Lab Results - Last 24 Hours (Table) 05/21/23 05/21/23 05/22/23 Range/Units 07:29 07:29 00:15 WBC 17.24 H (4.50-10.00) X 10*3/uL RBC 3.48 L (4.10-5.20) X 10*6/uL Hgb 10.2 L (12.0-15.0) g/dL Hct 32.2 L (37.2-46.3) % MCHC 31.7 L (32.0-37.0) g/dL Neutrophils # 14.35 H (1.80-7.70) X 10*3/uL Lymphocytes # (1.0-4.8) k/uL Monocytes # 1.30 H (0.20-1.00) X 10*3/uL ESR 61 H (0-30) mm/Hr POC Glucose (mg/dL) 140 H (70-110) mg/dL Magnesium 2.5 H (1.5-2.4) mg/dL C-Reactive Protein 24.00 H (0.00-0.80) mg/dL 05/22/23 05/22/23 Range/Units 06:17 07:43 WBC 21.8 H (4.50-10.00) X 10*3/uL RBC 3.39 L (4.10-5.20) X 10*6/uL Hgb 10.0 L (12.0-15.0) g/dL Hct 30.9 L (37.2-46.3) % MCHC (32.0-37.0) g/dL Neutrophils # 19.5 H (1.80-7.70) X 10*3/uL Lymphocytes # 0.8 L (1.0-4.8) k/uL Monocytes # (0.20-1.00) X 10*3/uL ESR (0-30) mm/Hr POC Glucose (mg/dL) 148 H (70-110) mg/dL Magnesium (1.5-2.4) mg/dL C-Reactive Protein (0.00-0.80) mg/dL Microbiology - Last 24 Hours (Table) 05/18/23 06:47 Blood Culture - Preliminary Blood Assessment and Plan (1) Bacteremia Current Visit: Yes Status: Acute Code(s): R78.81 - BACTEREMIA SNOMED Code(s): 9226381 Plan: 1patient with a Staph aureus bacteremia , in this patient presented to hospital with a fall found on the floor has been complaining of more lower back pain and history of chronic back pain with a question of possible discitis/osteomyelitis to lumbosacral spine area as currently do not have any evidence of cellulitis, no joint swelling or other clear focus of this bacteremia, patient did have a positive UA underlying urinary source less likely as the patient did not have any urinary symptoms patient was noticed to have significant abdominal distention and some tenderness for the patient did have CT of abdominal pelvis did not show any acute inflammatory process 2-patient did have a renal insufficiency and high risk of nephrotoxicity, being monitored closely by nephrology 3--blood culture drawn 05/17/2023 has been negative so far, echocardiogram did not show any vegetation 4Patient to continue with cefazolin and Flagyl ,MRI couldnot be done becasue of pacemaker ,with worsening respiratory status possible related to abdominal distension , may benefit from surgery reevalation and possible NG or transfer to tertiary care Daughter at the bedside questions were answered Dictation was produced using [employer] dictation software. please excuse any gramma tical, word or spelling errors. Time with Patient: Greater than 30
[2023-05-22 19:44] LABS: Glucose,Whole Blood 109 mg/dL (70-110)
[2023-05-22] MEDS: SENNOSIDES 8.6 MG TAB PO SCH (20:14)
[2023-05-23] MEDS: metroNIDAZOLE-NS PMX 500 MG in SALINE 1 100ML.BAG IVPB SCH ×3 (00:23→17:27)
[2023-05-23] MEDS: LEVOTHYROXINE 25 MCG TAB PO SCH (05:10)
[2023-05-23 06:06] LABS: Glucose,Whole Blood 93 mg/dL (70-110)
[2023-05-23 07:49] LABS: Basophils # (A) 0.1 k/uL (0-0.2); Basophils % (A) 0 %; Eosinophils # (A) 0.4 k/uL (0-0.7); Eosinophils % (A) 2 %; HCT 29.1 % (34.0-46.0); HGB 9.2 gm/dL (11.4-16.0); Lymphocytes # (A) 0.8 k/uL (1.0-4.8); Lymphocytes % (A) 3 %; MCH 29.4 pg (25.0-35.0); MCHC 31.6 g/dL (31.0-37.0); MCV 93.1 fL (80.0-100.0); Mean Platelet Volume 9.1; Monocytes % (A) 9 %; Neutrophils # (A) 19.9 k/uL (1.3-7.7); Neutrophils % (A) 85 %; Platelet Count 348 k/uL (150-450); RBC 3.13 m/uL (3.80-5.40); WBC 23.4 k/uL (3.8-10.6)
--- NOTE | 2023-05-23 08:02 | XR ---
EXAMINATION TYPE: XR chest 1V portable DATE OF EXAM: 05/23/2023 6:24 AM CLINICAL INDICATION:Female, 88 years old with history of chf; [facility] COMPARISON: Chest radiograph 05/22/2023. TECHNIQUE: XR chest 1V portable Frontal view of the chest. FINDINGS: There is redemonstration of bilateral multifocal hazy airspace opacities. Suggestion of trace left pl eural effusion which is minimally progressed however is partially obscured secondary to overlying ken ds. No evidence of pneumothorax. Left-sided chest wall AICD is again identified. Osseous structures a re intact. Mild cardiomegaly is present. IMPRESSION: Mild interval progression of congestive heart failure changes.
[2023-05-23 08:15] LABS: ALT 9 U/L (4-34); AST 71 U/L (14-36); African American GFR (CKD) 21 (>60 ml/min/1.73 sqM); Albumin 2.3 g/dL (3.5-5.0); Alkaline Phosphatase 81 U/L (38-126); Anion Gap 14 mmol/L; Blood Urea Nitrogen 94 mg/dL (7-17); Calcium 8.3 mg/dL (8.4-10.2); Carbon Dioxide 20 mmol/L (22-30); Chloride 101 mmol/L (98-107); Glucose 73 mg/dL (74-99); Non-African American GFR(CKD) 18 (>60 ml/min/1.73 sqM); Potassium 3.2 mmol/L (3.5-5.1); Sodium 135 mmol/L (137-145); Total Bilirubin 0.6 mg/dL (0.2-1.3); Total Protein 4.9 g/dL (6.3-8.2)
[2023-05-23] MEDS: IPRATROPIUM-ALBUTEROL 3 ML NEB INHALATION SCH ×4 (08:55→21:27)
[2023-05-23] MEDS: FUROSEMIDE 10 MG/ML 4 ML VIAL IV SCH (09:20)
--- NOTE | 2023-05-23 10:04 | P.PN ---
Progress Note - Text Progress Note Date: 05/23/23 The patient is resting in her bed. She has no complaints of abdominal pain. Per the nursing staff her x-ray shows evidence of ileus. On exam vital signs appear stable. Patient is slight short of breath. Patient has an ileus. I discussed patient and her son that she may require nasogastric tube. The patient will be observed currently. No surgical intervention is planned.
[2023-05-23] MEDS: MULTIVITAMINS, THERA 1 EACH TAB PO SCH (10:15)
[2023-05-23] MEDS: LABETALOL 100 MG TAB PO SCH ×2 (10:15→20:15)
[2023-05-23] MEDS: DONEPEZIL 10 MG TAB PO SCH (10:15)
[2023-05-23] MEDS: hydrALAZINE HCL 50 MG TAB PO SCH ×3 (10:15→20:16)
[2023-05-23] MEDS: SIMETHICONE 40 MG/0.6 ML DROPS 2,000 MG/30 ML BOTTLE PO SCH ×4 (10:15→22:34)
[2023-05-23] MEDS: THIAMINE 100 MG TAB PO SCH (10:15)
[2023-05-23] MEDS: CYANOCOBALAMIN 500 MCG TAB PO SCH (10:15)
[2023-05-23] MEDS: POTASSIUM CHLORIDE ER 20 MEQ TAB.ER PO SCH ×2 (10:15→20:16)
[2023-05-23] MEDS ORDERED: Potassium Replacement Protocol 1 EACH MISC MISCELLANE PRN ×2 (10:19→10:28)
[2023-05-23] MEDS ORDERED: Magnesium Replacement Protocol 1 EACH MISC MISCELLANE PRN (10:19)
[2023-05-23] MEDS: POTASSIUM CHLORIDE 10 MEQ in WATER FOR INJECTION 1 100ML.BAG IVPB SCH ×4 (10:50→21:46)
--- NOTE | 2023-05-23 11:23 | P.PN ---
Subjective Progress Note Date: 05/23/23 Principal diagnosis: Low back pain Patient was examined today at bedside, she is resting in bed with BiPAP. Patient's son is at bedside today. I was contacted by nursing staff yesterday regarding the thoracic/lumbar computed tomography scan results. There was question of a hematoma present at the T3-T4 area. I was able to review these images with my attending Dr. Izaguirre, low concern for hematoma at this time, osteophyte noted in the T3-T4 region. Did explain this to the patient's family today at bedside, they are in good understanding. Patient continues to demonstrate no acute neuropathic signs at this time, she is complaining of very minimal discomfort to the, thoracic or lumbar region. Objective - Vital Signs Vital signs: Vital Signs Temp 97.9 F 05/23/23 00:00 Pulse 81 05/23/23 08:56 Resp 22 05/23/23 08:56 BP 131/58 05/23/23 04:49 Pulse Ox 91 L 05/23/23 08:56 FiO2 80 05/23/23 08:56 Intake & Output 05/22/23 05/23/23 05/23/23 18:59 06:59 18:59 Intake Total 120 Output Total 200 200 Balance -80 -200 Intake: Oral 120 Output: Urine 200 200 Other: Voiding Method Indwelling Catheter Indwelling Catheter Indwelling Catheter # Bowel Movements 1 - Exam Gen: AOx3, NAD VSS stable at this time Integument: No obvious open lesions or sores are present throughout cervical, thoracic or lumbar spine Palpation: She demonstrates tenderness with palpation of the lower lumbar spine mainly in the paraspinal region ROM: Range of motion intact with regards to the bilateral upper extremities with regards to shoulder elevation, shoulder abduction, elbow extension, elbow flexion, wrist extension, wrist flexion, wwe wrestler. No significant strength deficits are appreciated in the bilateral upper extremities Flexion, knee extension, knee flexion, plantar flexion, dorsiflexion, EHL, FHL are intact, 4/5 strength appreciated in those muscle groups to bilateral lower extremities Sensory Exam: Senory exam to light touch is intact C5-T1 Senosry exam to light touch is intact L2-S1 Reflexes: 2/4 in all UE and LE Negative Matthew's bilaterally, negative Babinski bilaterally, negative clonus bilaterally Special Test: Negative straight leg raise bilaterally - Labs CBC & Chem 7: 05/23/23 07:25 05/23/23 07:25 Labs: Abnormal Lab Results - Last 24 Hours (Table) 05/22/23 05/22/23 05/22/23 Range/Units 11:12 12:01 16:21 WBC (3.8-10.6) k/uL RBC (3.80-5.40) m/uL Hgb (11.4-16.0) gm/dL Hct (34.0-46.0) % Neutrophils # (1.3-7.7) k/uL Lymphocytes # (1.0-4.8) k/uL Monocytes # (0-1.0) k/uL Sodium (137-145) mmol/L Potassium (3.5-5.1) mmol/L Carbon Dioxide (22-30) mmol/L BUN (7-17) mg/dL Creatinine (0.52-1.04) mg/dL Glucose (74-99) mg/dL POC Glucose (mg/dL) 127 H 118 H (70-110) mg/dL Calcium (8.4-10.2) mg/dL AST (14-36) U/L C-Reactive Protein 32.6 H (<1.0) mg/dL Total Protein (6.3-8.2) g/dL Albumin (3.5-5.0) g/dL 05/23/23 05/23/23 Range/Units 07:25 07:25 WBC 23.4 H (3.8-10.6) k/uL RBC 3.13 L (3.80-5.40) m/uL Hgb 9.2 L (11.4-16.0) gm/dL Hct 29.1 L (34.0-46.0) % Neutrophils # 19.9 H (1.3-7.7) k/uL Lymphocytes # 0.8 L (1.0-4.8) k/uL Monocytes # 2.0 H (0-1.0) k/uL Sodium 135 L (137-145) mmol/L Potassium 3.2 L (3.5-5.1) mmol/L Carbon Dioxide 20 L (22-30) mmol/L BUN 94 H (7-17) mg/dL Creatinine 2.34 H (0.52-1.04) mg/dL Glucose 73 L (74-99) mg/dL POC Glucose (mg/dL) (70-110) mg/dL Calcium 8.3 L (8.4-10.2) mg/dL AST 71 H (14-36) U/L C-Reactive Protein (<1.0) mg/dL Total Protein 4.9 L (6.3-8.2) g/dL Albumin 2.3 L (3.5-5.0) g/dL Microbiology - Last 24 Hours (Table) 05/17/23 06:30 Blood Culture - Final Blood Assessment and Plan Assessment: Acute on chronic low back pain Multilevel lumbar spondylosis Grade 1 spondylolisthesis L4-L5 Bacteremia UTI Other medical comorbidities Plan: After review of thoracic and lumbar CT with my attending Dr. Izaguirre T3T4 findings likely incidental, osteophyte in that region is noted. Less likely a hematoma present. MRI of the lumbar spine would be more definitive as we discussed previous, patient is unable to have this procedure done at this hospital due to pacemaker. Patient remains very medically unstable with multiple medical comorbidities. Patient is demonstrating no acute neuropathic signs. No orthopedic spine surgical intervention recommended at this time DVT prophylaxis per primary medical service Weight-bear as tolerated with walker PT/OT evaluation Other medical specialty recommendations appreciated Please contact our orthopedic service there are any further questions regarding this patient Time with Patient: Less than 30
[2023-05-23 11:56] LABS: Glucose,Whole Blood 80 mg/dL (70-110)
--- NOTE | 2023-05-23 12:04 | P.PN ---
Subjective Progress Note Date: 05/23/23 Principal diagnosis: Reason for follow-up is MSSA bacteremia Patient is a 88-year-old female with a past medical history significant for atrial fibrillation hypertension hyperlipidemia heart failure with patient was brought into the hospital after family patient was found to be on the floor , patient complaining of weakness and pain to the lower back area and did have a positive blood culture with MSSA. On today's evaluation that is 05/23/2023, the patient continues to be afebrile, the patient is requiring high flow nasal cannula oxygen, patient is awake , the patient denies any chest pain or cough, the patient still has significant abdominal distention no vomiting has been reported did have few bowel movement last night per the son at the bedside Patient white count is 23.4 and a creatinine is 2.34, CT of abdominal pelvis limited study no evidence of acute inflammatory process and abdominal pelvis possible small bowel obstruction Objective - Vital Signs Vital signs: Vital Signs Temp 97.9 F 05/23/23 00:00 Pulse 81 05/23/23 08:56 Resp 22 05/23/23 08:56 BP 131/58 05/23/23 04:49 Pulse Ox 91 L 05/23/23 08:56 FiO2 80 05/23/23 08:56 Intake & Output 05/22/23 05/23/23 05/23/23 18:59 06:59 18:59 Intake Total 120 Output Total 200 200 Balance -80 -200 Intake: Oral 120 Output: Urine 200 200 Other: Voiding Method Indwelling Catheter Indwelling Catheter Indwelling Catheter # Bowel Movements 1 - Exam GENERAL DESCRIPTION: An elderly female lying in bed in no distress RESPIRATORY SYSTEM: Unlabored breathing , decreased best at the base HEART: S1 S2 regular rate and rhythm , ABDOMEN: Soft , mild distention EXTREMITIES: No edema feet - Labs CBC & Chem 7: 05/23/23 07:25 05/23/23 07:25 Labs: Abnormal Lab Results - Last 24 Hours (Table) 05/22/23 05/22/23 05/22/23 Range/Units 11:12 12:01 16:21 WBC (3.8-10.6) k/uL RBC (3.80-5.40) m/uL Hgb (11.4-16.0) gm/dL Hct (34.0-46.0) % Neutrophils # (1.3-7.7) k/uL Lymphocytes # (1.0-4.8) k/uL Monocytes # (0-1.0) k/uL Sodium (137-145) mmol/L Potassium (3.5-5.1) mmol/L Carbon Dioxide (22-30) mmol/L BUN (7-17) mg/dL Creatinine (0.52-1.04) mg/dL Glucose (74-99) mg/dL POC Glucose (mg/dL) 127 H 118 H (70-110) mg/dL Calcium (8.4-10.2) mg/dL AST (14-36) U/L C-Reactive Protein 32.6 H (<1.0) mg/dL Total Protein (6.3-8.2) g/dL Albumin (3.5-5.0) g/dL 05/23/23 05/23/23 Range/Units 07:25 07:25 WBC 23.4 H (3.8-10.6) k/uL RBC 3.13 L (3.80-5.40) m/uL Hgb 9.2 L (11.4-16.0) gm/dL Hct 29.1 L (34.0-46.0) % Neutrophils # 19.9 H (1.3-7.7) k/uL Lymphocytes # 0.8 L (1.0-4.8) k/uL Monocytes # 2.0 H (0-1.0) k/uL Sodium 135 L (137-145) mmol/L Potassium 3.2 L (3.5-5.1) mmol/L Carbon Dioxide 20 L (22-30) mmol/L BUN 94 H (7-17) mg/dL Creatinine 2.34 H (0.52-1.04) mg/dL Glucose 73 L (74-99) mg/dL POC Glucose (mg/dL) (70-110) mg/dL Calcium 8.3 L (8.4-10.2) mg/dL AST 71 H (14-36) U/L C-Reactive Protein (<1.0) mg/dL Total Protein 4.9 L (6.3-8.2) g/dL Albumin 2.3 L (3.5-5.0) g/dL Microbiology - Last 24 Hours (Table) 05/17/23 06:30 Blood Culture - Final Blood Assessment and Plan (1) Bacteremia Current Visit: Yes Status: Acute Code(s): R78.81 - BACTEREMIA SNOMED Code(s): 7072958 Plan: 1patient with a Staph aureus bacteremia , in this patient presented to hospital with a fall found on the floor has been complaining of more lower back pain and history of chronic back pain with a question of possible discitis/osteomyelitis to lumbosacral spine area as currently do not have any evidence of cellulitis, no joint swelling or other clear focus of this bacteremia, patient did have a positive UA underlying urinary source less likely as the patient did not have any urinary symptoms patient was noticed to have significant abdominal distention and some tenderness for the patient did have CT of abdominal pelvis did not show any acute inflammatory process 2-patient did have a renal insufficiency and high risk of nephrotoxicity, being monitored closely by nephrology 3--blood culture drawn 05/17/2023 has been negative so far, echocardiogram did not show any vegetation 4MRI couldnot be done becasue of pacemaker , patient did have a CT of the thoracolumbar spine without any contrast, mentioned possible small for epidural hemorrhage at the T3-4 level and no evidence of any bony destructive changes in the thorax a lumbar spine 5-patient to continue with the cefazolin and Flagyl and monitor clinical course closely, prognosis remains to be guarded, care also discussed with the admitting physician Son at the bedside questions were answered Dictation was produced using [employer] dictation software. please excuse any grammatical, word or spelling errors. Time with Patient: Less than 30
[2023-05-23] MEDS: FOLIC ACID 1 MG TAB PO SCH (12:20)
[2023-05-23] MEDS: HYDROmorphone 0.5 MG/0.5 ML SYRINGE IVP PRN ×2 (12:23→18:28)
--- NOTE | 2023-05-23 12:40 | PN ---
PROGRESS NOTE DATE OF SERVICE: 05/23/2023 SUBJECTIVE: This is an 88-year-old woman who was admitted with multiple complex medical issues include UTI and MSSA bacteremia, also had E coli grown from the cultures. The patient also had severe hypoxia. CT scan of the back showed small focal epidural hemorrhage. Multiple consultants are following the patient closely. The patient is currently no code. PAST MEDICAL HISTORY: Reviewed. REVIEW OF SYSTEMS: Could not be taken. The patient is on Airvo and confused. CURRENT MEDICATIONS: Reviewed include DuoNeb, doses and rest of the medications are noted. PHYSICAL EXAMINATION: VITAL SIGNS: Pulse 81, blood pressure 130/88, respirations 20. CHEST: Few scattered rhonchi and crackles. CARDIOVASCULAR: S1 and S2. ABDOMEN: Soft and nontender. NERVOUS SYSTEM: Diffusely weak. LABORATORY DATA: WBC 23.4. Creatinine is 2.34. ASSESSMENT: 1. Urinary tract infection with sepsis with Escherichia coli. 2. Methicillin-susceptible Staphylococcus aureus bacteremia of undetermined origin. 3. Acute hypoxic respiratory failure, multifactorial. 4. Possible small focal epidural hemorrhage in the T3-4 level. 5. Back pain, degenerative joint disease.. 6. Acute hypoxic respiratory failure with possible fluid overload versus pneumonia. 7. Acute renal injury. 8. History of chronic kidney disease, stage 3. 9. History of lower back pain. 10.Possible small-bowel obstruction versus ileus. 11.Hypertension. 12.Hyperlipidemia. 13.Multiple medical issues. 14.No code. No CPR. No vent. RECOMMENDATIONS: Recommend to continue current management and continue symptomatic treatment, otherwise, I would recommend to continue the current medications including broad-spectrum IV antibiotics. Closely follow with Infectious Disease, Pulmonary. Bronchodilators. Closely follow with Nephrology as well. Prognosis extremely guarded. Further recommendations to follow. See orders for details. MMODL / IJN: [id number] /
--- NOTE | 2023-05-23 13:00 | P.PN ---
Subjective Progress Note Date: 05/23/23 I was asked to evaluate this 88-year-old female patient as the patient is currently and hypoxic respiratory failure and the patient is currently on a BiPAP. The patient was hospitalized on 05/15/2022 in the emergency department. She is known to have CHF, chronic A. fib, pacemaker, hypertension, hyperli pidemia, hypothyroidism and dementia. Her pacemaker is for an underlying sick sinus syndrome. She has chronic A. fib. She was hospitalized for generalized weakness. She also had a fall that was not witnessed by family members. At the time of admission, she had leukocytosis, CAT scan of the brain was negative, chest x-ray showed smaller lung volumes along with atelectatic changes in the increased interstitial infiltrates bilaterally. She had also chronic kidney disease and a creatinine of the fluctuating during this current admission. In fact, she had an acute kidney injury at time of admission and the creatinine went been gradually downtrending. The urine culture was positive for E. coli. The patient also had staph aureus in the blood, MSSA and the patient was covered with IV cefazolin. She remained quite weak and debilitated. Orthopedic was also consulted as the patient was having significant motor weakness and MRI imaging of the back was also requested as part of further investigation. However, the MRI was not done as the patient has a pacemaker in place. Subsequently, the patient becomes more hypoxic, and oxygen requirements go up from 2 L up to 10 L and subsequently she got placed on a BiPAP. The chest x-ray from today shows increased bilateral pulmonary vascular markings and bilateral pleural effusion. There is also cardiomegaly and acute abdominal series as well as done today showed CHF, distention of the small and large bowel and oral contraceptive progress into the colon and she has sigmoid diverticulosis. The CAT scan of the abdomen that was on 05/18/2023 showed mild finding that may reflect ileus without any mechanical obstruction. There was evidence of colonic diverticulosis. Echocardiogram showing normal LV, mild concentric LVH, ejection fraction of 50-55%, right ventricular systolic pressure estimated to be around 46. She also has moderate aortic stenosis with a mean gradient of 10. The most recent labs showed the [place] 21.8, hemoglobin of 10, BUN of 86 and a creatinine of 1.7 and sodium levels of 133. Patient is currently on Lasix 40 mg IV every 12 hours. The patient remains on IV cefazolin. She is producing urine output in the order of 500 mL over the past 24 hours. On today's evaluation of 05/23/2023, the patient is on high flow oxygen with a flow 50 L an FiO2 of 80%. Her current pulse ox is 95%. She was taken off the BiPAP. She is arousable. Does limited amount of interaction. She has underlying dementia. Her son is at the bedside. Chest x-ray shows cardiomegaly and some increased interstitial markings bilaterally. There is also trace left- sided pleural effusion. The patient has an AICD in place. Nevertheless, the patient has sustained an acute kidney injury and the patient also has a ileus/bowel obstruction. The patient accordingly was taken off the diuretic this morning. BUN is at 94 with a creatinine of 2.34 and a sodium levels of 135 and a potassium levels at 3.2. The white cycles of 23.4 with a hemoglobin of 9.2. Atelectatic discussion with the family and after my discussion, the family opted for a DNR/DNI CODE STATUS based on her condition and comorbidities. Objective - Vital Signs Vital signs: Vital Signs Temp 97.9 F 05/23/23 00:00 Pulse 81 05/23/23 08:56 Resp 22 05/23/23 08:56 BP 131/58 05/23/23 04:49 Pulse Ox 91 L 05/23/23 08:56 FiO2 80 05/23/23 08:56 Intake & Output 05/22/23 05/23/23 05/23/23 18:59 06:59 18:59 Intake Total 120 Output Total 200 200 Balance -80 -200 Intake: Oral 120 Output: Urine 200 200 Other: Voiding Method Indwelling Catheter Indwelling Catheter Indwelling Catheter # Bowel Movements 1 - Exam Gen: This is an 88-year-old female who is confused, currently on high flow oxygen and 50 L an FiO2 of 80% Head exam was generally normal. There was no scleral icterus or corneal arcus. Mucous membranes were moist. HEENT: Head is atraumatic, normocephalic. Pupils equal, round. Sclerae is anicteric. NECK: Supple. No JVD. No lymphadenopathy. No thyromegaly. LUNGS: Breath sounds diminished bilaterally with some scattered rhonchi and faint crackles noted at the bases. No intercostal retractions. HEART: Regular rate and rhythm. No murmur. She has a pacemaker pocket over the left anterior chest area ABDOMEN: Soft. Obese. Less Distended. Bowel sounds are present. No masses. No tenderness. EXTREMITIES: No pedal edema. No calf tenderness. NEUROLOGICAL: Patient is awake, alert and oriented x1-2. Diffusely weak Examination of the skin revealed no evidence of significant rashes, suspicious appearing nevi or other concerning lesions. - Labs CBC & Chem 7: 05/23/23 07:25 05/23/23 07:25 Labs: Abnormal Lab Results - Last 24 Hours (Table) 05/22/23 05/22/23 05/22/23 Range/Units 07:43 11:12 12:01 WBC (3.8-10.6) k/uL RBC (3.80-5.40) m/uL Hgb (11.4-16.0) gm/dL Hct (34.0-46.0) % Neutrophils # (1.3-7.7) k/uL Lymphocytes # (1.0-4.8) k/uL Monocytes # (0-1.0) k/uL Sodium 133 L (137-145) mmol/L Potassium (3.5-5.1) mmol/L Carbon Dioxide 21 L (22-30) mmol/L BUN 86 H (7-17) mg/dL Creatinine 1.71 H (0.52-1.04) mg/dL Glucose (74-99) mg/dL POC Glucose (mg/dL) 127 H (70-110) mg/dL Calcium (8.4-10.2) mg/dL AST 65 H (14-36) U/L C-Reactive Protein 32.6 H (<1.0) mg/dL Total Protein 5.2 L (6.3-8.2) g/dL Albumin 2.5 L (3.5-5.0) g/dL 05/22/23 05/23/23 05/23/23 Range/Units 16:21 07:25 07:25 WBC 23.4 H (3.8-10.6) k/uL RBC 3.13 L (3.80-5.40) m/uL Hgb 9.2 L (11.4-16.0) gm/dL Hct 29.1 L (34.0-46.0) % Neutrophils # 19.9 H (1.3-7.7) k/uL Lymphocytes # 0.8 L (1.0-4.8) k/uL Monocytes # 2.0 H (0-1.0) k/uL Sodium 135 L (137-145) mmol/L Potassium 3.2 L (3.5-5.1) mmol/L Carbon Dioxide 20 L (22-30) mmol/L BUN 94 H (7-17) mg/dL Creatinine 2.34 H (0.52-1.04) mg/dL Glucose 73 L (74-99) mg/dL POC Glucose (mg/dL) 118 H (70-110) mg/dL Calcium 8.3 L (8.4-10.2) mg/dL AST 71 H (14-36) U/L C-Reactive Protein (<1.0) mg/dL Total Protein 4.9 L (6.3-8.2) g/dL Albumin 2.3 L (3.5-5.0) g/dL Microbiology - Last 24 Hours (Table) 05/17/23 06:30 Blood Culture - Final Blood Assessment and Plan Plan: Acute hypoxic respiratory failure, currently on high flow oxygen at 50 L an FiO2 of 80% Respiratory failure is multifactorial. The patient has been admitted for UTI and subsequently was found to have a staph septicemia. She is very much debilitated and weak related to her age and comorbidities. She may have an underlying CHF along with an acute kidney injury and a chest x-ray showing increased pulmonary vessel markings and small pleural effusion and cardiomegaly. Echocardiogram shows a preserved LV function with mild degree of aortic stenosis and moderate degree of pulmonary hypertension E. coli urinary tract infection Staph aureus septicemia, MSSA, no evidence of any endocarditis based on transthoracic cardiography Chronic stage III B kidney disease with acute kidney injury Generalized weakness and falls History of chronic back pain and lumbar stenosis Ileus Hypertension Hyperlipidemia Hypothyroidism Dementia with ongoing issues with mental status change and toxic metabolic encephalopathy History of sick sinus syndrome and the patient is a pacemaker in place History of A. fib Plan Creatinine is on the rise Keep high flow oxygen and hold diuretics for the next 24 hours Kim started diuretics and the renal function stabilizes Abdomen is less distended compared to yesterday. However, there may be an underlying component of ileus Continue rest of the supportive care Continue antibiotics Monitor renal function and fluid balance DNR/DNI CODE STATUS. Note to transfer the ICU at this point in time.
--- NOTE | 2023-05-23 16:05 | P.PN ---
Subjective Progress Note Date: 05/23/23 Follow-up for acute kidney injury. On high flow oxygen. No documented urine output of 400 ML's in the last 24 hours. Objective - Vital Signs Vital signs: Vital Signs Temp 97.7 F 05/23/23 15:02 Pulse 77 05/23/23 15:47 Resp 20 05/23/23 15:47 BP 130/60 05/23/23 15:02 Pulse Ox 93 L 05/23/23 15:47 FiO2 70 05/23/23 15:47 Intake & Output 05/22/23 05/23/23 05/23/23 18:59 06:59 18:59 Intake Total 120 Output Total 200 200 200 Balance -80 -200 -200 Intake: Oral 120 Output: Urine 200 200 200 Other: Voiding Method Indwelling Catheter Indwelling Catheter Indwelling Catheter # Bowel Movements 1 3 - Exam No acute distress S1-S2 heard Decreased breath sounds Abdomen distended Edema - Labs CBC & Chem 7: 05/23/23 07:25 05/23/23 07:25 Labs: Abnormal Lab Results - Last 24 Hours (Table) 05/22/23 05/23/23 05/23/23 Range/Units 16:21 07:25 07:25 WBC 23.4 H (3.8-10.6) k/uL RBC 3.13 L (3.80-5.40) m/uL Hgb 9.2 L (11.4-16.0) gm/dL Hct 29.1 L (34.0-46.0) % Neutrophils # 19.9 H (1.3-7.7) k/uL Lymphocytes # 0.8 L (1.0-4.8) k/uL Monocytes # 2.0 H (0-1.0) k/uL Sodium 135 L (137-145) mmol/L Potassium 3.2 L (3.5-5.1) mmol/L Carbon Dioxide 20 L (22-30) mmol/L BUN 94 H (7-17) mg/dL Creatinine 2.34 H (0.52-1.04) mg/dL Glucose 73 L (74-99) mg/dL POC Glucose (mg/dL) 118 H (70-110) mg/dL Calcium 8.3 L (8.4-10.2) mg/dL AST 71 H (14-36) U/L Total Protein 4.9 L (6.3-8.2) g/dL Albumin 2.3 L (3.5-5.0) g/dL Microbiology - Last 24 Hours (Table) 05/18/23 06:47 Blood Culture - Final Blood 05/17/23 06:30 Blood Culture - Final Blood Assessment and Plan Assessment: #1 acute kidney injury secondary to septic ATN. -Baseline creatinine 1.4 MG per DL. -Urine analysis pyuria #2 stage III B chronic kidney disease. #3 E. coli UTI. #4 acute respiratory distress on BiPAP. #5 volume overload #6 small bowel obstruction/ileus. Plan: #1 renal function worsening. #2 Plan of care discussed with the son at bedside, with multiple comorbid cond itions, prognosis guarded. If renal function continues to worsen, he is in agreement not to do dialysis.
[2023-05-23 16:44] LABS: Glucose,Whole Blood 80 mg/dL (70-110)
[2023-05-23] MEDS: SENNOSIDES 8.6 MG TAB PO SCH (20:16)
[2023-05-23 20:59] LABS: Glucose,Whole Blood 79 mg/dL (70-110)
[2023-05-24] MEDS: metroNIDAZOLE-NS PMX 500 MG in SALINE 1 100ML.BAG IVPB SCH ×4 (00:05→23:19)
[2023-05-24] MEDS: HYDROmorphone 0.5 MG/0.5 ML SYRINGE IVP PRN ×2 (02:05→11:00)
[2023-05-24] MEDS: LEVOTHYROXINE 25 MCG TAB PO SCH (05:37)
[2023-05-24 05:52] LABS: Glucose,Whole Blood 97 mg/dL (70-110)
[2023-05-24] MEDS: IPRATROPIUM-ALBUTEROL 3 ML NEB INHALATION SCH ×4 (07:59→19:26)
[2023-05-24] MEDS: hydrALAZINE HCL 50 MG TAB PO SCH ×3 (08:18→20:07)
[2023-05-24] MEDS: LABETALOL 100 MG TAB PO SCH ×2 (08:18→20:07)
[2023-05-24] MEDS: POTASSIUM CHLORIDE ER 20 MEQ TAB.ER PO SCH ×2 (08:18→20:07)
[2023-05-24] MEDS: MULTIVITAMINS, THERA 1 EACH TAB PO SCH (08:18)
[2023-05-24] MEDS: DONEPEZIL 10 MG TAB PO SCH (08:18)
[2023-05-24] MEDS: THIAMINE 100 MG TAB PO SCH (08:18)
[2023-05-24] MEDS: CYANOCOBALAMIN 500 MCG TAB PO SCH (08:18)
[2023-05-24] MEDS: SIMETHICONE 40 MG/0.6 ML DROPS 2,000 MG/30 ML BOTTLE PO SCH ×4 (08:19→20:08)
[2023-05-24 09:08] LABS: ALT 7 U/L (4-34); AST 63 U/L (14-36); African American GFR (CKD) 21 (>60 ml/min/1.73 sqM); Albumin 2.1 g/dL (3.5-5.0); Alkaline Phosphatase 82 U/L (38-126); Anion Gap 16 mmol/L; Blood Urea Nitrogen 94 mg/dL (7-17); Calcium 7.9 mg/dL (8.4-10.2); Carbon Dioxide 17 mmol/L (22-30); Chloride 102 mmol/L (98-107); Glucose 57 mg/dL (74-99); Magnesium 2.5 mg/dL (1.6-2.3); Non-African American GFR(CKD) 18 (>60 ml/min/1.73 sqM); Potassium 3.4 mmol/L (3.5-5.1); Sodium 135 mmol/L (137-145); Total Bilirubin 0.4 mg/dL (0.2-1.3); Total Protein 4.7 g/dL (6.3-8.2)
[2023-05-24 09:24] LABS: Glucose,Whole Blood 81 mg/dL (70-110)
[2023-05-24] MEDS: POTASSIUM CHLORIDE 10 MEQ in WATER FOR INJECTION 1 100ML.BAG IVPB SCH ×4 (09:51→15:04)
[2023-05-24 10:22] LABS: Basophils % (A) 0 %; Eosinophils # (A) 0.3 k/uL (0-0.7); Eosinophils % (A) 1 %; HCT 28.2 % (34.0-46.0); HGB 8.8 gm/dL (11.4-16.0); Lymphocytes # (A) 0.9 k/uL (1.0-4.8); Lymphocytes % (A) 5 %; MCH 29.3 pg (25.0-35.0); MCHC 31.4 g/dL (31.0-37.0); MCV 93.3 fL (80.0-100.0); Mean Platelet Volume 8.9; Monocytes # (A) 0.8 k/uL (0-1.0); Monocytes % (A) 4 %; Neutrophils # (A) 17.7 k/uL (1.3-7.7); Neutrophils % (A) 88 %; Platelet Count 364 k/uL (150-450); RBC 3.02 m/uL (3.80-5.40); RDW 13.1 % (11.5-15.5); WBC 20.1 k/uL (3.8-10.6)
[2023-05-24 11:20] LABS: Glucose,Whole Blood 77 mg/dL (70-110)
[2023-05-24] MEDS: FOLIC ACID 1 MG TAB PO SCH (12:03)
--- NOTE | 2023-05-24 12:13 | P.PN ---
Subjective Progress Note Date: 05/24/23 Principal diagnosis: Reason for follow-up is MSSA bacteremia Patient is a 88-year-old female with a past medical history significant for atrial fibrillation hypertension hyperlipidemia heart failure with patient was brought into the hospital after family patient was found to be on the floor , patient complaining of weakness and pain to the lower back area and did have a positive blood culture with MSSA. On today's evaluation that is 05/24/2023, the patient remains to be afebrile, the patient is breathing comfortably however is requiring high flow nasal cannula oxygen, the patient denies chest pain or cough , patient denies abdominal pain, no nausea/vomiting and did have a few bowel movements still complaining of some upper back pain Patient white count is 20.1 and a creatinine is 2.34, CT of abdominal pelvis limited study no evidence of acute inflammatory process and abdominal pelvis possible small bowel obstruction Objective - Vital Signs Vital signs: Vital Signs Temp 98.1 F 05/24/23 08:22 Pulse 76 05/24/23 08:22 Resp 20 05/24/23 08:22 BP 116/58 05/24/23 08:22 Pulse Ox 95 05/24/23 08:22 FiO2 75 05/24/23 08:22 Intake & Output 05/23/23 05/24/23 05/24/23 18:59 06:59 18:59 Intake Total 0 Output Total 575 200 500 Balance -575 -200 -500 Intake: Oral 0 Output: Urine 575 200 500 Other: Voiding Method Indwelling Catheter Indwelling Catheter Indwelling Catheter # Bowel Movements 3 - Exam GENERAL DESCRIPTION: An elderly female lying in bed in no distress RESPIRATORY SYSTEM: Unlabored breathing , decreased best at the base HEART: S1 S2 regular rate and rhythm , ABDOMEN: Soft , mild distention EXTREMITIES: No edema feet - Labs CBC & Chem 7: 05/24/23 08:14 05/24/23 08:14 Labs: Abnormal Lab Results - Last 24 Hours (Table) 05/24/23 05/24/23 Range/Units 08:14 08:14 WBC 20.1 H (3.8-10.6) k/uL RBC 3.02 L (3.80-5.40) m/uL Hgb 8.8 L (11.4-16.0) gm/dL Hct 28.2 L (34.0-46.0) % Neutrophils # 17.7 H (1.3-7.7) k/uL Lymphocytes # 0.9 L (1.0-4.8) k/uL Sodium 135 L (137-145) mmol/L Potassium 3.4 L (3.5-5.1) mmol/L Carbon Dioxide 17 L (22-30) mmol/L BUN 94 H (7-17) mg/dL Creatinine 2.34 H (0.52-1.04) mg/dL Glucose 57 L (74-99) mg/dL Calcium 7.9 L (8.4-10.2) mg/dL Magnesium 2.5 H (1.6-2.3) mg/dL AST 63 H (14-36) U/L Total Protein 4.7 L (6.3-8.2) g/dL Albumin 2.1 L (3.5-5.0) g/dL Microbiology - Last 24 Hours (Table) 05/22/23 12:17 Blood Culture - Preliminary Blood 05/18/23 06:47 Blood Culture - Final Blood Assessment and Plan (1) Bacteremia Current Visit: Yes Status: Acute Code(s): R78.81 - BACTEREMIA SNOMED Code(s): 5340279 Plan: 1patient with a Staph aureus bacteremia , in this patient presented to hospital with a fall found on the floor has been complaining of more lower back pain and history of chronic back pain with a question of possible discitis/osteomyelitis to lumbosacral spine area as currently do not have any evidence of cellulitis, no joint swelling or other clear focus of this bacteremia, patient did have a positive UA underlying urinary source less likely as the patient did not have any urinary symptoms patient was noticed to have significant abdominal distention and some tenderness for the patient did have CT of abdominal pelvis did not show any acute inflammatory process 2-patient did have a renal insufficiency and high risk of nephrotoxicity, being monitored closely by nephrology 3--blood culture drawn 05/17/2023 has been negative so far, echocardiogram did not show any vegetation 4MRI couldnot be done becasue of pacemaker , patient did have a CT of the thoracolumbar spine without any contrast, mentioned possible small for epidural hemorrhage at the T3-4 level and no evidence of any bony destructive changes in the thorax a lumbar spine 5-patient to continue with the cefazolin and Flagyl , patient has cleared her bacteremia white count is trending down, CT will be reviewed with the radiologist Son at the bedside questions were answered Dictation was produced using [employer] dictation software. please excuse any grammatical, word or spelling errors. Time with Patient: Less than 30
--- NOTE | 2023-05-24 12:41 | P.PN ---
Subjective Patient is seen for follow-up for acute kidney injury. No significant complaints today. 24 hour urine output charted at 775 mL Serum creatinine stable at 2.3 mg/dL. Objective - Vital Signs Vital signs: Vital Signs Temp 98.1 F 05/24/23 11:00 Pulse 80 05/24/23 11:00 Resp 24 05/24/23 11:00 BP 153/61 05/24/23 11:00 Pulse Ox 94 L 05/24/23 11:00 FiO2 75 05/24/23 11:00 Intake & Output 05/23/23 05/24/23 05/24/23 18:59 06:59 18:59 Intake Total 0 Output Total 575 200 500 Balance -575 -200 -500 Intake: Oral 0 Output: Urine 575 200 500 Other: Voiding Method Indwelling Catheter Indwelling Catheter Indwelling Catheter # Bowel Movements 3 1 - Exam Patient is awake, comfortable, no acute distress Examination of the heart S1 and S2 Examination the lungs decreased breath sounds at the bases Abdomen is soft nontender Examination lower extremities shows edema 1+ bilaterally, left upper extremities significantly more swollen. IV has been removed - Labs CBC & Chem 7: 05/24/23 08:14 05/24/23 08:14 Labs: Abnormal Lab Results - Last 24 Hours (Table) 05/24/23 05/24/23 Range/Units 08:14 08:14 WBC 20.1 H (3.8-10.6) k/uL RBC 3.02 L (3.80-5.40) m/uL Hgb 8.8 L (11.4-16.0) gm/dL Hct 28.2 L (34.0-46.0) % Neutrophils # 17.7 H (1.3-7.7) k/uL Lymphocytes # 0.9 L (1.0-4.8) k/uL Sodium 135 L (137-145) mmol/L Potassium 3.4 L (3.5-5.1) mmol/L Carbon Dioxide 17 L (22-30) mmol/L BUN 94 H (7-17) mg/dL Creatinine 2.34 H (0.52-1.04) mg/dL Glucose 57 L (74-99) mg/dL Calcium 7.9 L (8.4-10.2) mg/dL Magnesium 2.5 H (1.6-2.3) mg/dL AST 63 H (14-36) U/L Total Protein 4.7 L (6.3-8.2) g/dL Albumin 2.1 L (3.5-5.0) g/dL Microbiology - Last 24 Hours (Table) 05/22/23 12:17 Blood Culture - Preliminary Blood 05/18/23 06:47 Blood Culture - Final Blood Assessment and Plan Assessment: 1. Acute kidney injury, ATN currently stable. No plans for renal replacement therapy if renal function worsens. He did 2. CK D NKF stage IIIB with baseline GFR around 30 ML per minute. Patient follows with nephrology out of [facility]. 3. E. coli UTI 4. Gram-positive bacteremia, staph aureus with repeat blood cultures being negative 5. Metabolic acidosis associated with acute kidney injury 6. Small bowel obstruction/ileus 7. Hypokalemia Plan: Replace potassium Add oral sodium bicarb Repeat labs in a.m.
--- NOTE | 2023-05-24 12:45 | P.PN ---
Subjective Progress Note Date: 05/24/23 I was asked to evaluate this 88-year-old female patient as the patient is currently and hypoxic respiratory failure and the patient is currently on a BiPAP. The patient was hospitalized on 05/15/2022 in the emergency department. She is known to have CHF, chronic A. fib, pacemaker, hypertension, hyperlip idemia, hypothyroidism and dementia. Her pacemaker is for an underlying sick sinus syndrome. She has chronic A. fib. She was hospitalized for generalized weakness. She also had a fall that was not witnessed by family members. At the time of admission, she had leukocytosis, CAT scan of the brain was negative, chest x-ray showed smaller lung volumes along with atelectatic changes in the increased interstitial infiltrates bilaterally. She had also chronic kidney disease and a creatinine of the fluctuating during this current admission. In fact, she had an acute kidney injury at time of admission and the creatinine went been gradually downtrending. The urine culture was positive for E. coli. The patient also had staph aureus in the blood, MSSA and the patient was covered with IV cefazolin. She remained quite weak and debilitated. Orthopedic was also consulted as the patient was having significant motor weakness and MRI imaging of the back was also requested as part of further investigation. However, the MRI was not done as the patient has a pacemaker in place. Subsequently, the patient becomes more hypoxic, and oxygen requirements go up from 2 L up to 10 L and subsequently she got placed on a BiPAP. The chest x-ray from today shows increased bilateral pulmonary vascular markings and bilateral pleural effusion. There is also cardiomegaly and acute abdominal series as well as done today showed CHF, distention of the small and large bowel and oral contraceptive progress into the colon and she has sigmoid diverticulosis. The CAT scan of the abdomen that was on 05/18/2023 showed mild finding that may reflect ileus without any mechanical obstruction. There was evidence of colonic diverticulosis. Echocardiogram showing normal LV, mild concentric LVH, ejection fraction of 50-55%, right ventricular systolic pressure estimated to be around 46. She also has moderate aortic stenosis with a mean gradient of 10. The most recent labs showed the [place] 21.8, hemoglobin of 10, BUN of 86 and a creatinine of 1.7 and sodium levels of 133. Patient is currently on Lasix 40 mg IV every 12 hours. The patient remains on IV cefazolin. She is producing urine output in the order of 500 mL over the past 24 hours. On today's evaluation of 05/23/2023, the patient is on high flow oxygen with a flow 50 L an FiO2 of 80%. Her current pulse ox is 95%. She was taken off the BiPAP. She is arousable. Does limited amount of interaction. She has underlying dementia. Her son is at the bedside. Chest x-ray shows cardiomegaly and some increased interstitial markings bilaterally. There is also trace left- sided pleural effusion. The patient has an AICD in place. Nevertheless, the patient has sustained an acute kidney injury and the patient also has a ileus/bowel obstruction. The patient accordingly was taken off the diuretic this morning. BUN is at 94 with a creatinine of 2.34 and a sodium levels of 135 and a potassium levels at 3.2. The white cycles of 23.4 with a hemoglobin of 9.2. Atelectatic discussion with the family and after my discussion, the family opted for a DNR/DNI CODE STATUS based on her condition and comorbidities. The patient is seen today 05/24/2023 in follow-up on the selective care unit. She is currently resting in bed. Requiring AirVo high flow oxygen at 45 L and 75% FiO2 to maintain O2 saturations in the high 80s low 90s. She is afebrile. Hemodynamically stable. Her family is at the bedside. Urine cultures were posi tive for E. coli. Blood cultures are positive for MSSA. White count 20.1. Hemoglobin 8.8. Platelets 364. Sodium 135. Potassium 3.4. Bicarb 17. BUN 94. Creatinine 2.34. Glucose 77. AST 63. ALT 7. Albumin 2.1. She remains on DuoNeb inhalations. Antibiotics in the form of cefazolin and Flagyl. Objective - Vital Signs Vital signs: Vital Signs Temp 98.1 F 05/24/23 11:00 Pulse 80 05/24/23 11:00 Resp 24 05/24/23 11:00 BP 153/61 05/24/23 11:00 Pulse Ox 94 L 05/24/23 11:00 FiO2 75 05/24/23 11:00 Intake & Output 05/23/23 05/24/23 05/24/23 18:59 06:59 18:59 Intake Total 0 Output Total 575 200 500 Balance -575 200 -500 Intake: Oral 0 Output: Urine 575 200 500 Other: Voiding Method Indwelling Catheter Indwelling Catheter Indwelling Catheter # Bowel Movements 3 1 - Exam GENERAL EXAM: Alert, frail 88-year-old female, on AirVo high flow oxygen, fairly comfortable in no apparent distress. HEAD: Normocephalic. EYES: Normal reaction of pupils, equal size. NOSE: Clear with pink turbinates. THROAT: No erythema or exudates. NECK: No masses, no JVD. CHEST: No chest wall deformity. LUNGS: Equal air entry with coarse crackles in the bilateral bases, few scattered rhonchi. CVS: S1 and S2 normal with no audible murmur, regular rhythm. ABDOMEN: No hepatosplenomegaly, normal bowel sounds, no guarding or rigidity. SPINE: No scoliosis or deformity SKIN: No rashes CENTRAL NERVOUS SYSTEM: No focal deficits, tone is normal in all 4 extremities. EXTREMITIES: There is no peripheral edema. No clubbing, no cyanosis. Peripheral pulses are intact. - Labs CBC & Chem 7: 05/24/23 08:14 05/24/23 08:14 Labs: Abnormal Lab Results - Last 24 Hours (Table) 05/24/23 05/24/23 Range/Units 08:14 08:14 WBC 20.1 H (3.8-10.6) k/uL RBC 3.02 L (3.80-5.40) m/uL Hgb 8.8 L (11.4-16.0) gm/dL Hct 28.2 L (34.0-46.0) % Neutrophils # 17.7 H (1.3-7.7) k/uL Lymphocytes # 0.9 L (1.0-4.8) k/uL Sodium 135 L (137-145) mmol/L Potassium 3.4 L (3.5-5.1) mmol/L Carbon Dioxide 17 L (22-30) mmol/L BUN 94 H (7-17) mg/dL Creatinine 2.34 H (0.52-1.04) mg/dL Glucose 57 L (74-99) mg/dL Calcium 7.9 L (8.4-10.2) mg/dL Magnesium 2.5 H (1.6-2.3) mg/dL AST 63 H (14-36) U/L Total Protein 4.7 L (6.3-8.2) g/dL Albumin 2.1 L (3.5-5.0) g/dL Microbiology - Last 24 Hours (Table) 05/22/23 12:17 Blood Culture - Preliminary Blood 05/18/23 06:47 Blood Culture - Final Blood Assessment and Plan Assessment: Acute hypoxic respiratory failure, currently on AirVo high flow oxygen at 45 L an FiO2 of 75%. Respiratory failure is multifactorial. The patient has been admitted for UTI and subsequently was found to have a staph septicemia. She is very much debilitated and weak related to her age and comorbidities. She may have an underlying CHF along with an acute kidney injury and a chest x-ray showing increased pulmonary vessel markings and small pleural effusion and cardiomegaly. Echocardiogram shows a preserved LV function with mild degree of aortic stenosis and moderate degree of pulmonary hypertension E. coli urinary tract infection Staph aureus septicemia, MSSA, no evidence of any endocarditis based on transthoracic echocardiography Chronic stage III B kidney disease with acute kidney injury Generalized weakness and falls History of chronic back pain and lumbar stenosis Ileus Hypertension Hyperlipidemia Hypothyroidism Dementia with ongoing issues with mental status change and toxic metabolic encephalopathy History of sick sinus syndrome and the patient is a pacemaker in place History of A. fib Plan: The patient was seen and evaluated Medications and labs reviewed Diuretics remain on hold Continue antibiotics Continue bronchodilators Replace electrolytes Titrate down the FiO2 as tolerated Family is at the bedside Prognosis is guarded DNR/DNI CODE STATUS We will continue to follow This patient was seen independently by the nurse practitioner I have personally seen and examined the patient, performed the documentation and the assessment and plan as written. Number of minutes spent on the visit: 24.
--- NOTE | 2023-05-24 13:41 | P.PN ---
Subjective Progress Note Date: 05/24/23 CHIEF COMPLAINT: Ileus HISTORY OF PRESENT ILLNESS: Patient is lying in bed. She is on high flow oxygen. Followed by pulmonary service. Surgical service following regards to her ileus. She had 3 bowel movements. Abdomen is softer. She denies any abdominal pain. Afebrile. WBC is 20 H CPAP 0.8 platelets 364 sodium is 135 potassium 3.4 creatinine 2.34 PHYSICAL EXAM: VITAL SIGNS: Reviewed GENERAL: Well-developed in no acute distress. HEENT: No sclera icterus. Extraocular movements grossly intact. Moist buccal mucosa. Head is atraumatic, normocephalic. Hears conversational speech. No nasal drainage. NECK: Supple without lymphadenopathy. CHEST: Non-labored respirations and equal bilateral excursions. CARDIOVASCULAR: Palpable 2+ radial pulses. ABDOMEN: Distended but softer. nontender MUSCULOSKELETAL: No clubbing or cyanosis. NEUROLOGIC: No focal or lateralizing signs. Cranial nerves II through XII grossly intact. PSYCH: pleasantly confused SKIN: Well perfused. Good skin turgor. ASSESSMENT: 1. Abdominal pain with ileus 2. History of abdominal surgeries 3. UTI 4. Bacteremia 5. Fall and weakness 6. Acute kidney injury. history of chronic kidney disease. 7. History of AICD 8. History of atrial fibrillation on Eliquis 9. Lower Back pain. History of chronic back pain 10. Hypoxia 11. Hypokalemia improved PLAN: -No surgical intervention planned -Start Clear liquid diet -Continue to correct ARCELIA and hypokalemia -Encouraged patient to increase activity level -Continue treatment for UTI and bacteremia, and electrolyte imbalance -Continue stool softener -Okay to resume Eliquis Physician Fitness Consultant note has been reviewed by physician. Signing provider agrees with the documented findings, assessment, and plan of care. Objective - Vital Signs Vital signs: Vital Signs Temp 98.1 F 05/24/23 11:00 Pulse 80 05/24/23 11:00 Resp 24 05/24/23 11:00 BP 153/61 05/24/23 11:00 Pulse Ox 94 L 05/24/23 11:00 FiO2 75 05/24/23 11:00 Intake & Output 05/23/23 05/24/23 05/24/23 18:59 06:59 18:59 Intake Total 0 Output Total 575 200 500 Balance -575 -200 -500 Intake: Oral 0 Output: Urine 575 200 500 Other: Voiding Method Indwelling Catheter Indwelling Catheter Indwelling Catheter # Bowel Movements 3 1 - Labs CBC & Chem 7: 05/24/23 08:14 05/24/23 08:14 Labs: Abnormal Lab Results - Last 24 Hours (Table) 05/24/23 05/24/23 Range/Units 08:14 08:14 WBC 20.1 H (3.8-10.6) k/uL RBC 3.02 L (3.80-5.40) m/uL Hgb 8.8 L (11.4-16.0) gm/dL Hct 28.2 L (34.0-46.0) % Neutrophils # 17.7 H (1.3-7.7) k/uL Lymphocytes # 0.9 L (1.0-4.8) k/uL Sodium 135 L (137-145) mmol/L Potassium 3.4 L (3.5-5.1) mmol/L Carbon Dioxide 17 L (22-30) mmol/L BUN 94 H (7-17) mg/dL Creatinine 2.34 H (0.52-1.04) mg/dL Glucose 57 L (74-99) mg/dL Calcium 7.9 L (8.4-10.2) mg/dL Magnesium 2.5 H (1.6-2.3) mg/dL AST 63 H (14-36) U/L Total Protein 4.7 L (6.3-8.2) g/dL Albumin 2.1 L (3.5-5.0) g/dL Microbiology - Last 24 Hours (Table) 05/22/23 12:17 Blood Culture - Preliminary Blood 05/18/23 06:47 Blood Culture - Final Blood
--- NOTE | 2023-05-24 14:18 | US ---
EXAMINATION TYPE: US venous doppler duplex UE LT DATE OF EXAM: 05/24/2023 COMPARISON: NONE CLINICAL INDICATION: Female, 88 years old with history of Edema; Edema. SIDE PERFORMED: Left arm Left Arm: *Very difficult and limited exam due to patient's arm position and due to patient's heavy b reathing causing movement and artifact. IJV appears to be very small, but does appear to compress. Although slightly limited, there appear to be internal echoes within the medial subclavian vein wi th lack of color flow Great amount of forearm edema noted. IMPRESSION: Limited evaluation without definite evidence for deep vein thrombosis. Subcutaneous edema noted.
[2023-05-24] MEDS: APIXABAN 2.5 MG TABLET PO SCH ×2 (15:03→20:07)
--- NOTE | 2023-05-24 15:32 | P.PN ---
Subjective Progress Note Date: 05/24/23 Cardiac risk assessment History of present illness: History of present illness: This is an 88 year old female with past medical history of hypothyroidism, hyperlipidemia, hypertension, dementia, sick sinus syndrome status post dual chamber pacemaker implantation, chronic kidney disease stage. Patient follows with a branch controller at [place], Dr. Almanza. Patient presented to the hospital on 05/15 after being found on the floor. She was admitted to the hospital for weakness, acute kidney injury, klebsiella and E. coli urinary tract infection and possible bacteremia. Patient also had abdominal pain and distention found to have a small bowel obstruction and a consult was placed with general surgery. She has subsequently had an NG tube placed and we have been asked to evaluate the patient for cardiac risk assessment. No surgery is currently scheduled.Pacemaker was last interrogated on March 31, 2023. Patient is currently on a nonrebreather and blood pressure is elevated. Eliquis is on hold for possible surgical intervention. Abdomen remains quite distended despite NG tube. EKG sinus rhythm with right bundle branch block, left anterior fascicular block Chest x-ray: Cardiomegaly, pulmonary vascular congestion and bilateral pleural effusions. Correlate for BNP for heart failure. NG in appropriate position. Initial WBC 29.6 now 13.3, hemoglobin is 9.5, electrolytes are within normal limits. Creatinine 1.2 and initially was 2.59. Pro-calcitonin elevated now at 8.47. Influenza A, influenza B, Covid 19 and RSV not detected. Urinalysis positive for infection. Home cardiac medications: Eliquis 5 mg twice daily, levothyroxine 05/19 Patient is seen today in follow-up. This morning around 4 AM she pulled her NG tube out. Plan is to leave this for now per general surgery. She has had elevated blood pressures and she does have IV Vasotec and IV hydralazine available if needed. Echocardiogram has been completed and shows normal LV size preserved systolic function, mild concentric left hypertrophy, mild mitral and tricuspid regurgitation, aortic valve sclerosis with mild increase in gradient. No pericardial effusion. Oxygenation needs have improved and she is now down to 5 L nasal cannula with pulse ox of 90%. Heart rate has been running in the 90s. Blood pressure 156/62. 05/20 Patient is seen today in follow-up. She remains without NG tube in place and has started ice chips and taking oral medications. Blood pressure is improved today and patient did not require IV antihypertensives yesterday. Heart rate is running in the 80s and 90s, blood pressure 132/68, pulse ox 95% on 11 L high flow nasal cannula. Reviewed echocardiogram results with patient and son. 05/24 Patient is seen today as a reconsult regarding AICD. Son states that usually when she is off eliquis, settings were changed on her AICD, [employer]. Patient remains off eliquis. We had signed off on the and recommended repeat still mean this once cleared by general surgery. Contacted general surgery and she is okay to return to eliquis. We are however adjusting the dose due to her poor renal function. The patient has significant edema to the left upper extremity and ultrasound to rule out DVT ordered. She does have some trace lower extremity edema. She does not have an NG tube at this time and is not scheduled for surgery. Physical examination: Gen: This is an 88-year-old female. She is resting in bed. Son is at bedside. VS: reviewed HEENT: Head is atraumatic, normocephalic. Pupils equal, round. Sclerae is anicte jeffery. LUNGS: Clear to auscultation. No wheezes or rhonchi. No intercostal retractions. HEART: Regular rate and rhythm. No murmur. ABDOMEN: Distended with support.. EXTREMITIES: No pedal edema. No calf tenderness. NEUROLOGICAL: Patient is awake, alert and confused. Assessment: Small bowel obstruction UTI Possible bacteremia Sepsis History of sick sinus syndrome status post dual-chamber pacemaker implantation Hypertension Hyperlipidemia Hypothyroidism Plan: Resume eliquis 2.5 mg twice daily Interrogate AICD Contact [employer] rep and make ATP settings turned off per patient's primary car diologist. Continue other cardiac medications Further recommendations as patient progresses Nurse practitioner note has been reviewed, I agree with documented findings and plan of care. Patient was seen and examined. Objective - Vital Signs Vital signs: Vital Signs Temp 98.1 F 05/24/23 11:00 Pulse 80 05/24/23 11:00 Resp 24 05/24/23 11:00 BP 153/61 05/24/23 11:00 Pulse Ox 94 L 05/24/23 11:00 FiO2 75 05/24/23 11:00 Intake & Output 05/23/23 05/24/23 05/24/23 18:59 06:59 18:59 Intake Total 0 Output Total 575 200 500 Balance -575 -200 -500 Intake: Oral 0 Output: Urine 575 200 500 Other: Voiding Method Indwelling Catheter Indwelling Catheter Indwelling Catheter # Bowel Movements 3 1 - Labs CBC & Chem 7: 05/24/23 08:14 05/24/23 08:14 Labs: Abnormal Lab Results - Last 24 Hours (Table) 05/24/23 05/24/23 Range/Units 08:14 08:14 WBC 20.1 H (3.8-10.6) k/uL RBC 3.02 L (3.80-5.40) m/uL Hgb 8.8 L (11.4-16.0) gm/dL Hct 28.2 L (34.0-46.0) % Neutrophils # 17.7 H (1.3-7.7) k/uL Lymphocytes # 0.9 L (1.0-4.8) k/uL Sodium 135 L (137-145) mmol/L Potassium 3.4 L (3.5-5.1) mmol/L Carbon Dioxide 17 L (22-30) mmol/L BUN 94 H (7-17) mg/dL Creatinine 2.34 H (0.52-1.04) mg/dL Glucose 57 L (74-99) mg/dL Calcium 7.9 L (8.4-10.2) mg/dL Magnesium 2.5 H (1.6-2.3) mg/dL AST 63 H (14-36) U/L Total Protein 4.7 L (6.3-8.2) g/dL Albumin 2.1 L (3.5-5.0) g/dL Microbiology - Last 24 Hours (Table) 05/22/23 12:17 Blood Culture - Preliminary Blood 05/18/23 06:47 Blood Culture - Final Blood
[2023-05-24 16:30] LABS: Glucose,Whole Blood 99 mg/dL (70-110)
[2023-05-24] MEDS: ACETAMINOPHEN TAB 325 MG TAB PO PRN (20:06)
[2023-05-24] MEDS: HYDROcodone/APAP 5-325MG 1 EACH TAB PO PRN (20:07)
[2023-05-24] MEDS: SODIUM BICARBONATE TAB 650 MG TAB PO SCH (20:07)
[2023-05-24] MEDS: SENNOSIDES 8.6 MG TAB PO SCH (20:07)
[2023-05-24 20:14] LABS: Glucose,Whole Blood 93 mg/dL (70-110)
[2023-05-24] MEDS ORDERED: APIXABAN 2.5 MG TABLET PO SCH (21:00)
[2023-05-25 04:50] VITALS: RESP 24
--- NOTE | 2023-05-25 05:44 | P.PN ---
Subjective Progress Note Date: 05/24/23 88-year-old female, history of hypertension, hyperlipidemia, hypothyroidism, atrial fibrillation, CHF, presenting to the emergency department following being found on the floor. A fall was not witnessed. Patient was found on the floor this morning by who sleeps in a different room. Patient does not recall the episode and this is reported as normal as patient has short-term memory loss and frequently denies falling. This is per the daughter. Patient does complain of some discomfort of the mid back. Unknown if there is any head injury. No neck pain. No dyspnea. No abdominal pain. Blood work completed in ED reveals a WBC 29.6, hemoglobin of 10.5 and platelet count of 301, sodium 133, potassium 4.8, BUN/creatinine of 31/1.42 and blood glucose of 129, calcium of 10.3, total bilirubin of 1.9, AST/ALT elevated at 39/20, total CK of 277 UA is positive for leukocyte esterase bacteria and WBCs, vital panel is completed and is negative, CT head is negative for any acute intracranial process with nonspecific white matter changes, moderate multilevel degenerative disc disease versus prior fracture of odontoid process with fusion to anterior arch of C1 Chest x-ray reveals low lung volumes with generalized pain see appearance atelectasis versus pulmonary edema Renal and right upper quadrant ultrasound is done which is negative -- Blood work reveals slight trend troponin of CBC from 29.6 down to 24.5 this morning, potassium trended up from 4.8 up to 5.5, creatinine up from 1.4-2.59 this morning -- Patient has been evaluated by nephrology and has been switched to IV bicarbonate infusion; repeat renal function ordered for later today - Blood cultures positive for gram-positive cocci; ID consult placed; ID recommending to switch IV antibiotics to cefazolin 2 g IV every 12 hours -- Stat CT of the abdomen is ordered 05/18/2023 Patient is seen in follow-up this morning with daughter at the bedside and continues to be confused. Patient is currently on a nonrebreather and doesn't report shortness of breath. Patient reports not feeling well and continues to report severe back pain. Patient does see pain management outpatient and will consult as well as neurology consultation as family is concerned that she is not normally this altered. Patient does take a number of pain medications which is chronic for her. Patient also now being followed by general surgery as abdominal x-ray showed concerns for high-grade bowel obstruction and NG tube was placed. Patient is currently nothing by mouth. Chest x-ray yesterday shows cardiomegaly with pulmonary vascular congestion with bilateral pleural effusions with concerns of congestive heart failure. Nephrology is following as well as infectious disease as patient continues to have positive blood cultures and maintained on antibiotics. Initial urine culture finalized showing E. coli and blood cultures remain preliminary showing presumptive staph aureus and daily blood cultures have been added. Patient is continued on antibiotics in the form of cefazolin and again infectious disease is following closely. Patient was given a dose of Lasix today and IV fluids have been discontinued. Patient underwent small bowel x-ray which continues to be pending and will order repeat CT abdomen without contrast. Creatinine today is 1.2 and sodium is 140 with a potassium of 3.7. Pro-calcitonin was also rechecked and trending down but remains elevated at 8.47. 05/19/2023 Patient seen and evaluated today and mentation appears to be improving with multiple medical consultations following. Neurology following an EEG is ordered and pending. Nephrology following as well and sodium is elevated at 147 being started on D5 and water and awaiting repeat labs. Electrolytes being replaced per protocol. Patient continues on antibiotics with infectious disease following for UTI with bacteremia. Repeat blood cultures pending at this time. General surgery following as well follow-up CT abdomen was performed along with small bowel x-ray more suggestive of ileus. Reviewed nothing by mouth. Patient is afebrile continues to require oxygen which is being weaned. Patient continues with weakness and awaiting PT/OT therapy evaluation. Patient denies chest pain or palpitations. 05/20/2023 Patient is seen in follow-up today currently sitting up in the chair and has been working with physical therapy. Per PT/OT therapy patient will require rehab is patient is significantly weak. Patient continues with back pain and being followed by pain management has been transitioned to morphine. Multiple medical consultations following including infectious disease. MRI has been ordered and pending. Orthopedics also consulted for continued back pain as family is concerned about her fall with increased back pain prior to admission. Patient continues on oxygen and weaning as tolerated. Repeat cultures have been negative and patient will continue on IV antibiotics. Will await MRI which is scheduled for tomorrow to discuss further about treatment plan as well as possible rehab week forward. Patient remains with mildly elevated white count of 13 and hemoglobin is stable. Kidney function continues to be 1.3 and sodium is slightly improved on D5 and water with nephrology following. We'll follow up on repeat labs in a.m. EEG has been ordered and awaiting official report. 05/21/2023 Patient is seen and evaluated in follow-up this morning with daughter at the bedside had been working with physical therapy and per nursing staff almost maximum assist with extreme weakness recommending rehab and family is discussing possibly taking her home. Patient scheduled to undergo MRI of the back today which is pending for this afternoon as patient continues with back pain. Patient reports currently managed with pain management as well as orthopedics following. Patient is maintained on antibiotics with infectious disease following awaiting MRI of the back results as well for treatment plan moving forward. Patient is afebrile denies chest pain or shortness of breath although is requiring oxygen and does not normally wear this oxygen in the outpatient setting. Encourage incentive spirometer use and weaning as tolerated. Patient slowly advancing diet per surgery recommendations and is having bowel movements. Abdomen continues to be slightly distended and will repeat abdominal x-ray. 05/24/2023 Patient is seen in follow-up this morning remains on Airvo high flow being weaned down with multiple medical consultations following. 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 Patient maintained on antibiotics secondary to UTI with MSSA bacteremia and most recent cultures have been negative. Infectious disease is following closely. Patient was unable to receive the MRI and CT of the lumbar region was ordered and reviewed by orthopedics with no immediate interventions for surgery at this time. Family is also concerned that patient is not up and moving although respiratory status is currently compromised maintained on high flow oxygen and would recommend PT/OT therapy daily. Patient is significantly weak. General surgery also following as there are concerns for repeat abdominal imaging to show ileus again and patient did have large bowel movement. Family was refusing NG tube for decompression the patient currently nothing by mouth. Diet to be advanced per surgery recommendations. Patient's mentation is improved and more awake today. Patient is afebrile with reported chest pain or palpitations noted. There is some left upper extremity swelling noted and will obtain venous Doppler. Review of systems: Constitutional: No reports of fatigue, fever, or chills Cardiovascular: No reports of chest pain or palpitations Respiratory: reports of continued shortness of breath or cough GI: No reports of nausea, vomiting, or diarrhea, reports large bowel movement : No reports of dysuria or retention Neurovascular: reports of extreme generalized weakness All medications have been reviewed Active Medications Acetaminophen (Acetaminophen Tab 325 Mg Tab) 650 mg PO Q6HR PRN PRN Reason: Mild Pain or Fever > 100.5 Last Admin: 05/17/23 02:41 Dose: 650 mg Hydrocodone Bitart/Acetaminophen (Hydrocodone/Apap 5-325mg 1 Each Tab) 0.5 each PO Q6HR PRN PRN Reason: Pain Last Admin: 05/21/23 10:17 Dose: 0.5 each Albuterol/Ipratropium (Ipratropium-Albuterol 3 Ml Neb) 3 ml INHALATION RT-QID AMADO Last Admin: 05/24/23 12:39 Dose: 3 ml Albuterol/Ipratropium (Ipratropium-Albuterol 3 Ml Neb) 3 ml INHALATION RT-Q2H PRN PRN Reason: Shortness Of Breath Or Wheezing Last Admin: 05/21/23 22:31 Dose: 3 ml Apixaban (Apixaban 2.5 Mg Tablet) 2.5 mg PO BID [facility]; Protocol Calamine (Calamine/Zinc Oxide Lotion 177 Ml Btl) 1 applic TOPICAL QID PRN; Protocol PRN Reason: Skin Irritation Last Admin: 05/18/23 01:34 Dose: 1 applic Cyanocobalamin (Cyanocobalamin 500 Mcg Tab) 1,000 mcg PO DAILY [facility] Last Admin: 05/24/23 08:18 Dose: Not Given Diphenhydramine HCl (Diphenhydramine 50 Mg/Ml 1 Ml Vial) 25 mg IVP ONCE PRN PRN Reason: Itching Donepezil HCl (Donepezil 10 Mg Tab) 10 mg PO DAILY [facility] Last Admin: 05/24/23 08:18 Dose: Not Given Folic Acid (Folic Acid 1 Mg Tab) 1 mg PO DAILY@1200 [facility] Last Admin: 05/24/23 12:03 Dose: Not Given Hydralazine HCl (Hydralazine Hcl 50 Mg Tab) 50 mg PO TID [facility] Last Admin: 05/24/23 08:18 Dose: Not Given Hydralazine HCl (Hydralazine Hcl 20 Mg/Ml 1 Ml Vial) 10 mg IVP BID PRN PRN Reason: sbp >160 Hydromorphone HCl (Hydromorphone 1 Mg/Ml 1 Ml Syringe) 1 mg IVP ONCE PRN PRN Reason: Severe Pain (Scale 7 to 10) Hydromorphone HCl (Hydromorphone 0.5 Mg/0.5 Ml Syringe) 0.125 mg IVP Q6HR PRN PRN Reason: Pain Last Admin: 05/24/23 11:00 Dose: 0.125 mg Cefazolin Sodium 2 gm/ Sodium (Chloride) 50 mls @ 100 mls/hr IVPB Q12HR@0000,1200 [facility] Last Admin: 05/24/23 12:28 Dose: 100 mls/hr Metronidazole 500 mg/ IV (Solution) 100 mls @ 100 mls/hr IVPB Q8HR [facility]; Protocol Last Admin: 05/24/23 08:25 Dose: 100 mls/hr Potassium Chloride 10 meq/ IV (Solution) 100 mls @ 100 mls/hr IVPB Q1HR [facility]; Protocol Stop: 05/24/23 13:59 Last Admin: 05/24/23 13:01 Dose: 100 mls/hr Labetalol HCl (Labetalol 100 Mg Tab) 100 mg PO BID [facility] Last Admin: 05/24/23 08:18 Dose: Not Given Levothyroxine Sodium (Levothyroxine 25 Mcg Tab) 25 mcg PO DAILY@0630 [facility] Last Admin: 05/24/23 05:37 Dose: Not Given Miscellaneous Information (Magnesium Replacement Protocol 1 Each Misc) 1 each MISCELLANE DAILY PRN; Protocol PRN Reason: Per Protocol Miscellaneous Information (Potassium Replacement Protocol 1 Each Misc) 1 each MISCELLANE DAILY PRN; Protocol PRN Reason: Per Protocol Morphine Sulfate (Morphine Sulfate 2 Mg/Ml Syringe) 2 mg IVP Q4HR PRN PRN Reason: Pain/Discomfort Last Admin: 05/20/23 17:09 Dose: 2 mg Multivitamins (Multivitamins, Thera 1 Each Tab) 1 each PO DAILY [facility] Last Admin: 05/24/23 08:18 Dose: Not Given Naloxone HCl (Naloxone 0.4 Mg/Ml 1 Ml Vial) 0.2 mg IV Q2M PRN PRN Reason: Opioid Reversal Ondansetron HCl (Ondansetron 4 Mg/2 Ml Vial) 4 mg IVP Q8HR PRN PRN Reason: Nausea And Vomiting Last Admin: 05/18/23 02:44 Dose: 4 mg Potassium Chloride (Potassium Chloride Er 20 Meq Tab.Er) 20 meq PO BID [facility] Last Admin: 05/24/23 08:18 Dose: Not Given Quetiapine Fumarate (Quetiapine 25 Mg Tab) 12.5 mg PO HS PRN PRN Reason: Agitation Last Admin: 05/21/23 23:48 Dose: 12.5 mg Senna (Sennosides 8.6 Mg Tab) 8.6 mg PO HS [facility] Last Admin: 05/23/23 20:16 Dose: Not Given Simethicone (Simethicone 40 Mg/0.6 Ml Drops 2,000 Mg/30 Ml Bottle) 40 mg PO QID [facility] Last Admin: 05/24/23 13:00 Dose: 40 mg Sodium Bicarbonate (Sodium Bicarbonate Tab 650 Mg Tab) 650 mg PO BID [facility] Thiamine HCl (Thiamine 100 Mg Tab) 100 mg PO DAILY [facility] Last Admin: 05/24/23 08:18 Dose: Not Given Tramadol HCl (Tramadol 50 Mg Tab) 50 mg PO Q6H PRN PRN Reason: Moderate Pain (Scale 4 to 6) Last Admin: 05/20/23 06:25 Dose: 50 mg Physical exam: Gen: This is an 88-year-old female who is awake,much more awake and less confused today, well-developed, well-nourished, elderly-appearing, ill-appearing HEENT: Head is atraumatic, normocephalic. Pupils equal, round. Sclerae is anicteric. NECK: Supple. No JVD. No lymphadenopathy. No thyromegaly. LUNGS: Breath sounds diminished bilaterally with some scattered rhonchi and faint crackles noted at the bases. No intercostal retractions. HEART: Regular rate and rhythm. No murmur. ABDOMEN: Soft. Obese. Less Distended. Bowel sounds are present. No masses. No tenderness. EXTREMITIES: No pedal edema. No calf tenderness. NEUROLOGICAL: Patient is awake, alert and oriented x2. Diffusely weak Assessment: -UTI/sepsis, present on admission with bacteremia. Urine culture showing E. coli. 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 [place] - Volume overload with pleural effusions noted on chest x-ray -Acute hypoxic respiratory failure secondary to volume overload with pleural effusions, worsening requiring high flow airvo -Generalized weakness/fall with back pain -History of chronic back pain with lumbar stenosis -Abdominal distention secondary to ileus, improving, patient had a large bowel movement today -Left upper extremity swelling, acute DVT -Hypertension history -Hyperlipidemia -Hypothyroidism -Dementia history -History of sick sinus syndrome status post dual-chamber pacemaker implantation -Atrial fibrillation, currently rate controlled. anticoagulation is being resumed -DVT prophylaxis; Eliquis resumed -GI prophylaxis -No code Plan: Multiple medical consultations including infectious disease and nephrology following. neurology consulted and EEG abnormal no epileptiform discharges noted Patient unable to receive MRI secondary to pacemaker pain management following for pain management recommendations as She Sees Dr. Aaron Outpatient for Chronic Pain and Patient Continues to Report Significant Back Pain. Gen. surgery following with concerns of ileus and patient had large bowel movement today. Surgery did recommend NG tube also patient's family refused. No surgical interventions planned and continues to be nothing by mouth. Diet to be advanced per surgery Patient currently maintained on high flow oxygen with acute hypoxic respiratory failure secondary to volume overload, maintained on airvo 40/65 Initial Blood cultures positive showing staph aureus with infectious disease following maintained on antibiotics. Repeat blood cultures thus far remain negative. Infectious disease is following Cardiology following and anticoagulation is being resumed. 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 When patient's respiratory status improves will continue with PT/OT therapy daily Plan is for rehab once patient stabilizes. Case management is following Due to multiple complex medical issues, prognosis is guarded The impression and plan of care has been dictated by Jess Paul, Nurse Practitioner as directed. Dr. Ramsey MD I have performed a history and examination and MDM of this patient, discussed the same with the dictator, and agree with the dictator's assessment and plan as written ,documented as a scribe. Based on total visit time, I have performed more than 50% of the visit. Objective - Vital Signs Vital signs: Vital Signs Temp 98.1 F 05/24/23 11:00 Pulse 80 05/24/23 13:03 Resp 24 05/24/23 11:00 BP 153/61 05/24/23 11:00 Pulse Ox 95 05/24/23 12:43 FiO2 70 05/24/23 12:43 Intake & Output 05/23/23 05/24/23 05/24/23 18:59 06:59 18:59 Intake Total 0 Output Total 575 200 500 Balance -575 -200 -500 Intake: Oral 0 Output: Urine 575 200 500 Other: Voiding Method Indwelling Catheter Indwelling Catheter Indwelling Catheter # Bowel Movements 3 1 - Labs CBC & Chem 7: 05/24/23 08:14 05/24/23 08:14 Labs: Abnormal Lab Results - Last 24 Hours (Table) 05/24/23 05/24/23 Range/Units 08:14 08:14 WBC 20.1 H (3.8-10.6) k/uL RBC 3.02 L (3.80-5.40) m/uL Hgb 8.8 L (11.4-16.0) gm/dL Hct 28.2 L (34.0-46.0) % Neutrophils # 17.7 H (1.3-7.7) k/uL Lymphocytes # 0.9 L (1.0-4.8) k/uL Sodium 135 L (137-145) mmol/L Potassium 3.4 L (3.5-5.1) mmol/L Carbon Dioxide 17 L (22-30) mmol/L BUN 94 H (7-17) mg/dL Creatinine 2.34 H (0.52-1.04) mg/dL Glucose 57 L (74-99) mg/dL Calcium 7.9 L (8.4-10.2) mg/dL Magnesium 2.5 H (1.6-2.3) mg/dL AST 63 H (14-36) U/L Total Protein 4.7 L (6.3-8.2) g/dL Albumin 2.1 L (3.5-5.0) g/dL Microbiology - Last 24 Hours (Table) 05/22/23 12:17 Blood Culture - Preliminary Blood 05/18/23 06:47 Blood Culture - Final Blood
[2023-05-25] MEDS: LEVOTHYROXINE 25 MCG TAB PO SCH (05:47)
[2023-05-25 06:26] LABS: Glucose,Whole Blood 100 mg/dL (70-110)
[2023-05-25] MEDS: APIXABAN 2.5 MG TABLET PO SCH (07:58)
[2023-05-25] MEDS: DONEPEZIL 10 MG TAB PO SCH (07:58)
[2023-05-25] MEDS: THIAMINE 100 MG TAB PO SCH (07:58)
[2023-05-25] MEDS: metroNIDAZOLE-NS PMX 500 MG in SALINE 1 100ML.BAG IVPB SCH ×2 (07:58→15:00)
[2023-05-25] MEDS: CYANOCOBALAMIN 500 MCG TAB PO SCH (07:59)
[2023-05-25] MEDS: MULTIVITAMINS, THERA 1 EACH TAB PO SCH (07:59)
[2023-05-25] MEDS: SODIUM BICARBONATE TAB 650 MG TAB PO SCH (07:59)
[2023-05-25] MEDS: POTASSIUM CHLORIDE ER 20 MEQ TAB.ER PO SCH (07:59)
[2023-05-25] MEDS: hydrALAZINE HCL 50 MG TAB PO SCH (07:59)
[2023-05-25] MEDS: LABETALOL 100 MG TAB PO SCH (07:59)
[2023-05-25] MEDS: SIMETHICONE 40 MG/0.6 ML DROPS 2,000 MG/30 ML BOTTLE PO SCH ×2 (08:05→12:14)
[2023-05-25] MEDS: IPRATROPIUM-ALBUTEROL 3 ML NEB INHALATION SCH ×3 (08:35→15:01)
[2023-05-25 08:45] LABS: African American GFR (CKD) 27 (>60 ml/min/1.73 sqM); Anion Gap 13 mmol/L; Blood Urea Nitrogen 95 mg/dL (7-17); Calcium 8.1 mg/dL (8.4-10.2); Carbon Dioxide 15 mmol/L (22-30); Chloride 106 mmol/L (98-107); Glucose 91 mg/dL (74-99); Magnesium 2.4 mg/dL (1.6-2.3); Non-African American GFR(CKD) 23 (>60 ml/min/1.73 sqM); Sodium 134 mmol/L (137-145)
[2023-05-25 08:52] LABS: Basophils # (A) 0.1 k/uL (0-0.2); Basophils % (A) 0 %; Eosinophils # (A) 0.2 k/uL (0-0.7); Eosinophils % (A) 1 %; HCT 29.6 % (34.0-46.0); HGB 9.1 gm/dL (11.4-16.0); Hypochromasia Slight; Lymphocytes # (A) 0.7 k/uL (1.0-4.8); Lymphocytes % (A) 4 %; MCH 29.3 pg (25.0-35.0); MCHC 30.9 g/dL (31.0-37.0); MCV 94.7 fL (80.0-100.0); Mean Platelet Volume 8.5; Monocytes % (A) 5 %; Neutrophils # (A) 16.8 k/uL (1.3-7.7); Neutrophils % (A) 88 %; Platelet Count 379 k/uL (150-450); RBC 3.12 m/uL (3.80-5.40); RDW 13.1 % (11.5-15.5); WBC 19.1 k/uL (3.8-10.6)
[2023-05-25] MEDS ORDERED: FUROSEMIDE 10 MG/ML 2 ML VIAL IV ONE (09:06)
[2023-05-25] MEDS: FOLIC ACID 1 MG TAB PO SCH (11:32)
[2023-05-25] MEDS: HYDROcodone/APAP 5-325MG 1 EACH TAB PO PRN (11:33)
--- NOTE | 2023-05-25 12:01 | P.PN ---
Subjective Patient is seen for follow-up for acute kidney injury. No significant complaints today. 24 hour urine output charted at 1525 mL Serum creatinine slightly lower at 1.9 mg/dL. Status post IV Lasix this morning. Venous Dopplers did have an addendum showing possible small thrombus in the proximal subclavian vein. Patient has been restarted on eliquis. Objective - Vital Signs Vital signs: Vital Signs Temp 98.3 F 05/25/23 07:53 Pulse 76 05/25/23 11:47 Resp 24 05/25/23 07:53 BP 126/53 05/25/23 07:53 Pulse Ox 96 05/25/23 11:40 FiO2 66 05/25/23 11:40 Intake & Output 05/24/23 05/25/23 05/25/23 18:59 06:59 18:59 Intake Total 0 222 Output Total 950 575 350 Balance -950 -575 -128 Weight 68.039 kg Intake: Oral 0 222 Output: Urine 950 575 350 Other: Voiding Method Indwelling Catheter Indwelling Catheter Indwelling Catheter # Bowel Movements 0 1 - Exam Patient is awake, comfortable, no acute distress Examination of the heart S1 and S2 Examination the lungs decreased breath sounds at the bases Abdomen is soft nontender Examination lower extremities shows edema 1+ bilaterally, left upper extremities significantly more swollen. IV has been removed - Labs CBC & Chem 7: 05/25/23 08:11 05/25/23 08:11 Labs: Abnormal Lab Results - Last 24 Hours (Table) 05/25/23 05/25/23 Range/Units 08:11 08:11 WBC 19.1 H (3.8-10.6) k/uL RBC 3.12 L (3.80-5.40) m/uL Hgb 9.1 L (11.4-16.0) gm/dL Hct 29.6 L (34.0-46.0) % MCHC 30.9 L (31.0-37.0) g/dL Neutrophils # 16.8 H (1.3-7.7) k/uL Lymphocytes # 0.7 L (1.0-4.8) k/uL Sodium 134 L (137-145) mmol/L Carbon Dioxide 15 L (22-30) mmol/L BUN 95 H (7-17) mg/dL Creatinine 1.90 H (0.52-1.04) mg/dL Calcium 8.1 L (8.4-10.2) mg/dL Magnesium 2.4 H (1.6-2.3) mg/dL Microbiology - Last 24 Hours (Table) 05/22/23 12:17 Blood Culture - Preliminary Blood Assessment and Plan Assessment: 1. Acute kidney injury, ATN currently stable. No plans for renal replacement therapy if renal function worsens. 2. CK D NKF stage IIIB with baseline GFR around 30 ML per minute. Patient follows with nephrology out of [facility]. 3. E. coli UTI 4. Gram-positive bacteremia, staph aureus with repeat blood cultures being negative 5. Metabolic acidosis associated with acute kidney injury maintained on oral so dium bicarb 6. Small bowel obstruction/ileus 7. Hypokalemia status post replacement 8. Volume overload 9. Possible small thrombus in the right subclavian vein, maintained on eliquis Plan: Add gentle diuresis Repeat labs in a.m. Continue with eliquis
--- NOTE | 2023-05-25 12:58 | P.PN ---
Subjective Progress Note Date: 05/25/23 Principal diagnosis: Reason for follow-up is MSSA bacteremia Patient is a 88-year-old female with a past medical history significant for atrial fibrillation hypertension hyperlipidemia heart failure with patient was brought into the hospital after family patient was found to be on the floor , patient complaining of weakness and pain to the lower back area and did have a positive blood culture with MSSA. On today's evaluation that is 05/25/2023, the patient continues to be afebrile, the patient is breathing comfortably however is requiring high flow supplemental oxygen with an FiO2 of 65%, the patient denies chest pain and no significant cough or sputum production, patient denies nausea/vomiting, no abdominal pain and did have few bowel movements per the daughter at the bedside Patient white count slightly up to 19.1 and a creatinine is 1.90, CT of abdomi nal pelvis limited study no evidence of acute inflammatory process and abdominal pelvis possible small bowel obstruction Objective - Vital Signs Vital signs: Vital Signs Temp 98.3 F 05/25/23 07:53 Pulse 77 05/25/23 08:46 Resp 24 05/25/23 07:53 BP 126/53 05/25/23 07:53 Pulse Ox 94 L 05/25/23 08:39 FiO2 66 05/25/23 08:39 Intake & Output 05/24/23 05/25/23 05/25/23 18:59 06:59 18:59 Intake Total 0 222 Output Total 950 575 Balance -950 -575 222 Weight 68.039 kg Intake: Oral 0 222 Output: Urine 950 575 Other: Voiding Method Indwelling Catheter Indwelling Catheter Indwelling Catheter # Bowel Movements 0 1 - Exam GENERAL DESCRIPTION: An elderly female lying in bed in no distress RESPIRATORY SYSTEM: Unlabored breathing , decreased best at the base HEART: S1 S2 regular rate and rhythm , ABDOMEN: Soft , mild distention EXTREMITIES: No edema feet - Labs CBC & Chem 7: 05/25/23 08:11 05/25/23 08:11 Labs: Abnormal Lab Results - Last 24 Hours (Table) 05/25/23 05/25/23 Range/Units 08:11 08:11 WBC 19.1 H (3.8-10.6) k/uL RBC 3.12 L (3.80-5.40) m/uL Hgb 9.1 L (11.4-16.0) gm/dL Hct 29.6 L (34.0-46.0) % MCHC 30.9 L (31.0-37.0) g/dL Neutrophils # 16.8 H (1.3-7.7) k/uL Lymphocytes # 0.7 L (1.0-4.8) k/uL Sodium 134 L (137-145) mmol/L Carbon Dioxide 15 L (22-30) mmol/L BUN 95 H (7-17) mg/dL Creatinine 1.90 H (0.52-1.04) mg/dL Calcium 8.1 L (8.4-10.2) mg/dL Magnesium 2.4 H (1.6-2.3) mg/dL Microbiology - Last 24 Hours (Table) 05/22/23 12:17 Blood Culture - Preliminary Blood Assessment and Plan (1) Bacteremia Current Visit: Yes Status: Acute Code(s): R78.81 - BACTEREMIA SNOMED Code(s): 0330123 Plan: 1patient with a Staph aureus bacteremia , in this patient presented to hospital with a fall found on the floor has been complaining of more lower back pain and history of chronic back pain with a question of possible discitis/osteomyelitis to lumbosacral spine area as currently do not have any evidence of cellulitis, no joint swelling or other clear focus of this bacteremia, patient did have a positive UA underlying urinary source less likely and urine culture grew E. coli 2-patient did have a renal insufficiency and high risk of nephrotoxicity, being monitored closely by nephrology 3--blood culture drawn 05/17/2023, 05/18/2023 as well as 05/22/2023 has been negative so far, echocardiogram did not show any vegetation 4MRI couldnot be done becasue of pacemaker , patient did have a CT of the thoracolumbar spine without any contrast, mentioned possible small for epidural hemorrhage at the T3-4 level and no evidence of any bony destructive changes in the thorax a lumbar spine 5-patient to continue with the cefazolin and Flagyl and monitor clinical course closely Daughter at the bedside questions were answered Dictation was produced using [employer] dictation software. please excuse any grammatical, word or spelling errors. Time with Patient: Less than 30
--- NOTE | 2023-05-25 13:46 | P.PN ---
Subjective Progress Note Date: 05/25/23 I was asked to evaluate this 88-year-old female patient as the patient is currently and hypoxic respiratory failure and the patient is currently on a BiPAP. The patient was hospitalized on 05/15/2022 in the emergency department. She is known to have CHF, chronic A. fib, pacemaker, hypertension, hyperlip idemia, hypothyroidism and dementia. Her pacemaker is for an underlying sick sinus syndrome. She has chronic A. fib. She was hospitalized for generalized weakness. She also had a fall that was not witnessed by family members. At the time of admission, she had leukocytosis, CAT scan of the brain was negative, chest x-ray showed smaller lung volumes along with atelectatic changes in the increased interstitial infiltrates bilaterally. She had also chronic kidney disease and a creatinine of the fluctuating during this current admission. In fact, she had an acute kidney injury at time of admission and the creatinine went been gradually downtrending. The urine culture was positive for E. coli. The patient also had staph aureus in the blood, MSSA and the patient was covered with IV cefazolin. She remained quite weak and debilitated. Orthopedic was also consulted as the patient was having significant motor weakness and MRI imaging of the back was also requested as part of further investigation. However, the MRI was not done as the patient has a pacemaker in place. Subsequently, the patient becomes more hypoxic, and oxygen requirements go up from 2 L up to 10 L and subsequently she got placed on a BiPAP. The chest x-ray from today shows increased bilateral pulmonary vascular markings and bilateral pleural effusion. There is also cardiomegaly and acute abdominal series as well as done today showed CHF, distention of the small and large bowel and oral contraceptive progress into the colon and she has sigmoid diverticulosis. The CAT scan of the abdomen that was on 05/18/2023 showed mild finding that may reflect ileus without any mechanical obstruction. There was evidence of colonic diverticulosis. Echocardiogram showing normal LV, mild concentric LVH, ejection fraction of 50-55%, right ventricular systolic pressure estimated to be around 46. She also has moderate aortic stenosis with a mean gradient of 10. The most recent labs showed the Sandy 21.8, hemoglobin of 10, BUN of 86 and a creatinine of 1.7 and sodium levels of 133. Patient is currently on Lasix 40 mg IV every 12 hours. The patient remains on IV cefazolin. She is producing urine output in the order of 500 mL over the past 24 hours. On today's evaluation of 05/23/2023, the patient is on high flow oxygen with a flow 50 L an FiO2 of 80%. Her current pulse ox is 95%. She was taken off the BiPAP. She is arousable. Does limited amount of interaction. She has underlying dementia. Her son is at the bedside. Chest x-ray shows cardiomegaly and some increased interstitial markings bilaterally. There is also trace left- sided pleural effusion. The patient has an AICD in place. Nevertheless, the patient has sustained an acute kidney injury and the patient also has a ileus/bowel obstruction. The patient accordingly was taken off the diuretic this morning. BUN is at 94 with a creatinine of 2.34 and a sodium levels of 135 and a potassium levels at 3.2. The white cycles of 23.4 with a hemoglobin of 9.2. Atelectatic discussion with the family and after my discussion, the family opted for a DNR/DNI CODE STATUS based on her condition and comorbidities. The patient is seen today 05/24/2023 in follow-up on the selective care unit. She is currently resting in bed. Requiring AirVo high flow oxygen at 45 L and 75% FiO2 to maintain O2 saturations in the high 80s low 90s. She is afebrile. Hemodynamically stable. Her family is at the bedside. Urine cultures were posi tive for E. coli. Blood cultures are positive for MSSA. White count 20.1. Hemoglobin 8.8. Platelets 364. Sodium 135. Potassium 3.4. Bicarb 17. BUN 94. Creatinine 2.34. Glucose 77. AST 63. ALT 7. Albumin 2.1. She remains on DuoNeb inhalations. Antibiotics in the form of cefazolin and Flagyl. The patient is seen today 05/25/2023 in follow-up on the selective care unit. She is currently resting in bed. A little less responsive today compared to yesterday. Family remains at the bedside. She remains on AirVo high flow oxygen at 40 L/m and 65% FiO2. O2 saturations in the 90s. Doppler studies of the left upper extremity revealed no definitive evidence of DVT. Subcutaneous edema noted. Initial urine culture was positive for E. coli. Blood cultures were positive for MSSA. Follow-up blood cultures are showing no growth. White count 19.1. Hemoglobin 9.1. Platelets 379. Sodium 134. Potassium 4.0. Bicarb 15. BUN 95. Creatinine 1.90. Glucose 91. She remains on DuoNeb inhalations. Antibiotics in the form of cefazolin. Eliquis for anticoagulation. Objective - Vital Signs Vital signs: Vital Signs Temp 98.3 F 05/25/23 07:53 Pulse 80 05/25/23 13:18 Resp 24 05/25/23 11:28 BP 115/56 05/25/23 11:28 Pulse Ox 96 05/25/23 11:40 FiO2 66 05/25/23 11:40 Intake & Output 05/24/23 05/25/23 05/25/23 18:59 06:59 18:59 Intake Total 0 222 Output Total 950 575 350 Balance -950 -575 -128 Weight 68.039 kg 68.039 kg Intake: Oral 0 222 Output: Urine 950 575 350 Other: Voiding Method Indwelling Catheter Indwelling Catheter Indwelling Catheter # Bowel Movements 0 1 - Exam GENERAL EXAM: Alert, frail 88-year-old female, less responsive today, on AirVo high flow oxygen at 40 L and 65% FiO2, fairly comfortable in no apparent distress. HEAD: Normocephalic. EYES: Normal reaction of pupils, equal size. NOSE: Clear with pink turbinates. THROAT: No erythema or exudates. NECK: No masses, no JVD. CHEST: No chest wall deformity. LUNGS: Equal air entry with coarse crackles in the bilateral bases, few scattered rhonchi. CVS: S1 and S2 normal with no audible murmur, regular rhythm. ABDOMEN: No hepatosplenomegaly, normal bowel sounds, no guarding or rigidity. SPINE: No scoliosis or deformity SKIN: No rashes CENTRAL NERVOUS SYSTEM: No focal deficits, tone is normal in all 4 extremities. EXTREMITIES: There is no peripheral edema. No clubbing, no cyanosis. Peripheral pulses are intact. - Labs CBC & Chem 7: 05/25/23 08:11 05/25/23 08:11 Labs: Abnormal Lab Results - Last 24 Hours (Table) 05/25/23 05/25/23 Range/Units 08:11 08:11 WBC 19.1 H (3.8-10.6) k/uL RBC 3.12 L (3.80-5.40) m/uL Hgb 9.1 L (11.4-16.0) gm/dL Hct 29.6 L (34.0-46.0) % MCHC 30.9 L (31.0-37.0) g/dL Neutrophils # 16.8 H (1.3-7.7) k/uL Lymphocytes # 0.7 L (1.0-4.8) k/uL Sodium 134 L (137-145) mmol/L Carbon Dioxide 15 L (22-30) mmol/L BUN 95 H (7-17) mg/dL Creatinine 1.90 H (0.52-1.04) mg/dL Calcium 8.1 L (8.4-10.2) mg/dL Magnesium 2.4 H (1.6-2.3) mg/dL Microbiology - Last 24 Hours (Table) 05/22/23 12:17 Blood Culture - Preliminary Blood Assessment and Plan Assessment: Acute hypoxic respiratory failure, currently on AirVo high flow oxygen at 40 L an FiO2 of 65%. Respiratory failure is multifactorial. The patient has been admitted for UTI and subsequently was found to have a staph septicemia. She is very much debilitated and weak related to her age and comorbidities. She may have an underlying CHF along with an acute kidney injury and a chest x-ray showing increased pulmonary vessel markings and small pleural effusion and cardiomegaly. Echocardiogram shows a preserved LV function with mild degree of aortic stenosis and moderate degree of pulmonary hypertension E. coli urinary tract infection Staph aureus septicemia, MSSA, no evidence of endocarditis based on echocardio graphy. Follow-up blood cultures revealing no growth Chronic stage III B kidney disease with acute kidney injury Generalized weakness and falls History of chronic back pain and lumbar stenosis Ileus Hypertension Hyperlipidemia Hypothyroidism Dementia with ongoing issues with mental status change and toxic metabolic encephalopathy History of sick sinus syndrome and there is a pacemaker in place History of atrial fibrillation, anticoagulated with Eliquis Plan: The patient was seen and evaluated Doppler of the left upper extremity, medications and labs reviewed Continue antibiotics, bronchodilators Titrate down the FiO2 as tolerated Anticoagulated with Eliquis Family is at the bedside Prognosis is guarded DNR/DNI CODE STATUS May consider hospice/comfort care This patient was seen independently by the nurse practitioner I have personally seen and examined the patient, performed the documentation and the assessment and plan as written. Number of minutes spent on the visit: 22.
--- NOTE | 2023-05-25 14:07 | P.PN ---
Subjective Progress Note Date: 05/25/23 Cardiac risk assessment History of present illness: History of present illness: This is an 88 year old female with past medical history of hypothyroidism, hyperlipidemia, hypertension, dementia, sick sinus syndrome status post dual chamber pacemaker implantation, chronic kidney disease stage. Patient follows with a water sponger at [place], Dr. Almanza. Patient presented to the hospital on 05/15 after being found on the floor. She was admitted to the hospital for weakness, acute kidney injury, klebsiella and E. coli urinary tract infection and possible bacteremia. Patient also had abdominal pain and distention found to have a small bowel obstruction and a consult was placed with general surgery. She has subsequently had an NG tube placed and we have been asked to evaluate the patient for cardiac risk assessment. No surgery is currently scheduled.Pacemaker was last interrogated on March 31, 2023. Patient is currently on a nonrebreather and blood pressure is elevated. Eliquis is on hold for possible surgical intervention. Abdomen remains quite distended despite NG tube. EKG sinus rhythm with right bundle branch block, left anterior fascicular block Chest x-ray: Cardiomegaly, pulmonary vascular congestion and bilateral pleural effusions. Correlate for BNP for heart failure. NG in appropriate position. Initial WBC 29.6 now 13.3, hemoglobin is 9.5, electrolytes are within normal limits. Creatinine 1.2 and initially was 2.59. Pro-calcitonin elevated now at 8.47. Influenza A, influenza B, Covid 19 and RSV not detected. Urinalysis positive for infection. Home cardiac medications: Eliquis 5 mg twice daily, levothyroxine 05/19 Patient is seen today in follow-up. This morning around 4 AM she pulled her NG tube out. Plan is to leave this for now per general surgery. She has had elevated blood pressures and she does have IV Vasotec and IV hydralazine available if needed. Echocardiogram has been completed and shows normal LV size preserved systolic function, mild concentric left hypertrophy, mild mitral and tricuspid regurgitation, aortic valve sclerosis with mild increase in gradient. No pericardial effusion. Oxygenation needs have improved and she is now down to 5 L nasal cannula with pulse ox of 90%. Heart rate has been running in the 90s. Blood pressure 156/62. 05/20 Patient is seen today in follow-up. She remains without NG tube in place and has started ice chips and taking oral medications. Blood pressure is improved today and patient did not require IV antihypertensives yesterday. Heart rate is running in the 80s and 90s, blood pressure 132/68, pulse ox 95% on 11 L high flow nasal cannula. Reviewed echocardiogram results with patient and son. 05/24 Patient is seen today as a reconsult regarding AICD. Son states that usually when she is off eliquis, settings were changed on her AICD, [employer]. Patient remains off eliquis. We had signed off on the and recommended repeat still mean this once cleared by general surgery. Contacted general surgery and she is okay to return to eliquis. We are however adjusting the dose due to her poor renal function. The patient has significant edema to the left upper extremity and ultrasound to rule out DVT ordered. She does have some trace lower extremity edema. She does not have an NG tube at this time and is not scheduled for surgery. 05/25 Ultrasound of the left upper extremity was positive for DVT. Patient is currently on eliquis which will increase back to the 5 mg. Patient denies chest pain. Physical examination: Gen: This is an 88-year-old female. She is resting in bed. Son is at bedside. VS: reviewed HEENT: Head is atraumatic, normocephalic. Pupils equal, round. Sclerae is anicteric. LUNGS: Clear to auscultation. No wheezes or rhonchi. No intercostal retractions. HEART: Regular rate and rhythm. No murmur. ABDOMEN: Distended with support.. EXTREMITIES: No pedal edema. No calf tenderness. NEUROLOGICAL: Patient is awake, alert and confused. Assessment: Small bowel obstruction UTI Possible bacteremia Sepsis History of sick sinus syndrome status post dual-chamber pacemaker implantation Hypertension Hyperlipidemia Hypothyroidism Plan: IV Lasix 120 mg Increase eliquis back to 5 mg twice daily due to DVT Contact [employer] rep and make ATP settings turned off per patient's primary water sponger. Cardiology will sign off this case and follow on an as-needed basis. Please reconsult for any new concerns. Patient may follow-up in the office in one to 2 weeks. Nurse practitioner note has been reviewed, I agree with documented findings and plan of care. Patient was seen and examined. Objective - Vital Signs Vital signs: Vital Signs Temp 98.3 F 05/25/23 07:53 Pulse 76 05/25/23 11:47 Resp 24 05/25/23 11:28 BP 115/56 05/25/23 11:28 Pulse Ox 96 05/25/23 11:40 FiO2 66 05/25/23 11:40 Intake & Output 05/24/23 05/25/23 05/25/23 18:59 06:59 18:59 Intake Total 0 222 Output Total 950 575 350 Balance -950 -825 -128 Weight 68.039 kg 68.039 kg Intake: Oral 0 222 Output: Urine 950 575 350 Other: Voiding Method Indwelling Catheter Indwelling Catheter Indwelling Catheter # Bowel Movements 0 1 - Labs CBC & Chem 7: 05/25/23 08:11 05/25/23 08:11 Labs: Abnormal Lab Results - Last 24 Hours (Table) 05/25/23 05/25/23 Range/Units 08:11 08:11 WBC 19.1 H (3.8-10.6) k/uL RBC 3.12 L (3.80-5.40) m/uL Hgb 9.1 L (11.4-16.0) gm/dL Hct 29.6 L (34.0-46.0) % MCHC 30.9 L (31.0-37.0) g/dL Neutrophils # 16.8 H (1.3-7.7) k/uL Lymphocytes # 0.7 L (1.0-4.8) k/uL Sodium 134 L (137-145) mmol/L Carbon Dioxide 15 L (22-30) mmol/L BUN 95 H (7-17) mg/dL Creatinine 1.90 H (0.52-1.04) mg/dL Calcium 8.1 L (8.4-10.2) mg/dL Magnesium 2.4 H (1.6-2.3) mg/dL Microbiology - Last 24 Hours (Table) 05/22/23 12:17 Blood Culture - Preliminary Blood
--- NOTE | 2023-05-25 14:16 | P.PN ---
Subjective Progress Note Date: 05/25/23 CHIEF COMPLAINT: Ileus HISTORY OF PRESENT ILLNESS: Patient is lying in bed. She remains on high flow oxygen. Followed by pulmonary service. Surgical service following regards to her ileus. Patient has been having bowel movements. Her abdomen is softer. She denies any abdominal pain. Denies any nausea or vomiting. She tolerated the clear liquids. Afebrile. WBC 19.1 Hgb 9.1 sodium 134 potassium has gone up from 3.4-4.0 creatinine down to 1.9. Eliquis was restarted. PHYSICAL EXAM: VITAL SIGNS: Reviewed GENERAL: Well-developed in no acute distress. HEENT: No sclera icterus. Extraocular movements grossly intact. Moist buccal mucosa. Head is atraumatic, normocephalic. Hears conversational speech. No nasal drainage. NECK: Supple without lymphadenopathy. CHEST: Non-labored respirations and equal bilateral excursions. CARDIOVASCULAR: Palpable 2+ radial pulses. ABDOMEN: Softer. Mildly distended. nontender MUSCULOSKELETAL: No clubbing or cyanosis. NEUROLOGIC: No focal or lateralizing signs. Cranial nerves II through XII grossly intact. PSYCH: pleasantly confused SKIN: Well perfused. Good skin turgor. ASSESSMENT: 1. Abdominal pain with ileus 2. History of abdominal surgeries 3. UTI 4. Bacteremia 5. Fall and weakness 6. Acute kidney injury. history of chronic kidney disease. 7. History of AICD 8. History of atrial fibrillation on Eliquis 9. Lower Back pain. History of chronic back pain 10. Hypoxia 11. Hypokalemia improved PLAN: -No surgical intervention planned -Advance diet to low fiber -Encouraged patient to increase activity level -Continue treatment for UTI and bacteremia, and electrolyte imbalance -Continue stool softener Physician Line Person note has been reviewed by physician. Signing provider agrees with the documented findings, assessment, and plan of care. Objective - Vital Signs Vital signs: Vital Signs Temp 98.3 F 05/25/23 07:53 Pulse 77 05/25/23 08:46 Resp 24 05/25/23 07:53 BP 126/53 05/25/23 07:53 Pulse Ox 94 L 05/25/23 08:39 FiO2 66 05/25/23 08:39 Intake & Output 05/24/23 05/25/23 05/25/23 18:59 06:59 18:59 Intake Total 0 222 Output Total 950 575 Balance -950 -575 222 Weight 68.039 kg Intake: Oral 0 222 Output: Urine 950 575 Other: Voiding Method Indwelling Catheter Indwelling Catheter Indwelling Catheter # Bowel Movements 0 1 - Labs CBC & Chem 7: 05/25/23 08:11 05/25/23 08:11 Labs: Abnormal Lab Results - Last 24 Hours (Table) 05/25/23 05/25/23 Range/Units 08:11 08:11 WBC 19.1 H (3.8-10.6) k/uL RBC 3.12 L (3.80-5.40) m/uL Hgb 9.1 L (11.4-16.0) gm/dL Hct 29.6 L (34.0-46.0) % MCHC 30.9 L (31.0-37.0) g/dL Neutrophils # 16.8 H (1.3-7.7) k/uL Lymphocytes # 0.7 L (1.0-4.8) k/uL Sodium 134 L (137-145) mmol/L Carbon Dioxide 15 L (22-30) mmol/L BUN 95 H (7-17) mg/dL Creatinine 1.90 H (0.52-1.04) mg/dL Calcium 8.1 L (8.4-10.2) mg/dL Magnesium 2.4 H (1.6-2.3) mg/dL Microbiology - Last 24 Hours (Table) 05/22/23 12:17 Blood Culture - Preliminary Blood
[2023-05-25] MEDS: HYDROmorphone 0.5 MG/0.5 ML SYRINGE IVP PRN (15:00)
--- NOTE | 2023-05-25 16:04 | P.DS ---
Providers Date of admission: 05/15/23 14:09 Expected date of discharge: 05/25/23 Attending physician: Huan Yanez MD Consults: 05/16/23 09:04 Consult Physician Urgent Consulting Provider: Mariposa Joyner Consult Reason/Comments: hyacinth Do you want consulting provider notified?: Yes 05/16/23 11:47 Consult Physician Routine Consulting Provider: Lora Hart Consult Reason/Comments: Bacteremia Do you want consulting provider notified?: Yes 05/17/23 14:37 Consult Physician Urgent Consulting Provider: Kellen Kumar Consult Reason/Comments: abdominal distention, concerns for high grade obstruction Do you want consulting provider notified?: Yes 05/18/23 09:26 Consult Physician Routine Consulting Provider: Nisha Hope Consult Reason/Comments: Cardiac risk Assessment Do you want consulting provider notified?: Yes 05/18/23 15:16 Consult Physician Routine Consulting Provider: Rogelio Aaron Consult Reason/Comments: chronic back pain, sees outpatient Do you want consulting provider notified?: Yes Consult Physician Urgent Consulting Provider: Gio Garcia Consult Reason/Comments: altered mentation, confusion Do you want consulting provider notified?: Yes 05/20/23 11:06 Consult Physician Urgent Consulting Provider: Drew Izaguirre Consult Reason/Comments: back pain Do you want consulting provider notified?: Yes 05/22/23 12:10 Consult Physician Routine Consulting Provider: Milagros Eden Consult Reason/Comments: shortness of breath/bipap Do you want consulting provider notified?: Yes 05/24/23 10:16 Consult Physician Routine Consulting Provider: Isauro Lopez Consult Reason/Comments: Eliquis on hold, AICD adjustments needed per son. Do you want consulting provider notified?: Already Contacted Primary care physician: [facility] Course: Final diagnosis -UTI/sepsis, present on admission with bacteremia. Urine culture showing E. coli. 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 Small thrombus proximal subclavian vein is difficult to exclude per radiologist - Volume overload with pleural effusions noted on chest x-ray -Acute hypoxic respiratory failure secondary to volume overload with pleural effusions, worsening requiring high flow airvo -Generalized weakness/fall with back pain -History of chronic back pain with lumbar stenosis -Abdominal distention secondary to ileus, improving, patient had a large bowel movement today -Left upper extremity swelling, acute DVT -Hypertension history -Hyperlipidemia -Hypothyroidism -Dementia history -History of sick sinus syndrome status post dual-chamber pacemaker implantation -Atrial fibrillation, currently rate controlled. anticoagulation is being resumed -DVT prophylaxis; Eliquis resumed -GI prophylaxis -No code Discharge disposition Patient is being transferred to [facility] services and has met inpatient criteria. Total time taken is greater than 35 minutes. Hospital course This is a 88-year-old female who was recently admitted with fall and weakness with back pain and being closely monitored. On admission patient was found to have an extremely elevated white count and positive urine as well as positive blood cultures with features of sepsis, present on admission secondary to UTI w ith E. coli bacteremia. Multiple medical consultations following including infectious disease maintained on antibiotics and cultures thus far have cleared. Patient also with significant back pain and significant weakness been evaluated by orthopedics along with neurology and pain management continued to deteriorate. Patient also having pleural effusions and hypoxia and general decline requiring high flow airvo. Patient does have significant history of short-term memory loss and has remained somewhat confused throughout this hospitalization. Patient also noted to have 2 episodes of concerns of bowel obstruction with possible ileus with general surgery following an no recommendations on surgery made although patient did have NG tube at one point. Patient was continued on bowel regimen and NG tube removed able to minimally tolerate some diet although experienced another ileus and surgery recommended NG tube again and patient family refused. Patient then had significant respiratory distress requiring high flow oxygen. Patient has had overall deterioration throughout this prolonged hospitalization and family has decided to meet with hospice. Patient family has met with [facility] hospice and patient meets inpatient criteria and will be transitioned to comfort measures only per family. Patient has had overall poor prognosis and will be made comfort measures. Please refer to other consultations notes for further HPI. Patient denies any worsening shortness of breath or chest pains. Patient has not been eating very well and has no appetite with no reports of nausea or vomiting. Physical exam: Gen: This is a 88-year-old female who is awake although extremely lethargic, well-developed, ill-appearing, elderly appearing, minimally responsive HEENT: Head is atraumatic, normocephalic. Pupils equal, round. Sclerae is anicteric. NECK: Supple. No JVD. No lymphadenopathy. No thyromegaly. LUNGS: Diminished breath sounds bilaterally with scattered crackles and coarse rhonchi noted. No intercostal retractions. HEART: S1, S2 are muffled, irregular ABDOMEN: Soft. Obese. Bowel sounds are present. No masses. No tenderness. EXTREMITIES: No pedal edema. No calf tenderness. Generalized edema noted of the lower extremities as well as upper left extremity NEUROLOGICAL: Patient is lethargic and minimally arousable. Diffusely weak Please refer to medication reconciliation sheet for a list of medications. The impression and plan of care has been dictated by Jess Paul, Nurse Practitioner as directed. Dr. Lee MD I have performed a history and examination and MDM of this patient, discussed the same with the dictator, and agree with the dictator's assessment and plan as written ,documented as a scribe. Based on total visit time, I have performed more than 50% of the visit. Patient Condition at Discharge: Poor Plan - Discharge Summary New Discharge Prescriptions: No Action Levothyroxine Sodium [Synthroid] 25 mcg PO DAILY Cyanocobalamin (Vitamin B-12) [Vitamin B-12] 1,000 mcg PO DAILY Multivitamins, Thera [Multivitamin (formulary)] 1 tab PO DAILY Apixaban [Eliquis] 5 mg PO BID Thiamine [Vitamin B-1] 100 mg PO DAILY Rivastigmine Tartrate [Rivastigmine] 4.5 mg PO BID Atorvastatin [Lipitor] 20 mg PO HS Watts-3 500mg 500 mg PO DAILY Discharge Medication List Levothyroxine Sodium [Synthroid] 25 mcg PO DAILY 04/10/20 [History] Apixaban [Eliquis] 5 mg PO BID 01/23/21 [History] Multivitamins, Thera [Multivitamin (formulary)] 1 tab PO DAILY 01/23/21 [History] Thiamine [Vitamin B-1] 100 mg PO DAILY 01/23/21 [History] Cyanocobalamin (Vitamin B-12) [Vitamin B-12] 1,000 mcg PO DAILY 04/11/21 [History] Rivastigmine Tartrate [Rivastigmine] 4.5 mg PO BID 04/11/21 [History] Atorvastatin [Lipitor] 20 mg PO HS 05/15/23 [History] Watts-3 500mg 500 mg PO DAILY 05/15/23 [History] Follow up Appointment(s)/Referral(s): Kvng Shah MD [Primary Care Provider] - 1-2 days
[2023-05-25 16:36] VITALS: BP 121/61; PULSE 69; TEMP 98.5
[2023-05-25] MEDS ORDERED: hydrALAZINE HCL 50 MG TAB PO SCH (21:00)
[2023-05-25] MEDS ORDERED: APIXABAN 5 MG TAB PO SCH (21:00)
--- NOTE | 2023-05-27 14:46 | CDI ---
Documentation Clarification Form Date: 05/27/2023 02:21:13 PM From: She Kelley Phone: Admit Date: 05/15/2023 02:09:00 PM Patient Name: Marianna Garcia Visit Number: [id number] Discharge Date: 05/25/2023 04:15:00 PM ATTENTION: The Clinical Documentation Specialists (CDI) and [facility] Coding Staff appreciate your assistance in clarifying documentation. Please respond to the clarification below the line at the bottom and electronically sign. The CDI & [facility] Coding staff will review the response and follow-up if needed. Please note: Queries are made part of the Legal Health Record. If you have any questions, please contact the author of this message via ITS. Dr. Pressley E Sheet Your patient has the documented diagnosis of unspecified CHF ED Note and PMHx. Additional information regarding the type and acuity of CHF is requested. History/Risk Factors: 88yo F, UTI, sepsis,E. coli, ATN, CKD IIIB, CHF, AHRF d/t volume overloadwithpleural effusions, fall, A/Cback pain, HTN, dementia, SSS w AICD, A Fib Clinical Indicators: VS/Pulse OX: 90-97% Echocardiogram Results: normal LV size with preserved systolic fx with EF 50- 55%.Mild concentric LVH, mild MR, TR,ASwith mild increase in gradient. Chest x ray: Lungs/Pleura: There isno evidence ofpleural effusion, focal consolidation, or pneumothorax. Cardiomediastinal silhouette isenlargedand stable. Twolead cardiacconduction device overlying the left hemithorax with lead tips projecting over the right ventricle and right atrium. CXR: 05/16 Scattered basilar airspaceopacitieswith low lung volumes andcardiomegaly. Theremay bemild pulm vascularcongestion. Correlate for CHF. Treatment: given a dose of Lasix In your professional opinion, can you please clarify the acuity and type of CHF if known? [ ] Chronic Systolic Heart Failure (reduced EF) [ ] Acute on Chronic Systolic Heart Failure (reduced EF) [ ] Chronic Diastolic Heart Failure (preserved EF) [ ] Acute on Chronic Diastolic Heart Failure (preserved EF) [ ] Chronic Systolic & Diastolic Heart Failure [ ] Acute on Chronic Heart Failure Systolic & Diastolic Heart Failure [ ] Other, please specify [ ] Unable to determine (Template Last Revised: August 2020) Acute on Chronic Diastolic Heart Failure (preserved EF), she was getting iv lasix as well MTDD
== END 2023-05-25 16:15 | disposition hospice, inpatient (51) | DRG 871 ==
LOC: EC 11:02 → 5NMEDONC 14:09 → 4SSUR 14:19 → 3SCARD 05-22 00:47
PROVIDERS: ADMIT Internal Medicine; ATTEND Internal Medicine
PROC: 0D9670Z Drainage of Stomach with Drainage Device, Via Natural or Artificial Opening (ICD-10-PCS; principal; 2023-05-17)
PROC: 5A0935A Assistance with Respiratory Ventilation, Less than 24 Consecutive Hours, High Flow/Velocity Cannula (ICD-10-PCS; 2023-05-18)
DX: A41.51 Sepsis due to Escherichia coli [E. coli] (principal); G92.8 Other toxic encephalopathy; N17.0 Acute kidney failure with tubular necrosis; J96.01 Acute respiratory failure with hypoxia; I50.33 Acute on chronic diastolic (congestive) heart failure; K56.609 Unspecified intestinal obstruction, unspecified as to partial versus complete obstruction; I13.0 Hypertensive heart and chronic kidney disease with heart failure and stage 1 through stage 4 chronic kidney disease, or unspecified chronic kidney disease; I48.20 Chronic atrial fibrillation, unspecified; K56.7 Ileus, unspecified; N39.0 Urinary tract infection, site not specified; I45.2 Bifascicular block; E87.20 Acidosis, unspecified; E87.0 Hyperosmolality and hypernatremia; I82.B11 Acute embolism and thrombosis of right subclavian vein; I27.20 Pulmonary hypertension, unspecified; I49.5 Sick sinus syndrome; D69.6 Thrombocytopenia, unspecified; N18.32 Chronic kidney disease, stage 3b; F03.A0 Unspecified dementia, mild, without behavioral disturbance, psychotic disturbance, mood disturbance, and anxiety; Z51.5 Encounter for palliative care; E03.9 Hypothyroidism, unspecified; F10.11 Alcohol abuse, in remission; Z20.822 Contact with and (suspected) exposure to COVID-19; I08.3 Combined rheumatic disorders of mitral, aortic and tricuspid valves; I44.0 Atrioventricular block, first degree; I25.10 Atherosclerotic heart disease of native coronary artery without angina pectoris; M43.16 Spondylolisthesis, lumbar region; G89.29 Other chronic pain; R73.03 Prediabetes; E87.5 Hyperkalemia; E87.6 Hypokalemia; E78.5 Hyperlipidemia, unspecified; B96.1 Klebsiella pneumoniae [K. pneumoniae] as the cause of diseases classified elsewhere; M47.816 Spondylosis without myelopathy or radiculopathy, lumbar region; M51.36 Other intervertebral disc degeneration, lumbar region; M48.061 Spinal stenosis, lumbar region without neurogenic claudication; W19.XXXA Unspecified fall, initial encounter; Y92.009 Unspecified place in unspecified non-institutional (private) residence as the place of occurrence of the external cause; Z79.899 Other long term (current) drug therapy; Z95.810 Presence of automatic (implantable) cardiac defibrillator; Z87.891 Personal history of nicotine dependence; Z28.311 Partially vaccinated for COVID-19; Z79.890 Hormone replacement therapy; Z79.01 Long term (current) use of anticoagulants; Z88.8 Allergy status to other drugs, medicaments and biological substances
CPT/HCPCS: 36415; 70450; 71045; 71046; 72070; 72100; 72125; 72128; 72131; 74021; 74022; 74176; 74250; 76705; 76770; 80048; 80053; 81001; 82140; 82248; 82550; 82607; 82746; 83036; 83605; 83735; 84145; 84443; 85025; 85652; 86140; 87040; 87077; 87086; 87186; 87636; 93005; 93306; 94640; 94660; 94760; 95816; 96361; 96365; 96375; 99285

== ENCOUNTER 2023-05-25 15:54 | Inpatient (IN) | payer MEDICAID ==
[2023-05-25] MEDS ORDERED: haloperidoL 1 MG TAB PO PRN (16:04)
[2023-05-25] MEDS ORDERED: GLYCOPYRROLATE 0.2 MG/ML 2 ML VIAL IVP PRN (16:04)
[2023-05-25] MEDS ORDERED: LORazepam 2 MG/ML INJ IV PRN (16:04)
[2023-05-25] MEDS ORDERED: ONDANSETRON 4 MG/2 ML VIAL IVP PRN (16:04)
[2023-05-25] MEDS ORDERED: DRY MOUTH SPRAY 44.3 SPRAY/44.3 ML SPRAY MUCOUS MEM PRN (16:04)
[2023-05-25] MEDS ORDERED: ACETAMINOPHEN SUPPOSITORY 650 MG SUPP RECTAL PRN (16:04)
[2023-05-25] MEDS ORDERED: SCOPOLAMINE 1 MG/72 HR PATCH TRANSDERM SCH (17:00)
[2023-05-25] MEDS ORDERED: MORPHINE SULFATE (100 MG/2 ML) 100 MG in SODIUM CHLORIDE 0.9% 100 ML IV SCH (17:00)
[2023-05-25] MEDS: MORPHINE SULFATE 2 MG/ML SYRINGE IV PRN (17:18)
[2023-05-25] MEDS: ATROPINE OPHTH SOLN 1% 5ML BTL SUBLINGUAL PRN (19:56)
[2023-05-26] MEDS: ATROPINE OPHTH SOLN 1% 5ML BTL SUBLINGUAL PRN (06:11)
[2023-05-26] MEDS: MORPHINE SULFATE 2 MG/ML SYRINGE IV PRN (06:29)
[2023-05-26 10:22] VITALS: PULSE 62; RESP 10
--- NOTE | 2023-05-26 18:19 | P.HPIM ---
History of Present Illness H&P Date: 05/26/23 88-year-old female, history of hypertension, hyperlipidemia, hypothyroidism, atrial fibrillation, CHF, presenting to the emergency department following being found on the floor. A fall was not witnessed. Patient was found on the floor this morning by who sleeps in a different room. Patient does not recall the episode and this is reported as normal as patient has short-term memory loss and frequently denies falling. This is per the daughter. Patient does complain of some discomfort of the mid back. Unknown if there is any head injury. No neck pain. No dyspnea. No abdominal pain. Blood work completed in ED reveals a WBC 29.6, hemoglobin of 10.5 and platelet count of 301, sodium 133, potassium 4.8, BUN/creatinine of 31/1.42 and blood glucose of 129, calcium of 10.3, total bilirubin of 1.9, AST/ALT elevated at 39/20, total CK of 277 UA is positive for leukocyte esterase bacteria and WBCs, vital panel is completed and is negative, CT head is negative for any acute intracranial process with nonspecific white matter changes, moderate multilevel degenerative disc disease versus prior fracture of odontoid process with fusion to anterior arch of C1 Chest x-ray reveals low lung volumes with generalized pain see appearance atelectasis versus pulmonary edema Renal and right upper quadrant ultrasound is done which is negative -- Blood work reveals slight trend troponin of CBC from 29.6 down to 24.5 this morning, potassium trended up from 4.8 up to 5.5, creatinine up from 1.4-2.59 this morning -- Patient has been evaluated by nephrology and has been switched to IV bicarbonate infusion; repeat renal function ordered for later today - Blood cultures positive for gram-positive cocci; ID consult placed; ID recommending to switch IV antibiotics to cefazolin 2 g IV every 12 hours -- Stat CT of the abdomen is ordered 05/18/2023 Patient is seen in follow-up this morning with daughter at the bedside and continues to be confused. Patient is currently on a nonrebreather and doesn't report shortness of breath. Patient reports not feeling well and continues to report severe back pain. Patient does see pain management outpatient and will consult as well as neurology consultation as family is concerned that she is not normally this altered. Patient does take a number of pain medications which is chronic for her. Patient also now being followed by general surgery as abdominal x-ray showed concerns for high-grade bowel obstruction and NG tube was placed. Patient is currently nothing by mouth. Chest x-ray yesterday shows cardiomegaly with pulmonary vascular congestion with bilateral pleural effusions with concerns of congestive heart failure. Nephrology is following as well as infectious disease as patient continues to have positive blood cultures and maintained on antibiotics. Initial urine culture finalized showing E. coli and blood cultures remain preliminary showing presumptive staph aureus and daily blood cultures have been added. Patient is continued on antibiotics in the form of cefazolin and again infectious disease is following closely. Patient was given a dose of Lasix today and IV fluids have been discontinued. Patient underwent small bowel x-ray which continues to be pending and will order repeat CT abdomen without contrast. Creatinine today is 1.2 and sodium is 140 with a potassium of 3.7. Pro-calcitonin was also rechecked and trending down but remains elevated at 8.47. 05/19/2023 Patient seen and evaluated today and mentation appears to be improving with multiple medical consultations following. Neurology following an EEG is ordered and pending. Nephrology following as well and sodium is elevated at 147 being started on D5 and water and awaiting repeat labs. Electrolytes being replaced per protocol. Patient continues on antibiotics with infectious disease following for UTI with bacteremia. Repeat blood cultures pending at this time. General surgery following as well follow-up CT abdomen was performed along with small bowel x-ray more suggestive of ileus. Reviewed nothing by mouth. Patient is afebrile continues to require oxygen which is being weaned. Patient continues with weakness and awaiting PT/OT therapy evaluation. Patient denies chest pain or palpitations. 05/20/2023 Patient is seen in follow-up today currently sitting up in the chair and has been working with physical therapy. Per PT/OT therapy patient will require rehab is patient is significantly weak. Patient continues with back pain and being followed by pain management has been transitioned to morphine. Multiple medical consultations following including infectious disease. MRI has been ordered and pending. Orthopedics also consulted for continued back pain as family is concerned about her fall with increased back pain prior to admission. Patient continues on oxygen and weaning as tolerated. Repeat cultures have been negative and patient will continue on IV antibiotics. Will await MRI which is scheduled for tomorrow to discuss further about treatment plan as well as possible rehab week forward. Patient remains with mildly elevated white count of 13 and hemoglobin is stable. Kidney function continues to be 1.3 and sodium is slightly improved on D5 and water with nephrology following. We'll follow up on repeat labs in a.m. EEG has been ordered and awaiting official report. 05/21/2023 Patient is seen and evaluated in follow-up this morning with daughter at the bedside had been working with physical therapy and per nursing staff almost maximum assist with extreme weakness recommending rehab and family is discussing possibly taking her home. Patient scheduled to undergo [facility] of the [facility] is pending for this afternoon as patient continues with back pain. Patient reports currently managed with pain management as well as orthopedics following. Patient is maintained on antibiotics with infectious disease following awaiting MRI of the back results as well for treatment plan moving forward. Patient is afebrile denies chest pain or shortness of breath although is requiring oxygen and does not normally wear this oxygen in the outpatient setting. Encourage incentive spirometer use and weaning as tolerated. Patient slowly advancing diet per surgery recommendations and is having bowel movements. Abdomen continues to be slightly distended and will repeat abdominal x-ray. 05/24/2023 Patient is seen in follow-up this morning remains on Airvo high flow being weaned down with multiple medical consultations following. Patient is off anticoagulation currently and will consult cardiology as patient's family reports her preprint analyst adjust the pacemaker device went off anticoagulation. Patient maintained on antibiotics secondary to UTI with MSSA bacteremia and most recent cultures have been negative. Infectious disease is following closely. Patient was unable to receive the MRI and CT of the lumbar region was ordered and reviewed by orthopedics with no immediate interventions for surgery at this time. Family is also concerned that patient is not up and moving although respiratory status is currently compromised maintained on high flow oxygen and would recommend PT/OT therapy daily. Patient is significantly weak. General surgery also following as there are concerns for repeat abdominal imaging to show ileus again and patient did have large bowel movement. Family was refusing NG tube for decompression the patient currently nothing by mouth. Diet to be a dvanced per surgery recommendations. Patient's mentation is improved and more awake today. Patient is afebrile with reported chest pain or palpitations noted. There is some left upper extremity swelling noted and will obtain venous Doppler. 05/26/2023 Patient and family have met with [facility] and has met inpatient GIP services and has been maintained on morphine drip which has been titrated and being weaned off of high flow oxygen. Patient family at bedside with questions and concerns were answered. Patient is becoming slightly more restless and morphine drip being titrated. Patient will be closely monitored with [facility] services following Review of systems: Unable to maintain as patient is unresponsive Physical exam: Gen: This is an 88-year-old female who is awake,much more awake and less confused today, well-developed, well-nourished, elderly-appearing, ill-appearing HEENT: Head is atraumatic, normocephalic. Pupils equal, round. Sclerae is anicteric. NECK: Supple. No JVD. No lymphadenopathy. No thyromegaly. LUNGS: Breath sounds diminished bilaterally with some scattered rhonchi and faint crackles noted at the bases. No intercostal retractions. HEART: Regular rate and rhythm. No murmur. ABDOMEN: Soft. Obese. Less Distended. Bowel sounds are present. No masses. No tenderness. EXTREMITIES: No pedal edema. No calf tenderness. NEUROLOGICAL: Patient is awake, alert and oriented x2. Diffusely weak Assessment: -UTI/sepsis, present on admission with bacteremia. Urine culture showing E. coli. 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 anticoagulation is being resumed -No code Plan: Patient and family met with [facility] hospice services and has met inpatient criteria as patient is maintained on high flow airvo currently attempting weaning down to nasal cannula Patient continued on morphine drip being titrated and increased as needed Multiple family members present at bedside with questions and concerns were answered to the best of our ability Continue with comfort measures Given patient's significant comorbidities, overall prognosis is poor The impression and plan of care has been dictated by Jess Paul, Nurse Practitioner as directed. Dr. Lee MD I have performed a history and examination and MDM of this patient, discussed the same with the dictator, and agree with the dictator's assessment and plan as written ,documented as a scribe. Based on total visit time, I have performed more than 50% of the visit. Past Medical History Past Medical History: Atrial Fibrillation, Heart Failure, Hyperlipidemia, Hypertension, Memory Impairment, Musculoskeletal Disorder, Osteoarthritis (OA), Renal Disease, Thyroid Disorder Additional Past Medical History / Comment(s): heart murmur, CKD-sees specialist, low back pain, DEMENTIA History of Any Multi-Drug Resistant Organisms: None Reported Past Surgical History: AICD, Cholecystectomy, Heart Catheterization, Hysterectomy Additional Past Surgical History / Comment(s): pain procedures, cardioversion, Past Anesthesia/Blood Transfusion Reactions: No Reported Reaction Type of Cardiac Device: AICD Device Placement Date:: September 2020 [employer] Smoking Status: Former smoker - Past Family History Mother Family Medical History: No Reported History Father Family Medical History: Cancer Medications and Allergies Home Medications Medication Instructions Recorded Confirmed Type Levothyroxine Sodium [Synthroid] 25 mcg PO DAILY 04/10/20 05/15/23 History Apixaban [Eliquis] 5 mg PO BID 01/23/21 05/15/23 History Multivitamins, Thera [Multivitamin 1 tab PO DAILY 01/23/21 05/15/23 History (formulary)] Thiamine [Vitamin B-1] 100 mg PO DAILY 01/23/21 05/15/23 History Cyanocobalamin (Vitamin B-12) 1,000 mcg PO DAILY 04/11/21 05/15/23 History [Vitamin B-12] Rivastigmine Tartrate 4.5 mg PO BID 04/11/21 05/15/23 History [Rivastigmine] Atorvastatin [Lipitor] 20 mg PO HS 05/15/23 05/15/23 History Randolph-3 500mg 500 mg PO DAILY 05/15/23 05/15/23 History Allergies Allergy/AdvReac Type Severity Reaction Status Date / Time lorazepam [From Ativan] AdvReac Hallucinati Verified 05/15/23 11:13 ons metoprolol AdvReac Hallucinati Verified 05/15/23 11:13 ons oxybutynin AdvReac Hallucinati Verified 05/15/23 11:13 ons Physical Exam Vitals: Vital Signs Pulse Resp Pulse Ox FiO2 05/26/23 08:58 96 05/26/23 05:31 8 L 05/26/23 04:00 60 10 L 60 05/26/23 03:49 50 05/26/23 03:08 10 L 05/26/23 00:00 65 17 60 05/25/23 23:58 50 05/25/23 20:00 62 17 60 05/25/23 18:47 18 60 05/25/23 18:00 60 Intake and Output 05/25/23 05/26/23 05/26/23 22:59 06:59 14:59 Intake Total 2.566 40.536 Output Total 650 Balance 2.566 -609.464 Intake: Intake, IV Titration 2.566 40.536 Amount Morphine Sulfate (100 mg/ 2.566 40.536 2 ml) 100 mg In Sodium Chloride 0.9% 100 ml @ 1 MG/HR 1.02 mls/hr IV . Q24H [facility] Rx#:[id number] Output: Urine 650 Other: Weight 68 kg
--- NOTE | 2023-05-26 18:47 | P.DS ---
Providers Date of admission: 05/25/23 16:16 Expected date of discharge: 05/26/23 Attending physician: Huan Yanez MD Primary care physician: Kvng [facility] Course: Preliminary cause of Acute hypoxic Respiratory failure secondary to congestive heart failure Final diagnosis -UTI/sepsis, present on admission with bacteremia. Urine culture showing E. coli. Most recent repeat blood cultures have been negative thus far -Acute renal injury secondary to acute tubular necrosis due to severe sepsis -History of chronic kidney disease stage III B -acute on chronic congestive heart failure, diastolic dysfunction, EF 50-55% -Volume overload with pleural effusions noted on chest x-ray with acute hypoxic respiratory failure, worsening -Generalized weakness/fall with back pain -History of chronic back pain with lumbar stenosis -Left upper extremity swelling, acute DVT cannot be entirely excluded -Hypertension history -Hyperlipidemia -Hypothyroidism -Dementia history -History of sick sinus syndrome status post dual-chamber pacemaker implantation -Atrial fibrillation history -No code Discharge disposition Patient has . According to nursing documentation, time of was 11:11 on 05/26/2023. Family members were present at the bedside. Total time taken greater than 35 minutes. Hospital course This is an 88-year-old female who was recently admitted to the hospital with a fall and back pain with acute altered mentation was found to have a elevated white count and concerns of urinary tract infection with septicemia and positive blood cultures with E. coli. Patient had been maintained on IV antibiotics and continued to have extreme back pain with multiple medical consultations following. Patient became significantly weak and clinically declined having worsening respiratory status requiring high flow oxygen. Patient with acute on chronic kidney disease with concerns of congestive heart failure and volume overload with bilateral pleural effusions. Patient had multiple significant comorbidities and significant weakness along with concerns of small bowel obstruction versus ileus. Patient continued to deteriorate requiring more oxygen and worsening kidney functions with significant volume overload and decreased oral intake continued to decline and family requested informational hospice. Patient mentation slightly improved although does have history of dementia with memory impairment and family had met with hospice and agreeable to hospice services comfort measures. Patient met inpatient criteria secondary to continued increased oxygen demands and respiratory failure and had been placed on morphine drip. Patient was weaned from airvo to nasal cannula requiring increased morphine drip with family present. Patient ultimately at 11:11 on 05/26/2023 with family members present. Please refer to other consults documentations for further HPI. Patient's overall prognosis was extremely poor and guarded given significant comorbidities. The impression and plan of care has been dictated by Jess Paul, Nurse Practitioner as directed. Dr. Lee MD I have performed a history and examination and MDM of this patient, discussed the same with the dictator, and agree with the dictator's assessment and plan as written ,documented as a scribe. Based on total visit time, I have performed more than 50% of the visit. Patient Condition at Discharge: Poor Plan - Discharge Summary New Discharge Prescriptions: No Action Levothyroxine Sodium [Synthroid] 25 mcg PO DAILY Cyanocobalamin (Vitamin B-12) [Vitamin B-12] 1,000 mcg PO DAILY Multivitamins, Thera [Multivitamin (formulary)] 1 tab PO DAILY Apixaban [Eliquis] 5 mg PO BID Thiamine [Vitamin B-1] 100 mg PO DAILY Rivastigmine Tartrate [Rivastigmine] 4.5 mg PO BID Atorvastatin [Lipitor] 20 mg PO HS [place]-3 500mg 500 mg PO DAILY Discharge Medication List Levothyroxine Sodium [Synthroid] 25 mcg PO DAILY 04/10/20 [History] Apixaban [Eliquis] 5 mg PO BID 01/23/21 [History] Multivitamins, Thera [Multivitamin (formulary)] 1 tab PO DAILY 01/23/21 [History] Thiamine [Vitamin B-1] 100 mg PO DAILY 01/23/21 [History] Cyanocobalamin (Vitamin B-12) [Vitamin B-12] 1,000 mcg PO DAILY 04/11/21 [History] Rivastigmine Tartrate [Rivastigmine] 4.5 mg PO BID 04/11/21 [History] Atorvastatin [Lipitor] 20 mg PO HS 05/15/23 [History] [place]-3 500mg 500 mg PO DAILY 05/15/23 [History] Discharge Disposition: - Preliminary Cause of Preliminary Cause of : Acute hypoxic respiratory failure secondary to congestive heart failure
== END 2023-05-26 12:17 | disposition expired | DRG 951 ==
LOC: 3SCARD 16:16
PROVIDERS: ADMIT Internal Medicine; ATTEND Internal Medicine
DX: Z51.5 Encounter for palliative care (principal); A41.51 Sepsis due to Escherichia coli [E. coli]; I50.33 Acute on chronic diastolic (congestive) heart failure; N17.0 Acute kidney failure with tubular necrosis; J96.01 Acute respiratory failure with hypoxia; A41.9 Sepsis, unspecified organism; R65.20 Severe sepsis without septic shock; I13.0 Hypertensive heart and chronic kidney disease with heart failure and stage 1 through stage 4 chronic kidney disease, or unspecified chronic kidney disease; N39.0 Urinary tract infection, site not specified; E03.9 Hypothyroidism, unspecified; Z79.890 Hormone replacement therapy; E78.5 Hyperlipidemia, unspecified; F03.90 Unspecified dementia, unspecified severity, without behavioral disturbance, psychotic disturbance, mood disturbance, and anxiety; I48.91 Unspecified atrial fibrillation; N18.32 Chronic kidney disease, stage 3b; Z88.8 Allergy status to other drugs, medicaments and biological substances; Z79.01 Long term (current) use of anticoagulants; Z79.899 Other long term (current) drug therapy; Z87.891 Personal history of nicotine dependence; Z90.710 Acquired absence of both cervix and uterus; Z95.0 Presence of cardiac pacemaker
CPT/HCPCS: 94760